=== PATIENT | female | born 1945 | race Caucasian/White ===

== ENCOUNTER 2023-11-05 20:23 | Inpatient (IN) | payer MEDICARE, OTHER, SELFPAY ==
[2023-11-05 17:52] VITALS: BP 138/61
[2023-11-05 17:53] VITALS: BMI 34.2
[2023-11-05 18:01] VITALS: BMI 34.2
--- NOTE | 2023-11-05 18:15 | EDRN ---
Cady SERNA in room w/ pt at this time.
--- NOTE | 2023-11-05 18:26 | ED.GENMED ---
History of Present Illness
General
Chief Complaint: Abnormal Lab Value
Source: patient
Exam Limitations: none
Time Seen by Provider: 11/05/23 18:07
Travel History
Have you had any contact with someone who has COVID-19?: No
Do you have any symptoms of coronavirus? Fever > 100 degrees, chills, cough, shortness of breath, sore throat, loss of taste or smell, muscle aches, or headache?: No
History of Present Illness
History of Present Illness:
This is a 78 year old female that is brought in by ambulance with abnormal labs. States that she was told that her Hgb is less then 6. States that today she also had some vaginal bleeding as she gets a Depo shot every 90 days and she was due today.
States that she did get her shot. States that she has a headache. Denies any fever, chills, chest pain, SOB, abd pain, nausea, vomiting, diarrhea, black or bloody stool, dizziness, or urinary burning.
Past History
Past History
ED Past Medical History: CAD, GERD, HTN, Hypercholesterolemia, NIDDM, Renal failure, Hypothyroidism and Other (Dysfunctional uterine bleeding, chronic kidney disease pending dialysis, Renal calculus, Iron def anemia, hemorrhagic disorder due to
extrinsic Circulatory anticoagulation. PNA, Back pain, )
ED Past Surgical History: Appendectomy, Gynecological (D&C), Orthopedic (Left carpal tunnel ), Tonsilectomy, Urological (Kidney stent) and Other (L AV fistula)
Social History
Tobacco: Non-smoker
Alcohol: Occasional
Drug: None
Personal: Single
Living: half-way
Family History
Family History: Negative Diabetes, Hypertension, Early CAD, Asthma or Cancer
Review of Systems
Review of Systems
All Other Systems: ROS reviewed and negative except as documented in HPI and ROS
Constitutional: Reports no symptoms; Denies fever or chills
EENT: Reports no symptoms
Respiratory: Reports no symptoms; Denies cough or trouble breathing
Cardiac: Reports no symptoms; Denies chest pain
ABD/GI: Reports no symptoms; Denies abdominal pain, nausea, vomiting, diarrhea, bloody stools or black stools
: Reports no symptoms; Denies dysuria, frequency or urgency
Musculoskeletal: Reports no symptoms
Skin: Reports no symptoms
Neurological: Reports headache; Denies dizzy
Psychiatric: Reports no symptoms
Phy Exam
General Physical Exam
General Presentation: no apparent distress
General age: appears stated age
General Skin: warm and dry
General Habitus: debilitated and elderly
General Mental: alert
General Hydration: dry mucous membranes
ENT Exam
ENT Exam: TM's normal, pharynx normal and neck supple
Eye Exam
Eye Exam: EOMI
Cardiovascular Exam
Cardiovascular Exam: regular rate/rhythm, normal peripheral pulses and other (Murmur)
Pulmonary Exam
Pulmonary Exam: lungs clear, no respiratory distress, no rales, chest non tender, no crackles, no rhonchi, no wheezing and no cough
Gastrointestinal Exam
Gastrointestinal Exam: normal bowel sounds, non tender, soft, no organomegaly, no pulsatile mass, non distended and other (Stool black hem positive)
Musculoskeletal Exam
Musculoskeletal Exam: full ROM and edema (Lower legs nonpitting)
Skin Exam
Skin Exam: warm/dry, no petechia, pallor and other (:Lower leg skin growths)
Psychiatric Exam
Psychiatric Exam: normal mood/affect
Course
Orders/Labs/Results
Orders:
Orders
11/05/23 Dinner
Clear Liquid
At Your Request: Full Participation
11/05/23 18:13
Cardiac Monitoring- Treatment ONCE
IV Insert/Care/Rem.- Treatment PRN
11/05/23 18:33
Complete Blood Count/With Diff Urgent
Comprehensive Metabolic Panel Urgent
Ferritin Urgent
Comment: ADD ON
Folate Urgent
Comment: ADD ON
Iron Urgent
Comment: ADD ON
Prothrombin Time Urgent
Total Iron Binding Urgent
Comment: ADD ON
Vitamin B12 Urgent
Comment: ADD ON
11/05/23 18:42
Type+Screen Urgent
11/05/23 19:32
* Blood Bank Products Urgent
Blood Bank Products: *Packed RBC Leuko(PRBC's)
Quantity: 2
Transfuse Today: Yes
Reason: Bleeding
11/05/23 19:34
Pantoprazole [Protonix IV] 80 mg IV NOW STA
11/05/23 20:05
Admit/Transfer Patient As Directed
Co-Sign Provider:
Level of Care: Inpatient admission
Assign to:: Medical/Surgical
Physician / Group: nolan
Diagnosis: anemia
Reason for Hospitalization: anemia
Expected length of stay greater than two midnights?: Yes
ELOS- Estimated Length of Stay in days: 2
I certify the patient meets the requirements for IP care: Yes
Code Status As Directed
Resuscitation Status: Full Code
11/05/23 21:09
Acetaminophen [Tylenol] 650 mg PO Q4HPRN PRN
Bisacodyl [Dulcolax] 10 mg RECTAL DAILYPRN PRN
Dextrose 50%-Water [Dextrose 50% Syringe] 12.5 grams IV [id number] PRN
Docusate W/Senna [Senokot-S] 1 tablet PO [id number] PRN
Glucagon [GlucaGen] 1 mg IM PRN PRN
Polyethylene Glycol Powder [Miralax] 17 grams PO DAILYPRN PRN
11/05/23 21:09
Activity As Directed
Activity Level: As Tolerated
Bedside Glucose Monitoring As Directed
Frequency: AC&HS
Comment: Change to q6h if pt on TPN, tube feeding or not eating
Pneumatic Compression Sleeves As Directed
Type: Knee high
Vital Signs As Directed
Frequency: Per unit guidelines
DX Deep Vein Thrombosis Video Routine
11/05/23 21:21
Ammonium Lactate 12% [Lac Hydrin, Am Lactin Lotion] 0 applic TOPICAL F20IATE PRN
11/05/23 22:00
HydrALAZINE [Apresoline] 50 mg PO TID
11/06/23 06:00
Complete Blood Count/With Diff IN AM
Comprehensive Metabolic Panel IN AM
Glycohemoglobin (HgbA1c) IN AM
11/06/23 07:00
Levothyroxine [Synthroid] 25 mcg PO DAILY AT 0700
11/06/23 07:30
Insulin Aspart Corrective Low [Novolog Flexpen-Low Resistance] See Protocol SC AC
11/06/23 08:00
Allopurinol [Zyloprim] 100 mg PO DAILY
Atorvastatin [Lipitor] 40 mg PO DAILY
Carvedilol [Coreg] 25 mg PO BID
Cyanocobalamin [Vitamin B-12] 1,000 mcg PO DAILY
FOLic ACID [Folvite] 1 mg PO DAILY
Ferrous Sulfate [Feosol] 325 mg PO Q48H
Gabapentin [Neurontin] 300 mg PO DAILY
Miconazole Nitrate [Desenex/Mitrazol/Zeasorb] 0 applic TOPICAL BID
Pantoprazole [Protonix IV] 40 mg IV BID
Sodium Bicarbonate 1,300 mg PO BID
Torsemide [Demadex] 20 mg PO BID AT 0800,1600
Abnormal Lab Results
11/05/23 11/05/23
18:33 18:42
RBC 2.17 L 10^6/uL
(4.20-5.40)
Hgb 6.9 L* g/dL
(12.0-16.0)
Hct 20.4 L* %
(37.0-47.0)
MCH 31.8 H pg
(27.0-31.0)
Carbon Dioxide 19 L mmol/L
(22-30)
BUN 94 H mg/dl
(7-17)
Creatinine 4.0 H mg/dL
(0.6-1.0)
Glucose 114 H mg/dl
(70-99)
Total Protein 6.1 L g/dl
(6.3-8.2)
Vitamin B12 > 1000 H pg/ml
(239-931)
Folate > 20.0 H ng/ml
(2.76-20)
Crossmatch IS Only See Detail
11/05/23 18:33
11/05/23 18:33
H/H very low. Chronic renal failure, Glucose nonfasting. Total protein slighlty low. PT 14.4 with INR 1.14
Vital Signs
Initial and Last Documented VS:
Initial Vital Signs
Temp Pulse Resp BP Pulse Ox
97.8 F 70 18 138/61 100
11/05/23 17:52 11/05/23 17:52 11/05/23 17:52 11/05/23 17:52 11/05/23 17:52
Last Documented Vital Signs
Temp Pulse Resp BP Pulse Ox
97.8 F 68 20 139/80 99
11/06/23 03:36 11/06/23 03:36 11/06/23 03:36 11/06/23 03:36 11/06/23 03:00
MDM/Problems Addressed
Differential Diagnosis Includes:
GI bleeding. Abnormal labs
MDM/Problems Addressed:
This is a 78 year old female that comes in with c/o abnormal labs. States that she was told that her Hgb is 6.
Will get labs and give PRBC's as needed. Will admit as patient has hem positive stool on exam. Hospitalist notified about admittion.
Chronic conditions affecting care:
Hemorrhagic disorder Due to Extrinsic circulatory anticoagulants. Iron Def anemia
Acute Exacerbation and/or Progression of Chronic Illness:
Anemia,
*Pulse Oximetry
Patient hypoxic: no
*Critical Care Note
Total Time (30-74mins, 75-104mins- exclusive of procedures): Not Applicable
ED Attending Note
-
Portions of this chart may have been created with voice recognition software.� Occasional wrong word or��sound alike� substitutions may have occurred due to the inherent limitations of voice recognition software.
Discharge Plan
Departure
Patient Disposition: Admit
Date of Disposition: 11/05/23
Time of Disposition: 19:34
Admit to: Telemetry
Presentation/result/management discussed w/ accepting MD/DO: Hospitalist
Patient with high blood pressure during this ER visit?: No
Condition: Good
Covid-19: Not Applicable
Discharge Problem:
GI bleed
Interventions
Interventions:
*Risk Screen - Suicide Last Done: 11/05/23 17:53
*General Assessment Last Done: 11/05/23 17:53
*Neglect/Abuse Screening Last Done: 11/05/23 17:53
ED- Fall Risk Assessment Last Done: 11/05/23 19:13
*ED COVID-19 Vaccine History Last Done: 11/05/23 17:52
*Nursing Disposition Last Done: 11/05/23 21:30
Discharge Date and Time
Discharge Date/Time: 11/05/23 21:30
[2023-11-05 18:46] LABS: % Basophils 0.8 % (0-2); % Eosinophils 4.4 % (0-6); % Immature Granulocytes 0.5 % (0-0.5); % Lymphocytes 21.8 % (20.5-51.1); % Monocytes 5.2 % (1.7-9.3); % Neutrophils 67.3 % (42.2-75.2); Absolute Basophils 0.1 10^3/uL (0-0.2); Absolute Eosinophils 0.3 10^3/uL (0-0.7); Absolute Lymphocytes 1.4 10^3/uL (1.2-3.4); Absolute Monocytes 0.3 10^3/uL (0.1-0.6); Absolute Neutrophils 4.3 10^3/uL (1.4-6.5); Mean Corp Hgb Conc. 33.8 g/dL (33.0-37.0); Mean Corpuscular Hgb 31.8 pg (27.0-31.0); Mean Platelet Volume 9.2 fL (7.4-10.4); Nucleated Red Blood Cells % 0 %; Platelet Count 201 10^3/uL (130-400); Red Blood Cell Count 2.17 10^6/uL (4.20-5.40); Red Cell Dist. Width 14.3 % (11.5-14.5); White Blood Cell Count 6.3 10^3/uL (4.8-10.8)
[2023-11-05 18:49] LABS: Hematocrit 20.4 % (37.0-47.0); Hemoglobin 6.9 g/dL (12.0-16.0)
[2023-11-05 18:51] VITALS: BP 129/62
[2023-11-05 18:56] LABS: INR 1.14; PT 14.4 Sec (11.4-14.6)
[2023-11-05 18:57] LABS: ALT (SGPT) 16 U/L (0-35); AST (SGOT) 22 U/L (14-36); Albumin 3.6 g/dl (3.5-5.0); Alkaline Phosphatase 67 U/L (38-126); Blood Urea Nitrogen 94 mg/dl (7-17); Calcium 9.7 mg/dl (8.4-10.2); Carbon Dioxide 19 mmol/L (22-30); Estimated Creatinine Clearance 14 ml/min; Glucose 114 mg/dl (70-99); Total Bilirubin 0.5 mg/dl (0.2-1.3); Total Protein 6.1 g/dl (6.3-8.2); eGFR 10.92
[2023-11-05 19:12] LABS: Chloride 104 mmol/L (98-107); Potassium 4.9 mmol/L (3.5-5.1); Sodium 136 mmol/L (135-145)
[2023-11-05] MEDS: PROTONIX IV 80 MG IV (19:48)
--- NOTE | 2023-11-05 20:08 | HPS.HSE ---
Family Physician
-
Family Physician: Jhonathan Gabriel
Chief Complaint
-
anemia
History of Present Illness
78-year-old female past medical history of CAD, hypertension, GERD, hypercholesteremia, diabetes, CKD 4 about to start dialysis, hypothyroidism, iron deficiency anemia, renal calculus, gout, obesity, chronic anemia, gallstones, presenting with
abnormal labs presenting with abnormal labs. She states her hemoglobin was less than 6 and was sent to the ER. She denies any dizziness, shortness of breath or chest pain. She states that she got a D&C a year ago and since then she has been
having vaginal bleeding every few months for which she has been receiving Depo-Provera every 3 months. Her last injection was today. She denies any recent vaginal bleeding. She denies any blood in her stool or black stool or changes in her bowel
movements. Denies diarrhea or constipation. Denies any history of blood in her stool.
She denies any fevers or chills. Denies nausea or vomiting.
Patient receives Procrit by Dr. Kim every week. She is due for Procrit injection next week. She is on the verge of starting dialysis and has a fistula which is maturing.
Denies smoking. She drinks alcohol occasionally.
Medical History
Past Medical History
Past Medical History: Reports Other (CAD, hypertension, GERD, hypercholesteremia, diabetes, CKD 4 about to start dialysis, hypothyroidism, iron deficiency anemia, renal calculus, gout, obesity, chronic anemia, gallstones)
Past Surgical History: Reports Other (Appendectomy, Gynecological (D&C), Orthopedic (Left carpal tunnel ), Tonsilectomy, Urological (Kidney stent) and Other (L AV fistula))
Social History
Tobacco: Non-smoker
Alcohol: None
Drug: None
Family History
Family History: Not pertinent
Allergies / Home Medications
Allergies reflects when Allergies were last updated in [employer].
Home Medications with original date entered in [employer]
Allergy/Medication List:
Allergies
Allergy/AdvReac Type Severity Reaction Status Date / Time
Penicillins Allergy Hives Verified 11/05/23 17:51
Home Medications
allopurinol 100 mg tablet 100 mg PO DAILY Gout 09/07/22
ammonium lactate 12 % topical cream 1 applic topical [id number] PRN B/L legs 09/07/22
aspirin 81 mg tablet,delayed release 81 mg PO DAILY Blood clot prevention/tx 09/07/22
atorvastatin 40 mg tablet (Lipitor) 40 mg PO DAILY High cholesterol 09/07/22
carvedilol 25 mg tablet (Coreg) 25 mg PO BID Heart disease/condition 09/07/22
folic acid 1 mg tablet 1 mg PO DAILY Supplement 09/07/22
sodium bicarbonate 650 mg tablet 1,300 mg PO BID Supplement 09/07/22
hydralazine 50 mg tablet 50 mg PO TID Blood pressure 10/26/22
pantoprazole 40 mg tablet,delayed release 40 mg PO DAILY Gastrointestinal issue 10/31/22
bisacodyl 10 mg rectal suppository 10 mg [place] DAILYPRN PRN constipation #0 ea 11/22/22
acetaminophen 325 mg tablet (Tylenol) 650 mg PO Q4HPRN PRN mild pain/temp 100F or above 11/28/22
levothyroxine 25 mcg tablet 25 mcg PO DAILY Thyroid 11/28/22
cyanocobalamin (vitamin B-12) 1,000 mcg tablet 1,000 mcg PO DAILY #0 tabs 12/06/22
insulin aspart U-100 100 unit/mL (3 mL) subcutaneous pen (Novolog FlexPen U-100 Insulin aspart) 0 - 12 sliding scale dose SC ACHS Diabetes 03/26/23
sennosides 8.6 mg-docusate sodium 50 mg tablet (Senna with Docusate Sodium) 1 tab PO [id number] PRN constipation 03/27/23
gabapentin 100 mg capsule 100 mg PO TID Pain #0 caps 03/28/23
polyethylene glycol 3350 17 gram oral powder packet (Miralax) 17 g PO DAILY PRN Constipation 07/17/23
epoetin dora 10,000 unit/mL injection solution (Procrit) 10,000 unit SC TU PRN give only for HGB 10 or less 10/18/23
ferrous sulfate 325 mg (65 mg iron) tablet 325 mg PO Q48H Supplement 10/18/23
miconazole nitrate 2 % topical powder (Miconazorb AF) 1 applic topical BID apply to ABD folds/groin 10/18/23
torsemide 10 mg tablet 20 mg PO BID 10/18/23
Review of Systems
-
History Source: Patient
A 12 point ROS was completed and negative except as noted: Yes
Constitutional: Reports No Symptoms
EENT: Reports No Symptoms
Respiratory: Reports No Symptoms
Cardiac: Reports No Symptoms
Abdomen/GI: Reports No Symptoms
: Reports No Symptoms
Musculoskeletal: Reports No Symptoms
Skin: Reports No Symptoms
Neurological: Reports No Symptoms
Endocrine: Reports No Symptoms
Hematologic/Lymphatic: Reports No Symptoms
Psych: Reports No Symptoms
Physical Exam
Vital Signs
Vital Signs
Temp Pulse Resp BP Pulse Ox
97.8 F 62 16 129/62 100
11/05/23 17:52 11/05/23 18:51 11/05/23 18:51 11/05/23 18:51 11/05/23 19:13
Physical Exam
General: Well Developed, Well Nourished and No Apparent Distress
HEENT: NormoCephalic, Moist mucous membranes and Atraumatic
Respiratory: Clear
Cardiac: S1/S2 and Regular Rhythm; No Murmur or Rub
GI: Soft, Non Tender, Non Distended and Normal Bowel Sounds; No Organomegaly
Rectal: Deferred by Provider
Musculoskeletal: No Clubbing, No Cyanosis and No Edema
Skin: No Rash
Neuro: Nonfocal/grossly intact
Laboratory Results
-
11/05/23 18:33
11/05/23 18:33
Laboratory Results
PT 14.4 Sec (11.4-14.6) 11/05/23 18:33
INR 1.14 11/05/23 18:33
Total Bilirubin 0.5 mg/dl (0.2-1.3) 11/05/23 18:33
AST 22 U/L (14-36) 11/05/23 18:33
ALT 16 U/L (0-35) 11/05/23 18:33
Alkaline Phosphatase 67 U/L (38-126) 11/05/23 18:33
Data Reviewed
-
Lab Data: Labs Reviewed by me
Old Records: Reviewed
Impression/Plan
-
IMPRESSION:
PLAN:
# Acute on chronic anemia multifactorial secondary to upper GI bleeding/anemia of renal disease
-Stool black and heme positive
-Hemoglobin 6.9 from 7.3 previously
-2 units of blood transfusion
-Hold aspirin
-Clear liquid diet
-Protonix 40 IV twice daily
-Continue iron supplement
-GI consulted
-Nephrology consulted for Procrit
CKD4
-On the verge of starting dialysis
-Continue sodium bicarbonate
-Continue torsemide
Coronary artery disease
-Hold aspirin
Essential hypertension
-Continue hydralazine
-Continue Coreg
Type 2 diabetes
-Insulin sliding scale
History of gallstones
Hyperlipidemia
-Continue statin
Hypothyroidism
-Continue levothyroxine
Gout
-Continue allopurinol
Morbid obesity
Full code
DVT prophylaxis�SCDs
N.p.o.
[2023-11-05 20:50] VITALS: BP 143/52
--- NOTE | 2023-11-05 21:18 | PTCARENOTE ---
Pt received from ED to [facility]. Pt oriented to room and call hoang..
[2023-11-05 21:25] VITALS: BP 154/69
[2023-11-05 21:27] VITALS: BMI 33.3
[2023-11-05 21:44] LABS: Iron 134 ug/dl (37-170)
[2023-11-05 21:53] VITALS: BP 154/69
[2023-11-05 21:53] LABS: Percent Saturation 43 % (20-50); Total Iron Binding Capacity 308 ug/dl (265-497)
[2023-11-05] MEDS: APRESOLINE 50 MG PO (21:58)
[2023-11-05 22:11] VITALS: BP 136/50
[2023-11-05 22:29] LABS: Ferritin 29.7 ng/ml (11.1-264.0)
[2023-11-05 23:00] LABS: Folate > 20.0 ng/ml (2.76-20); Vitamin B12 > 1000 pg/ml (239-931)
[2023-11-05 23:26] LABS: Glucose - Point of Care 106 mg/dl (70-99)
[2023-11-06] VITALS (8 sets, daily range): BP systolic 122–152; BP diastolic 50–80; BMI 33.3
[2023-11-06] MEDS: SYNTHROID 25 MCG PO (05:38)
--- NOTE | 2023-11-06 06:51 | CON.GI ---
Consultation
-
Date/Time Consultation Performed: 11/06/23
Performing Provider: Scott Spring MD
Reason for Consultation: anemia
Medical History
Chief Complaint / HPI
Chief Complaint: fatigue
History of Present Illness:
The patient is a 78-year-old female with past medical history as noted presents with abnormal labs. She was found to have an outpatient hemoglobin of less than 6 and sent to the emergency room where her hemoglobin was found to be 6.9 with an MCV in
the 90s. She has had chronic anemia, which has been multifactorial, with mixed iron studies, the mostly has been anemia of chronic disease. She has been having some vaginal bleeding intermittently on Depo-Provera, and notices at the end of the
cycle she has some small mount of vaginal bleeding. She has no gross GI bleeding, and has dark formed stools on oral iron which has been chronic, though no loose or tarry stools, gross red bleeding or change in bowel habits. She did have an
endoscopy and a colonoscopy a year ago that showed multiple colon polyps, including 2 large polyps that were not removed. She has had multiple scheduled and canceled appointments with Dr. Zambrano, though did most recently see him in August and is
planned to have repeat colonoscopy in December for polypectomy. Previously she was on dual antiplatelet therapy and anticoagulation though currently per her medication list is only on aspirin and she denies any other NSAIDs. She denies any chest pain
or shortness of breath and is overall feeling well.
Past Medical History
Past Medical History: Other (CAD, hypertension, GERD, hypercholesteremia, diabetes, CKD 4 about to start dialysis, hypothyroidism, iron deficiency anemia, renal calculus, gout, obesity, chronic anemia, gallstones)
Past Surgical History: Other (Appendectomy, Gynecological (D&C), Orthopedic (Left carpal tunnel ), Tonsilectomy, Urological (Kidney stent) and Other (L AV fistula))
Social History
Tobacco: Non-Smoker
Alcohol: None
Drug: None
Family History
Family History: Reviewed & Not Pertinent
Allergies / Home Medications
Allergy/AdvReac Type Severity Reaction Status Date / Time
Penicillins Allergy Hives Verified 11/05/23 17:51
Medication Instructions Recorded
allopurinol 100 mg tablet 100 mg PO DAILY Gout 09/07/22
ammonium lactate 12 % topical cream 1 applic topical [id number] PRN B/L 09/07/22
legs
aspirin 81 mg tablet,delayed 81 mg PO DAILY Blood clot 09/07/22
release prevention/tx
atorvastatin 40 mg tablet (Lipitor) 40 mg PO DAILY High cholesterol 09/07/22
carvedilol 25 mg tablet (Coreg) 25 mg PO BID Heart 09/07/22
disease/condition
folic acid 1 mg tablet 1 mg PO DAILY Supplement 09/07/22
sodium bicarbonate 650 mg tablet 1,300 mg PO BID Supplement 09/07/22
hydralazine 50 mg tablet 50 mg PO TID Blood pressure 10/26/22
pantoprazole 40 mg tablet,delayed 40 mg PO DAILY Gastrointestinal 10/31/22
release issue
bisacodyl 10 mg rectal suppository 10 mg [place] DAILYPRN PRN constipation 11/22/22
#0 ea
acetaminophen 325 mg tablet 650 mg PO Q4HPRN PRN mild 11/28/22
(Tylenol) pain/temp 100F or above
levothyroxine 25 mcg tablet 25 mcg PO DAILY Thyroid 11/28/22
cyanocobalamin (vitamin B-12) 1,000 mcg PO DAILY #0 tabs 12/06/22
1,000 mcg tablet
insulin aspart U-100 100 unit/mL 0 - 12 sliding scale dose SC ACHS 03/26/23
(3 mL) subcutaneous pen (Novolog Diabetes
FlexPen U-100 Insulin aspart)
sennosides 8.6 mg-docusate sodium 1 tab PO [id number] PRN constipation 03/27/23
50 mg tablet (Senna with Docusate
Sodium)
gabapentin 100 mg capsule 100 mg PO TID Pain #0 caps 03/28/23
polyethylene glycol 3350 17 gram 17 g PO DAILY PRN Constipation 07/17/23
oral powder packet (Miralax)
epoetin dora 10,000 unit/mL 10,000 unit SC TU PRN give only 10/18/23
injection solution (Procrit) for HGB 10 or less
ferrous sulfate 325 mg (65 mg 325 mg PO Q48H Supplement 10/18/23
iron) tablet
miconazole nitrate 2 % topical 1 applic topical BID apply to ABD 10/18/23
powder (Miconazorb AF) folds/groin
torsemide 10 mg tablet 20 mg PO BID 10/18/23
glucagon HCl 1 mg solution for 1 mg SC Q20M PRN hypoglycemia 11/05/23
injection (Glucagon (HCl)
Emergency Kit)
loperamide 2 mg tablet 2 mg PO Q6H PRN diarrhea 11/05/23
Review of Systems
-
All other systems: A 12 pt ROS was Negative except as stated above in HPI
Vital Signs
Temp Pulse Resp BP Pulse Ox
97.8 F 68 20 139/80 99
11/06/23 03:36 11/06/23 03:36 11/06/23 03:36 11/06/23 03:36 11/06/23 03:00
Physical Exam
Exam
General: NAD
HEENT: MMM, anicteric, no lymphadenopathy
Heart: Regular, 2/6 systolic murmurs
Lungs: CTA bilaterally
Abdomen: normal bowel sounds, soft, no tenderness, no rebound or guarding, no masses, bruits or ascites
Extremeties: 3+ edema
Skin: no rashes
Results
WBC 6.3 10^3/uL (4.8-10.8) 11/05/23 18:33
Hgb 6.9 g/dL (12.0-16.0) L* 11/05/23 18:33
Hct 20.4 % (37.0-47.0) L* 11/05/23 18:
MCV 94.0 fL (81.0-99.0) 11/05/23 18:
Plt Count 201 10^3/uL (130-400) 11/05/23 18:
Absolute Neuts (auto) 4.3 10^3/uL (1.4-6.5) 11/05/23 18:
PT 14.4 Sec (11.4-14.6) 11/05/23 18:
INR 1.14 11/05/23 18:
Sodium 136 mmol/L (135-145) 11/05/23:
Potassium 4.9 mmol/L (3.5-5.1) 11/05/23:
Chloride 104 mmol/L (98-107) 11/05/23:
Carbon Dioxide 19 mmol/L (22-30) L 11/05/23:
BUN 94 mg/dl (7-17) H 11/05/23 18:
Creatinine 4.0 mg/dL (0.6-1.0) H 11/05/23:
Calcium 9.7 mg/dl (8.4-10.2) 11/05/23:
Total Bilirubin 0.5 mg/dl (0.2-1.3) 11/05/23 18:
AST 22 U/L (14-36) 11/05/23:
ALT 16 U/L (0-35) 11/05/23 18:
Alkaline Phosphatase 67 U/L (38-126) 11/05/23 18:
Diagnostic Image Results:
Prior GI Procedures:
EGD:
10/23:
Impression:� � � � � � - Normal esophagus.
�� � � � � � � � � � � - Erythematous mucosa in the stomach. Biopsied.
�� � � � � � � � � � � - Mucosal nodule found in the duodenum. Biopsied.
�� � � � � � � � � � � - Normal second portion of the duodenum. Biopsied.
Colonoscopy:
10/23:
Impression:� � � � � � - Preparation of the colon was poor.
�� � � � � � � � � � � - Five 3 to 6 mm polyps in the rectum, in the sigmoid
�� � � � � � � � � � � colon and in the cecum, removed with a cold snare.
�� � � � � � � � � � � Resected and retrieved.
�� � � � � � � � � � � - One 1 mm polyp in the cecum, removed with a jumbo
�� � � � � � � � � � � cold forceps. Resected and retrieved.
�� � � � � � � � � � � - One 20 mm polyp in the cecum. Biopsied.
�� � � � � � � � � � � - One 18 mm polyp in the ascending colon. Biopsied.
�� � � � � � � � � � � - One 10 mm polyp in the transverse colon, removed
�� � � � � � � � � � � with a hot snare. Complete resection. Partial
�� � � � � � � � � � � retrieval. Clips were placed.
�� � � � � � � � � � � - Internal hemorrhoids.
Assessment / Plan
-
1. Anemia: Multifactorial, mostly secondary to anemia of chronic diseases with worsening renal insufficiency, planning on dialysis in the next several months, with history of iron deficiency also, with vaginal bleeding, following closely with RECORDS MANAGEMENT COORDINATOR.
While GI blood loss is not excluded this does seem less likely as she has had no melena, and only formed dark stools which have been chronic. This was Hemoccult positive by report, though again doubt any significant brisk active GI bleeding. She
did have several large colon polyps, and while colonic malignancy is not completely excluded this also seems less likely within just a year. Her iron studies are now normal, again feels well with no new GI symptoms and no gross GI bleeding. At
this point given her dark stools, however, we will plan EGD today and will continue PPI for now. We discussed the possibility of colonoscopy while she is an inpatient though she declines, again knowing of the very small chance though not completely
excluded of colonic malignancy. She wants to follow-up as previously scheduled in December for her colonoscopy with Dr. Zambrano.
-
-
Thank you for consultation and allowing me to participate in the patient's care. Please call the rn oncology research GI physician during the after hours with any questions or concerns.
[2023-11-06 07:48] LABS: Glucose - Point of Care 92 mg/dl (70-99)
[2023-11-06 08:00] LABS: % Basophils 0.7 % (0-2); % Eosinophils 4.8 % (0-6); % Immature Granulocytes 0.4 % (0-0.5); % Lymphocytes 21.9 % (20.5-51.1); % Monocytes 5.6 % (1.7-9.3); % Neutrophils 66.6 % (42.2-75.2); Absolute Eosinophils 0.3 10^3/uL (0-0.7); Absolute Lymphocytes 1.2 10^3/uL (1.2-3.4); Absolute Monocytes 0.3 10^3/uL (0.1-0.6); Absolute Neutrophils 3.6 10^3/uL (1.4-6.5); Hematocrit 26.7 % (37.0-47.0); Mean Corp Hgb Conc. 32.6 g/dL (33.0-37.0); Mean Platelet Volume 9.2 fL (7.4-10.4); Nucleated Red Blood Cells % 0 %; Platelet Count 181 10^3/uL (130-400); Red Blood Cell Count 2.81 10^6/uL (4.20-5.40); Red Cell Dist. Width 14.3 % (11.5-14.5); White Blood Cell Count 5.4 10^3/uL (4.8-10.8)
[2023-11-06 08:08] LABS: Hemoglobin 8.7 g/dL (12.0-16.0)
[2023-11-06] MEDS: APRESOLINE 50 MG PO ×3 (08:14→21:14)
[2023-11-06] MEDS: DEMADEX 20 MG PO ×2 (08:15→15:57)
[2023-11-06] MEDS: COREG 25 MG PO ×2 (08:15→21:13)
[2023-11-06] MEDS: FEOSOL 325 MG PO (08:15)
[2023-11-06] MEDS: FOLVITE 1 MG PO (08:15)
[2023-11-06] MEDS: DESENEX/MITRAZOL/ZEASORB 1 APPLIC TOPICAL ×2 (08:15→21:16)
[2023-11-06] MEDS: NEURONTIN 300 MG PO (08:16)
[2023-11-06] MEDS: NSS (PRESERVATIVE FREE) 10 ML IV (08:16)
[2023-11-06] MEDS: SODIUM BICARBONATE 1300 MG PO ×3 (08:16→21:14)
[2023-11-06] MEDS: PROTONIX IV 40 MG IV (08:16)
[2023-11-06] MEDS: LIPITOR 40 MG PO (08:16)
[2023-11-06] MEDS: VITAMIN B-12 1000 MCG PO (08:17)
[2023-11-06] MEDS: ZYLOPRIM 100 MG PO (08:17)
[2023-11-06 08:33] LABS: ALT (SGPT) 12 U/L (0-35); AST (SGOT) 17 U/L (14-36); Albumin 2.9 g/dl (3.5-5.0); Alkaline Phosphatase 60 U/L (38-126); Blood Urea Nitrogen 94 mg/dl (7-17); Calcium 9.9 mg/dl (8.4-10.2); Carbon Dioxide 20 mmol/L (22-30); Chloride 106 mmol/L (98-107); Estimated Creatinine Clearance 15 ml/min; Glucose 90 mg/dl (70-99); Potassium 4.3 mmol/L (3.5-5.1); Sodium 138 mmol/L (135-145); Total Bilirubin 0.7 mg/dl (0.2-1.3); Total Protein 5.3 g/dl (6.3-8.2); eGFR 11.62
[2023-11-06 08:37] LABS: Glycohemoglobin (HgbA1c) 5.2 % (4.0-5.6)
--- NOTE | 2023-11-06 09:08 | W.PN.HOSP.TC ---
Today's Communication/Plan
-
.
Assessment / Plan
Assessment / Plan
Physical Exam
-
General: Chronically ill looking, No Apparent Distress
HEENT: Normocephalic, Atraumatic, Moist Mucous Membranes. Pale.
Respiratory: Clear to Auscultation
Cardiac: S1 S2, + murmur
GI: Soft, Nontender, Nondistended and Normal Bowel Sounds.
Rectal: No rectal bleeding noted.
Musculoskeletal: No Clubbing, No Cyanosis and No Edema. Fistula in left wrist
Skin: Negative Rash
Neuro: Awake, Alert, Oriented, AO x 3 and Nonfocal/Grossly Intact
Psych: Calm
# Acute on chronic anemia to acute blood loss anemia and anemia of chronic disease due to CKD
s/p 2 units of blood transfusion
-Stool black and heme positive
-Hemoglobin 6.9 from 7.3 previously
--Hold aspirin
-NPO for now , plan for EGD today
-Protonix 40 IV twice daily
-Continue iron supplement
-Appreciate GI input.
# CKD5
-On the verge of starting dialysis. Left wrist fistula noted.
-Continue sodium bicarbonate
-Continue torsemide
#Coronary artery disease
No chest pain
-Hold aspirin
#Essential hypertension
Uncontrolled. WIll give hydralazine & Coreg, adjust the dose during the day , she is NPO now.
Add PRN IV Hydralazine
# Gait dysfunction
on wheelchair but able to stand
#Type 2 diabetes
-Insulin sliding scale
#History of gallstones
#Hyperlipidemia
-Continue statin
#Hypothyroidism
-Continue levothyroxine
#Gout
-Continue allopurinol
# obesity. BMI 33
Full code
DVT prophylaxis�SCDs
Total time spent to see the patient, examine the patient on the floor, review data and lab results, discuss treatment plan with patient and nursing staff around 55 minutes
Anticipated Discharge: 24 - 48 hours
Subjective/Interval History
-
Date of Service: November 06, 2023
Objective Data
-
Labs:
Laboratory Results
11/06/23
06:23
WBC 5.4
Hgb 8.7 L D
Hct 26.7 L
Plt Count 181
Sodium 138
Potassium 4.3
Chloride 106
Carbon Dioxide 20 L
BUN 94 H
Creatinine 3.8 H
Glucose 90
Calcium 9.9
Total Bilirubin 0.7
AST 17
ALT 12
Alkaline Phosphatase 60
Vital Signs:
Vital Signs
Temp Pulse Resp BP Pulse Ox
97.8 F 66 20 152/50 100
11/06/23 07:30 11/06/23 07:30 11/06/23 07:30 11/06/23 07:30 11/06/23 07:30
I&O
11/05/23 11/06/23 11/07/23
06:59 06:59 06:59
Intake Total 620 / 620
Output Total 1000 / 1000
Balance -380 / -380
--- NOTE | 2023-11-06 09:56 | CON.MD ---
Consultation - Medical
-
Assessment:
Anemia (2/2 to UGIB + anemia of chronic disease)
CAD
HTN (multi drug regimen)
DLD
GERD
CKD 4/5 bl Cr 3.1-3.9 (fistula in place)
Hx of recurrent obstructive uropathy
Hysteroscopy DC, failed endometrial ablation Nov 2022
Metabolic acidosis (on bicarb)
hypothyroidism
gallstones
DVT (not on AC)
Gout
Plan:
- Cr appears to be within her baseline
- no uremic sxs (anorexia, metallic taste, tremor)
- currently NPO, when diet reinitiates please place on low K diet
- metabolic acidosis noted, will increase sodium bicarb to 1300mg TID
- okay to continue antihypertensives as the patient remains hypertensive. if bp drops, please hold
- c/w torsemide 20mg BID as patient appears euvolemic. if BP drops, please hold
- no urgent indications for dialysis at this time, likely can start as an outpatient. planned for f/u with Dr. Kim on 11/12
[2023-11-06] MEDS: EPOGEN 10000 UNITS SC (11:57)
[2023-11-06 12:02] LABS: Glucose - Point of Care 102 mg/dl (70-99)
--- NOTE | 2023-11-06 12:44 | CM ---
medication manager reviewed patient's chart and met with patient and patient and daughter at bedside, patient has been living at [facility] for 15 months, Per patient she is able to stand and pivot with transfer to /, eating is a set up. Patient's
plan is to return to [facility] when stable.
[facility]
[phone]

Plan Patient to return to [facility] when stable.
[2023-11-06 17:00] LABS: Glucose - Point of Care 130 mg/dl (70-99)
[2023-11-06 21:38] LABS: Glucose - Point of Care 109 mg/dl (70-99)
[2023-11-07] MEDS: SYNTHROID 25 MCG PO (04:53)
[2023-11-07 05:39] VITALS: BMI 33.2
[2023-11-07 07:00] VITALS: BP 135/50
[2023-11-07 07:48] LABS: Hematocrit 25.2 % (37.0-47.0); Hemoglobin 8.5 g/dL (12.0-16.0); Mean Corp Hgb Conc. 33.7 g/dL (33.0-37.0); Mean Corpuscular Hgb 31.6 pg (27.0-31.0); Mean Corpuscular Volume 93.7 fL (81.0-99.0); Mean Platelet Volume 9.1 fL (7.4-10.4); Platelet Count 180 10^3/uL (130-400); Red Blood Cell Count 2.69 10^6/uL (4.20-5.40); Red Cell Dist. Width 14.5 % (11.5-14.5); White Blood Cell Count 4.9 10^3/uL (4.8-10.8)
[2023-11-07 07:52] LABS: Glucose - Point of Care 105 mg/dl (70-99)
--- NOTE | 2023-11-07 08:59 | W.DCSUMMARY ---
Discharge Summary
Discharge Data
Date of Admission: 11/05/23
Date of Discharge: 11/07/23
-
Pending Results: No
Hospital Course
78 years old female presented to the emergency room with anemia. Hemoglobin on admission was 6.9. Patient was sent over for evaluation of anemia. Patient reported history of chronic anemia. She denied dizziness, shortness of breath or chest
pain. She had history of vaginal bleeding but denied recent vaginal bleeding. She was under care of shiatsu therapist. Patient denied nausea or vomiting. No abdominal pain. Patient had history of chronic kidney disease stage V with fistula in place.
Patient had Hemoccult positive stool. Stool was dark color and she was taking iron supplement for iron deficient anemia in addition to anemia of chronic disease. She was evaluated by corporate vp advertising & online. Patient had upper endoscopy that showed
normal esophagus, mild erythematous mucosa in the stomach with few nonbleeding angiectasia in the duodenum. Kerrick Kleaner Operator recommended to continue treatment for anemia of chronic disease. Patient received 2 units of blood transfusion and her
hemoglobin stabilized around 8. Patient was evaluated by groundhand and was given Epogen injection. She had metabolic acidosis and sodium bicarbonate dose was increased. Patient followed with nephrology in the outpatient setting. Patient
remained hemodynamically stable. She tolerated diet. Patient was discharged in a stable condition.
Physical Exam
General: Chronically ill looking,� No Apparent Distress
HEENT: Normocephalic, Atraumatic, Moist Mucous Membranes. �
Respiratory: Clear to Auscultation
Cardiac: S1 S2, + murmur
GI: Soft, Nontender, Nondistended and Normal Bowel Sounds.
Rectal: No rectal bleeding noted.
Musculoskeletal: No Clubbing, No Cyanosis and No Edema. Fistula in left wrist
Skin: chronic scaly, raised think yellow-brown in lower legs. Lymphedema noted.
Neuro: Awake, Alert, Oriented, AO x 3 and Nonfocal/Grossly Intact
Psych: Calm.
Total discharge time spent to see the patient, examine the patient on the floor, review data and lab results, discuss discharge plan with patient and nursing staff around 65 minutes
Discharge Plan
-
Patient Disposition: Long-Term/SNF
Discharge Diagnosis/Procedures: Anemia of chronic disease status posttransfusion of 2 units of blood. Epogen injection.
Chronic kidney disease stage V with metabolic acidosis. Increased the dose of sodium bicarbonate pills.
Diet: As tolerated
Referrals:
Jhonathan Gabriel MD [Family Provider] - in one to two weeks
Nasim Kim MD [Active] - in one to two weeks
Prescriptions:
Continued
allopurinol 100 mg Tablet
100 mg PO DAILY
atorvastatin [Lipitor] 40 mg Tablet
40 mg PO DAILY
carvedilol [Coreg] 25 mg Tablet
25 mg PO BID
Rx Instructions:
10/18/2023, HOLD for SBP<90 OR HR<60.
aspirin 81 mg Tablet,Delayed Release (Dr/Ec)
81 mg PO DAILY
folic acid 1 mg Tablet
1 mg PO DAILY
ammonium lactate 12 % Cream
1 applic TOPICAL [id number] PRN (Reason: B/L legs)
hydralazine 50 mg Tablet
50 mg PO TID
Rx Instructions:
10/18/2023, hold for SBP<90.
pantoprazole 40 mg tablet,delayed release (DR/EC)
40 mg PO DAILY
bisacodyl 10 mg Suppository
10 mg MI DAILYPRN PRN (Reason: constipation) Qty: 0 0RF
acetaminophen [Tylenol] 325 mg Tablet
650 mg PO Q4HPRN PRN (Reason: mild pain/temp 100F or above)
levothyroxine 25 mcg Tablet
25 mcg PO DAILY
cyanocobalamin (vitamin B-12) 1,000 mcg Tablet
1,000 mcg PO DAILY Qty: 0 0RF
insulin aspart U-100 [Novolog FlexPen U-100 Insulin] 100 unit/mL (3 mL) insulin pen
0 - 12 sliding scale dose SC ACHS
Hold Instructions: Resume on 04/06/23. Resume only after outpatient or rehab physician approves to resume.
Rx Instructions:
10/18/2023, if BS 70-150 = 0 units; 151-200 = 2 units; 201-250 = 4 units; 251-300 = 6 units; 301-350 = 8 units; 351-400 = 10 units; 401-450 = 12 units. If BS>451 call PCP.
sennosides-docusate sodium [Senna with Docusate Sodium] 8.6-50 mg Tablet
1 tab PO [id number] PRN (Reason: constipation)
gabapentin 100 mg Capsule
100 mg PO TID Qty: 0 0RF
polyethylene glycol 3350 [Miralax] 17 gram powder in packet
17 g PO DAILY PRN (Reason: Constipation)
torsemide 10 mg Tablet
20 mg PO BID
Procrit 10,000 unit/mL Solution
10,000 unit SC TU PRN (Reason: give only for HGB 10 or less)
Patient Comments:
10/18/2023, this medication is currently ON HOLD.
Rx Instructions:
10/18/2023, inject 1 syringe SC in the evening every Sunday for LITTLE ONLY GIVE THIS MEDICATION FOR HGB 10 OR LESS. Order Status: ON HOLD.
miconazole nitrate [Miconazorb AF] 2 % powder
1 applic topical BID
ferrous sulfate 325 mg (65 mg iron) tablet
325 mg PO Q48H
loperamide 2 mg Tablet
2 mg PO Q6H PRN (Reason: diarrhea)
glucagon HCl [Glucagon (HCl) Emergency Kit] 1 mg Recon Soln
1 mg SC Q20M PRN (Reason: hypoglycemia)
Changed
sodium bicarbonate 650 mg Tablet
1,300 mg PO TID Qty: 0 0RF
Discharge Orders:
Discharge Patient (As Directed); Ordered 11/07/23
Ordered By: Dio Duke
[2023-11-07] MEDS: APRESOLINE 50 MG PO ×2 (09:15→15:55)
[2023-11-07] MEDS: PROTONIX 40 MG PO (09:16)
[2023-11-07] MEDS: LIPITOR 40 MG PO (09:16)
[2023-11-07] MEDS: NEURONTIN 300 MG PO (09:17)
[2023-11-07] MEDS: LAC HYDRIN, AM LACTIN LOTION 1 APPLIC TOPICAL (09:17)
[2023-11-07] MEDS: ZYLOPRIM 100 MG PO (09:17)
[2023-11-07] MEDS: DEMADEX 20 MG PO ×2 (09:18→15:54)
[2023-11-07] MEDS: COREG 25 MG PO (09:18)
[2023-11-07] MEDS: SODIUM BICARBONATE 1300 MG PO ×2 (09:18→15:54)
[2023-11-07] MEDS: DESENEX/MITRAZOL/ZEASORB 1 APPLIC TOPICAL (09:21)
--- NOTE | 2023-11-07 11:17 | CM ---
Addendum entered by Clementine Ramos 11/07/23 12:58:
Patient has a 4:30pm [facility] ambulance back to [place] today.
Original Note:
Patient has been cleared for discharge back to [place] [facility] today, patient will need to return by ambulance no Auth required.
Plan; Patient to return to [place] [facility] today.
[place] [facility]
[phone]
[2023-11-07 11:45] LABS: Glucose - Point of Care 160 mg/dl (70-99)
--- NOTE | 2023-11-07 11:52 | W.PN.NEPH.PH ---
Today's Communication / Plan
-
- plan for d/c
- to follow up with Dr. Kim on 11/12
Assessment/Plan
-
Assessment:
Anemia (2/2 to UGIB + anemia of chronic disease)
CAD
HTN (multi drug regimen)
DLD
GERD
CKD 4/5 bl Cr 3.1-3.9 (fistula [address])
Hx of recurrent obstructive uropathy
Hysteroscopy DC, failed endometrial ablation Nov 2022
Metabolic acidosis (on bicarb)
hypothyroidism
gallstones
DVT (not on AC)
Gout
Plan:
- Cr appears to be within her baseline, no new labs this AM
- no uremic sxs (anorexia, metallic taste, tremor)
- tolerating diet well
- d/c on sodium bicarb to 1300mg TID
- no urgent indications for dialysis at this time, likely can start as an outpatient. planned for f/u with Dr. Kim on 11/12
-
-
Date of Service: November 07, 2023
CC / HPI / ROS
-
Chief Complaint:
CKD Stage 4/5
History of Present Illness:
CKD Stage 4/[address]
Anemia (s/p blood transfusion)
Review of Systems:
no complaints this morning
for discharge
=
Labs
-
Labs:
WBC 4.9 10^3/uL (4.8-10.8) 11/07/23 06:48
RBC 2.69 10^6/uL (4.20-5.40) L 11/07/23 06:48
Hgb 8.5 g/dL (12.0-16.0) L 11/07/23 06:48
Hct 25.2 % (37.0-47.0) L 11/07/23 06:48
Plt Count 180 10^3/uL (130-400) 11/07/23 06:48
Sodium 138 mmol/L (135-145) 11/06/23 06:23
Potassium 4.3 mmol/L (3.5-5.1) 11/06/23 06:23
Chloride 106 mmol/L (98-107) 11/06/23 06:23
Carbon Dioxide 20 mmol/L (22-30) L 11/06/23 06:23
BUN 94 mg/dl (7-17) H 11/06/23 06:23
Creatinine 3.8 mg/dL (0.6-1.0) H 11/06/23 06:23
eGFR 11.62 11/06/23 06:23
Glucose 90 mg/dl (70-99) 11/06/23 06:23
Calcium 9.9 mg/dl (8.4-10.2) 11/06/23 06:23
Albumin 2.9 g/dl (3.5-5.0) L 11/06/23 06:23
Physical Exam
-
Vital Signs:
Vital Signs
Temp Pulse Resp BP Pulse Ox
98.1 F 69 20 135/50 100
11/07/23 07:00 11/07/23 09:15 11/07/23 07:00 11/07/23 09:15 11/07/23 07:00
Cardiovascular:: Regular rate and rhythm
Respiratory:: Bilateral: CTA
Lung Excursion:: Normal
Abdomen:: Nontender and Soft
Bowel Sounds:: Normal
Extremity Edema:: +1: Bilateral:
Ghosh Catheter: No
[2023-11-07] MEDS: FLUZONE HIGH-DOSE QUAD 2023-24 0.699999999999999956 ML IM (15:52)
== END 2023-11-07 16:54 | DRG 378 ==
LOC: 4 WEST ACU 20:23
PROVIDERS: Clinical Nurse Specialist Family Health; ADMITTING PHYSICIAN Hospitalist; ATTENDING PHYSICIAN Internal Medicine; CONSULT PHYSICIAN Internal Medicine Gastroenterology; EMERGENCY PHYSICIAN Emergency Medicine; FAMILY PHYSICIAN Internal Medicine; OTHER PHYSICIAN Student in an Organized Health Care Education/Training Program
PROC: 30233N1 Transfusion of Nonautologous Red Blood Cells into Peripheral Vein, Percutaneous Approach (ICD-10-PCS; 2023-11-05)
PROC: 0DB68ZX Excision of Stomach, Via Natural or Artificial Opening Endoscopic, Diagnostic (ICD-10-PCS; 2023-11-06)
PROC: 3E02340 Introduction of Influenza Vaccine into Muscle, Percutaneous Approach (ICD-10-PCS; 2023-11-07)
DX: K92.2 Gastrointestinal hemorrhage, unspecified (principal); D62 Acute posthemorrhagic anemia; E87.20 Acidosis, unspecified; N18.5 Chronic kidney disease, stage 5; I12.0 Hypertensive chronic kidney disease with stage 5 chronic kidney disease or end stage renal disease; I25.10 Atherosclerotic heart disease of native coronary artery without angina pectoris; K21.9 Gastro-esophageal reflux disease without esophagitis; E78.00 Pure hypercholesterolemia, unspecified; E03.9 Hypothyroidism, unspecified; D50.9 Iron deficiency anemia, unspecified; Z87.442 Personal history of urinary calculi; Z68.33 Body mass index [BMI] 33.0-33.9, adult; M10.9 Gout, unspecified; Z79.82 Long term (current) use of aspirin; E66.01 Morbid (severe) obesity due to excess calories; D63.1 Anemia in chronic kidney disease; E11.22 Type 2 diabetes mellitus with diabetic chronic kidney disease; Z23 Encounter for immunization
CPT/HCPCS: 88305; 80053; 82607; 82728; 82746; 82962; 83036; 83540; 83550; 85025; 85027; 85610; 86850; 86900; 86901; 86920; 87070; 88342; 96374; 99285; J0885; P9016; Q5106

== ENCOUNTER 2023-11-26 20:11 | Inpatient (IN) | payer MEDICARE, OTHER, SELFPAY ==
[2023-11-26 17:34] VITALS: BP 144/57
--- NOTE | 2023-11-26 17:44 | ED.GENMED ---
History of Present Illness
General
Chief Complaint: Abnormal Lab Value
Source: patient
Exam Limitations: none
Time Seen by Provider: 11/26/23 17:31
Nursing documentation reviewed up to this point in time: agreed with
Travel History
Have you had any contact with someone who has COVID-19?: No
Do you have any symptoms of coronavirus? Fever > 100 degrees, chills, cough, shortness of breath, sore throat, loss of taste or smell, muscle aches, or headache?: No
History of Present Illness
History of Present Illness:
78-year-old female presents emergency department due to low hemoglobin. She is unsure what it was. She has been feeling very tired recently. She has a history of a guaiac positive stool, but is on iron. She denies any significant vaginal
bleeding or rectal bleeding.
Past History
Past History
ED Past Medical History: CAD, GERD, HTN, Hypercholesterolemia, NIDDM, Renal failure, Hypothyroidism and Other (Dysfunctional uterine bleeding, chronic kidney disease pending dialysis, Renal calculus, Iron def anemia, hemorrhagic disorder due to
extrinsic Circulatory anticoagulation. PNA, Back pain, )
ED Past Surgical History: Appendectomy, Gynecological (D&C), Orthopedic (Left carpal tunnel ), Tonsilectomy, Urological (Kidney stent) and Other (L AV fistula)
Social History
Tobacco: Non-smoker
Alcohol: Occasional
Drug: None
Personal: Single
Living: long-term
Family History
Family History: Negative Diabetes, Hypertension, Early CAD, Asthma or Cancer
Review of Systems
Review of Systems
Allergies reviewed?: Yes
All Other Systems: Not applicable
Constitutional: Reports fatigue
EENT: Reports no symptoms
Respiratory: Reports no symptoms
Cardiac: Reports no symptoms
ABD/GI: Reports no symptoms
: Reports no symptoms
Musculoskeletal: Reports no symptoms
Skin: Reports no symptoms
Neurological: Reports weakness
Endocrine: Reports no symptoms
Hematologic/Lymphatic: Reports no symptoms
Psychiatric: Reports no symptoms
Phy Exam
Physical Exam
Physical Exam:
Physical Exam
General: Afebrile
Neck: supple. no meningeal signs. normal posterior pharynx, pale oral mucosa
Heart: s1/s2 regular rate and rhythm, no murmur. equal radial
pulses.
HEENT: Pupils equal round reactive to light, EOMI
Lungs: no acute respiratory distress. clear bilaterally
Abdomen: normal bowel sounds. not tender. no CVAT
Neuro: alert and oriented. no focal neurological deficits cranial nerves II through XII intact
Skin: no rash, pale
Psychiatric: well kept. interactive and cooperative
Extremities: no edema. no calf tenderness. negative homans. good distal pulses
Course
Orders/Labs/Results
Orders:
Orders
11/26/23 17:42
IV Insert/Care/Rem.- Treatment PRN
11/26/23 17:44
Complete Blood Count/With Diff Urgent
Comprehensive Metabolic Panel Urgent
11/26/23 18:55
Blood Bank Products [* Blood Bank Products] Urgent
's Orders: 1 unit prbcs
Blood Bank Products: *Packed RBC Leuko(PRBC's)
Quantity: 1
Transfuse Today: Yes
Reason: Anemia
11/26/23 19:21
Type+Screen Urgent
BBK Wristband Number:
11/26/23 19:29
Admit/Transfer Patient As Directed
Co-Sign Provider:
Level of Care: Inpatient admission
Assign to:: Medical/Surgical
Physician / Group: Cheikh
Diagnosis: Acute / Chronic Anemia
Reason for Hospitalization: Acute / Chronic Anemia
Expected length of stay greater than two midnights?: Yes
ELOS- Estimated Length of Stay in days: 2
I certify the patient meets the requirements for IP care: Yes
11/26/23 19:34
Code Status As Directed
Resuscitation Status: Full Code
Abnormal Lab Results
11/26/23 11/26/23
17:44 19:21
RBC 2.07 L 10^6/uL
(4.20-5.40)
Hgb 6.6 L* g/dL
(12.0-16.0)
Hct 19.6 L* %
(37.0-47.0)
MCH 31.9 H pg
(27.0-31.0)
RDW 15.4 H %
(11.5-14.5)
Potassium 5.2 H mmol/L
(3.5-5.1)
Carbon Dioxide 21 L mmol/L
(22-30)
BUN 83 H mg/dl
(7-17)
Creatinine 3.5 H mg/dL
(0.6-1.0)
Total Protein 6.0 L g/dl
(6.3-8.2)
Albumin 3.2 L g/dl
(3.5-5.0)
Crossmatch IS Only See Detail
11/26/23 17:44
11/26/23 17:44
Vital Signs
Initial and Last Documented VS:
Initial Vital Signs
Pulse Resp Pulse Ox
68 13 100
11/26/23 17:33 11/26/23 17:33 11/26/23 17:33
Last Documented Vital Signs
Temp Pulse Resp BP Pulse Ox
99.1 F 71 19 143/58 99
11/26/23 18:08 11/26/23 19:20 11/26/23 19:20 11/26/23 19:20 11/26/23 19:22
MDM/Problems Addressed
Differential Diagnosis Includes:
GI bleed, anemia
MDM/Problems Addressed:
78-year-old female with symptomatic anemia, unclear cause.
Chronic conditions affecting care:
Anemia
Chronic conditions affecting care: CAD
Acute Exacerbation and/or Progression of Chronic Illness:
Anemia
Acute Exacerbation and/or Progression of Chronic Illness: CAD
*Pulse Oximetry
Patient hypoxic: no
*EKG
Interpreted by ED Provider?: NA
*Signal Operator Technical Interpretation
Rate: Signal Operator Technical- N/A
*Critical Care Note
Total Time (30-74mins, 75-104mins- exclusive of procedures): 30
comment:
Critical care statement: A total of 30 minutes of critical care time was provided for this patient. This includes management of unstable vital signs, evaluation of the patient at bedside, reviewing the patient's pertinent medical records, discussion
with consultants, review of old EKGs and review of pertinent medical records. This time with separate from time utilized to perform the aforementioned documented procedures
Data Reviewed
Review of Other/Old Records Reveals: Labs
Patient Management
Social determinants of health affecting care: Living situation and Strong social support
Discussion with other providers: Hospitalist
Escalation/DeEscalation of care consider admission/obs:
Admit indicated
ED Attending Note
-
Portions of this chart may have been created with voice recognition software.� Occasional wrong word or��sound alike� substitutions may have occurred due to the inherent limitations of voice recognition software.
Discharge Plan
Departure
Patient Disposition: Admit
Date of Disposition: 11/26/23
Time of Disposition: 19:00
Admit to: Med/Surg
Presentation/result/management discussed w/ accepting MD/DO: Hospitalist
Discharge Problem:
Acute anemia, Chronic kidney disease, stage 4 (severe)
Interventions
Interventions:
*Risk Screen - Suicide Last Done: 11/26/23 17:26
*General Assessment Last Done: 11/26/23 17:26
*Neglect/Abuse Screening Last Done: 11/26/23 17:26
ED- Fall Risk Assessment Last Done: 11/26/23 17:26
*ED COVID-19 Vaccine History Last Done: 11/26/23 17:26
[2023-11-26 18:02] LABS: % Basophils 0.6 % (0-2); % Eosinophils 3.5 % (0-6); % Immature Granulocytes 0.2 % (0-0.5); % Monocytes 5.6 % (1.7-9.3); % Neutrophils 66.1 % (42.2-75.2); Absolute Eosinophils 0.2 10^3/uL (0-0.7); Absolute Lymphocytes 1.3 10^3/uL (1.2-3.4); Absolute Monocytes 0.3 10^3/uL (0.1-0.6); Absolute Neutrophils 3.4 10^3/uL (1.4-6.5); Mean Corp Hgb Conc. 33.7 g/dL (33.0-37.0); Mean Corpuscular Hgb 31.9 pg (27.0-31.0); Mean Corpuscular Volume 94.7 fL (81.0-99.0); Mean Platelet Volume 9.1 fL (7.4-10.4); Nucleated Red Blood Cells % 0 %; Platelet Count 192 10^3/uL (130-400); Red Blood Cell Count 2.07 10^6/uL (4.20-5.40); Red Cell Dist. Width 15.4 % (11.5-14.5); White Blood Cell Count 5.2 10^3/uL (4.8-10.8)
[2023-11-26 18:09] LABS: ALT (SGPT) 13 U/L (0-35); AST (SGOT) 21 U/L (14-36); Albumin 3.2 g/dl (3.5-5.0); Alkaline Phosphatase 64 U/L (38-126); Blood Urea Nitrogen 83 mg/dl (7-17); Calcium 9.9 mg/dl (8.4-10.2); Carbon Dioxide 21 mmol/L (22-30); Chloride 106 mmol/L (98-107); Glucose 95 mg/dl (70-99); Potassium 5.2 mmol/L (3.5-5.1); Sodium 136 mmol/L (135-145); Total Bilirubin 0.5 mg/dl (0.2-1.3); eGFR 12.82
[2023-11-26 18:11] LABS: Hematocrit 19.6 % (37.0-47.0); Hemoglobin 6.6 g/dL (12.0-16.0)
[2023-11-26 19:20] VITALS: BP 143/58
--- NOTE | 2023-11-26 19:39 | HPS.HSE ---
Family Physician
-
Family Physician: Jhonathan Gabriel
Chief Complaint
-
Anemia
History of Present Illness
Patient is a 78y F with PMH significant for CKD 4/5, anemia of chronic disease, postmenopausal bleeding, DM and hypertension who presents to ED for evaluation of anemia. Patient has a long and established history of multifactorial anemia. She
is maintained on Procrit and iron supplementation as an outpatient. She is on DepoProvera for postmenopausal bleeding - which is minimal.
Patient states that she was told she had a small amount of blood in her diaper on Sunday (see resides at [facility]).
She had routine labs done on Sunday and these showed Hgb = 5.9. Patient was sent to the ED for evaluation.
Patient is asymptomatic. She denies any fatigue, dyspnea, chest pain, etc.
She was admitted earlier this month with similar anemia.
Medical History
Past Medical History
Past Medical History: Reports Other
Additional Past Medical History:
Hypertension
Dyslipidemia
Diabetes Mellitus, Type II
CKD Stage V
Chronic Anemia
Chronic Metabolic Acidosis
Abnormal Uterine Bleeding
Hypothyroidism
Chronic Lower Ext Lymphedema
Chronic Venous Stasis Dermatitis
Hx DVT
Obesity
Past Surgical History: Reports Other
Additional Past Surgical History:
Left Upper Ext AV Fistula
Left Carpal Tunnel
Appendectomy
Tonsillectomy
D&C
Hysteroscopy / Failed Endometrial Ablation
Ureteral Stents
Social History
Tobacco: Non-smoker
Alcohol: None
Living: Group Home
Family History
Family History: Not pertinent
Allergies / Home Medications
Allergies reflects when Allergies were last updated in [facility].
Home Medications with original date entered in [facility]
Allergy/Medication List:
Allergies
Allergy/AdvReac Type Severity Reaction Status Date / Time
Penicillins Allergy Hives Verified 11/05/23 17:51
Home Medications
allopurinol 100 mg tablet 100 mg PO DAILY Gout 09/07/22
ammonium lactate 12 % topical cream 1 applic topical [id number] PRN B/L legs 09/07/22
aspirin 81 mg tablet,delayed release 81 mg PO DAILY Blood clot prevention/tx 09/07/22
atorvastatin 40 mg tablet (Lipitor) 40 mg PO DAILY High cholesterol 09/07/22
carvedilol 25 mg tablet (Coreg) 25 mg PO BID Heart disease/condition 09/07/22
folic acid 1 mg tablet 1 mg PO DAILY Supplement 09/07/22
hydralazine 50 mg tablet 50 mg PO TID Blood pressure 10/26/22
pantoprazole 40 mg tablet,delayed release 40 mg PO DAILY Gastrointestinal issue 10/31/22
bisacodyl 10 mg rectal suppository 10 mg MS DAILYPRN PRN constipation #0 ea 11/22/22
acetaminophen 325 mg tablet (Tylenol) 650 mg PO Q4HPRN PRN mild pain/temp 100F or above 11/28/22
levothyroxine 25 mcg tablet 25 mcg PO DAILY Thyroid 11/28/22
cyanocobalamin (vitamin B-12) 1,000 mcg tablet 1,000 mcg PO DAILY #0 tabs 12/06/22
insulin aspart U-100 100 unit/mL (3 mL) subcutaneous pen (Novolog FlexPen U-100 Insulin aspart) 0 - 12 sliding scale dose SC ACHS Diabetes 03/26/23
sennosides 8.6 mg-docusate sodium 50 mg tablet (Senna with Docusate Sodium) 1 tab PO [id number] PRN constipation 03/27/23
gabapentin 100 mg capsule 100 mg PO TID Pain #0 caps 03/28/23
polyethylene glycol 3350 17 gram oral powder packet (Miralax) 17 g PO DAILY PRN Constipation 07/17/23
epoetin dora 10,000 unit/mL injection solution (Procrit) 10,000 unit SC TU PRN give only for HGB 10 or less 10/18/23
ferrous sulfate 325 mg (65 mg iron) tablet 325 mg PO Q48H Supplement 10/18/23
miconazole nitrate 2 % topical powder (Miconazorb AF) 1 applic topical BID apply to ABD folds/groin 10/18/23
torsemide 10 mg tablet 20 mg PO BID Fluid Retention/Swelling 10/18/23
glucagon HCl 1 mg solution for injection (Glucagon (HCl) Emergency Kit) 1 mg SC Q20M PRN hypoglycemia 11/05/23
loperamide 2 mg tablet 2 mg PO Q6H PRN diarrhea 11/05/23
sodium bicarbonate 650 mg tablet 1,300 mg PO TID Supplement #0 tabs 11/07/23
ammonium lactate 12 % topical cream 1 applic topical BID 11/26/23
Review of Systems
-
History Source: Patient
Constitutional: Denies Fever, Fatigue or Chills
Respiratory: Denies Cough or Trouble Breathing
Cardiac: Denies Chest Pain or Palpitations
Abdomen/GI: Denies Abdominal Pain, Nausea, Vomiting, Diarrhea, Bloody Stools or Black Stools
: Reports Bleeding; Denies Dysuria, Frequency or Flank Pain
Skin: Reports Other (Skin Changes)
Neurological: Denies Dizzy or Headache
Psych: Denies Depression or Anxiety
Physical Exam
Vital Signs
Vital Signs
Temp Pulse Resp BP Pulse Ox
99.1 F 71 19 143/58 99
11/26/23 18:08 11/26/23 19:20 11/26/23 19:20 11/26/23 19:20 11/26/23 19:22
Physical Exam
General: Other (78y F in no acute distress. Mild pallor.)
HEENT: Moist mucous membranes and PERRLA
Respiratory: Clear; No Wheezes, Rales or Rhonchi
Cardiac: S1/S2, Regular Rhythm and Murmur (II/ DULCE MARIA)
GI: Soft, Non Tender, Non Distended and Normal Bowel Sounds
Musculoskeletal: No Clubbing, No Cyanosis and Other (Chronic LE skin changes / hyperkeratosis. 1+ pitting edema.)
Neuro: AO x 3
Laboratory Results
-
11/26/23 17:44
11/26/23 17:44
Laboratory Results
Total Bilirubin 0.5 mg/dl (0.2-1.3) 11/26/23 17:44
AST 21 U/L (14-36) 11/26/23 17:44
ALT 13 U/L (0-35) 11/26/23 17:44
Alkaline Phosphatase 64 U/L (38-126) 11/26/23 17:44
Impression/Plan
-
A/P: Patient is a 78y F with PMH significant for CKD, anemia of chronic disease and postmenopausal bleeding who presents to ED with abnormal lab value.
Acute on Chronic Anemia
Anemia of CKD
Chronic Iron Deficiency Anemia
Post-Menopausal Bleeding
- Admit for further evaluation and treatment.
- Outpatient Hgb today was 5.9. Repeat here in the ED is 6.6.
- Baseline Hgb 7-9.
- Transfuse 1 unit of PRBCs.
- No additional / extensive evaluation needed.
- Continue usual anemia management including RAVI, etc.
- Increase iron to daily.
- Scant vaginal bleeding noted on Sunday which may have resulted in slight decrease from baseline.
- Continue DepoProvera.
- Consider PROCESSOR SOLID PROPELLANT eval if any further / significant bleeding.
CKD V
Chronic Metabolic Acidosis
Hyperkalemia
- Stable. Renal function is at / near known baseline.
- Has LUE AVF in place which is mature - but not yet requiring HD.
- Continue current med regimen including diuretics, bicarb supplementation, etc.
- Follow labs / lytes.
- Consider Nephrology eval if any new / worsening issues.
Benign Hypertension
- Stable. Continue current meds with holding parameters.
DM-II
- Stable. Continue SSI.
- A1C earlier this month was 5.2%.
Hypothyroidism
- Stable. Continue current T4 replacement.
Chronic Venous Stasis Dermatitis
- Continue topical therapy.
History of DVT
DVT Prophylaxis
- Not on OAC secondary to bleeding issues.
- Hold ASA as no absolute indication / ongoing issues with blood loss.
- SCDs.
Code Status: Full
[2023-11-26 20:00] VITALS: BP 128/56
[2023-11-26 21:00] VITALS: BP 140/51
[2023-11-26] MEDS: APRESOLINE 50 MG PO (22:38)
[2023-11-26] MEDS: COREG 25 MG PO (22:39)
[2023-11-26] MEDS: DEMADEX 20 MG PO (22:39)
[2023-11-26] MEDS: LAC HYDRIN, AM LACTIN LOTION 1 APPLIC TOPICAL (22:40)
[2023-11-26] MEDS: SODIUM BICARBONATE 1300 MG PO (22:41)
[2023-11-26] MEDS: NEURONTIN 100 MG PO (22:41)
[2023-11-26 22:54] LABS: Iron 69 ug/dl (37-170)
[2023-11-26 23:03] LABS: Percent Saturation 22 % (20-50); Total Iron Binding Capacity 311 ug/dl (265-497)
[2023-11-26 23:17] VITALS: BP 148/61; BMI 34.1
[2023-11-26 23:50] LABS: Glucose - Point of Care 93 mg/dl (70-99)
[2023-11-26 23:53] VITALS: BP 142/59
[2023-11-27] VITALS (8 sets, daily range): BP systolic 109–144; BP diastolic 45–58; BMI 33.7
--- NOTE | 2023-11-27 00:04 | PTCARENOTE ---
Patient arrived from the ED via stretcher at approximately 2200. Patient pulled over from stretcher to bedx3 assist. Patient AAOx3, TANACROSS. Patient complaining of generalized weakness/fatigue - patient offering no other complaints. On arrival to ED -
Hgb 6.6. 1 unit of PRBC ordered. Blood hung at approximately 0000 - see TAR. Patient oriented to room. Bed in lowest position. Call hoang within reach.
[2023-11-27] MEDS: SYNTHROID 25 MCG PO (06:20)
[2023-11-27 06:45] LABS: Hematocrit 22.2 % (37.0-47.0); Hemoglobin 7.3 g/dL (12.0-16.0); Mean Corp Hgb Conc. 32.9 g/dL (33.0-37.0); Mean Corpuscular Volume 97.4 fL (81.0-99.0); Mean Platelet Volume 9.3 fL (7.4-10.4); Platelet Count 175 10^3/uL (130-400); Red Blood Cell Count 2.28 10^6/uL (4.20-5.40); Red Cell Dist. Width 16.3 % (11.5-14.5)
[2023-11-27 07:11] LABS: Blood Urea Nitrogen 78 mg/dl (7-17); Calcium 9.7 mg/dl (8.4-10.2); Carbon Dioxide 22 mmol/L (22-30); Chloride 107 mmol/L (98-107); Estimated Creatinine Clearance 16 ml/min; Glucose 84 mg/dl (70-99); Potassium 4.4 mmol/L (3.5-5.1); Sodium 137 mmol/L (135-145); eGFR 12.82
[2023-11-27 07:20] LABS: Glucose - Point of Care 93 mg/dl (70-99)
[2023-11-27] MEDS: NOVOLOG FLEXPEN-LOW RESISTANCE SC ×2 (08:24→16:56)
[2023-11-27] MEDS: FEOSOL 325 MG PO (08:25)
[2023-11-27] MEDS: FOLVITE 1 MG PO (08:25)
[2023-11-27] MEDS: SODIUM BICARBONATE 1300 MG PO ×3 (08:25→21:19)
[2023-11-27] MEDS: NEURONTIN 100 MG PO ×3 (08:25→21:20)
[2023-11-27] MEDS: ZYLOPRIM 100 MG PO (08:25)
[2023-11-27] MEDS: VITAMIN B-12 1000 MCG PO (08:25)
[2023-11-27] MEDS: LIPITOR 40 MG PO (08:25)
[2023-11-27] MEDS: PROTONIX 40 MG PO (08:25)
[2023-11-27] MEDS: APRESOLINE 50 MG PO ×3 (08:26→21:20)
[2023-11-27] MEDS: DEMADEX 20 MG PO ×2 (08:26→16:56)
[2023-11-27] MEDS: COREG 25 MG PO ×2 (08:27→20:40)
[2023-11-27] MEDS: DESENEX/MITRAZOL/ZEASORB 1 APPLIC TOPICAL ×2 (08:27→20:43)
[2023-11-27] MEDS: LAC HYDRIN, AM LACTIN LOTION 1 APPLIC TOPICAL ×2 (08:28→20:41)
--- NOTE | 2023-11-27 08:55 | W.PN.HOSP.TC ---
Today's Communication/Plan
-
will give 2nd unit now
Assessment / Plan
Assessment / Plan
Acute on Chronic Anemia
Anemia of CKD
Chronic Iron Deficiency Anemia
GI noted during last visit probability for small bowel angioectasia
Post-Menopausal Bleeding
�- Admit for further evaluation and treatment.
�- Outpatient Hgb was 5.9.� Repeat here in the ED is 6.6.
�- Baseline Hgb 7-9.
�- Transfused 1 unit of PRBCs.Hgb 6.6-->7.3
will transfuse 2nd unit
�- No additional / extensive evaluation needed.
�- Continue usual anemia management including RAVI, etc.
s/p EGD on 11/06/23, pt to have colo with Dr. Zambrano on 01/01/24
�- Increase iron to daily.
�- Scant vaginal bleeding noted on Sunday which may have resulted in slight decrease from baseline.
�- Continue DepoProvera. �
�- Consider SHOE PATTERNMAKER eval if any further / significant bleeding. (was seen previously by Janusz Graves 02/25/23, who at that time believes anemia most likely not SHOE PATTERNMAKER in origin)
CKD V
Chronic Metabolic Acidosis
Hyperkalemia
�- Stable.� Renal function is at / near known baseline.
K 5.2-->4.4
�- Has LUE AVF in place which is mature - but not yet requiring HD.
�- Continue current med regimen including diuretics, bicarb supplementation, etc.
�- Follow labs / lytes.
�- Consider Nephrology eval if any new / worsening issues.
call placed to Dr. Kim who will follow as outpt or consult if develops worsening symptoms
Benign Hypertension
�- Stable.� Continue current meds with holding parameters.
DM-II
�- Stable.� Continue SSI.
�- A1C earlier this month was 5.2%.
Hypothyroidism
�- Stable.� Continue current T4 replacement.
Chronic Venous Stasis Dermatitis
�- Continue topical therapy.
History of DVT
DVT Prophylaxis
�- Not on OAC secondary to bleeding issues.
�- Hold ASA as no absolute indication / ongoing issues with blood loss.
�- SCDs.
Code Status:� Full
Anticipated Discharge: Within 24 hours
Subjective/Interval History
-
Date of Service: November 27, 2023
Awake, alert, denies sob or chest pain
Objective Data
-
Labs:
Laboratory Results
11/27/23
05:53
WBC 5.0
Hgb 7.3 L
Hct 22.2 L
Plt Count 175
Sodium 137
Potassium 4.4
Chloride 107
Carbon Dioxide 22
BUN 78 H
Creatinine 3.5 H
Glucose 84
Calcium 9.7
Vital Signs:
Vital Signs
Temp Pulse Resp BP Pulse Ox
98.7 F 75 4 134/56 95
11/27/23 08:03 11/27/23 08:27 11/27/23 08:03 11/27/23 08:27 11/27/23 08:03
I&O
11/26/23 11/27/23 11/28/23
06:59 06:59 06:59
Intake Total 670 / 670
Balance 670 / 670
Review of Systems
-
History Source: Patient and Coordinated Provider
Constitutional: Denies Fever
EENT: Reports No Symptoms Reported
Respiratory: Reports No Symptoms; Denies Cough, Hemoptysis, Trouble Breathing or Wheezing
Cardiac: Reports No Symptoms; Denies Chest Pain
Abdomen/GI: Reports No Symptoms; Denies Abdominal Pain, Nausea or Vomiting
Physical Exam
-
General: Well Developed and Well Nourished
HEENT: Moist Mucous Membranes
Respiratory: Clear to Auscultation; Negative Wheezes, Rales or Rhonchi
Cardiac: Regular Rhythm, S1/S2 and Murmur (3/6 garrett @RUSB); Negative Rub
GI: Soft, Nontender and Nondistended
Rectal: Deferred by Provider
Musculoskeletal: Edema, Right Lower Extrem (chronic changes lymphedema), Edema, Left Lower Extrem (chronic changes lymphedema) and Other (Left forearm AVF )
Skin: Rash (chronic changes bilateral LE)
Neuro: Awake and Nonfocal/Grossly Intact
Psych: Calm
[2023-11-27 11:32] LABS: Glucose - Point of Care 172 mg/dl (70-99)
--- NOTE | 2023-11-27 12:17 | CM ---
Chart reviewed. Spoke with pt at bedside
Pt reports she is a [facility] resident at [facility]
She is wheel chair bound primarily
ADL's with assist
PCP - Dr Gabriel
Pharm - unsure
Plan to return to [facility] at d/c
[2023-11-27] MEDS: NOVOLOG FLEXPEN-LOW RESISTANCE 1 UNITS SC (13:18)
[2023-11-27 16:53] LABS: Glucose - Point of Care 128 mg/dl (70-99)
[2023-11-27 22:04] LABS: Glucose - Point of Care 126 mg/dl (70-99)
[2023-11-28 05:05] LABS: % Basophils 0.8 % (0-2); % Eosinophils 3.2 % (0-6); % Immature Granulocytes 0.2 % (0-0.5); % Lymphocytes 29.6 % (20.5-51.1); % Monocytes 6.2 % (1.7-9.3); Absolute Eosinophils 0.2 10^3/uL (0-0.7); Absolute Lymphocytes 1.6 10^3/uL (1.2-3.4); Absolute Monocytes 0.3 10^3/uL (0.1-0.6); Absolute Neutrophils 3.2 10^3/uL (1.4-6.5); Hematocrit 23.3 % (37.0-47.0); Hemoglobin 7.8 g/dL (12.0-16.0); Mean Corp Hgb Conc. 33.5 g/dL (33.0-37.0); Mean Corpuscular Hgb 31.3 pg (27.0-31.0); Mean Corpuscular Volume 93.6 fL (81.0-99.0); Mean Platelet Volume 9.1 fL (7.4-10.4); Nucleated Red Blood Cells % 0 %; Platelet Count 170 10^3/uL (130-400); Red Blood Cell Count 2.49 10^6/uL (4.20-5.40); Red Cell Dist. Width 16.7 % (11.5-14.5); White Blood Cell Count 5.3 10^3/uL (4.8-10.8)
[2023-11-28 05:28] LABS: Blood Urea Nitrogen 80 mg/dl (7-17); Calcium 9.4 mg/dl (8.4-10.2); Carbon Dioxide 25 mmol/L (22-30); Chloride 106 mmol/L (98-107); Estimated Creatinine Clearance 16 ml/min; Glucose 99 mg/dl (70-99); Potassium 4.5 mmol/L (3.5-5.1); Sodium 139 mmol/L (135-145)
[2023-11-28 05:31] VITALS: BMI 33.6
[2023-11-28 06:00] VITALS: BMI 33.6
[2023-11-28] MEDS: SYNTHROID 25 MCG PO (06:02)
[2023-11-28 07:20] VITALS: BP 142/60
[2023-11-28 07:54] LABS: Glucose - Point of Care 167 mg/dl (70-99)
[2023-11-28] MEDS: PROTONIX 40 MG PO (08:29)
[2023-11-28] MEDS: LIPITOR 40 MG PO (08:29)
[2023-11-28] MEDS: DEMADEX 20 MG PO ×2 (08:29→17:00)
[2023-11-28] MEDS: ZYLOPRIM 100 MG PO (08:29)
[2023-11-28] MEDS: SODIUM BICARBONATE 1300 MG PO ×3 (08:29→21:31)
[2023-11-28] MEDS: FEOSOL 325 MG PO (08:30)
[2023-11-28] MEDS: APRESOLINE 50 MG PO ×3 (08:30→21:31)
[2023-11-28] MEDS: NEURONTIN 100 MG PO ×3 (08:30→21:31)
[2023-11-28] MEDS: COREG 25 MG PO ×2 (08:30→20:30)
[2023-11-28] MEDS: FOLVITE 1 MG PO (08:30)
[2023-11-28] MEDS: VITAMIN B-12 1000 MCG PO (08:30)
[2023-11-28] MEDS: DESENEX/MITRAZOL/ZEASORB 1 APPLIC TOPICAL ×2 (08:31→20:30)
[2023-11-28] MEDS: LAC HYDRIN, AM LACTIN LOTION 1 APPLIC TOPICAL ×2 (08:31→20:30)
[2023-11-28] MEDS: NOVOLOG FLEXPEN-LOW RESISTANCE 1 UNITS SC (08:32)
[2023-11-28] MEDS: RETACRIT 10000 UNITS SC (10:00)
[2023-11-28 11:42] LABS: Glucose - Point of Care 113 mg/dl (70-99)
[2023-11-28] MEDS: NOVOLOG FLEXPEN-LOW RESISTANCE SC ×2 (11:43→17:30)
--- NOTE | 2023-11-28 14:51 | W.PN.HOSP.TC ---
Today's Communication/Plan
-
3pm repeat CBC and reassess for further transfusion needs
Assessment / Plan
Assessment / Plan
Assessment:
Acute on Chronic Anemia of CKD
Chronic Iron Deficiency Anemia
Post-Menopausal Bleeding on Depo-provera
- prior noted EGD with angioectasis, planned for C-scope 01/01/24
- s/p 2 units PRBC; repeat Hb now and assess for further transfusions
- provide RAVI injection
- continue iron daily
- outpatient TOW DRIVER evaluation
CKD V
Chronic Metabolic Acidosis
Hyperkalemia
- Stable.� Renal function is at / near known baseline.
- Has LUE AVF in place which is mature - but not yet requiring HD.
- Continue current med regimen including diuretics, bicarb supplementation, etc.
- Follow labs / lytes.
Benign Hypertension
- Stable.�Continue current meds with holding parameters.
DM-II
- Stable.�Continue SSI.
- A1C earlier this month was 5.2%.
Hypothyroidism
- Stable.�Continue current T4 replacement.
Chronic Venous Stasis Dermatitis
- Continue topical therapy.
History of DVT
DVT Prophylaxis
- Not on OAC secondary to bleeding issues.
- Hold ASA as no absolute indication / ongoing issues with blood loss.
- SCDs.
Code Status:� Full
Anticipated Discharge: Within 24 hours
Subjective/Interval History
-
Date of Service: November 28, 2023
no complaints
no evidence of bleeding
Objective Data
-
Labs:
Laboratory Results
11/28/23
04:01
WBC 5.3
Hgb 7.8 L
Hct 23.3 L
Plt Count 170
Sodium 139
Potassium 4.5
Chloride 106
Carbon Dioxide 25
BUN 80 H
Creatinine 3.6 H
Glucose 99
Calcium 9.4
Vital Signs:
Vital Signs
Temp Pulse Resp BP Pulse Ox
98.4 F 67 14 142/60 97
11/28/23 07:20 11/28/23 08:30 11/28/23 07:20 11/28/23 08:30 11/28/23 08:00
I&O
11/27/23 11/28/23 11/29/23
06:59 06:59 06:59
Intake Total 670 / 670 1010 / 1010
Balance 670 / 670 1010 / 1010
Physical Exam
-
General: No Apparent Distress and Appears Chronically Ill
HEENT: Normocephalic and Atraumatic
Respiratory: Negative Wheezes or Rales
Cardiac: Regular Rhythm and S1/S2
GI: Soft
Neuro: AO x 3
Psych: Calm
Data Reviewed
-
Total Time Spent with Patient (in minutes): 42
Labs: Labs Reviewed by me
[2023-11-28 15:00] VITALS: BP 150/58
[2023-11-28 15:42] LABS: Hematocrit 24.5 % (37.0-47.0); Hemoglobin 8.3 g/dL (12.0-16.0)
--- NOTE | 2023-11-28 16:08 | CM ---
Discharge Plan of Care: Anticipate back to [facility] on 11/29/23.
[2023-11-28 16:53] LABS: Glucose - Point of Care 121 mg/dl (70-99)
[2023-11-28 22:38] LABS: Glucose - Point of Care 120 mg/dl (70-99)
[2023-11-28 23:28] VITALS: BP 134/51
[2023-11-29 05:48] VITALS: BMI 33.1
[2023-11-29] MEDS: SYNTHROID 25 MCG PO (05:51)
[2023-11-29 06:00] VITALS: BMI 33.1
[2023-11-29 06:09] LABS: Hematocrit 25.5 % (37.0-47.0); Hemoglobin 8.5 g/dL (12.0-16.0); Mean Corp Hgb Conc. 33.3 g/dL (33.0-37.0); Mean Corpuscular Hgb 31.7 pg (27.0-31.0); Mean Corpuscular Volume 95.1 fL (81.0-99.0); Mean Platelet Volume 9.3 fL (7.4-10.4); Platelet Count 172 10^3/uL (130-400); Red Blood Cell Count 2.68 10^6/uL (4.20-5.40); Red Cell Dist. Width 16.1 % (11.5-14.5); White Blood Cell Count 5.7 10^3/uL (4.8-10.8)
[2023-11-29 07:48] VITALS: BP 140/58
[2023-11-29 07:54] LABS: Glucose - Point of Care 98 mg/dl (70-99)
[2023-11-29] MEDS: VITAMIN B-12 1000 MCG PO (08:14)
[2023-11-29] MEDS: LIPITOR 40 MG PO (08:14)
[2023-11-29] MEDS: NOVOLOG FLEXPEN-LOW RESISTANCE SC (08:14)
[2023-11-29] MEDS: COREG 25 MG PO (08:14)
[2023-11-29] MEDS: NEURONTIN 100 MG PO (08:15)
[2023-11-29] MEDS: SODIUM BICARBONATE 1300 MG PO (08:15)
[2023-11-29] MEDS: DEMADEX 20 MG PO (08:15)
[2023-11-29] MEDS: FOLVITE 1 MG PO (08:15)
[2023-11-29] MEDS: PROTONIX 40 MG PO (08:15)
[2023-11-29] MEDS: ZYLOPRIM 100 MG PO (08:15)
[2023-11-29] MEDS: FEOSOL 325 MG PO (08:15)
[2023-11-29] MEDS: LAC HYDRIN, AM LACTIN LOTION 1 APPLIC TOPICAL (08:16)
[2023-11-29] MEDS: DESENEX/MITRAZOL/ZEASORB 1 APPLIC TOPICAL (08:16)
[2023-11-29] MEDS: APRESOLINE 50 MG PO (08:16)
--- NOTE | 2023-11-29 09:16 | PN.CDI ---
CDI
- -
CDI:
Physician Documentation Request
Admit Date: 11/26/23 20:11
Dear Doctor Kassidy,
Please review the following and provide your response in the progress notes.
Clinical Indicators:
Pt admitted with Acute on Chronic Anemia
Progress note 11/28 ,' Acute on Chronic Anemia of CKD Chronic Iron Deficiency Anemia.... prior noted EGD with angioectasis, planned for C-scope 01/01/24....- s/p 2 units PRBC; repeat Hb now and assess for further transfusions..'
11/06/23 Visit EGD,' Angiodysplasia of stomach and duodenum ...' Discharged Hemoglobin/Hematocrit from 11/07 discharge H/H 8.5/25.2
Please provide in your note the likely etiology/ etiologies of the documented Anemia:
Multifactorial recently diagnosed Angiodysplasia of duodenum/LITTLE/Anemia of CKD
Anemia of CKD/LITTLE only
Other
Use of terms such as suspected, likely, concern for, or probable (associated with a specific diagnosis that is being evaluated, monitored, or treated as if it exists) are acceptable and can be coded in the inpatient setting, when documented at the
time of discharge.
Thank you,
Paris Kingsley RN
CDI Specialist
[place] [facility]
Please use your independent medical judgment in providing your response.
--- NOTE | 2023-11-29 09:38 | PN.CDI ---
CDI
- -
CDI:
Physician Documentation Request
Admit Date: 11/26/23 20:11
Dear Doctor Kassidy,
Please review the following and provide your response in the progress notes.
Clinical Indicators:
Pt admitted with Acute on Chronic Anemia
Progress note 11/28 ,' Acute on Chronic Anemia of CKD Chronic Iron Deficiency Anemia....s/p 2 units PRBC; repeat Hb now and assess for further transfusions..'
Trended Hemoglobin/Hematocrit
11/26/23 11/27/23 11/28/23
17:44 05:53 04:01
Hgb 6.6 L* 7.3 L 7.8 L
Hct 19.6 L* 22.2 L 23.3 L
11/28/23 11/29/23
15:20 05:26
Hgb 8.3 L 8.5 L
Hct 24.5 L 25.5L
Based on the above, could you clarify, in your progress note, which of the following is the most likely type of anemia you are evaluating, monitoring and/or treating?
Multifactorial due to Acute blood loss Anemia / Anemia of CKD /LITTLE
Anemia of CKD only /LITTLE only
Other
Use of terms such as suspected, likely, concern for, or probable (associated with a specific diagnosis that is being evaluated, monitored, or treated as if it exists) are acceptable and can be coded in the inpatient setting, when documented at the
time of discharge.
Thank you,
Paris Kingsley RN
CDI Specialist
[place] [facility]
Please use your independent medical judgment in providing your response.
--- NOTE | 2023-11-29 10:15 | CM ---
Patient has been medically cleared for discharge back to [facility] for LTC. Transport to be scheduled. [id number], Elizabet Tejeda, and Isidro in [facility] admissions has been notified.
NURSE TO NURSE #: [phone] Ask for Station #4
FAX: [phone]
--- NOTE | 2023-11-29 11:43 | W.PN.HOSP.TC ---
Addendum entered and electronically signed by Juli Yi MD 11/29/23 11:59:
Multifactorial due to acute on chronic blood loss Anemia / Anemia of CKD /LITTLE
Multifactorial recently diagnosed Angiodysplasia of duodenum/LITTLE/Anemia of CKD, chronic post-menopausal bleeding
Original Note:
Today's Communication/Plan
-
dc to SNF
Assessment / Plan
Assessment / Plan
Assessment:
Acute on Chronic Anemia of CKD
Chronic Iron Deficiency Anemia
Post-Menopausal Bleeding on Depo-Provera
- prior noted EGD with angioectasis, planned for C-scope 01/01/24
- s/p 2 units PRBC
- s/p RAVI injection
- Hb 8.5
- continue iron daily
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
CKD V
Chronic Metabolic Acidosis
Hyperkalemia
- Stable.� Renal function is at / near known baseline.
- Has LUE AVF in place which is mature - but not yet requiring HD.
- Continue current med regimen including diuretics, bicarb supplementation, etc.
- Follow labs/lytes.
Benign Hypertension
- Stable.�Continue current meds with holding parameters.
DM-II
- Stable.�Continue SSI.
- A1C earlier this month was 5.2%.
Hypothyroidism
- Stable.�Continue current T4 replacement.
Chronic Venous Stasis Dermatitis
- Continue topical therapy.
History of DVT
DVT Prophylaxis
- Not on OAC secondary to bleeding issues.
- Hold ASA as no absolute indication / ongoing issues with blood loss.
- SCDs.
Code Status:�Full
More than 30 minutes spent in discharge including
Final examination of the patient
Summarizing hospital stay
Instructions for continuing care to all relevant caregivers
Preparation of discharge records, prescriptions, and referral forms
Total time spent (in minutes): 41
Anticipated Discharge: Today
Subjective/Interval History
-
Date of Service: November 29, 2023
Hb improved, no sign of bleeding
pt eager for DC
Objective Data
-
Labs:
Laboratory Results
11/29/23
05:26
WBC 5.7
Hgb 8.5 L
Hct 25.5 L
Plt Count 172
Vital Signs:
Vital Signs
Temp Pulse Resp BP Pulse Ox
98.5 F 71 14 140/58 99
11/29/23 07:48 11/29/23 08:16 11/29/23 07:48 11/29/23 08:16 11/29/23 08:00
I&O
11/28/23 11/29/23 11/30/23
06:59 06:59 06:59
Intake Total 1010 / 1010 1979
Balance 1010 / 1010 1979
Physical Exam
-
General: No Apparent Distress
HEENT: Normocephalic and Atraumatic
Respiratory: Negative Wheezes or Rales
Cardiac: Regular Rhythm and S1/S2
GI: Soft
Genito-urinary: No Costovertebral Tender
Musculoskeletal: No Edema
Neuro: AO x 3
Hematologic / Lymphatic: No Lymphadenopathy
Psych: Calm
Data Reviewed
-
Total Time Spent with Patient (in minutes): 41
Labs: Labs Reviewed by me
--- NOTE | 2023-11-29 11:46 | W.DS.TRANS ---
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
-
Discharge Instructions:
Discharge Diagnosis/Procedures acute on chronic anemia requiring 2 unit PRBC
Diet 2 Gram Sodium,Restrict fluids to 48 oz,Diabetic,
Carb Controlled
Additional Diets 2 gram potassium restriction
Activity As tolerated
Bathing Restrictions None
Blood Work CBC weekly to determine outpatient transfusion
needs to prevent hospitalization
Instructions:
Stand-Alone Forms:
Changes to Home Medications: No
Discharge Medications:
DC Medications w/original date entered in [employer]
allopurinol 100 mg tablet 100 mg PO DAILY Gout 09/07/22
ammonium lactate 12 % topical cream 1 applic topical [id number] PRN B/L legs 09/07/22
atorvastatin 40 mg tablet (Lipitor) 40 mg PO DAILY High cholesterol 09/07/22
carvedilol 25 mg tablet (Coreg) 25 mg PO BID Heart disease/condition 09/07/22
folic acid 1 mg tablet 1 mg PO DAILY Supplement 09/07/22
hydralazine 50 mg tablet 50 mg PO TID Blood pressure 10/26/22
pantoprazole 40 mg tablet,delayed release 40 mg PO DAILY Gastrointestinal issue 10/31/22
bisacodyl 10 mg rectal suppository 10 mg CO DAILYPRN PRN constipation #0 ea 11/22/22
acetaminophen 325 mg tablet (Tylenol) 650 mg PO Q4HPRN PRN mild pain/temp 100F or above 11/28/22
levothyroxine 25 mcg tablet 25 mcg PO DAILY Thyroid 11/28/22
cyanocobalamin (vitamin B-12) 1,000 mcg tablet 1,000 mcg PO DAILY #0 tabs 12/06/22
insulin aspart U-100 100 unit/mL (3 mL) subcutaneous pen (Novolog FlexPen U-100 Insulin aspart) 0 - 12 sliding scale dose SC ACHS Diabetes 03/26/23
sennosides 8.6 mg-docusate sodium 50 mg tablet (Senna with Docusate Sodium) 1 tab PO [id number] PRN constipation 03/27/23
gabapentin 100 mg capsule 100 mg PO TID Pain #0 caps 03/28/23
polyethylene glycol 3350 17 gram oral powder packet (Miralax) 17 g PO DAILY PRN Constipation 07/17/23
epoetin dora 10,000 unit/mL injection solution (Procrit) 10,000 unit SC TU PRN give only for HGB 10 or less 10/18/23
ferrous sulfate 325 mg (65 mg iron) tablet 325 mg PO Q48H Supplement 10/18/23
miconazole nitrate 2 % topical powder (Miconazorb AF) 1 applic topical BID apply to ABD folds/groin 10/18/23
torsemide 10 mg tablet 20 mg PO BID Fluid Retention/Swelling 10/18/23
glucagon HCl 1 mg solution for injection (Glucagon (HCl) Emergency Kit) 1 mg SC Q20M PRN hypoglycemia 11/05/23
loperamide 2 mg tablet 2 mg PO Q6H PRN diarrhea 11/05/23
sodium bicarbonate 650 mg tablet 1,300 mg PO TID Supplement #0 tabs 11/07/23
ammonium lactate 12 % topical cream 1 applic topical BID Skin Issues 11/26/23
Home Medication Changes
Pending Results: No
Total time spent discharging patient (in min): 41
== END 2023-11-29 12:36 | DRG 811 ==
LOC: 2 NORTH 20:11
PROVIDERS: Internal Medicine; ADMITTING PHYSICIAN Hospitalist; ATTENDING PHYSICIAN Internal Medicine; EMERGENCY PHYSICIAN Emergency Medicine; FAMILY PHYSICIAN Internal Medicine
PROC: 30233N1 Transfusion of Nonautologous Red Blood Cells into Peripheral Vein, Percutaneous Approach (ICD-10-PCS; 2023-11-27)
DX: D62 Acute posthemorrhagic anemia (principal); K31.811 Angiodysplasia of stomach and duodenum with bleeding; I12.0 Hypertensive chronic kidney disease with stage 5 chronic kidney disease or end stage renal disease; N18.5 Chronic kidney disease, stage 5; E87.22 Chronic metabolic acidosis; N95.0 Postmenopausal bleeding; D50.9 Iron deficiency anemia, unspecified; D63.1 Anemia in chronic kidney disease; E11.22 Type 2 diabetes mellitus with diabetic chronic kidney disease; E03.9 Hypothyroidism, unspecified; E87.6 Hypokalemia; I87.2 Venous insufficiency (chronic) (peripheral); E66.9 Obesity, unspecified; Z86.718 Personal history of other venous thrombosis and embolism; Z68.33 Body mass index [BMI] 33.0-33.9, adult
CPT/HCPCS: 80048; 80053; 82962; 83540; 83550; 85014; 85018; 85025; 85027; 86850; 86900; 86901; 86920; 87070; 99291; P9016; Q5106

== ENCOUNTER 2023-12-17 16:57 | Emergency (ER) | payer MEDICARE, OTHER, SELFPAY ==
[2023-12-17 17:00] VITALS: BP 132/60
[2023-12-17 17:03] VITALS: BP 132/60
[2023-12-17 17:20] LABS: % Basophils 0.7 % (0-2); % Eosinophils 2.7 % (0-6); % Immature Granulocytes 0.4 % (0-0.5); % Lymphocytes 15.7 % (20.5-51.1); % Monocytes 5.1 % (1.7-9.3); % Neutrophils 75.4 % (42.2-75.2); Absolute Basophils 0.1 10^3/uL (0-0.2); Absolute Eosinophils 0.2 10^3/uL (0-0.7); Absolute Lymphocytes 1.1 10^3/uL (1.2-3.4); Absolute Monocytes 0.4 10^3/uL (0.1-0.6); Absolute Neutrophils 5.3 10^3/uL (1.4-6.5); Hematocrit 24.1 % (37.0-47.0); Hemoglobin 7.9 g/dL (12.0-16.0); Mean Corp Hgb Conc. 32.8 g/dL (33.0-37.0); Mean Corpuscular Volume 97.6 fL (81.0-99.0); Mean Platelet Volume 9.1 fL (7.4-10.4); Nucleated Red Blood Cells % 0 %; Platelet Count 207 10^3/uL (130-400); Red Blood Cell Count 2.47 10^6/uL (4.20-5.40); Red Cell Dist. Width 14.8 % (11.5-14.5)
[2023-12-17 17:32] LABS: ALT (SGPT) 16 U/L (0-35); AST (SGOT) 20 U/L (14-36); Albumin 3.7 g/dl (3.5-5.0); Alkaline Phosphatase 90 U/L (38-126); Blood Urea Nitrogen 84 mg/dl (7-17); Calcium 9.7 mg/dl (8.4-10.2); Carbon Dioxide 19 mmol/L (22-30); Chloride 109 mmol/L (98-107); Estimated Creatinine Clearance 16 ml/min; Glucose 149 mg/dl (70-99); Potassium 4.3 mmol/L (3.5-5.1); Sodium 138 mmol/L (135-145); Total Bilirubin 0.4 mg/dl (0.2-1.3); Total Protein 6.3 g/dl (6.3-8.2)
--- NOTE | 2023-12-17 17:51 | ED.GENMED ---
History of Present Illness
General
Chief Complaint: Abnormal Lab Value
Source: patient
Exam Limitations: none
Time Seen by Provider: 12/17/23 17:18
Nursing documentation reviewed up to this point in time: agreed with
Travel History
Have you had any contact with someone who has COVID-19?: No
Do you have any symptoms of coronavirus? Fever > 100 degrees, chills, cough, shortness of breath, sore throat, loss of taste or smell, muscle aches, or headache?: No
History of Present Illness
History of Present Illness:
Patient to ED for abnormal lab evaluation. States she had routine blood work yesterday. Told today her Hgb was 6.5. History of chronic anemia, CRF. Has had transfusions in past. To ED today by EMS. SHe has no complaints, no symptoms.
Past History
Past History
ED Past Medical History: CAD, GERD, HTN, Hypercholesterolemia, NIDDM, Renal failure, Hypothyroidism and Other (Dysfunctional uterine bleeding, chronic kidney disease pending dialysis, Renal calculus, Iron def anemia, hemorrhagic disorder due to
extrinsic Circulatory anticoagulation. PNA, Back pain, )
ED Past Surgical History: Appendectomy, Gynecological (D&C), Orthopedic (Left carpal tunnel ), Tonsilectomy, Urological (Kidney stent) and Other (L AV fistula)
Social History
Tobacco: Non-smoker
Alcohol: Occasional
Drug: None
Personal: Single
Living: retirement
Family History
Family History: Negative Diabetes, Hypertension, Early CAD, Asthma or Cancer
Review of Systems
Review of Systems
Allergies reviewed?: Yes
All Other Systems: ROS reviewed and negative except as documented in HPI and ROS
Constitutional: Reports no symptoms
EENT: Reports no symptoms
Respiratory: Reports no symptoms
Cardiac: Reports no symptoms
ABD/GI: Reports no symptoms
Musculoskeletal: Reports no symptoms
Skin: Reports no symptoms
Neurological: Reports no symptoms
Psychiatric: Reports no symptoms
Phy Exam
General Physical Exam
General Presentation: well appearing and no apparent distress
General age: appears stated age
General Skin: warm and dry
General Habitus: normal
General Mental: alert
General Hydration: appears well hydrated
Cardiovascular Exam
Cardiovascular Exam: regular rate/rhythm and no edema
Gastrointestinal Exam
Gastrointestinal Exam: normal bowel sounds, non tender, soft, no organomegaly and non distended
Musculoskeletal Exam
Musculoskeletal Exam: full ROM and neuro vasc intact
Skin Exam
Skin Exam: normal color, warm/dry and no rash
Psychiatric Exam
Psychiatric Exam: normal mood/affect
Course
Orders/Labs/Results
Orders:
Orders
12/17/23 17:12
Type+Screen Urgent
BBK Wristband Number:
Complete Blood Count/With Diff Urgent
Comprehensive Metabolic Panel Urgent
Abnormal Lab Results
12/17/23
17:12
RBC 2.47 L 10^6/uL
(4.20-5.40)
Hgb 7.9 L g/dL
(12.0-16.0)
Hct 24.1 L %
(37.0-47.0)
MCH 32.0 H pg
(27.0-31.0)
MCHC 32.8 L g/dL
(33.0-37.0)
RDW 14.8 H %
(11.5-14.5)
Absolute Lymphs (auto) 1.1 L 10^3/uL
(1.2-3.4)
Neutrophils % 75.4 H %
(42.2-75.2)
Lymphocytes % 15.7 L %
(20.5-51.1)
Chloride 109 H mmol/L
(98-107)
Carbon Dioxide 19 L mmol/L
(22-30)
BUN 84 H mg/dl
(7-17)
Creatinine 3.6 H mg/dL
(0.6-1.0)
Glucose 149 H mg/dl
(70-99)
12/17/23 17:12
12/17/23 17:12
Vital Signs
Initial and Last Documented VS:
Initial Vital Signs
Temp Pulse Resp BP Pulse Ox
98.6 F 94 18 132/60 100
12/17/23 17:00 12/17/23 17:00 12/17/23 17:00 12/17/23 17:00 12/17/23 17:00
Last Documented Vital Signs
Temp Pulse Resp BP Pulse Ox
98.9 F 64 15 142/67 100
12/17/23 21:51 12/17/23 21:30 12/17/23 21:30 12/17/23 21:03 12/17/23 21:30
*Critical Care Note
Total Time (30-74mins, 75-104mins- exclusive of procedures): Not Applicable
Update Note
Update Note:
Hgb today 7.9, stable for patient. SHe has no complaints. No transfusion indicated. She is discharged back to [facility]
ED Attending Note
-
Portions of this chart may have been created with voice recognition software.� Occasional wrong word or��sound alike� substitutions may have occurred due to the inherent limitations of voice recognition software.
Discharge Plan
Departure
Patient Disposition: Long Term/SNF
Date of Disposition: 12/17/23
Time of Disposition: 17:55
Condition: Good
Covid-19: Not Applicable
Discharge Problem:
Anemia in chronic kidney disease (CKD)
Instructions: Anemia of inflammation (anemia of chronic disease)
Prescriptions:
No Action
allopurinol 100 mg Tablet
100 mg PO DAILY
atorvastatin [Lipitor] 40 mg Tablet
40 mg PO DAILY
carvedilol [Coreg] 25 mg Tablet
25 mg PO BID
Rx Instructions:
10/18/2023, HOLD for SBP<90 OR HR<60.
folic acid 1 mg Tablet
1 mg PO DAILY
ammonium lactate 12 % Cream
1 applic TOPICAL [id number] PRN (Reason: B/L legs)
hydralazine 50 mg Tablet
50 mg PO TID
Rx Instructions:
10/18/2023, hold for SBP<90.
pantoprazole 40 mg tablet,delayed release (DR/EC)
40 mg PO DAILY
bisacodyl 10 mg Suppository
10 mg AK DAILYPRN PRN (Reason: constipation) Qty: 0 0RF
acetaminophen [Tylenol] 325 mg Tablet
650 mg PO Q4HPRN PRN (Reason: mild pain/temp 100F or above)
levothyroxine 25 mcg Tablet
25 mcg PO DAILY
cyanocobalamin (vitamin B-12) 1,000 mcg Tablet
1,000 mcg PO DAILY Qty: 0 0RF
insulin aspart U-100 [Novolog FlexPen U-100 Insulin] 100 unit/mL (3 mL) insulin pen
0 - 12 sliding scale dose SC ACHS
Hold Instructions: Resume on 04/06/23. Resume only after outpatient or rehab physician approves to resume.
Rx Instructions:
10/18/2023, if BS 70-150 = 0 units; 151-200 = 2 units; 201-250 = 4 units; 251-300 = 6 units; 301-350 = 8 units; 351-400 = 10 units; 401-450 = 12 units. If BS>451 call PCP.
sennosides-docusate sodium [Senna with Docusate Sodium] 8.6-50 mg Tablet
1 tab PO [id number] PRN (Reason: constipation)
gabapentin 100 mg Capsule
100 mg PO TID Qty: 0 0RF
polyethylene glycol 3350 [Miralax] 17 gram powder in packet
17 g PO DAILY PRN (Reason: Constipation)
torsemide 10 mg Tablet
20 mg PO BID
Procrit 10,000 unit/mL Solution
10,000 unit SC TU PRN (Reason: give only for HGB 10 or less)
Patient Comments:
10/18/2023, this medication is currently ON HOLD.
Rx Instructions:
10/18/2023, inject 1 syringe SC in the evening every Sunday for LITTLE ONLY GIVE THIS MEDICATION FOR HGB 10 OR LESS. Order Status: ON HOLD.
miconazole nitrate [Miconazorb AF] 2 % powder
1 applic topical BID
ferrous sulfate 325 mg (65 mg iron) tablet
325 mg PO Q48H
loperamide 2 mg Tablet
2 mg PO Q6H PRN (Reason: diarrhea)
glucagon HCl [Glucagon (HCl) Emergency Kit] 1 mg Recon Soln
1 mg SC Q20M PRN (Reason: hypoglycemia)
sodium bicarbonate 650 mg Tablet
1,300 mg PO TID Qty: 0 0RF
ammonium lactate 12 % Cream
1 applic TOPICAL BID
Rx Instructions:
apply to legs
Activity Restrictions/Additional Instructions:
Follow up with you healthcare provider in the AM
Interventions
Interventions:
*Risk Screen - Suicide Last Done: 12/17/23 17:00
*Neglect/Abuse Screening Last Done: 12/17/23 21:51
ED- Fall Risk Assessment Last Done: 12/17/23 21:51
*ED COVID-19 Vaccine History Last Done: 12/17/23 17:00
*Nursing Disposition Last Done: 12/17/23 21:51
Discharge Date and Time
Discharge Date/Time: 12/17/23 21:53
[2023-12-17 18:00] VITALS: BP 124/55
[2023-12-17 19:00] VITALS: BP 113/53
[2023-12-17 20:00] VITALS: BP 133/51
[2023-12-17 21:03] VITALS: BP 142/67
== END 2023-12-17 21:53 ==
LOC: EMR 16:57
PROVIDERS: EMERGENCY PHYSICIAN Emergency Medicine; FAMILY PHYSICIAN Internal Medicine
DX: N18.9 Chronic kidney disease, unspecified (principal); D63.1 Anemia in chronic kidney disease
CPT/HCPCS: 99283; 80053; 85025; 86850; 86900; 86901

== ENCOUNTER 2023-12-20 18:29 | Inpatient (IN) | payer MEDICARE, OTHER, SELFPAY ==
[2023-12-20 15:51] VITALS: BP 116/44; BMI 33.5
[2023-12-20 16:15] LABS: % Basophils 0.6 % (0-2); % Eosinophils 3.1 % (0-6); % Immature Granulocytes 0.3 % (0-0.5); % Lymphocytes 14.6 % (20.5-51.1); % Monocytes 5.1 % (1.7-9.3); % Neutrophils 76.3 % (42.2-75.2); Absolute Eosinophils 0.2 10^3/uL (0-0.7); Absolute Lymphocytes 0.9 10^3/uL (1.2-3.4); Absolute Monocytes 0.3 10^3/uL (0.1-0.6); Absolute Neutrophils 4.9 10^3/uL (1.4-6.5); Hematocrit 21.9 % (37.0-47.0); Hemoglobin 7.2 g/dL (12.0-16.0); Mean Corp Hgb Conc. 32.9 g/dL (33.0-37.0); Mean Corpuscular Hgb 32.4 pg (27.0-31.0); Mean Corpuscular Volume 98.6 fL (81.0-99.0); Mean Platelet Volume 9.2 fL (7.4-10.4); Nucleated Red Blood Cells % 0 %; Platelet Count 198 10^3/uL (130-400); Red Blood Cell Count 2.22 10^6/uL (4.20-5.40); Red Cell Dist. Width 14.9 % (11.5-14.5); White Blood Cell Count 6.4 10^3/uL (4.8-10.8)
[2023-12-20 16:27] LABS: ALT (SGPT) 17 U/L (0-35); AST (SGOT) 18 U/L (14-36); Albumin 3.6 g/dl (3.5-5.0); Alkaline Phosphatase 75 U/L (38-126); Blood Urea Nitrogen 83 mg/dl (7-17); Carbon Dioxide 17 mmol/L (22-30); Chloride 104 mmol/L (98-107); Estimated Creatinine Clearance 16 ml/min; Glucose 192 mg/dl (70-99); Potassium 4.6 mmol/L (3.5-5.1); Sodium 138 mmol/L (135-145); Total Bilirubin 0.2 mg/dl (0.2-1.3); Total Protein 6.1 g/dl (6.3-8.2)
--- NOTE | 2023-12-20 17:25 | ED.GENMED ---
History of Present Illness
General
Chief Complaint: Abnormal Lab Value
Source: patient and family
Exam Limitations: none
Time Seen by Provider: 12/20/23 15:55
Travel History
Have you had any contact with someone who has COVID-19?: No
Do you have any symptoms of coronavirus? Fever > 100 degrees, chills, cough, shortness of breath, sore throat, loss of taste or smell, muscle aches, or headache?: No
History of Present Illness
History of Present Illness:
78-year-old female with a history of chronic renal failure who is not currently on dialysis but does have a graft. She was sent because she was found to be anemic again. She was recently here after labs as an outpatient showed her to be anemic but
here her labs were much more reassuring. Patient offers no complaints. She did have a history of GI bleeding in the past. Denies abdominal pain.
Past History
Past History
ED Past Medical History: CAD, GERD, HTN, Hypercholesterolemia, NIDDM, Renal failure, Hypothyroidism and Other (Dysfunctional uterine bleeding, chronic kidney disease pending dialysis, Renal calculus, Iron def anemia, hemorrhagic disorder due to
extrinsic Circulatory anticoagulation. PNA, Back pain, )
ED Past Surgical History: Appendectomy, Gynecological (D&C), Orthopedic (Left carpal tunnel ), Tonsilectomy, Urological (Kidney stent) and Other (L AV fistula)
Social History
Tobacco: Non-smoker
Alcohol: Occasional
Drug: None
Personal: Single
Living: jail
Family History
Family History: Negative Diabetes, Hypertension, Early CAD, Asthma or Cancer
Phy Exam
Physical Exam
Physical Exam:
CONSTITUTIONAL Vital signs reviewed, Patient alert and oriented to person, place and time. Well-appearing
HEAD atraumatic, normocephalic.
EYES eyelids normal to inspection, Extraocular muscles intact, Conjunctiva normal, Sclera normal.
NECK normal range of motion, Trachea midline, no jugular venous distention.
RESP no respiratory distress
BACK No obvious deformities
Rectal exam dark-colored stool, clearly heme positive
UPPER EXTREMITY Gross Range of motion normal, gross motor strength normal. Fistula noted to the left wrist
LOWER EXTREMITY Gross range of motion normal, Gross motor strength normal
NEURO Speech normal, No focal motor deficits include, Daysi coma scale 15, Memory normal, Cranial Nerves intact to screening exam.
SKIN Skin warm, dry, and normal in color.
PSYCHIATRIC Patient oriented to person place and time, Normal affect.
Course
Orders/Labs/Results
Orders:
Orders
12/20/23 Dinner
Regular
At Your Request: Full Participation
12/20/23 16:05
Complete Blood Count/With Diff Urgent
Comprehensive Metabolic Panel Urgent
12/20/23 17:33
Pantoprazole 80 mg/100 ml Nss [Protonix] 80 mg in 100 ml IV NOW
Pantoprazole [Protonix IV] 80 mg IV NOW STA
12/20/23 18:04
Admit/Transfer Patient As Directed
Co-Sign Provider:
Level of Care: Inpatient admission
Assign to:: Medical/Surgical
Physician / Group: nolan
Diagnosis: anemia
Reason for Hospitalization: anemia
Expected length of stay greater than two midnights?: Yes
ELOS- Estimated Length of Stay in days: 2
I certify the patient meets the requirements for IP care: Yes
Code Status As Directed
Resuscitation Status: Full Code
12/20/23 18:05
* Blood Bank Products Routine
Blood Bank Products: *Packed RBC Leuko(PRBC's)
Quantity: 1
Transfuse Today: Yes
Reason: Anemia
12/20/23 18:33
Type+Screen Urgent
BBK Wristband Number:
12/20/23 19:35
Acetaminophen [Tylenol] 650 mg PO Q4HPRN PRN
Bisacodyl [Dulcolax] 10 mg RECTAL DAILYPRN PRN
Dextrose 50%-Water [Dextrose 50% Syringe] 12.5 grams IV [id number] PRN
Docusate W/Senna [Senokot-S] 1 tablet PO [id number] PRN
Glucagon [GlucaGen] 1 mg IM PRN PRN
Polyethylene Glycol Powder [Miralax] 17 grams PO DAILYPRN PRN
12/20/23 19:35
Activity As Directed
Activity Level: As Tolerated
Bedside Glucose Monitoring As Directed
Frequency: AC&HS
Comment: Change to q6h if pt on TPN, tube feeding or not eating
Pneumatic Compression Sleeves As Directed
Type: Knee high
Vital Signs As Directed
Frequency: Per unit guidelines
DX Deep Vein Thrombosis Video Routine
12/20/23 20:00
Carvedilol [Coreg] 25 mg PO BID
Ferrous Sulfate [Feosol] 325 mg PO Q48H
Miconazole Nitrate [Desenex/Mitrazol/Zeasorb] 0 applic TOPICAL BID
12/20/23 20:27
Ammonium Lactate 12% [Lac Hydrin, Am Lactin Lotion] 0 applic TOPICAL [id number] PRN
12/20/23 20:29
Loperamide [Imodium] 2 mg PO Q6HPRN PRN
12/20/23 21:00
Bacitracin/Polymyxin B [Polysporin Ointment] 0 applic TOPICAL BID
Torsemide [Demadex] 20 mg PO BID AT 0800,1600
12/20/23 22:00
Gabapentin [Neurontin] 100 mg PO TID
HydrALAZINE [Apresoline] 50 mg PO TID
Sodium Bicarbonate 1,300 mg PO TID
12/21/23 06:00
Complete Blood Count/With Diff IN AM
Comprehensive Metabolic Panel IN AM
Glycohemoglobin (HgbA1c) IN AM
12/21/23 07:00
Levothyroxine [Synthroid] 25 mcg PO DAILY AT 0700
12/21/23 07:30
Insulin Aspart Corrective Low [Novolog Flexpen-Low Resistance] See Protocol SC AC
12/21/23 08:00
Allopurinol [Zyloprim] 100 mg PO DAILY
Aspirin Low Dose EC [Aspir Low (Enteric Coated)] 81 mg PO DAILY
Atorvastatin [Lipitor] 40 mg PO DAILY
Cholecalciferol (Vitamin D3) [VITAMIN D3 (cholecalciferol)] 125 mcg PO FR
Cyanocobalamin [Vitamin B-12] 1,000 mcg PO DAILY
FOLic ACID [Folvite] 1 mg PO DAILY
Pantoprazole [Protonix] 40 mg PO DAILY
12/21/23 18:00
Ammonium Lactate 12% [Lac Hydrin, Am Lactin Lotion] 0 applic TOPICAL QPM
Abnormal Lab Results
12/20/23
16:05
RBC 2.22 L 10^6/uL
(4.20-5.40)
Hgb 7.2 L g/dL
(12.0-16.0)
Hct 21.9 L %
(37.0-47.0)
MCH 32.4 H pg
(27.0-31.0)
MCHC 32.9 L g/dL
(33.0-37.0)
RDW 14.9 H %
(11.5-14.5)
Absolute Lymphs (auto) 0.9 L 10^3/uL
(1.2-3.4)
Neutrophils % 76.3 H %
(42.2-75.2)
Lymphocytes % 14.6 L %
(20.5-51.1)
Carbon Dioxide 17 L mmol/L
(22-30)
BUN 83 H mg/dl
(7-17)
Creatinine 3.6 H mg/dL
(0.6-1.0)
Glucose 192 H mg/dl
(70-99)
Total Protein 6.1 L g/dl
(6.3-8.2)
12/20/23 16:05
12/20/23 16:05
Vital Signs
Initial and Last Documented VS:
Initial Vital Signs
Temp Pulse Resp BP Pulse Ox
98.4 F 79 18 116/44 99
12/20/23 15:51 12/20/23 15:51 12/20/23 15:51 12/20/23 15:51 12/20/23 15:51
Last Documented Vital Signs
Temp Pulse Resp BP Pulse Ox
98 F 71 16 131/47 98
12/20/23 23:31 12/20/23 23:31 12/20/23 23:31 12/20/23 23:31 12/20/23 23:31
MDM/Problems Addressed
MDM/Problems Addressed:
GI bleeding, anemia chronic disease, chronic renal failure
*Pulse Oximetry
Patient hypoxic: no
*Mold Filler And Drainer Interpretation
Rate: normal
Interpretation: normal
Rhythm: sinus
*Critical Care Note
Total Time (30-74mins, 75-104mins- exclusive of procedures): Not Applicable
Data Reviewed
Review of Other/Old Records Reveals: Labs (Prior labs reviewed, baseline somewhere around 8), Operative Reports (Prior endoscopy reviewed) and Discharge Summary
Source: patient and family
Patient Management
Discussion with other providers: Hospitalist and [employer] (Case discussed with gastroenterology)
Escalation/DeEscalation of care consider admission/obs:
GI bleed noted. In the face chronic anemia, admit. Protonix initiated in light of her history of angiodysplasia noted on prior scopes
ED Attending Note
-
Portions of this chart may have been created with voice recognition software.� Occasional wrong word or��sound alike� substitutions may have occurred due to the inherent limitations of voice recognition software.
Discharge Plan
Departure
Patient Disposition: Admit
Date of Disposition: 12/20/23
Time of Disposition: 17:27
Admit to: Telemetry
Presentation/result/management discussed w/ accepting MD/DO: Hospitalist
Discharge Problem:
Anemia, Acute GI bleeding, Chronic renal failure
Interventions
Interventions:
*Risk Screen - Suicide Last Done: 12/20/23 15:46
*General Assessment Last Done: 12/20/23 15:46
*Neglect/Abuse Screening Last Done: 12/20/23 15:46
ED- Fall Risk Assessment Last Done: 12/20/23 19:25
*ED COVID-19 Vaccine History Last Done: 12/20/23 19:25
*Nursing Disposition Last Done: 12/20/23 19:25
Discharge Date and Time
Discharge Date/Time: 12/20/23 19:30
[2023-12-20 17:28] VITALS: BP 129/51
[2023-12-20] MEDS: PROTONIX IV 80 MG IV (17:59)
[2023-12-20] MEDS: PROTONIX 100 IV (17:59)
[2023-12-20 18:00] VITALS: BP 129/63
--- NOTE | 2023-12-20 18:08 | HPS.HSE ---
Family Physician
-
Family Physician: Jhonathan Gabriel
Chief Complaint
-
anemia
History of Present Illness
78-year-old female past medical history of CAD, hypertension, GERD, hypercholesteremia, diabetes, CKD 4 about to start dialysis, hypothyroidism, iron deficiency anemia, renal calculus, gout, obesity, chronic anemia, gallstones, presenting for
hemoglobin in the 6 range as outpatient. Hemoglobin currently 7.2. He denies any symptoms including blood in the stool or black stool. Denies any abdominal pain or nausea vomiting or chest pain or shortness of breath. Denies any diarrhea or
constipation. Denies any vaginal bleeding.
Patient was admitted in early November for anemia. She was seen by GI and had endoscopy that showed normal esophagus, mild erythematous mucosa in the stomach with few nonbleeding angiectasia in the duodenum. She previously had colonoscopy in
October which showed some polyps. She declined inpatient colonoscopy and chose to have outpatient colonoscopy in December for polypectomy.: She received 2 units of blood transfusion. She was seen by actuary given Neupogen.
Patient was again admitted in late November for anemia without evidence of bleeding. She received 2 units of blood and erythropoietin injection. Hemoglobin improved to 8.5. She was recommended to have weekly blood work to determine transfusion/
injection needs to prevent further hospitalizations.
Medical History
Past Medical History
Past Medical History: Reports Other (CAD, hypertension, GERD, hypercholesteremia, diabetes, CKD 4 about to start dialysis, hypothyroidism, iron deficiency anemia, renal calculus, gout, obesity, chronic anemia, gallstones,)
Past Surgical History: Reports Other (Appendectomy, Gynecological (D&C), Orthopedic (Left carpal tunnel ), Tonsilectomy, Urological (Kidney stent) and Other (L AV fistula))
Social History
Tobacco: Non-smoker
Alcohol: None
Drug: None
Family History
Family History: Not pertinent
Allergies / Home Medications
Allergies reflects when Allergies were last updated in [employer].
Home Medications with original date entered in [employer]
Allergy/Medication List:
Allergies
Allergy/AdvReac Type Severity Reaction Status Date / Time
Penicillins Allergy Hives Verified 11/05/23 17:51
Home Medications
allopurinol 100 mg tablet 100 mg PO DAILY Gout 09/07/22
ammonium lactate 12 % topical cream 1 applic topical [id number] PRN B/L legs 09/07/22
atorvastatin 40 mg tablet (Lipitor) 40 mg PO DAILY High cholesterol 09/07/22
carvedilol 25 mg tablet (Coreg) 25 mg PO BID Heart disease/condition 09/07/22
folic acid 1 mg tablet 1 mg PO DAILY Supplement 09/07/22
hydralazine 50 mg tablet 50 mg PO TID Blood pressure 10/26/22
pantoprazole 40 mg tablet,delayed release 40 mg PO DAILY Gastrointestinal issue 10/31/22
bisacodyl 10 mg rectal suppository 10 mg CA DAILYPRN PRN constipation #0 ea 11/22/22
acetaminophen 325 mg tablet (Tylenol) 650 mg PO Q4HPRN PRN mild pain/temp 100F or above 11/28/22
levothyroxine 25 mcg tablet 25 mcg PO DAILY Thyroid 11/28/22
cyanocobalamin (vitamin B-12) 1,000 mcg tablet 1,000 mcg PO DAILY #0 tabs 12/06/22
insulin aspart U-100 100 unit/mL (3 mL) subcutaneous pen (Novolog FlexPen U-100 Insulin aspart) 0 - 12 sliding scale dose SC ACHS Diabetes 03/26/23
sennosides 8.6 mg-docusate sodium 50 mg tablet (Senna with Docusate Sodium) 1 tab PO [id number] PRN constipation 03/27/23
gabapentin 100 mg capsule 100 mg PO TID Pain #0 caps 03/28/23
polyethylene glycol 3350 17 gram oral powder packet (Miralax) 17 g PO DAILYPRN PRN Constipation 07/17/23
epoetin dora 10,000 unit/mL injection solution (Procrit) 10,000 unit SC TU PRN give only for HGB 10 or less 10/18/23
ferrous sulfate 325 mg (65 mg iron) tablet 325 mg PO Q48H Supplement 10/18/23
miconazole nitrate 2 % topical powder (Miconazorb AF) 1 applic topical BID apply to ABD folds/groin 10/18/23
torsemide 10 mg tablet 20 mg PO BID Fluid Retention/Swelling 10/18/23
loperamide 2 mg tablet 2 mg PO Q6HPRN PRN diarrhea 11/05/23
sodium bicarbonate 650 mg tablet 1,300 mg PO TID Supplement #0 tabs 11/07/23
ammonium lactate 12 % topical cream 1 applic topical QPM Skin Issues 11/26/23
aspirin 81 mg tablet,delayed release 81 mg PO DAILY 12/20/23
cholecalciferol (vitamin D3) 125 mcg (5,000 unit) tablet (Vitamin D3) 125 mcg PO FR 12/20/23
neomycin-bacitracn Zn-polymyxn 3.5 mg-400 unit-5,000 unit top oint pkt (Triple Antibiotic) 1 applic topical BID RIGHT FIFTH DIGIT 12/20/23
Review of Systems
-
History Source: Patient
A 12 point ROS was completed and negative except as noted: Yes
Constitutional: Reports No Symptoms
EENT: Reports No Symptoms
Respiratory: Reports No Symptoms
Cardiac: Reports No Symptoms
Abdomen/GI: Reports No Symptoms
: Reports No Symptoms
Musculoskeletal: Reports No Symptoms
Skin: Reports No Symptoms
Neurological: Reports No Symptoms
Endocrine: Reports No Symptoms
Hematologic/Lymphatic: Reports No Symptoms
Psych: Reports No Symptoms
Physical Exam
Vital Signs
Vital Signs
Temp Pulse Resp BP Pulse Ox
98.4 F 79 18 116/44 99
12/20/23 15:51 12/20/23 15:51 12/20/23 15:51 12/20/23 15:51 12/20/23 15:51
Physical Exam
General: Well Developed, Well Nourished and No Apparent Distress
HEENT: NormoCephalic, Moist mucous membranes and Atraumatic
Respiratory: Clear
Cardiac: S1/S2 and Regular Rhythm; No Murmur or Rub
GI: Soft, Non Tender, Non Distended and Normal Bowel Sounds; No Organomegaly
Rectal: Deferred by Provider
Musculoskeletal: No Clubbing, No Cyanosis and No Edema
Skin: No Rash
Neuro: Nonfocal/grossly intact
Laboratory Results
-
12/20/23 16:05
12/20/23 16:05
Laboratory Results
Total Bilirubin 0.2 mg/dl (0.2-1.3) 12/20/23 16:05
AST 18 U/L (14-36) 12/20/23 16:05
ALT 17 U/L (0-35) 12/20/23 16:05
Alkaline Phosphatase 75 U/L (38-126) 12/20/23 16:05
Data Reviewed
-
Lab Data: Labs Reviewed by me
Old Records: Reviewed
Impression/Plan
-
IMPRESSION:
PLAN:
# Recurrent anemia multifactorial secondary to occult GI bleeding from duodenal angiectasia/colonic polyps/ anemia of chronic disease
-Hemoglobin 6 range as outpatient but 7.2 here which is close to baseline
-Stool is heme positive as it has been in the past
-This is a third admission for anemia
-Had recent EGD in November showing duodenal angiectasia and colonoscopy in October showing polyps
-1 unit of blood
-Continue Protonix daily
-Weekly labs to prevent readmission
-Continue iron supplement
-Patient scheduled for colonoscopy in December for polypectomy, without clear indication for repeat EGD/colonoscopy inpatient
CKD4
-Renal function baseline
-On the verge of starting dialysis
-Continue sodium bicarbonate
-Continue torsemide
Coronary artery disease
-Continue aspirin
Essential hypertension
-Continue hydralazine
-Continue Coreg
Type 2 diabetes
-Insulin sliding scale
History of gallstones
Hyperlipidemia
-Continue statin
Hypothyroidism
-Continue levothyroxine
Gout
-Continue allopurinol
Morbid obesity
Full code
DVT prophylaxis�SCDs
Regular diet
[2023-12-20 19:51] LABS: Glucose - Point of Care 163 mg/dl (70-99)
[2023-12-20 20:10] VITALS: BP 133/54; BMI 33.8
[2023-12-20 22:13] LABS: Glucose - Point of Care 146 mg/dl (70-99)
[2023-12-20] MEDS: APRESOLINE 50 MG PO (22:18)
[2023-12-20] MEDS: SODIUM BICARBONATE 1300 MG PO (22:18)
[2023-12-20] MEDS: POLYSPORIN OINTMENT 1 APPLIC TOPICAL (22:18)
[2023-12-20] MEDS: FEOSOL 325 MG PO (22:19)
[2023-12-20] MEDS: COREG 25 MG PO (22:19)
[2023-12-20] MEDS: NEURONTIN 100 MG PO (22:19)
[2023-12-20] MEDS: DESENEX/MITRAZOL/ZEASORB 1 APPLIC TOPICAL (22:23)
[2023-12-20] MEDS: DEMADEX 20 MG PO (22:23)
[2023-12-20 23:31] VITALS: BP 131/47
[2023-12-20 23:54] VITALS: BP 121/48
[2023-12-21] VITALS (10 sets, daily range): BP systolic 125–138; BP diastolic 43–53
--- NOTE | 2023-12-21 05:29 | PTCARENOTE ---
Pt admitted from ED, AAOx3. No reports of pain. Pt afebrile and VSS. Protonix infusing without issues upon arrival and completed this shift. Pt tolerated 1 unit PRBCs without issues; labs pending at this time. Pt oriented to room. Awaiting
further plan.
[2023-12-21 05:32] LABS: % Basophils 0.7 % (0-2); % Eosinophils 3.3 % (0-6); % Immature Granulocytes 0.2 % (0-0.5); % Lymphocytes 28.3 % (20.5-51.1); % Neutrophils 62.5 % (42.2-75.2); Absolute Eosinophils 0.2 10^3/uL (0-0.7); Absolute Lymphocytes 1.6 10^3/uL (1.2-3.4); Absolute Monocytes 0.3 10^3/uL (0.1-0.6); Absolute Neutrophils 3.6 10^3/uL (1.4-6.5); Hematocrit 23.3 % (37.0-47.0); Hemoglobin 7.5 g/dL (12.0-16.0); Mean Corp Hgb Conc. 32.2 g/dL (33.0-37.0); Mean Corpuscular Volume 96.3 fL (81.0-99.0); Mean Platelet Volume 9.2 fL (7.4-10.4); Nucleated Red Blood Cells % 0 %; Platelet Count 172 10^3/uL (130-400); Red Blood Cell Count 2.42 10^6/uL (4.20-5.40); White Blood Cell Count 5.8 10^3/uL (4.8-10.8)
[2023-12-21 05:59] LABS: ALT (SGPT) 15 U/L (0-35); AST (SGOT) 18 U/L (14-36); Albumin 2.8 g/dl (3.5-5.0); Alkaline Phosphatase 63 U/L (38-126); Blood Urea Nitrogen 80 mg/dl (7-17); Calcium 9.4 mg/dl (8.4-10.2); Carbon Dioxide 21 mmol/L (22-30); Chloride 111 mmol/L (98-107); Estimated Creatinine Clearance 16 ml/min; Glucose 103 mg/dl (70-99); Potassium 4.3 mmol/L (3.5-5.1); Sodium 137 mmol/L (135-145); Total Bilirubin 0.5 mg/dl (0.2-1.3); Total Protein 5.1 g/dl (6.3-8.2)
[2023-12-21] MEDS: SYNTHROID 25 MCG PO (06:33)
[2023-12-21 07:49] LABS: Glucose - Point of Care 102 mg/dl (70-99)
[2023-12-21] MEDS: ZYLOPRIM 100 MG PO (08:31)
[2023-12-21] MEDS: SODIUM BICARBONATE 1300 MG PO ×3 (08:31→22:49)
[2023-12-21] MEDS: PROTONIX 40 MG PO (08:31)
[2023-12-21] MEDS: LIPITOR 40 MG PO (08:31)
[2023-12-21] MEDS: COREG 25 MG PO ×2 (08:31→20:05)
[2023-12-21] MEDS: APRESOLINE 50 MG PO ×3 (08:31→22:50)
[2023-12-21] MEDS: POLYSPORIN OINTMENT 1 APPLIC TOPICAL ×2 (08:32→20:07)
[2023-12-21] MEDS: NEURONTIN 100 MG PO ×3 (08:32→22:49)
[2023-12-21] MEDS: VITAMIN B-12 1000 MCG PO (08:32)
[2023-12-21] MEDS: DESENEX/MITRAZOL/ZEASORB 1 APPLIC TOPICAL ×2 (08:32→20:08)
[2023-12-21] MEDS: ASPIR LOW (ENTERIC COATED) 81 MG PO (08:32)
[2023-12-21] MEDS: DEMADEX 20 MG PO ×2 (08:32→17:23)
[2023-12-21] MEDS: FOLVITE 1 MG PO (08:32)
[2023-12-21] MEDS: VITAMIN D3 (cholecalciferol) 125 MCG PO (08:34)
[2023-12-21 11:41] LABS: Glucose - Point of Care 134 mg/dl (70-99)
--- NOTE | 2023-12-21 11:57 | CON.GI ---
Addendum entered and electronically signed by Dee Grace MD 12/21/23 14:40:
I saw and examined the patient.
The COMMUNITY HEALTH CONSULTANT's note was reviewed and I agree with the note.
- chronic normocytic anemia with heme + stool. Etiology is likely multifactorial-anemia of chronic disease with CKD versus blood loss anemia secondary to multiple AVMs versus large colon polyp etc.
-large colonic� polyps overdue for EMR
-EGD 2023 with few non bleeding angioectasia
-CKD stage V ( not on HD yet )
- hx stercoral� colitis.hx chronic constipation on chronic senna with docusate
plan
Continue monitor H&H. Transfuse as needed.
Continue follow-up with nephrology for CKD
Hematology evaluation with periodic transfusion
Patient is scheduled to have colonoscopy with EMR with Dr. Zambrano in 12/2023
Will consider video capsule endoscopy as outpatient if anemia persist after polypectomy
At this point no further recommendation. GI will sign off. Please call us back if any other questions
Original Note:
Consultation
-
Date/Time Consultation Requested: 12/21/23 1200
Date/Time Consultation Performed: 12/21/23 1200
Requesting Provider: Carlos Cm MD
Performing Provider: DAPHNE Card, Dee Grace MD
Reason for Consultation: anemia, dark heme + stool
Medical History
Chief Complaint / HPI
Chief Complaint: abnormal labs
History of Present Illness:
Pt is a 78 yo female with a PMH significant for CKD stage V with placement of LUE AV fistula (pending start on HD next few months), CVA, HTN, GERD, HLD, IDDM, LITTLE on chronic iron supplement, constipation with prior fecal impaction, hypothyroidism,
obesity, chronic constipation, hx DVT ( off AC), CAD, chronic LE lymphedema present to ER with drop in hbg with hbg 6 outpatient and 7.2 in ER and noted dark heme + stools. Pt with hx large polyps on colonoscopy in 2022 and delayed with other
medical issue but due for repeat colonoscopy with Dr. Zambrano 12/31 for removal.
Pt with some limited mobility but denies shortness of breath, dizziness, dysphagia, GERD, nausea, vomiting, diarrhea, constipation, blood or black in stools. Pt with minimal wt loss.
prior procedures:
EGD 10/2022- Normal esophagus. Erythematous mucosa in the stomach. Biopsied. Mucosal nodule found in the duodenum. Biopsied. Normal second portion of the duodenum. Biopsied. bx neg
EG Normal esophagus� - Erythematous mucosa in the stomach. Biopsied. - A few non-bleeding angiectasias in the duodenum.
Colonoscopy:� 11/2022 Preparation of the colon was poor. Five 3 to 6 mm polyps in the rectum, in the sigmoid colon and in the cecum, removed with a cold snare. Resected and retrieved. One 1 mm polyp in the cecum, removed with a jumbo� cold forceps.
Resected and retrieved. One 20 mm polyp in the cecum. Biopsied. One 18 mm polyp in the ascending colon. Biopsied. One 10 mm polyp in the transverse colon, removed with a hot snare. Complete resection. Partial retrieval. Clips were placed. Internal
hemorrhoids. bx with TA and hyperplastic polyps.
Past Medical History
Past Medical History: CAD, CVA, GERD, HTN, Hypercholesterolemia, Hypothyroidism, IDDM, Renal Failure (CKD stage V) and Other (hx DVT, LITTLE, obesity, constipation, chronic LE lymphedema)
Past Surgical History: Appendectomy, Orthopedic (left carpal tunnel surgery), Tonsilectomy and Other (D&C (for vaginal bleeding), LUE AV fistula)
Social History
Tobacco: Non-Smoker
Alcohol: None
Drug: None
Living: Skilled Nursing
Family History
Family History: Other (no family hx colon CA or polyps)
Allergies / Home Medications
Allergy/AdvReac Type Severity Reaction Status Date / Time
Penicillins Allergy Hives Verified 11/05/23 17:51
Medication Instructions Recorded
allopurinol 100 mg tablet 100 mg PO DAILY Gout 09/07/22
ammonium lactate 12 % topical cream 1 applic topical [id number] PRN B/L 09/07/22
legs
atorvastatin 40 mg tablet (Lipitor) 40 mg PO DAILY High cholesterol 09/07/22
carvedilol 25 mg tablet (Coreg) 25 mg PO BID Heart 09/07/22
disease/condition
folic acid 1 mg tablet 1 mg PO DAILY Supplement 09/07/22
hydralazine 50 mg tablet 50 mg PO TID Blood pressure 10/26/22
pantoprazole 40 mg tablet,delayed 40 mg PO DAILY Gastrointestinal 10/31/22
release issue
bisacodyl 10 mg rectal suppository 10 mg NM DAILYPRN PRN constipation 11/22/22
#0 ea
acetaminophen 325 mg tablet 650 mg PO Q4HPRN PRN mild 11/28/22
(Tylenol) pain/temp 100F or above
levothyroxine 25 mcg tablet 25 mcg PO DAILY Thyroid 11/28/22
cyanocobalamin (vitamin B-12) 1,000 mcg PO DAILY #0 tabs 12/06/22
1,000 mcg tablet
insulin aspart U-100 100 unit/mL 0 - 12 sliding scale dose SC ACHS 03/26/23
(3 mL) subcutaneous pen (Novolog Diabetes
FlexPen U-100 Insulin aspart)
sennosides 8.6 mg-docusate sodium 1 tab PO [id number] PRN constipation 03/27/23
50 mg tablet (Senna with Docusate
Sodium)
gabapentin 100 mg capsule 100 mg PO TID Pain #0 caps 03/28/23
polyethylene glycol 3350 17 gram 17 g PO DAILYPRN PRN Constipation 07/17/23
oral powder packet (Miralax)
epoetin dora 10,000 unit/mL 10,000 unit SC TU PRN give only 10/18/23
injection solution (Procrit) for HGB 10 or less
ferrous sulfate 325 mg (65 mg 325 mg PO Q48H Supplement 10/18/23
iron) tablet
miconazole nitrate 2 % topical 1 applic topical BID apply to ABD 10/18/23
powder (Miconazorb AF) folds/groin
torsemide 10 mg tablet 20 mg PO BID Fluid 10/18/23
Retention/Swelling
loperamide 2 mg tablet 2 mg PO Q6HPRN PRN diarrhea 11/05/23
sodium bicarbonate 650 mg tablet 1,300 mg PO TID Supplement #0 tabs 11/07/23
ammonium lactate 12 % topical cream 1 applic topical QPM Skin Issues 11/26/23
aspirin 81 mg tablet,delayed 81 mg PO DAILY 12/20/23
release
cholecalciferol (vitamin D3) 125 125 mcg PO FR 12/20/23
mcg (5,000 unit) tablet (Vitamin
D3)
neomycin-bacitracn Zn-polymyxn 3.5 1 applic topical BID RIGHT FIFTH 12/20/23
mg-400 unit-5,000 unit top oint DIGIT
pkt (Triple Antibiotic)
Review of Systems
-
History Source: Patient and Family
Constitutional: Reports Weight Loss (few lbs)
EENT: Reports No Symptoms
Respiratory: Reports No Symptoms
Cardiac: Reports No Symptoms
Abdomen/GI: Reports Constipated (hx constipation)
: Reports No Symptoms
Skin: Reports No Symptoms
Neurological: Reports Weakness
Endocrine: Reports No Symptoms
Hematologic/Lymphatic: Reports No Symptoms
Vital Signs
Temp Pulse Resp BP Pulse Ox
99.1 F 69 18 138/50 99
12/21/23 07:00 12/21/23 08:32 12/21/23 07:00 12/21/23 08:32 12/21/23 07:00
Physical Exam
Exam
General: Well Developed, Well Nourished and No Apparent Distress
HEENT: Normocephalic and Anicteric
Respiratory: Clear
Cardiac: Regular Rhythm
GI: Soft, Non Tender and Non Distended
Rectal: Other (heme + dark stool per ER)
Musculoskeletal: No Clubbing and No Cyanosis
Skin: Warm and Dry
Neuro: Awake, Alert and AO x 3
Psych: Calm
Results
WBC 5.8 10^3/uL (4.8-10.8) 12/21/23 05:17
Hgb 7.5 g/dL (12.0-16.0) L 12/21/23 05:17
Hct 23.3 % (37.0-47.0) L 12/21/23 05:17
MCV 96.3 fL (81.0-99.0) 12/21/23 05:17
Plt Count 172 10^3/uL (130-400) 12/21/23 05:17
Absolute Neuts (auto) 3.6 10^3/uL (1.4-6.5) 12/21/23 05:17
Sodium 137 mmol/L (135-145) 12/21/23 05:17
Potassium 4.3 mmol/L (3.5-5.1) 12/21/23 05:17
Chloride 111 mmol/L (98-107) H 12/21/23 05:17
Carbon Dioxide 21 mmol/L (22-30) L 12/21/23 05:17
BUN 80 mg/dl (7-17) H 12/21/23 05:17
Creatinine 3.6 mg/dL (0.6-1.0) H 12/21/23 05:17
Calcium 9.4 mg/dl (8.4-10.2) 12/21/23 05:17
Total Bilirubin 0.5 mg/dl (0.2-1.3) 12/21/23 05:17
AST 18 U/L (14-36) 12/21/23 05:17
ALT 15 U/L (0-35) 12/21/23 05:17
Alkaline Phosphatase 63 U/L (38-126) 12/21/23 05:17
Diagnostic Image Results:
08/2023 US Abdomen Complete/Upper
1.� Cholelithiasis without convincing sonographic evidence for acute cholecystitis.
2. Slightly increased echogenicity in the liver, compatible with underlying hepatocellular disease, which most commonly relates to mild fatty infiltration of the liver.
3. Mild splenomegaly.
4. Upper abdominal ascites. Bilateral pleural effusions.
Prior GI Procedures:
EGD: 11/06/23 - Normal esophagus� - Erythematous mucosa in the stomach. Biopsied.
�� � � � � � � � � � � - A few non-bleeding angiectasias in the duodenum.
EGD:�10/03/22- [facility]- Normal esophagus. Erythematous mucosa in the stomach. Biopsied. Mucosal nodule found in the duodenum. Biopsied. Normal second portion of the duodenum. Biopsied. bx neg
Colonoscopy:� � �10/04/22- [facility]� � - Preparation of the colon was poor. Five 3 to 6 mm polyps in the rectum, in the sigmoid colon and in the cecum, removed with a cold snare. Resected and retrieved. One 1 mm polyp in the cecum, removed with a
jumbo� cold forceps. Resected and retrieved. One 20 mm polyp in the cecum. Biopsied. One 18 mm polyp in the ascending colon. Biopsied. One 10 mm polyp in the transverse colon, removed with a hot snare. Complete resection. Partial retrieval. Clips
were placed. Internal hemorrhoids. bx with TA and hyperplastic polyps.
Assessment / Plan
-
Pt is a 78 yo female with a PMH significant for CKD stage V with placement of LUE AV fistula (pending start on HD next few months), CVA, HTN, GERD, HLD, IDDM, LITTLE on chronic iron supplement, constipation with prior fecal impaction, hypothyroidism,
obesity, chronic constipation, hx DVT ( off AC), CAD, chronic LE lymphedema present to ER with drop in hbg with hbg 6 outpatient and 7.2 in ER and noted dark heme + stools. Pt with hx large polyps on colonoscopy in 2022 and delayed with other
medical issue but due for repeat colonoscopy with Dr. Zambrano 12/31 for removal.
prior procedures:
EGD 10/2022- Normal esophagus. Erythematous mucosa in the stomach. Biopsied. Mucosal nodule found in the duodenum. Biopsied. Normal second portion of the duodenum. Biopsied. bx neg
EG Normal esophagus� - Erythematous mucosa in the stomach. Biopsied. - A few non-bleeding angioectasias in the duodenum.
Colonoscopy:� 11/2022 Preparation of the colon was poor. Five 3 to 6 mm polyps in the rectum, in the sigmoid colon and in the cecum, removed with a cold snare. Resected and retrieved. One 1 mm polyp in the cecum, removed with a jumbo� cold forceps.
Resected and retrieved. One 20 mm polyp in the cecum. Biopsied. One 18 mm polyp in the ascending colon. Biopsied. One 10 mm polyp in the transverse colon, removed with a hot snare. Complete resection. Partial retrieval. Clips were placed. Internal
hemorrhoids. bx with TA and hyperplastic polyps.
-anemia with heme + stool
-large colonic polyps overdue for resection
-EGD 2023 with few non bleeding angioectasia
-CKD stage V due for eventual start of dialysis
- hx stercoral colitis.hx chronic constipation on chronic senna with docusate
Other pertinent medical hx:
-cholelithiasis
-DVT
-CVA
-CAD
-IDDM
-HTN
-HLD
Recommendations:
etiology of anemia and rectal bleeding likely multifactorial related to large polyps overdue for resection, SB ectasias as noted on last EG, chronic anemia with CKD vs other
reviewed with patient and sister agree with transfusion
consider heme eval for continued usp follow with chronic issue Pt has had 17 units PRBC since 08/2022
s/p 1 unit this admission consider additional transfusion as hbg 7.2 to 7.5
due follow up colonoscopy 12/[address] Zambrano-- discussed procedure need to be done by Dr. Zambrano as only provider to remove large polyps and already scheduled Outpatient
t/c capsule if anemia persists after polyp removal
monitor stools during admission with hx constipation prior miralax and Linzess in past
Encourage mobilization as tolerated
pt with possible vaginal bleeding in past currently denies
-
-
Thank you for consultation and allowing me to participate in the patient's care. Please call the validation software facilitator GI physician during the after hours with any questions or concerns.
--- NOTE | 2023-12-21 13:11 | W.PN.HOSP.TC ---
Today's Communication/Plan
-
GI input
Transfuse another unit of PRBC
DC Planning
Assessment / Plan
Assessment / Plan
# Recurrent anemia multifactorial secondary to occult GI bleeding from duodenal angiectasia/colonic polyps/ anemia of chronic disease
-Hemoglobin 6 range as outpatient but 7.2 here which is close to baseline
-Stool is heme positive as it has been in the past
-This is a third admission for anemia
-Had recent EGD in November showing duodenal angiectasia and colonoscopy in October showing polyps
-1 unit of blood given. Will transfuse one more unit as response is not inadequate
-Continue Protonix daily
-Weekly labs to prevent readmission
-Continue iron supplement
-Patient scheduled for colonoscopy in December for polypectomy, without clear indication for repeat EGD/colonoscopy inpatient. GI input pending
CKD4
-Renal function baseline
-On the verge of starting dialysis
-Continue sodium bicarbonate
-Continue torsemide
- Pt without clinical signs of pulmonary edema ; LE edema noted
Coronary artery disease
-Continue aspirin
Essential hypertension
-Continue hydralazine
-Continue Coreg
Type 2 diabetes
-Insulin sliding scale
History of gallstones
Hyperlipidemia
-Continue statin
Hypothyroidism
-Continue levothyroxine
Gout
-Continue allopurinol
Morbid obesity
Full code
DVT prophylaxis�SCDs
Regular diet
If no plans for GI procedures ,will plan on dc after 2nd unit of PRBC
Anticipated Discharge: Today
Subjective/Interval History
-
Date of Service: December 21, 2023
Voices no specific complaints.
Denies headache or weakness.
Denies shortness of breath or chest pain.
Usually does not have much symptoms other than exercise intolerance with dropping blood counts/anemia.
She is chronically anemic. She has issues with anemia from chronic kidney disease and [facility] She is also due for a colonoscopy and polyp removal next week.
Objective Data
-
Labs:
Laboratory Results
12/21/23
05:17
WBC 5.8
Hgb 7.5 L
Hct 23.3 L
Plt Count 172
Sodium 137
Potassium 4.3
Chloride 111 H
Carbon Dioxide 21 L
BUN 80 H
Creatinine 3.6 H
Glucose 103 H
Calcium 9.4
Total Bilirubin 0.5
AST 18
ALT 15
Alkaline Phosphatase 63
Vital Signs:
Vital Signs
Temp Pulse Resp BP Pulse Ox
99.1 F 69 18 138/50 99
12/21/23 07:00 12/21/23 08:32 12/21/23 07:00 12/21/23 08:32 12/21/23 07:00
I&O
12/20/23 12/21/23 12/22/23
06:59 06:59 06:59
Intake Total 250 / 250
Balance 250 / 250
Review of Systems
-
Constitutional: Denies Fever
Cardiac: Denies Chest Pain
Abdomen/GI: Denies Abdominal Pain, Nausea or Vomiting
Neuro: Denies Dizzy
Physical Exam
-
General: No Apparent Distress
HEENT: Moist Mucous Membranes
Respiratory: Clear to Auscultation and Non Labored Respirations; Negative Accessory Resp Muscle Use
Cardiac: S1/S2
GI: Soft, Nontender, Nondistended and Normal Bowel Sounds
Neuro: AO x 3
Psych: Calm
Data Reviewed
-
Labs: Labs Reviewed by me
--- NOTE | 2023-12-21 15:40 | W.DS.TRANS ---
DC Summary - Lightout Examiner
-
Discharge Instructions:
Discharge Diagnosis/Procedures Chronic recurrent anemia; Chronic GI bleed ;
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
Diet 2 Gram Sodium,Low Cholesterol
Activity As tolerated
Driving Restrictions As prior to admission
Bathing Restrictions None
Blood Work CBC in one week
Specialty Instructions Weigh Daily
Instructions:
Stand-Alone Forms:
Changes to Home Medications: No
Discharge Medications:
DC Medications w/original date entered in [employer]
allopurinol 100 mg tablet 100 mg PO DAILY Gout 09/07/22
ammonium lactate 12 % topical cream 1 applic topical [id number] PRN B/L legs 09/07/22
atorvastatin 40 mg tablet (Lipitor) 40 mg PO DAILY High cholesterol 09/07/22
carvedilol 25 mg tablet (Coreg) 25 mg PO BID Heart disease/condition 09/07/22
folic acid 1 mg tablet 1 mg PO DAILY Supplement 09/07/22
hydralazine 50 mg tablet 50 mg PO TID Blood pressure 10/26/22
pantoprazole 40 mg tablet,delayed release 40 mg PO DAILY Gastrointestinal issue 10/31/22
bisacodyl 10 mg rectal suppository 10 mg OK DAILYPRN PRN constipation #0 ea 11/22/22
acetaminophen 325 mg tablet (Tylenol) 650 mg PO Q4HPRN PRN mild pain/temp 100F or above 11/28/22
levothyroxine 25 mcg tablet 25 mcg PO DAILY Thyroid 11/28/22
cyanocobalamin (vitamin B-12) 1,000 mcg tablet 1,000 mcg PO DAILY #0 tabs 12/06/22
insulin aspart U-100 100 unit/mL (3 mL) subcutaneous pen (Novolog FlexPen U-100 Insulin aspart) 0 - 12 sliding scale dose SC ACHS Diabetes 03/26/23
sennosides 8.6 mg-docusate sodium 50 mg tablet (Senna with Docusate Sodium) 1 tab PO [id number] PRN constipation 03/27/23
gabapentin 100 mg capsule 100 mg PO TID Pain #0 caps 03/28/23
polyethylene glycol 3350 17 gram oral powder packet (Miralax) 17 g PO DAILYPRN PRN Constipation 07/17/23
epoetin dora 10,000 unit/mL injection solution (Procrit) 10,000 unit SC TU PRN give only for HGB 10 or less 10/18/23
ferrous sulfate 325 mg (65 mg iron) tablet 325 mg PO Q48H Supplement 10/18/23
miconazole nitrate 2 % topical powder (Miconazorb AF) 1 applic topical BID apply to ABD folds/groin 10/18/23
torsemide 10 mg tablet 20 mg PO BID Fluid Retention/Swelling 10/18/23
loperamide 2 mg tablet 2 mg PO Q6HPRN PRN diarrhea 11/05/23
sodium bicarbonate 650 mg tablet 1,300 mg PO TID Supplement #0 tabs 11/07/23
ammonium lactate 12 % topical cream 1 applic topical QPM Skin Issues 11/26/23
aspirin 81 mg tablet,delayed release 81 mg PO DAILY 12/20/23
cholecalciferol (vitamin D3) 125 mcg (5,000 unit) tablet (Vitamin D3) 125 mcg PO FR 12/20/23
neomycin-bacitracn Zn-polymyxn 3.5 mg-400 unit-5,000 unit top oint pkt (Triple Antibiotic) 1 applic topical BID RIGHT FIFTH DIGIT 12/20/23
Home Medication Changes
Pending Results: No
--- NOTE | 2023-12-21 15:57 | CM ---
Addendum entered by Carmen Mireles 12/21/23 16:20:
Pt receiving blood - Dr Cm made aware. pt can return in AM. Clementine made aware at [facility]
Addendum entered by Carmen Mireles 12/21/23 16:04:
Pt for d/c
Spoke with Clementine at [facility] - can accept
Plan - return to [facility]
Report - [phone]
Fax- [phone]
Original Note:
Met with pt at bedside
From [facility] - LT - verified with Clementine - bed hole x15 days
pt reports working on PT at [facility]
pt plans to return at d/c
Plan - return to [facility] LT
[2023-12-21 16:23] LABS: Glucose - Point of Care 132 mg/dl (70-99)
[2023-12-21] MEDS: LAC HYDRIN, AM LACTIN LOTION 1 APPLIC TOPICAL (17:24)
[2023-12-21] MEDS: LASIX 20 MG IV (18:31)
[2023-12-21 21:46] LABS: Glucose - Point of Care 133 mg/dl (70-99)
[2023-12-21 21:47] LABS: Iron 75 ug/dl (37-170)
[2023-12-21 21:56] LABS: Percent Saturation 29 % (20-50); Total Iron Binding Capacity 257 ug/dl (265-497)
[2023-12-21 22:27] LABS: Ferritin 13.8 ng/ml (11.1-264.0)
[2023-12-22 05:48] LABS: Hematocrit 24.9 % (37.0-47.0); Hemoglobin 8.1 g/dL (12.0-16.0); Mean Corp Hgb Conc. 32.5 g/dL (33.0-37.0); Mean Corpuscular Hgb 31.2 pg (27.0-31.0); Mean Corpuscular Volume 95.8 fL (81.0-99.0); Platelet Count 164 10^3/uL (130-400); White Blood Cell Count 5.8 10^3/uL (4.8-10.8)
[2023-12-22] MEDS: SYNTHROID 25 MCG PO (06:02)
[2023-12-22 07:00] VITALS: BP 141/59
[2023-12-22 07:37] LABS: Glucose - Point of Care 117 mg/dl (70-99)
[2023-12-22] MEDS: APRESOLINE 50 MG PO (07:56)
[2023-12-22] MEDS: SODIUM BICARBONATE 1300 MG PO (07:57)
[2023-12-22] MEDS: FOLVITE 1 MG PO (07:57)
[2023-12-22] MEDS: PROTONIX 40 MG PO (07:57)
[2023-12-22] MEDS: DEMADEX 20 MG PO (07:58)
[2023-12-22] MEDS: VITAMIN B-12 1000 MCG PO (07:58)
[2023-12-22] MEDS: ZYLOPRIM 100 MG PO (07:58)
[2023-12-22] MEDS: NEURONTIN 100 MG PO (07:58)
[2023-12-22] MEDS: LIPITOR 40 MG PO (07:58)
[2023-12-22] MEDS: ASPIR LOW (ENTERIC COATED) 81 MG PO (07:58)
[2023-12-22] MEDS: COREG 25 MG PO (07:58)
[2023-12-22] MEDS: POLYSPORIN OINTMENT 1 APPLIC TOPICAL (07:59)
[2023-12-22] MEDS: DESENEX/MITRAZOL/ZEASORB 1 APPLIC TOPICAL (09:54)
[2023-12-22] MEDS: LAC HYDRIN, AM LACTIN LOTION 1 APPLIC TOPICAL (10:44)
[2023-12-22 11:38] VITALS: BP 125/73
[2023-12-22 11:38] LABS: Glucose - Point of Care 163 mg/dl (70-99)
--- NOTE | 2023-12-22 16:22 | W.DCSUMMARY ---
Discharge Summary
Discharge Data
Date of Admission: 12/20/23
Date of Discharge: 12/22/23
-
Pending Results: No
Hospital Course
Primary diagnosis:
Recurrent multifactorial anemia
Heme positive stools
History of duodenal angiectasia's
History of colonic polyps
Anemia of chronic disease from chronic kidney disease stage IV
Secondary diagnosis:
Chronic kidney disease stage IV
Coronary disease
Essential hypertension
Type 2 diabetes mellitus
Hospital course:
Patient with a history of recurrent anemia was sent in because of hemoglobin being in 6 range. She was heme positive.
She had issues with recurrent anemia. She was admitted in fact here in November 2023 for anemia. She had prior EGD showing nonbleeding angiectasia's in the duodenum. She had a colonoscopy which showed polyps and she is waiting for a polypectomy
in December by Dr. Zambrano. She had prior blood transfusion need. She also has anemia of chronic disease from chronic kidney disease and gets weekly Procrit shots in her intermediate.
She was transfused 2 units of PRBC with rise in hemoglobin. Was seen by GI who felt no indication for intervention at this point and advised to keep the appointment for polypectomy next week.
Consider increasing procrit dose if she can tolerate going forward.
Consultants on board:
GI [facility]
Discharge Plan
-
Patient Disposition: Senior Living/SNF
Discharge Diagnosis/Procedures: Chronic recurrent anemia; Chronic GI bleed ;Anemia of CKD from ESRD
Diet: Low Cholesterol and 2 Gram Sodium
Activity: As tolerated
Driving Restrictions: As prior to admission
Bathing Restrictions: None
Blood Work: CBC in one week
Specialty Instructions: Weigh Daily- Call MD for wt gain/loss 3 lbs overnight/5 lbs in 1 week
Referrals:
Jhonathan Gabriel MD [Family Provider] -
Prescriptions:
Continued
allopurinol 100 mg Tablet
100 mg PO DAILY
atorvastatin [Lipitor] 40 mg Tablet
40 mg PO DAILY
carvedilol [Coreg] 25 mg Tablet
25 mg PO BID
Rx Instructions:
10/18/2023, HOLD for SBP<90 OR HR<60.
folic acid 1 mg Tablet
1 mg PO DAILY
ammonium lactate 12 % Cream
1 applic TOPICAL [id number] PRN (Reason: B/L legs)
hydralazine 50 mg Tablet
50 mg PO TID
Rx Instructions:
10/18/2023, hold for SBP<90.
pantoprazole 40 mg tablet,delayed release (DR/EC)
40 mg PO DAILY
bisacodyl 10 mg Suppository
10 mg KS DAILYPRN PRN (Reason: constipation) Qty: 0 0RF
acetaminophen [Tylenol] 325 mg Tablet
650 mg PO Q4HPRN PRN (Reason: mild pain/temp 100F or above)
levothyroxine 25 mcg Tablet
25 mcg PO DAILY AT 0700
cyanocobalamin (vitamin B-12) 1,000 mcg Tablet
1,000 mcg PO DAILY Qty: 0 0RF
insulin aspart U-100 [Novolog FlexPen U-100 Insulin] 100 unit/mL (3 mL) insulin pen
0 - 12 sliding scale dose SC ACHS
Hold Instructions: Resume on 04/06/23. Resume only after outpatient or rehab physician approves to resume.
Rx Instructions:
BS 70-150 = 0 units; 151-200 = 2 units; 201-250 = 4 units; 251-300 = 6 units; 301-350 = 8 units; 351-400 = 10 units; 401-450 = 12 units. If BS>451 call PCP.
sennosides-docusate sodium [Senna with Docusate Sodium] 8.6-50 mg Tablet
1 tab PO [id number] PRN (Reason: constipation)
gabapentin 100 mg Capsule
100 mg PO TID Qty: 0 0RF
polyethylene glycol 3350 [Miralax] 17 gram powder in packet
17 g PO DAILYPRN PRN (Reason: Constipation)
torsemide 10 mg Tablet
20 mg PO BID
Procrit 10,000 unit/mL Solution
10,000 unit SC TU PRN (Reason: give only for HGB 10 or less)
Patient Comments:
10/18/2023, this medication is currently ON HOLD.
Rx Instructions:
10/18/2023, inject 1 syringe SC in the evening every Sunday for LITTLE ONLY GIVE THIS MEDICATION FOR HGB 10 OR LESS. Order Status: ON HOLD.
miconazole nitrate [Miconazorb AF] 2 % powder
1 applic topical BID
ferrous sulfate 325 mg (65 mg iron) tablet
325 mg PO Q48H
loperamide 2 mg Tablet
2 mg PO Q6HPRN PRN (Reason: diarrhea)
sodium bicarbonate 650 mg Tablet
1,300 mg PO TID Qty: 0 0RF
ammonium lactate 12 % Cream
1 applic TOPICAL QPM
Rx Instructions:
apply to legs
aspirin 81 mg Tablet,Delayed Release (Dr/Ec)
81 mg PO DAILY
Triple Antibiotic 3.5-400-5,000 [id number] Ointment In Packet
1 applic TOPICAL BID
cholecalciferol (vitamin D3) [Vitamin D3] 125 mcg (5,000 unit) Tablet
125 mcg PO FR
Discharge Orders:
Discharge Patient (As Directed); Ordered 12/21/23
Ordered By: Carlos Cm
Discharge Date and Time
Discharge Date/Time: 12/22/23 13:44
== END 2023-12-22 13:44 | DRG 377 ==
LOC: 3 WEST ACU 18:29
PROVIDERS: ADMITTING PHYSICIAN Hospitalist; ATTENDING PHYSICIAN Internal Medicine; CONSULT PHYSICIAN Internal Medicine Gastroenterology; EMERGENCY PHYSICIAN Emergency Medicine; FAMILY PHYSICIAN Internal Medicine
PROC: 30233N1 Transfusion of Nonautologous Red Blood Cells into Peripheral Vein, Percutaneous Approach (ICD-10-PCS; 2023-12-20)
DX: K31.811 Angiodysplasia of stomach and duodenum with bleeding (principal); N18.6 End stage renal disease; I12.0 Hypertensive chronic kidney disease with stage 5 chronic kidney disease or end stage renal disease; D62 Acute posthemorrhagic anemia; D63.1 Anemia in chronic kidney disease; E11.22 Type 2 diabetes mellitus with diabetic chronic kidney disease; I25.10 Atherosclerotic heart disease of native coronary artery without angina pectoris; E78.00 Pure hypercholesterolemia, unspecified; E03.9 Hypothyroidism, unspecified; M10.9 Gout, unspecified; E66.01 Morbid (severe) obesity due to excess calories; K63.5 Polyp of colon; Z68.33 Body mass index [BMI] 33.0-33.9, adult
CPT/HCPCS: 80053; 82728; 82962; 83036; 83540; 83550; 85025; 85027; 86850; 86900; 86901; 86920; 87070; 96374; 99283; 99285; P9016

== ENCOUNTER 2023-12-28 19:17 | Emergency (ER) | payer MEDICARE, OTHER, SELFPAY ==
[2023-12-28 19:21] VITALS: BP 157/55; BMI 34.8
--- NOTE | 2023-12-28 19:39 | ED.GENMED ---
History of Present Illness
General
Chief Complaint: Vaginal Bleeding
Time Seen by Provider: 12/28/23 19:28
Travel History
Have you had any contact with someone who has COVID-19?: No
Do you have any symptoms of coronavirus? Fever > 100 degrees, chills, cough, shortness of breath, sore throat, loss of taste or smell, muscle aches, or headache?: No
History of Present Illness
History of Present Illness:
HPI: [facility] presents from [facility] due to what they thought was vaginal bleeding (on physical examination there is no vaginal bleeding but there is rectal bleeding). The patient denies any new pain. She states that she is to have colonoscopy
prep on Sunday at the [facility] and then have colonoscopy with polyp removal this coming Sunday. She is currently not taking any anticoagulation but it appears that she is on a baby aspirin.
EXAM:
GENERAL: Patient appears chronically ill and somewhat weak and debilitated
HEENT: Moist oral mucosa
CARDIOVASCULAR: No murmurs, normal heart rate, regular rhythm, No chest wall tenderness
PULMONARY: No respiratory distress, breath sounds are clear and equal
: No vaginal bleeding noted on bimanual examination
ABDOMEN: Soft with no peritoneal signs, no tenderness, blood noted in perianal region, reddish-brown stool that is briskly heme positive
NEUROLOGIC: Good strength all extremities, no coordination deficits
PSYCHIATRIC: Fair mental status, normal insight and judgement but appears somewhat confused about medical care at time
EXTREMITIES: Nontender, no edema, moves all extremities equally, fistula noted in the distal left upper extremity with good thrill
SKIN: No rash, no lesions
TIME OF INITIAL ENCOUNTER: 7:35 PM
NUMBER AND COMPLEXITY OF PROBLEMS ADDRESSED AT THE ENCOUNTER
� Chronic conditions affecting care: CKD not currently on dialysis, diabetes, high blood pressure, hyperlipidemia, has had colon polyp, anemia
� Acute Exacerbation and/or Progression of Chronic Illness: This appears to be a recurring problem
� Differential Diagnosis includes: Acute GI bleed, anemia, no evidence for vaginal bleeding on physical examination
AMOUNT AND/OR COMPLEXITY OF DATA TO BE REVIEWED AND ANALYZED
� I performed an independent evaluation of and my interpretation is:
EKG:
CT:
X-rays:
Laboratory Studies: White count 5.3, hemoglobin 7.7 which is near her baseline. This is higher than what it was when she was here admitted last week, renal function near baseline
Other:
� Review of other/old records: I reviewed the 12/22/2023 discharge summary�the patient has recurrent multifactorial anemia with heme positive stools with history of duodenal angiectasia's and colon polyp. She was given 2 units of
blood last admission.
� Clinical information was obtained by an independent historian: I spoke to EMS
� Prescriptions/Medications Considered but not given:
� Further testing considered but not performed:
RISK OF COMPLICATIONS AND/OR MORBIDITY OR MORTALITY OF PATIENT MANAGEMENT
� Social determinants of health affecting care: Currently stays at [facility] facility
� Discussion with other providers: Discussed case with Dr. Ramsey who agrees with close outpatient follow-up�she will already be getting colonoscopy in a few days but apparently has to be done by Dr. Zambrano and he is not around this
weekend to perform any other procedure
� Escalation of care including admission/observation vs risk of discharge considered: The patient's hemoglobin is near baseline. She has minimal symptoms currently. She has no vaginal bleeding on physical examination. She does
have heme positive stool. She has been hemodynamically stable. I offered and considered keeping her in the hospital however the comfortable with going back to the facility
PROCEDURE NOTE: Right femoral vein accessed with 18-gauge needle and under sterile conditions and with through 10 mL of blood to send to lab
Past History
Past History
ED Past Medical History: CAD, GERD, HTN, Hypercholesterolemia, NIDDM, Renal failure, Hypothyroidism and Other (Dysfunctional uterine bleeding, chronic kidney disease pending dialysis, Renal calculus, Iron def anemia, hemorrhagic disorder due to
extrinsic Circulatory anticoagulation. PNA, Back pain, )
ED Past Surgical History: Appendectomy, Gynecological (D&C), Orthopedic (Left carpal tunnel ), Tonsilectomy, Urological (Kidney stent) and Other (L AV fistula)
Social History
Tobacco: Non-smoker
Alcohol: Occasional
Drug: None
Personal: Single
Living: [facility]
Family History
Family History: Negative Diabetes, Hypertension, Early CAD, Asthma or Cancer
Phy Exam
Physical Exam
Physical Exam:
See HPI
Course
Orders/Labs/Results
Orders:
Orders
12/28/23 20:01
Type+Screen Urgent
Basic Metabolic Panel Urgent
Complete Blood Count/With Diff Urgent
Abnormal Lab Results
12/28/23
20:01
RBC 2.41 L 10^6/uL
(4.20-5.40)
Hgb 7.7 L g/dL
(12.0-16.0)
Hct 22.5 L %
(37.0-47.0)
MCH 32.0 H pg
(27.0-31.0)
RDW 15.1 H %
(11.5-14.5)
Absolute Lymphs (auto) 1.1 L 10^3/uL
(1.2-3.4)
Sodium 132 L mmol/L
(135-145)
Carbon Dioxide 21 L mmol/L
(22-30)
BUN 84 H mg/dl
(7-17)
Creatinine 3.3 H mg/dL
(0.6-1.0)
Glucose 120 H mg/dl
(70-99)
12/28/23 20:01
12/28/23 20:01
Vital Signs
Initial and Last Documented VS:
Initial Vital Signs
Temp Pulse Resp BP Pulse Ox
97.7 F 60 16 157/55 100
12/28/23 19:21 12/28/23 19:21 12/28/23 19:21 12/28/23 19:21 12/28/23 19:21
Last Documented Vital Signs
Temp Pulse Resp BP Pulse Ox
97.7 F 60 16 155/55 99
12/28/23 19:21 12/28/23 20:30 12/28/23 20:00 12/28/23 20:00 12/28/23 20:30
*Critical Care Note
Total Time (30-74mins, 75-104mins- exclusive of procedures): Not Applicable
ED Attending Note
-
Portions of this chart may have been created with voice recognition software.� Occasional wrong word or��sound alike� substitutions may have occurred due to the inherent limitations of voice recognition software.
Discharge Plan
Departure
Patient Disposition: Home (Routine Discharge)
Date of Disposition: 12/28/23
Time of Disposition: 20:44
Patient with high blood pressure during this ER visit?: Yes
Discharge Problem:
Acute GI bleeding
Prescriptions:
No Action
allopurinol 100 mg Tablet
100 mg PO DAILY
atorvastatin [Lipitor] 40 mg Tablet
40 mg PO DAILY
carvedilol [Coreg] 25 mg Tablet
25 mg PO BID
Patient Comments:
12/28/2023: HOLD for SBP<90 OR HR<60.
folic acid 1 mg Tablet
1 mg PO DAILY
ammonium lactate 12 % Cream
1 applic TOPICAL [id number] PRN (Reason: B/L legs)
hydralazine 50 mg Tablet
50 mg PO TID
Patient Comments:
12/28/2023: hold for SBP<90.
pantoprazole 40 mg tablet,delayed release (DR/EC)
40 mg PO DAILY
bisacodyl 10 mg Suppository
10 mg AL DAILYPRN PRN (Reason: constipation) Qty: 0 0RF
acetaminophen [Tylenol] 325 mg Tablet
650 mg PO Q4HPRN PRN (Reason: mild pain/temp 100F or above)
levothyroxine 25 mcg Tablet
25 mcg PO DAILY AT 0700
cyanocobalamin (vitamin B-12) 1,000 mcg Tablet
1,000 mcg PO DAILY Qty: 0 0RF
insulin aspart U-100 [Novolog FlexPen U-100 Insulin] 100 unit/mL (3 mL) insulin pen
0 - 12 sliding scale dose SC ACHS
Hold Instructions: Resume on 04/06/23. Resume only after outpatient or rehab physician approves to resume.
Rx Instructions:
BS 70-150 = 0 units; 151-200 = 2 units; 201-250 = 4 units; 251-300 = 6 units; 301-350 = 8 units; 351-400 = 10 units; 401-450 = 12 units. If BS>451 call PCP.
sennosides-docusate sodium [Senna with Docusate Sodium] 8.6-50 mg Tablet
1 tab PO [id number] PRN (Reason: constipation)
gabapentin 100 mg Capsule
100 mg PO TID Qty: 0 0RF
polyethylene glycol 3350 [Miralax] 17 gram powder in packet
17 g PO DAILYPRN PRN (Reason: Constipation)
torsemide 10 mg Tablet
20 mg PO BID
Procrit 10,000 unit/mL Solution
10,000 unit SC TU PRN (Reason: give only for HGB 10 or less)
Patient Comments:
12/28/2023: inject 1 syringe SC in the evening every Sunday for LITTLE ONLY GIVE THIS MEDICATION FOR HGB 10 OR LESS.
miconazole nitrate [Miconazorb AF] 2 % powder
1 applic topical BID
ferrous sulfate 325 mg (65 mg iron) tablet
325 mg PO Q48H
loperamide 2 mg Tablet
2 mg PO Q6HPRN PRN (Reason: diarrhea)
sodium bicarbonate 650 mg Tablet
1,300 mg PO TID Qty: 0 0RF
ammonium lactate 12 % Cream
1 applic TOPICAL QPM
Patient Comments:
12/28/2023: apply to legs
aspirin 81 mg Tablet,Delayed Release (Dr/Ec)
81 mg PO DAILY
cholecalciferol (vitamin D3) [Vitamin D3] 125 mcg (5,000 unit) Tablet
125 mcg PO FR
polyethylene glycol 3350 [Miralax] 17 gram Powder In Packet
17 g PO HS
Patient Comments:
12/28/2023: From 12/25/23 to 12/31/23
Referrals:
Jhonathan Gabriel MD [Family Provider] -
Activity Restrictions/Additional Instructions:
Follow-up with Dr. Zambrano as you previously planned to do. The hemoglobin level is 7.7. Kidney function is near baseline. I performed a bimanual examination and there is no sign of vaginal bleeding. There is signs of blood on digital rectal
examination but your vital signs are normal other than high blood pressure. Return here if worse.
Interventions
Interventions:
*Risk Screen - Suicide Last Done: 12/28/23 19:48
*General Assessment Last Done: 12/28/23 19:21
*Neglect/Abuse Screening Last Done: 12/28/23 19:48
*ED COVID-19 Vaccine History Last Done: 12/28/23 19:21
Discharge Date and Time
Print Language: MACEDONIAN
[2023-12-28 19:40] VITALS: BMI 33.5
[2023-12-28 19:46] VITALS: BP 157/55
[2023-12-28 20:00] VITALS: BP 155/55
[2023-12-28 20:06] LABS: % Basophils 0.8 % (0-2); % Eosinophils 2.3 % (0-6); % Immature Granulocytes 0.2 % (0-0.5); % Lymphocytes 21.1 % (20.5-51.1); % Monocytes 5.6 % (1.7-9.3); Absolute Eosinophils 0.1 10^3/uL (0-0.7); Absolute Lymphocytes 1.1 10^3/uL (1.2-3.4); Absolute Monocytes 0.3 10^3/uL (0.1-0.6); Absolute Neutrophils 3.7 10^3/uL (1.4-6.5); Hematocrit 22.5 % (37.0-47.0); Hemoglobin 7.7 g/dL (12.0-16.0); Mean Corp Hgb Conc. 34.2 g/dL (33.0-37.0); Mean Corpuscular Volume 93.4 fL (81.0-99.0); Mean Platelet Volume 9.4 fL (7.4-10.4); Nucleated Red Blood Cells % 0 %; Platelet Count 169 10^3/uL (130-400); Red Blood Cell Count 2.41 10^6/uL (4.20-5.40); Red Cell Dist. Width 15.1 % (11.5-14.5); White Blood Cell Count 5.3 10^3/uL (4.8-10.8)
[2023-12-28 20:21] LABS: Blood Urea Nitrogen 84 mg/dl (7-17); Calcium 9.8 mg/dl (8.4-10.2); Carbon Dioxide 21 mmol/L (22-30); Chloride 105 mmol/L (98-107); Estimated Creatinine Clearance 17 ml/min; Glucose 120 mg/dl (70-99); Potassium 4.9 mmol/L (3.5-5.1); Sodium 132 mmol/L (135-145); eGFR 13.76
[2023-12-28 21:00] VITALS: BP 125/56
[2023-12-28 22:00] VITALS: BP 136/58
== END 2023-12-28 23:35 | disposition home or self-care (01) ==
LOC: EMR 19:17
PROVIDERS: EMERGENCY PHYSICIAN Emergency Medicine; FAMILY PHYSICIAN Internal Medicine
DX: K92.2 Gastrointestinal hemorrhage, unspecified (principal); I10 Essential (primary) hypertension; Z79.82 Long term (current) use of aspirin
CPT/HCPCS: 99283; 80048; 85025; 86850; 86900; 86901

== ENCOUNTER 2024-01-01 06:14 | Day surgery (SDC) | payer MEDICARE, OTHER, SELFPAY ==
[2024-01-01 08:43] LABS: Glucose - Point of Care 98 mg/dl (70-99)
[2024-01-01 08:45] VITALS: BP 151/67
[2024-01-01 08:59] VITALS: BMI 33.3
[2024-01-01 09:00] VITALS: BMI 33.3
--- NOTE | 2024-01-01 09:00 | PTCARENOTE ---
08, pt settled into bed with one assist with walker, pt A+Ox3. She denies taking any meds today. [facility] triedx3 via phone without success(no answer and hung up onx3), med list in nov created by the med list sent from [facility]. Unknown
last dose on all meds listed. PScottRN
[2024-01-01 11:15] VITALS: BP 124/52
[2024-01-01 11:25] LABS: Glucose - Point of Care 96 mg/dl (70-99)
[2024-01-01 11:30] VITALS: BP 124/49
[2024-01-01 11:45] VITALS: BP 141/53
[2024-01-01 12:00] VITALS: BP 153/48
== END 2024-01-01 12:22 | disposition home or self-care (01) ==
LOC: GI 06:14
PROVIDERS: ATTENDING PHYSICIAN Internal Medicine Gastroenterology
DX: D12.0 Benign neoplasm of cecum (principal); D12.2 Benign neoplasm of ascending colon; K55.20 Angiodysplasia of colon without hemorrhage; K64.0 First degree hemorrhoids
CPT/HCPCS: 45390; 45382; 88305; 82962

== ENCOUNTER → 2024-01-17 10:36 | Outpatient (REF) | payer MEDICARE, OTHER, SELFPAY | LOC: RAD 10:36 | PROVIDERS: ATTENDING PHYSICIAN Obstetrics & Gynecology; FAMILY PHYSICIAN Internal Medicine | DX: N95.0 Postmenopausal bleeding (principal) | CPT/HCPCS: 76830; 76856 ==

== ENCOUNTER 2024-01-28 18:36 | Observation (INO) | payer MEDICARE, OTHER, SELFPAY ==
[2024-01-28] VITALS (11 sets, daily range): BP systolic 122–140; BP diastolic 47–66; BMI 38.6; BMI 33.8
[2024-01-28 17:16] LABS: % Basophils 0.5 % (0-2); % Eosinophils 2.9 % (0-6); % Immature Granulocytes 0.2 % (0-0.5); % Lymphocytes 20.9 % (20.5-51.1); % Monocytes 6.2 % (1.7-9.3); % Neutrophils 69.3 % (42.2-75.2); Absolute Eosinophils 0.2 10^3/uL (0-0.7); Absolute Lymphocytes 1.2 10^3/uL (1.2-3.4); Absolute Monocytes 0.4 10^3/uL (0.1-0.6); Mean Corp Hgb Conc. 32.2 g/dL (33.0-37.0); Mean Corpuscular Hgb 32.1 pg (27.0-31.0); Mean Corpuscular Volume 99.5 fL (81.0-99.0); Mean Platelet Volume 9.2 fL (7.4-10.4); Nucleated Red Blood Cells % 0 %; Platelet Count 176 10^3/uL (130-400); Red Blood Cell Count 1.84 10^6/uL (4.20-5.40); Red Cell Dist. Width 15.3 % (11.5-14.5); White Blood Cell Count 5.8 10^3/uL (4.8-10.8)
[2024-01-28 17:23] LABS: Hemoglobin 5.9 g/dL (12.0-16.0)
[2024-01-28 17:24] LABS: ALT (SGPT) 15 U/L (0-35); AST (SGOT) 18 U/L (14-36); Albumin 3.2 g/dl (3.5-5.0); Alkaline Phosphatase 69 U/L (38-126); Blood Urea Nitrogen 81 mg/dl (7-17); Calcium 9.6 mg/dl (8.4-10.2); Carbon Dioxide 20 mmol/L (22-30); Chloride 109 mmol/L (98-107); Estimated Creatinine Clearance 17 ml/min; Glucose 132 mg/dl (70-99); Hematocrit 18.3 % (37.0-47.0); Potassium 4.7 mmol/L (3.5-5.1); Sodium 137 mmol/L (135-145); Total Bilirubin 0.4 mg/dl (0.2-1.3); Total Protein 5.7 g/dl (6.3-8.2)
--- NOTE | 2024-01-28 17:41 | ED.GENMED ---
History of Present Illness
General
Chief Complaint: Abnormal Lab Value
Source: patient
Exam Limitations: none
Time Seen by Provider: 01/28/24 17:32
Nursing documentation reviewed up to this point in time: agreed with
Travel History
Have you had any contact with someone who has COVID-19?: No
Do you have any symptoms of coronavirus? Fever > 100 degrees, chills, cough, shortness of breath, sore throat, loss of taste or smell, muscle aches, or headache?: No
History of Present Illness
History of Present Illness:
Patient with history of recent admission and treated for GI bleed, presents to ED secondary to increased generalized weakness over the past 2 days along with an outpatient blood work which unfortunately revealed recurrent anemia. Patient denies
dizziness. Denies shortness of breath with denies fever or chills. Denies abdominal pain. Denies vomiting or diarrhea. Denies recent change in medications or diet.
Past History
Past History
ED Past Medical History: CAD, GERD, HTN, Hypercholesterolemia, NIDDM, Renal failure, Hypothyroidism and Other (Dysfunctional uterine bleeding, chronic kidney disease pending dialysis, Renal calculus, Iron def anemia, hemorrhagic disorder due to
extrinsic Circulatory anticoagulation. PNA, Back pain, )
ED Past Surgical History: Appendectomy, Gynecological (D&C), Orthopedic (Left carpal tunnel ), Tonsilectomy, Urological (Kidney stent) and Other (L AV fistula)
Social History
Tobacco: Non-smoker
Alcohol: Occasional
Drug: None
Personal: Single
Living: [facility]
Family History
Family History: Negative Diabetes, Hypertension, Early CAD, Asthma or Cancer
Review of Systems
Review of Systems
Allergies reviewed?: Yes
All Other Systems: ROS reviewed and negative except as documented in HPI and ROS
Constitutional: Reports no symptoms; Denies fever
EENT: Reports no symptoms
Respiratory: Reports no symptoms
ABD/GI: Reports no symptoms; Denies abdominal pain
: Reports no symptoms
Musculoskeletal: Reports no symptoms
Skin: Reports no symptoms
Neurological: Reports weakness
Phy Exam
Physical Exam
Physical Exam:
Physical Exam
General: no apparent distress, not acutely ill. afebrile
Head: nc/at.eomi
Neck: supple. no meningeal signs.
Heart: s1/s2 regular rate and rhythm, no murmur. equal radial pulses.
Lungs: no acute respiratory distress. clear bilaterally
Abdomen: normal bowel sounds. not tender. rectal exam (JUNG Miller, at bedside): brown stool, grossly heme positive
Neuro: alert and oriented. no focal neurological deficits
Skin: pale appearing
Psychiatric: well kept. interactive and cooperative
Extremities: LE b/l edema, nonpitting. no calf tenderness.
Course
Orders/Labs/Results
Orders:
Orders
01/28/24 Dinner
Regular
At Your Request: Full Participation
01/28/24 17:03
Type+Screen Urgent
Complete Blood Count/With Diff Urgent
Comprehensive Metabolic Panel Urgent
01/28/24 17:40
* Blood Bank Products Urgent
Blood Bank Products: *Packed RBC Leuko(PRBC's)
Quantity: 2
Transfuse Today: Yes
Reason: Anemia
01/28/24 17:58
Pantoprazole [Protonix IV] 40 mg IV NOW STA
01/28/24 18:01
Pantoprazole [Protonix IV] 40 mg IV NOW STA
01/28/24 18:19
Admit/Transfer Patient As Directed
Co-Sign Provider:
Level of Care: Observation services
Assign to:: Medical/Surgical
Physician / Group: nolan
Diagnosis: recurrent anemia
01/28/24 18:24
Code Status As Directed
Resuscitation Status: Full Code
01/28/24 20:04
Acetaminophen [Tylenol] 650 mg PO Q4HPRN PRN
Bisacodyl [Dulcolax] 10 mg RECTAL DAILYPRN PRN
Carvedilol [Coreg] 25 mg PO BID
Dextrose 50%-Water [Dextrose 50% Syringe] 12.5 grams IV [id number] PRN
Docusate W/Senna [Senokot-S] 1 tablet PO [id number] PRN
Glucagon [GlucaGen] 1 mg IM PRN PRN
Miconazole Nitrate [Desenex/Mitrazol/Zeasorb] 1 applic TOPICAL BID
Polyethylene Glycol Powder [Miralax] 17 grams PO DAILYPRN PRN
01/28/24 20:04
Activity As Directed
Activity Level: As Tolerated
Bedside Glucose Monitoring As Directed
Frequency: AC&HS
Additional Instructions:: Change to q6h if pt on TPN, tube feeding or not eating
Sequential Compression Device [Pneumatic Compression Sleeves] As Directed
Type: Knee high
Vital Signs As Directed
Frequency: Per unit guidelines
DX Deep Vein Thrombosis Video Routine
01/28/24 20:27
Ammonium Lactate 12% [Lac Hydrin, Am Lactin Lotion] See Dose Instructions TOPICAL [id number] PRN
01/28/24 20:34
Loperamide [Imodium] 2 mg PO Q6HPRN PRN
01/28/24 22:00
Gabapentin [Neurontin] 100 mg PO TID
HydrALAZINE [Apresoline] 25 mg PO TID
Sodium Bicarbonate 1,300 mg PO TID
01/29/24 06:00
Levothyroxine [Synthroid] 25 mcg PO DAILY @ 0600
01/29/24 06:53
Complete Blood Count/With Diff IN AM
Comprehensive Metabolic Panel IN AM
Glycohemoglobin (HgbA1c) IN AM
01/29/24 07:30
Insulin Aspart Corrective Low [Novolog Flexpen-Low Resistance] See Protocol SC AC
01/29/24 08:00
Allopurinol [Zyloprim] 100 mg PO DAILY
Aspirin Low Dose EC [Aspir Low (Enteric Coated)] 81 mg PO DAILY
Atorvastatin [Lipitor] 40 mg PO DAILY
Cyanocobalamin [Vitamin B-12] 1,000 mcg PO DAILY
FOLic ACID [Folvite] 1 mg PO DAILY
Pantoprazole [Protonix IV] 40 mg IV BID
01/29/24 18:00
Ammonium Lactate 12% [Lac Hydrin, Am Lactin Lotion] See Dose Instructions TOPICAL QPM
01/30/24 08:00
Ferrous Sulfate [Feosol] 325 mg PO Q48H
02/01/24 08:00
Cholecalciferol (Vitamin D3) [VITAMIN D3 (cholecalciferol)] 125 mcg PO FR
Abnormal Lab Results
01/28/24
17:03
RBC 1.84 L 10^6/uL
(4.20-5.40)
Hgb 5.9 L* g/dL
(12.0-16.0)
Hct 18.3 L* %
(37.0-47.0)
MCV 99.5 H fL
(81.0-99.0)
MCH 32.1 H pg
(27.0-31.0)
MCHC 32.2 L g/dL
(33.0-37.0)
RDW 15.3 H %
(11.5-14.5)
Chloride 109 H mmol/L
(98-107)
Carbon Dioxide 20 L mmol/L
(22-30)
BUN 81 H mg/dl
(7-17)
Creatinine 3.6 H mg/dL
(0.6-1.0)
Glucose 132 H mg/dl
(70-99)
Total Protein 5.7 L g/dl
(6.3-8.2)
Albumin 3.2 L g/dl
(3.5-5.0)
Crossmatch IS Only See Detail
01/28/24 17:03
01/28/24 17:03
Vital Signs
Initial and Last Documented VS:
Initial Vital Signs
Temp Pulse Resp BP Pulse Ox
98.2 F 75 18 135/47 100
01/28/24 16:57 01/28/24 16:57 01/28/24 16:57 01/28/24 16:57 01/28/24 16:57
Last Documented Vital Signs
Temp Pulse Resp BP Pulse Ox
98.1 F 83 18 141/67 99
01/29/24 15:18 01/29/24 15:18 01/29/24 15:18 01/29/24 15:18 01/29/24 15:18
MDM/Problems Addressed
MDM/Problems Addressed:
H/H noted.
Transfusion consent on the chart.
(GI) notified via [employer].
*Critical Care Note
Total Time (30-74mins, 75-104mins- exclusive of procedures): Not Applicable
ED Attending Note
-
Portions of this chart may have been created with voice recognition software.� Occasional wrong word or��sound alike� substitutions may have occurred due to the inherent limitations of voice recognition software.
Discharge Plan
Departure
Patient Disposition: Admit
Date of Disposition: 01/28/24
Time of Disposition: 18:06
Admit to: Telemetry
Presentation/result/management discussed w/ accepting MD/DO: Hospitalist
Discharge Problem:
GI bleed, Anemia
Interventions
Interventions:
*Risk Screen - Suicide Last Done: 01/28/24 16:57
*General Assessment Last Done: 01/28/24 16:57
*Neglect/Abuse Screening Last Done: 01/28/24 16:57
ED- Fall Risk Assessment Last Done: 01/28/24 20:11
*Nursing Disposition Last Done: 01/28/24 20:11
Discharge Date and Time
Discharge Date/Time: 01/28/24 20:12
[2024-01-28] MEDS: PROTONIX IV 40 MG IV (18:10)
--- NOTE | 2024-01-28 18:22 | HPS.HSE ---
Family Physician
-
Family Physician:
Chief Complaint
-
anemia
History of Present Illness
78-year-old CAD, hypertension, GERD, hypercholesteremia, diabetes, CKD 4 about to start dialysis, hypothyroidism, iron deficiency anemia, renal calculus, gout, obesity, chronic anemia, gallstones presenting for generalized weakness over the past 2
days as well as outpatient labs showing recurrent anemia. Patient denies dizziness. Denies shortness of breath or fevers or chills. Denies abdominal pain. Denies vomiting or diarrhea. Denies any black stool or bloody stool or change in bowel
habits.
She has some increased lower extremity edema since she has not been taking torsemide over the past few months due to recommendation from nephrology to hold back on diuresis.
Medical History
Past Medical History
Past Medical History: Reports Other (CAD, hypertension, GERD, hypercholesteremia, diabetes, CKD 4 about to start dialysis, hypothyroidism, iron deficiency anemia, renal calculus, gout, obesity, chronic anemia, gallstones)
Past Surgical History: Reports Other (Appendectomy, Gynecological (D&C), Orthopedic (Left carpal tunnel ), Tonsilectomy, Urological (Kidney stent) and Other (L AV fistula))
Social History
Tobacco: Non-smoker
Alcohol: None
Drug: None
Family History
Family History: Not pertinent
Allergies / Home Medications
Allergies reflects when Allergies were last updated in [employer].
Home Medications with original date entered in [employer]
Allergy/Medication List:
Allergies
Allergy/AdvReac Type Severity Reaction Status Date / Time
Penicillins Allergy Hives Verified 01/28/24 16:57
Home Medications
allopurinol 100 mg tablet 100 mg PO DAILY Gout 09/07/22
ammonium lactate 12 % topical cream 1 applic topical [id number] PRN B/L legs 09/07/22
atorvastatin 40 mg tablet (Lipitor) 40 mg PO DAILY High cholesterol 09/07/22
carvedilol 25 mg tablet (Coreg) 25 mg PO BID Heart disease/condition 09/07/22
folic acid 1 mg tablet 1 mg PO DAILY Supplement 09/07/22
hydralazine 50 mg tablet 25 mg PO TID Blood pressure 10/26/22
pantoprazole 40 mg tablet,delayed release 40 mg PO DAILY Gastrointestinal issue 10/31/22
bisacodyl 10 mg rectal suppository 10 mg MS DAILYPRN PRN constipation #0 ea 11/22/22
acetaminophen 325 mg tablet (Tylenol) 650 mg PO Q4HPRN PRN mild pain/temp 100F or above 11/28/22
levothyroxine 25 mcg tablet 25 mcg PO DAILY AT 0700 Thyroid 11/28/22
cyanocobalamin (vitamin B-12) 1,000 mcg tablet 1,000 mcg PO DAILY #0 tabs 12/06/22
insulin aspart U-100 100 unit/mL (3 mL) subcutaneous pen (Novolog FlexPen U-100 Insulin aspart) 0 - 12 sliding scale dose SC ACHS Diabetes 03/26/23
sennosides 8.6 mg-docusate sodium 50 mg tablet (Senna with Docusate Sodium) 1 tab PO [id number] PRN constipation 03/27/23
gabapentin 100 mg capsule 100 mg PO TID Pain #0 caps 03/28/23
polyethylene glycol 3350 17 gram oral powder packet (Miralax) 17 g PO DAILYPRN PRN Constipation 07/17/23
epoetin dora 10,000 unit/mL injection solution (Procrit) 10,000 unit SC TU PRN give only for HGB 10 or less 10/18/23
ferrous sulfate 325 mg (65 mg iron) tablet 325 mg PO Q48H Supplement 10/18/23
miconazole nitrate 2 % topical powder (Miconazorb AF) 1 applic topical BID apply to ABD folds/groin 10/18/23
torsemide 10 mg tablet 20 mg PO BID Fluid Retention/Swelling 10/18/23
loperamide 2 mg tablet 2 mg PO Q6HPRN PRN diarrhea 11/05/23
sodium bicarbonate 650 mg tablet 1,300 mg (2 x 650 mg) PO TID Supplement #0 tabs 11/07/23
ammonium lactate 12 % topical cream 1 applic topical QPM Skin Issues 11/26/23
aspirin 81 mg tablet,delayed release 81 mg PO DAILY Blood Clot Prevention/Tx 12/20/23
cholecalciferol (vitamin D3) 125 mcg (5,000 unit) tablet (Vitamin D3) 125 mcg PO FR Supplement 12/20/23
polyethylene glycol 3350 17 gram oral powder packet (Miralax) 17 g PO HS 12/28/23
Review of Systems
-
History Source: Patient
A 12 point ROS was completed and negative except as noted: Yes
Constitutional: Reports No Symptoms
EENT: Reports No Symptoms
Respiratory: Reports No Symptoms
Cardiac: Reports No Symptoms
Abdomen/GI: Reports No Symptoms
: Reports No Symptoms
Musculoskeletal: Reports No Symptoms
Skin: Reports No Symptoms
Neurological: Reports No Symptoms
Endocrine: Reports No Symptoms
Hematologic/Lymphatic: Reports No Symptoms
Psych: Reports No Symptoms
Physical Exam
Vital Signs
Vital Signs
Temp Pulse Resp BP Pulse Ox
98.2 F 69 20 135/47 100
01/28/24 16:57 01/28/24 17:30 01/28/24 17:03 01/28/24 16:57 01/28/24 17:15
Physical Exam
General: Well Developed, Well Nourished and No Apparent Distress
HEENT: NormoCephalic, Moist mucous membranes and Atraumatic
Respiratory: Clear
Cardiac: S1/S2 and Regular Rhythm; No Murmur or Rub
GI: Soft, Non Tender, Non Distended and Normal Bowel Sounds; No Organomegaly
Rectal: Deferred by Provider
Musculoskeletal: No Clubbing, No Cyanosis and No Edema
Skin: No Rash
Neuro: Nonfocal/grossly intact
Laboratory Results
-
01/28/24 17:03
01/28/24 17:03
Laboratory Results
Total Bilirubin 0.4 mg/dl (0.2-1.3) 01/28/24 17:03
AST 18 U/L (14-36) 01/28/24 17:03
ALT 15 U/L (0-35) 01/28/24 17:03
Alkaline Phosphatase 69 U/L (38-126) 01/28/24 17:03
Data Reviewed
-
Lab Data: Labs Reviewed by me
Old Records: Reviewed
Impression/Plan
-
IMPRESSION:
PLAN:
# Recurrent anemia multifactorial secondary to occult GI bleeding from duodenal angiectasia/colonic polyps/ anemia of chronic disease
-Hemoglobin of 5.9 from 7.7 which is around baseline
-Stool is heme positive as it has been in the past
-This is a 4th admission for anemia
-Had recent EGD in November showing duodenal angiectasia and colonoscopy in October showing polyps
-2 unit of blood
-Continue Protonix, increase to twice daily
-Continue iron supplement
-Patient recently had colonoscopy on 12/31 which showed hemorrhoids, multiple polyps status post resection, multiple colonic angiectasia status post APC,
-Regular diet, n.p.o. past midnight
-GI consulted
CKD4
-Renal function baseline
-On the verge of starting dialysis
-Continue sodium bicarbonate
-Reportedly not taking torsemide at this time
Coronary artery disease
-Continue aspirin
Essential hypertension
-Continue hydralazine
-Continue Coreg
Type 2 diabetes
-Insulin sliding scale
History of gallstones
Hyperlipidemia
-Continue statin
Hypothyroidism
-Continue levothyroxine
Gout
-Continue allopurinol
Morbid obesity
Full code
DVT prophylaxis�SCDs
Regular diet, n.p.o. postmidnight
[2024-01-28] MEDS: NEURONTIN 100 MG PO (21:09)
[2024-01-28] MEDS: APRESOLINE 25 MG PO (21:09)
[2024-01-28] MEDS: COREG 25 MG PO (21:09)
[2024-01-28] MEDS: DESENEX/MITRAZOL/ZEASORB 1 APPLIC TOPICAL (21:10)
[2024-01-28] MEDS: SODIUM BICARBONATE 1300 MG PO (21:10)
[2024-01-28] MEDS: LAC HYDRIN, AM LACTIN LOTION 1 APPLIC TOPICAL (21:11)
[2024-01-28 21:34] LABS: Glucose - Point of Care 124 mg/dl (70-99)
--- NOTE | 2024-01-28 22:15 | PTCARENOTE ---
Receive pt from ER. Pt alert oriented X3, pleasant and conversative, in no distress. Pt was pulled over to her bed. Pt states that she feels a little better after receiving 1 unit of PRBCs in ER. Pt is oriented to the room, call hoang within reach.
VSS (T=98.3, HR=85, RR=18, QT=122/61, SpO2=99% on RA). Pt denies dizziness, or SOB. VF=319. 2nd unit of PRBCs started with no issues. Will continue to monitor the pt.
[2024-01-29 00:11] VITALS: BP 145/62
[2024-01-29] MEDS: SYNTHROID 25 MCG PO (05:48)
[2024-01-29 06:02] LABS: Glucose - Point of Care 121 mg/dl (70-99)
--- NOTE | 2024-01-29 06:51 | CON.GI ---
Addendum entered and electronically signed by Erin Maldonado DO 01/29/24 11:08:
Briefly, Alis Tejeda is a 78 y.o. female w/ pmhx CKD Stave V (s/p LUE AV fistula, not yet started on HD), CVA, HTN, LITTLE, HLD, DM2, hx AVMs (duodenal and colonic), chronic constipation, hx DVT (not on AC), hx of colon polyps, CAD, admitted with acute
on chronic anemia. Admitting labs revealed a hemoglobin of 5.9, MCV 99.5, rectal with brown, heme positive stool. Of note, she has a history of vaginal bleeding, seen by gynecology in the past with recommendations to have outpatient hormonal
therapy. She does report previously following with a hematology group in [place]-- does not recall the workup that was performed, denies prior bone marrow biopsy.
She recently had both an EGD And Colonoscopy-- noted to have duodenal AVMs, recent colonoscopy with multiple colonic angioectasia treated with APC, EMR of 16 mm cecal polyp and 18 mm AC polyp bx both polyps Sessile serrated lesions.
I suspect she is having slow oozing from AVMs, likely has more distal small bowel AVMs. That said, I do fee her anemia is likely multifactorial, especially in the setting of ESRD, there may be a hematologic component as well. Agree with outpatient
VCE for small bowel assessment and hematology consultation- inpatient vs. outpatient. We will look into getting capsule study arranged for her in the outpatient setting.
Original Note:
Consultation
-
Date/Time Consultation Requested: 01/28/242214
Date/Time Consultation Performed: 01/29/24 0730
Requesting Provider: Elyse Naik MD
Performing Provider: DAPHNE Card, Mahogany Vazquez DO
Reason for Consultation: anemia
Medical History
Chief Complaint / HPI
Chief Complaint: abnormal labs
History of Present Illness:
Pt is a 78 yo female with a PMH significant for CKD stage V with placement of LUE AV fistula (pending start on HD next few months), CVA, HTN, GERD, HLD, IDDM, LITTLE on chronic iron supplement, duodenal and colonic angioectasias, constipation with
prior fecal impaction, hypothyroidism, obesity, chronic constipation, hx DVT ( off AC), CAD, chronic LE lymphedema, colon polyp with recent EMR completed 12/31 for 2 sessile serrated polyps present to ER with recurrent anemia. On admission she is
noted with hbg 5.9 with MCV 99.5. Rectal brown heme + in ER. Pt also admits to past vaginal bleeding with GINNER evaluation outpatient with hormonal therapy. She has also seen hematology last 1 1/2 years ago when she lived in [place]. Did not
recall bone marrow biopsy but multiple labs tests completed.
Pt admits to some fatigue and some constipation after last colonoscopy but otherwise denies shortness of breath, dizziness, dysphagia, GERD, nausea, vomiting, diarrhea, constipation, blood or black in stools. Pt with 20 lb wt loss over last
few months but admits to not liking food at [facility] though family does bring food in.
prior procedures:
EGD 10/2022-Protano Normal esophagus. Erythematous mucosa in the stomach. Biopsied. Mucosal nodule found in the duodenum. Biopsied. Normal second portion of the duodenum. Biopsied. bx neg
EG Bohning Normal esophagus� - Erythematous mucosa in the stomach. Biopsied. - A few non-bleeding angiectasias in the duodenum.
colonoscopy: 01/01/24- Juan Manuel- fair prep, hemorrhoids, stool in sigmoid, multiple colonic angioectasia treated with APC, EMR of 16 mm cecal polyp and 18 mm AC polyp bx both polyps Sessile serrated lesions
Colonoscopy:� 11/2022 Protano Preparation of the colon was poor. Five 3 to 6 mm polyps in the rectum, in the sigmoid colon and in the cecum, removed with a cold snare. Resected and retrieved. One 1 mm polyp in the cecum, removed with a jumbo� cold
forceps. Resected and retrieved. One 20 mm polyp in the cecum. Biopsied. One 18 mm polyp in the ascending colon. Biopsied. One 10 mm polyp in the transverse colon, removed with a hot snare. Complete resection. Partial retrieval. Clips were placed.
Internal hemorrhoids. bx with TA and hyperplastic polyps.
Past Medical History
Past Medical History: CAD, GERD, HTN, Hypercholesterolemia, Hypothyroidism, NIDDM, Renal Failure (CKD to start HD soon stage V) and Other (LITTLE, DVT, obesity, constipation, LE lymphedema, colonic and duodenal angioectasias, colon polyps with recent
EMR fo cecum and AC sessile serrated lesions, vaginal bleeding with GINNER evaluation)
Past Surgical History: Appendectomy, Orthopedic (left carpal tunnel surgery), Tonsilectomy and Other (D&C (for vaginal bleeding), LUE AV fistula)
Social History
Tobacco: Non-Smoker
Alcohol: None
Drug: None
Living: Detention
Family History
Family History: Other (no family hx colon CA or polyps)
Allergies / Home Medications
Allergy/AdvReac Type Severity Reaction Status Date / Time
Penicillins Allergy Hives Verified 01/28/24 16:57
�Medication �Instructions �Recorded
allopurinol 100 mg tablet 100 mg PO DAILY Gout 09/07/22
ammonium lactate 12 % topical cream 1 applic topical [id number] PRN B/L 09/07/22
legs
atorvastatin 40 mg tablet (Lipitor) 40 mg PO DAILY High cholesterol 09/07/22
carvedilol 25 mg tablet (Coreg) 25 mg PO BID Heart 09/07/22
disease/condition
folic acid 1 mg tablet 1 mg PO DAILY Supplement 09/07/22
hydralazine 50 mg tablet 25 mg PO TID Blood pressure 10/26/22
pantoprazole 40 mg tablet,delayed 40 mg PO DAILY Gastrointestinal 10/31/22
release issue
bisacodyl 10 mg rectal suppository 10 mg OK DAILYPRN PRN constipation 11/22/22
#0 ea
acetaminophen 325 mg tablet 650 mg PO Q4HPRN PRN mild 11/28/22
(Tylenol) pain/temp 100F or above
levothyroxine 25 mcg tablet 25 mcg PO DAILY AT 0700 Thyroid 11/28/22
cyanocobalamin (vitamin B-12) 1,000 mcg PO DAILY #0 tabs 12/06/22
1,000 mcg tablet
insulin aspart U-100 100 unit/mL 0 - 12 sliding scale dose SC ACHS 03/26/23
(3 mL) subcutaneous pen (Novolog Diabetes
FlexPen U-100 Insulin aspart)
sennosides 8.6 mg-docusate sodium 1 tab PO [id number] PRN constipation 03/27/23
50 mg tablet (Senna with Docusate
Sodium)
gabapentin 100 mg capsule 100 mg PO TID Pain #0 caps 03/28/23
polyethylene glycol 3350 17 gram 17 g PO DAILYPRN PRN Constipation 07/17/23
oral powder packet (Miralax)
epoetin dora 10,000 unit/mL 10,000 unit SC TU PRN give only 10/18/23
injection solution (Procrit) for HGB 10 or less
ferrous sulfate 325 mg (65 mg 325 mg PO Q48H Supplement 10/18/23
iron) tablet
miconazole nitrate 2 % topical 1 applic topical BID apply to ABD 10/18/23
powder (Miconazorb AF) folds/groin
torsemide 10 mg tablet 20 mg PO BID Fluid 10/18/23
Retention/Swelling
loperamide 2 mg tablet 2 mg PO Q6HPRN PRN diarrhea 11/05/23
sodium bicarbonate 650 mg tablet 1,300 mg (2 x 650 mg) PO TID 11/07/23
Supplement #0 tabs
ammonium lactate 12 % topical cream 1 applic topical QPM Skin Issues 11/26/23
aspirin 81 mg tablet,delayed 81 mg PO DAILY Blood Clot 12/20/23
release Prevention/Tx
cholecalciferol (vitamin D3) 125 125 mcg PO FR Supplement 12/20/23
mcg (5,000 unit) tablet (Vitamin
D3)
medroxyprogesterone 150 mg/mL 150 mg IM ONCE 01/28/24
intramuscular suspension
(Depo-Provera)
Review of Systems
-
History Source: Patient
Constitutional: Reports Weight Loss ( 20 lbs last few months )
EENT: Reports No Symptoms
Respiratory: Reports No Symptoms
Cardiac: Reports No Symptoms
Abdomen/GI: Reports Constipated (hx constipation, and noted post colonoscopy )
: Reports No Symptoms and Other (denies further vaginal bleeding )
Skin: Reports No Symptoms
Neurological: Reports Weakness
Endocrine: Reports No Symptoms
Hematologic/Lymphatic: Reports No Symptoms
Vital Signs
Temp Pulse Resp BP Pulse Ox
98.1 F 85 18 145/62 98
01/29/24 00:11 01/29/24 00:11 01/29/24 00:11 01/29/24 00:11 01/28/24 23:25
Physical Exam
Exam
General: Well Developed, Well Nourished and No Apparent Distress
HEENT: Normocephalic and Anicteric
Respiratory: Clear
Cardiac: Regular Rhythm
GI: Soft, Non Tender and Non Distended
Rectal: Other (brown heme + in ER)
Musculoskeletal: No Clubbing and No Cyanosis
Skin: Warm and Dry
Neuro: Awake, Alert and AO x 3
Psych: Calm
Results
WBC 5.8 10^3/uL (4.8-10.8) 01/28/24 17:03
Hgb 5.9 g/dL (12.0-16.0) L* 01/28/24 17:03
Hct 18.3 % (37.0-47.0) L* 01/28/24 17:03
MCV 99.5 fL (81.0-99.0) H 01/28/24 17:03
Plt Count 176 10^3/uL (130-400) 01/28/24 17:03
Absolute Neuts (auto) 4.0 10^3/uL (1.4-6.5) 01/28/24 17:03
Sodium 137 mmol/L (135-145) 01/28/24 17:03
Potassium 4.7 mmol/L (3.5-5.1) 01/28/24 17:03
Chloride 109 mmol/L (98-107) H 01/28/24 17:03
Carbon Dioxide 20 mmol/L (22-30) L 01/28/24 17:03
BUN 81 mg/dl (7-17) H 01/28/24 17:03
Creatinine 3.6 mg/dL (0.6-1.0) H 01/28/24 17:03
Calcium 9.6 mg/dl (8.4-10.2) 01/28/24 17:03
Total Bilirubin 0.4 mg/dl (0.2-1.3) 01/28/24 17:03
AST 18 U/L (14-36) 01/28/24 17:03
ALT 15 U/L (0-35) 01/28/24 17:03
Alkaline Phosphatase 69 U/L (38-126) 01/28/24 17:03
Diagnostic Image Results:
Prior GI Procedures:
EGD 10/2022-Protano Normal esophagus. Erythematous mucosa in the stomach. Biopsied. Mucosal nodule found in the duodenum. Biopsied. Normal second portion of the duodenum. Biopsied. bx neg
EG Bohning Normal esophagus� - Erythematous mucosa in the stomach. Biopsied. - A few non-bleeding angiectasias in the duodenum.
colonoscopy: 01/01/24- Juan Manuel- fair prep, hemorrhoids, stool in sigmoid, multiple colonic angioectasia treated with APC, EMR of 16 mm cecal polyp and 18 mm AC polyp bx both polyps Sessile serrated lesions
Colonoscopy:� 11/2022 [facility] Preparation of the colon was poor. Five 3 to 6 mm polyps in the rectum, in the sigmoid colon and in the cecum, removed with a cold snare. Resected and retrieved. One 1 mm polyp in the cecum, removed with a jumbo� cold
forceps. Resected and retrieved. One 20 mm polyp in the cecum. Biopsied. One 18 mm polyp in the ascending colon. Biopsied. One 10 mm polyp in the transverse colon, removed with a hot snare. Complete resection. Partial retrieval. Clips were placed.
Internal hemorrhoids. bx with TA and hyperplastic polyps.
Assessment / Plan
-
Pt is a 78 yo female with a PMH significant for CKD stage V with placement of LUE AV fistula (pending start on HD next few months), CVA, HTN, GERD, HLD, IDDM, LITTLE on chronic iron supplement, duodenal and colonic angioectasias, constipation with
prior fecal impaction, hypothyroidism, obesity, chronic constipation, hx DVT ( off AC), CAD, chronic LE lymphedema, colon polyp with recent EMR completed 12/31 for 2 sessile serrated polyps present to ER with recurrent anemia. On admission she is
noted with hbg 5.9 with MCV 99.5. Rectal brown heme + in ER. Pt also admits to past vaginal bleeding with GINNER evaluation outpatient with hormonal therapy. She has also seen hematology last 1 1/2 years ago when she lived in [place]. Did not
recall bone marrow biopsy but multiple labs tests completed.
prior procedures:
EGD 10/2022-Protano Normal esophagus. Erythematous mucosa in the stomach. Biopsied. Mucosal nodule found in the duodenum. Biopsied. Normal second portion of the duodenum. Biopsied. bx neg
EGD2 Bohning Normal esophagus� - Erythematous mucosa in the stomach. Biopsied. - A few non-bleeding angiectasias in the duodenum.
colonoscopy: 01/01/24- Juan Manuel- fair prep, hemorrhoids, stool in sigmoid, multiple colonic angioectasia treated with APC, EMR of 16 mm cecal polyp and 18 mm AC polyp bx both polyps Sessile serrated lesions
Colonoscopy:� 11/2022 Protano Preparation of the colon was poor. Five 3 to 6 mm polyps in the rectum, in the sigmoid colon and in the cecum, removed with a cold snare. Resected and retrieved. One 1 mm polyp in the cecum, removed with a jumbo� cold
forceps. Resected and retrieved. One 20 mm polyp in the cecum. Biopsied. One 18 mm polyp in the ascending colon. Biopsied. One 10 mm polyp in the transverse colon, removed with a hot snare. Complete resection. Partial retrieval. Clips were placed.
Internal hemorrhoids. bx with TA and hyperplastic polyps.
-recurrent anemia with heme + stool in ER
-large colonic polyps with recent EMR 12/31
-Colonoscopy 12/2023 with multiple colonic angioectasias
-EGD 2023 with few non bleeding duodenal angioectasia
-CKD stage V due for eventual start of dialysis
- hx stercoral colitis.hx chronic constipation
-vaginal bleeding with OP GINNER follow
-borderline b12 2022
Other pertinent medical hx:
-cholelithiasis
-DVT
-CVA
-CAD
-IDDM
-HTN
-HLD
Recommendations:
etiology of anemia and rectal bleeding likely multifactorial related SB/colon ectasias as noted on past EGD/colon , chronic anemia with CKD, prior vaginal bleeding vs other
pt has required 9 units PRBC's since October and 24 units since 2021
consider heme eval for continued halfway follow with chronic issue with multiple transfusions since 08/2022-- pt has seen heme in [place] with no follow up since moving
OP capsule endoscopy as pt recently completed EGD/colon this year -- I sent message to office to see if can arrange through SNF
hbg up to 7.6 today
cont protonix will transition to PO daily on discharge
cont OP procrit dosing per renal
cont B12 supplement
on oral iron
OP GINNER follow up
ok for renal ADA diet
Pt due repeat colonoscopy 1 year with hx polyps
monitor stools during admission with hx constipation on PRN regiment
-
-
Thank you for consultation and allowing me to participate in the patient's care. Please call the communications analyst GI physician during the after hours with any questions or concerns.
[2024-01-29 07:22] LABS: % Basophils 0.6 % (0-2); % Eosinophils 3.5 % (0-6); % Immature Granulocytes 0.4 % (0-0.5); % Lymphocytes 21.7 % (20.5-51.1); % Monocytes 5.8 % (1.7-9.3); Absolute Eosinophils 0.2 10^3/uL (0-0.7); Absolute Lymphocytes 1.1 10^3/uL (1.2-3.4); Absolute Monocytes 0.3 10^3/uL (0.1-0.6); Absolute Neutrophils 3.5 10^3/uL (1.4-6.5); Mean Corpuscular Hgb 31.4 pg (27.0-31.0); Mean Platelet Volume 9.3 fL (7.4-10.4); Nucleated Red Blood Cells % 0 %; Platelet Count 167 10^3/uL (130-400); Red Blood Cell Count 2.42 10^6/uL (4.20-5.40); Red Cell Dist. Width 16.9 % (11.5-14.5); White Blood Cell Count 5.2 10^3/uL (4.8-10.8)
[2024-01-29 07:26] LABS: Hemoglobin 7.6 g/dL (12.0-16.0)
[2024-01-29 07:40] VITALS: BP 142/57
[2024-01-29 08:18] LABS: ALT (SGPT) 13 U/L (0-35); AST (SGOT) 15 U/L (14-36); Albumin 2.9 g/dl (3.5-5.0); Alkaline Phosphatase 68 U/L (38-126); Blood Urea Nitrogen 78 mg/dl (7-17); Calcium 9.8 mg/dl (8.4-10.2); Carbon Dioxide 20 mmol/L (22-30); Chloride 110 mmol/L (98-107); Estimated Creatinine Clearance 16 ml/min; Glucose 101 mg/dl (70-99); Potassium 4.6 mmol/L (3.5-5.1); Sodium 137 mmol/L (135-145); Total Bilirubin 0.4 mg/dl (0.2-1.3); Total Protein 5.2 g/dl (6.3-8.2)
[2024-01-29] MEDS: LIPITOR 40 MG PO (09:23)
[2024-01-29] MEDS: ASPIR LOW (ENTERIC COATED) 81 MG PO (09:23)
[2024-01-29] MEDS: COREG 25 MG PO (09:23)
[2024-01-29] MEDS: NEURONTIN 100 MG PO ×2 (09:23→16:32)
[2024-01-29] MEDS: SODIUM BICARBONATE 1300 MG PO ×2 (09:23→16:32)
[2024-01-29] MEDS: ZYLOPRIM 100 MG PO (09:24)
[2024-01-29] MEDS: PROTONIX IV 40 MG IV (09:24)
[2024-01-29] MEDS: VITAMIN B-12 1000 MCG PO (09:24)
[2024-01-29] MEDS: APRESOLINE 25 MG PO ×2 (09:24→16:31)
[2024-01-29] MEDS: DESENEX/MITRAZOL/ZEASORB 1 APPLIC TOPICAL (09:25)
[2024-01-29] MEDS: NSS (PRESERVATIVE FREE) 10 ML IV (09:26)
[2024-01-29] MEDS: FOLVITE 1 MG PO (09:42)
[2024-01-29 11:27] LABS: Glucose - Point of Care 112 mg/dl (70-99)
--- NOTE | 2024-01-29 11:45 | W.PN.HOSP.TC ---
Addendum entered and electronically signed by Carlos Cm MD 01/29/24 14:55:
seen by hematology who does not see any obvious evidence of bone marrow failure based on the current data. Recommend to continue to follow on chronic GI bleed and chronic kidney disease and vaginal bleeding.
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
Follow routine CBCs monitoring and epocrit. VCE per GI.
Original Note:
Today's Communication/Plan
-
Heme eval
DC planning
Assessment / Plan
Assessment / Plan
# Recurrent anemia multifactorial secondary to occult GI bleeding from duodenal angiectasia/colonic polyps/ anemia of chronic disease
-Hemoglobin of 5.9 from 7.7 which is around baseline
-Stool is heme positive as it has been in the past
-This is a 4th admission for anemia
-Had recent EGD in November showing duodenal angiectasia and colonoscopy in October showing polyps
-d/p 2 unit of blood
-Continue Protonix
-Continue iron supplement
-Patient recently had colonoscopy on 12/31 which showed hemorrhoids, multiple polyps status post resection, multiple colonic angiectasia status post APC,
- GI input noted
-Consult hematology for an input as well.
CKD4
-Renal function baseline
-On the verge of starting dialysis
-Continue sodium bicarbonate
-Reportedly not taking torsemide at this time
Coronary artery disease
-Continue aspirin
Essential hypertension
-Continue hydralazine
-Continue Coreg
Type 2 diabetes
-Insulin sliding scale
History of gallstones
Hyperlipidemia
-Continue statin
Hypothyroidism
-Continue levothyroxine
Gout
-Continue allopurinol
Morbid obesity
Full code
DVT prophylaxis�SCDs
Regular diet
DC back to [place] after Heme eval
Anticipated Discharge: Today
Subjective/Interval History
-
Date of Service: January 29, 2024
S/p PRBC transfusion.
Feels okay. Denies any shortness of breath post transfusion.
No dizziness.
Denies having noticing any blood in the stools. No black stools.
Objective Data
-
Labs:
Laboratory Results
01/29/24
06:53
WBC 5.2
Hgb 7.6 L D
Hct 23.0 L
Plt Count 167
Sodium 137
Potassium 4.6
Chloride 110 H
Carbon Dioxide 20 L
BUN 78 H
Creatinine 3.7 H
Glucose 101 H
Calcium 9.8
Total Bilirubin 0.4
AST 15
ALT 13
Alkaline Phosphatase 68
Vital Signs:
Vital Signs
Temp Pulse Resp BP Pulse Ox
98.3 F 83 16 142/57 99
01/29/24 07:40 01/29/24 07:40 01/29/24 07:40 01/29/24 07:40 01/29/24 07:40
I&O
01/28/24 01/29/24 01/30/24
06:59 06:59 06:59
Intake Total 740 / 740
Balance 740 / 740
Review of Systems
-
Abdomen/GI: Denies Abdominal Pain, Nausea or Vomiting
Neuro: Denies Dizzy
Physical Exam
-
General: No Apparent Distress
HEENT: Moist Mucous Membranes
Respiratory: Clear to Auscultation
Cardiac: Regular Rhythm and S1/S2
GI: Soft
Neuro: AO x 3
Psych: Calm; Negative Confused
Data Reviewed
-
Labs: Labs Reviewed by me
--- NOTE | 2024-01-29 12:53 | CON.ONC ---
Impression
Impression
Alis, 78 Yo F with complex PMHx presents to the hospital with fatigue, and is diagnosed with anemia.
CKD 4 yet to start dialysis
Endometrial mass - benign/malignant on ultrasound
GI - Duodenal and colonic angioectasis
Plan
Plan
Anemia -
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
Hb - 5.9 on 01/27, 7.6 on 01/28, s/p 2PRBC transfusion.
Trend CBC.
Iron supplementation during dialysis, held.
PRBC transfusion as needed.
Platelets and leukocytes within normal limits. No concern for bone marrow disorders.
Patient History
History of Present Illness
78 Yo F presents to the hospital with fatigue. Hematology consulted to evaluate anemia.
She noticed fatigue about 2 days ago, and felt progressively worsening, and her weekly labs at the [facility] showed recurrent anemia. Reports to be completely fine for 4-6 weeks after each blood transfusion and will start feeling
fatigues that progressively worsens. She denies chest pain, SOB, dizziness, palpitations, fevers, chills, and weight changes. Denies noticing fresh blood in the stool or tarry colored stools, blood in the urine, vomiting, diarrhea and sleep
disturbances.
She has some increased lower extremity edema, left > right, and attributes to not taking torsemide over the past few months due to recommendation from nephrology to hold back on diuresis.
Also states to have seen a magazine publisher and being on DPMA shots. Denies uterine bleeding. She was evaluated for endometrial mass, s/p post menopausal bleeding, D and C.
Past-Medical/Surgical History
PMHx - AD, hypertension, GERD, hypercholesteremia, diabetes, CKD 4 about to start dialysis, hypothyroidism, iron deficiency anemia, renal calculus, gout, obesity, chronic anemia, gallstones, DVT in LLE, CVA x 2, ambulation difficulty.
PSHx: Appendectomy, Gynecological (D&C), Orthopedic (Left carpal tunnel ), Tonsillectomy, Urological (Kidney stent) and Other (L AV fistula)
Patient Medication
�Medication �Instructions �Recorded �Confirmed �Last Taken �Type
allopurinol 100 mg tablet 100 mg PO DAILY Gout 09/07/22 01/28/24 07/22/23 08:00 History
ammonium lactate 12 % topical cream 1 applic topical [id number] PRN B/L 09/07/22 01/28/24 Unknown History
legs
atorvastatin 40 mg tablet (Lipitor) 40 mg PO DAILY High cholesterol 09/07/22 01/28/24 07/22/23 20:00 History
carvedilol 25 mg tablet (Coreg) 25 mg PO BID Heart 09/07/22 01/28/24 07/22/23 20:00 History
disease/condition
folic acid 1 mg tablet 1 mg PO DAILY Supplement 09/07/22 01/28/24 09/07/22 History
hydralazine 50 mg tablet 25 mg PO TID Blood pressure 10/26/22 01/28/24 07/22/23 20:00 History
pantoprazole 40 mg tablet,delayed 40 mg PO DAILY Gastrointestinal 10/31/22 01/28/24 Unknown History
release issue
bisacodyl 10 mg rectal suppository 10 mg WV DAILYPRN PRN constipation 11/22/22 01/28/24 Unknown Rx
#0 ea
acetaminophen 325 mg tablet 650 mg PO Q4HPRN PRN mild 11/28/22 01/28/24 07/21/23 18:00 History
(Tylenol) pain/temp 100F or above
levothyroxine 25 mcg tablet 25 mcg PO DAILY AT 0700 Thyroid 11/28/22 01/28/24 07/23/23 07:00 History
cyanocobalamin (vitamin B-12) 1,000 mcg PO DAILY #0 tabs 12/06/22 01/28/24 Unknown Rx
1,000 mcg tablet
insulin aspart U-100 100 unit/mL 0 - 12 sliding scale dose SC ACHS 03/26/23 01/28/24 Unknown History
(3 mL) subcutaneous pen (Novolog Diabetes
FlexPen U-100 Insulin aspart)
sennosides 8.6 mg-docusate sodium 1 tab PO [id number] PRN constipation 03/27/23 01/28/24 Unknown History
50 mg tablet (Senna with Docusate
Sodium)
gabapentin 100 mg capsule 100 mg PO TID Pain #0 caps 03/28/23 01/28/24 09/07/22 Rx
polyethylene glycol 3350 17 gram 17 g PO DAILYPRN PRN Constipation 07/17/23 01/28/24 Unknown History
oral powder packet (Miralax)
epoetin doar 10,000 unit/mL 10,000 unit SC TU PRN give only 10/18/23 01/28/24 Unknown History
injection solution (Procrit) for HGB 10 or less
ferrous sulfate 325 mg (65 mg 325 mg PO Q48H Supplement 10/18/23 01/28/24 Unknown History
iron) tablet
miconazole nitrate 2 % topical 1 applic topical BID apply to ABD 10/18/23 01/28/24 Unknown History
powder (Miconazorb AF) folds/groin
torsemide 10 mg tablet 20 mg PO BID Fluid 10/18/23 01/28/24 Unknown History
Retention/Swelling
loperamide 2 mg tablet 2 mg PO Q6HPRN PRN diarrhea 11/05/23 01/28/24 Unknown History
sodium bicarbonate 650 mg tablet 1,300 mg (2 x 650 mg) PO TID 11/07/23 01/28/24 09/07/22 Rx
Supplement #0 tabs
ammonium lactate 12 % topical cream 1 applic topical QPM Skin Issues 11/26/23 01/28/24 Unknown History
aspirin 81 mg tablet,delayed 81 mg PO DAILY Blood Clot 12/20/23 01/28/24 Unknown History
release Prevention/Tx
cholecalciferol (vitamin D3) 125 125 mcg PO FR Supplement 12/20/23 01/28/24 Unknown History
mcg (5,000 unit) tablet (Vitamin
D3)
medroxyprogesterone 150 mg/mL 150 mg IM ONCE 01/28/24 01/28/24 Unknown History
intramuscular suspension
(Depo-Provera)
Active Medications
Generic Name Dose Route Start Last Admin
Trade Name Freq PRN Reason Stop Dose Admin
Acetaminophen 650 mg 01/28/24 20:04
Acetaminophen 325 Mg Tablet PO 02/25/24 20:03
Q4HPRN PRN
mild pain/temp 100F or above
Allopurinol 100 mg 01/29/24 08:00 01/29/24 09:24
Allopurinol 100 Mg Tablet PO 02/26/24 07:59 100 mg
DAILY PRISCILLA Administration
Ammonium Lactate 0 applic 01/28/24 20:27 01/28/24 21:11
Ammonium Lactate 12% (Lotion) 240 Ml Bottle TOPICAL 02/25/24 20:26 1 applic
[id number] PRN Administration
DRYNESS
Ammonium Lactate 0 applic 01/29/24 18:00
Ammonium Lactate 12% (Lotion) 240 Ml Bottle TOPICAL 02/26/24 17:59
QPM PRISCILLA
Aspirin 81 mg 01/29/24 08:00 01/29/24 09:23
Aspirin 81 Mg (Enteric Coated) Tablet PO 02/26/24 07:59 81 mg
DAILY PRISCILLA Administration
Atorvastatin Calcium 40 mg 01/29/24 08:00 01/29/24 09:23
Atorvastatin (Lipitor) 40 Mg Tablet PO 02/26/24 07:59 40 mg
DAILY PRISCILLA Administration
Bisacodyl 10 mg 01/28/24 20:04
Bisacodyl 10 Mg Rectal Suppository RECTAL 02/25/24 20:03
DAILYPRN PRN
constipation
Carvedilol 25 mg 01/28/24 20:04 01/29/24 09:23
Carvedilol 25 Mg Tablet PO 02/25/24 20:03 25 mg
BID PRISCILLA Administration
Cholecalciferol 125 mcg 02/01/24 08:00
Cholecalciferol (Vitamin D3) 125 Mcg Tablet (5,000 Units) PO 02/29/24 07:59
FR PRISCILLA
Cyanocobalamin 1,000 mcg 01/29/24 08:00 01/29/24 09:24
Cyanocobalamin 1,000 Mcg Tablet PO 02/26/24 07:59 1,000 mcg
DAILY PRISCILLA Administration
Dextrose 12.5 grams 01/28/24 20:04
Dextrose 50% (0.5 Grams/Ml) 50 Ml Syringe IV 02/25/24 20:03
[id number] PRN
hypoglycemia
Protocol
Ferrous Sulfate 325 mg 01/30/24 08:00
Ferrous Sulfate 325 Mg Tablet PO 02/27/24 07:59
Q48H PRISCILLA
Folic Acid 1 mg 01/29/24 08:00 01/29/24 09:42
Folic Acid 1 Mg Tablet PO 02/26/24 07:59 1 mg
DAILY PRISCILLA Administration
Gabapentin 100 mg 01/28/24 22:00 01/29/24 09:23
Gabapentin 100 Mg Capsule PO 02/25/24 21:59 100 mg
TID PRISCILLA Administration
Glucagon 1 mg 01/28/24 20:04
Glucagon 1 Mg Vial IM 02/25/24 20:03
PRN PRN
hypoglycemia
Protocol
Hydralazine HCl 25 mg 01/28/24 22:00 01/29/24 09:24
Hydralazine 50 Mg Tablet PO 02/25/24 21:59 25 mg
TID PRISCILLA Administration
Insulin Aspart 0 units 01/29/24 07:30 01/29/24 11:30
Insulin Aspart Low Resistance 300 Units/3 Ml Pen.Injctr SC 02/26/24 07:29 Not Given
AC PRISCILLA
Protocol
Levothyroxine Sodium 25 mcg 01/29/24 06:00 01/29/24 05:48
Levothyroxine 25 Mcg Tablet PO 02/26/24 05:59 25 mcg
DAILY @ 0600 PRISCILLA Administration
Loperamide HCl 2 mg 01/28/24 20:34
Loperamide 2 Mg Capsule PO 02/25/24 20:33
Q6HPRN PRN
diarrhea
Miconazole Nitrate 1 applic 01/28/24 20:04 01/29/24 09:25
Miconazole Powder Bottle TOPICAL 02/25/24 20:03 1 applic
BID PRISCILLA Administration
Pantoprazole Sodium 40 mg 01/29/24 08:00 01/29/24 09:24
Pantoprazole Sodium 40 Mg/10 Ml Vial IV 02/26/24 07:59 40 mg
BID PRISCILLA Administration
Polyethylene Glycol 17 grams 01/28/24 20:04
Polyethylene Glycol Powder 17 Grams Packet PO 02/25/24 20:03
DAILYPRN PRN
Constipation
Senna/Docusate Sodium 1 tablet 01/28/24 20:04
Docusate W/Senna (Sania-Colace) Tablet PO 02/25/24 20:03
[id number] PRN
constipation
Sodium Bicarbonate 1,300 mg 01/28/24 22:00 01/29/24 09:23
Sodium Bicarbonate 650 Mg Tablet PO 02/25/24 21:59 1,300 mg
TID PRISCILLA Administration
Sodium Chloride 0 flush 01/28/24 21:00
Sodium Chloride 0.9% (Flush) Syringe IV 02/25/24 20:59
PER PROTOCOL PRISCILLA
Sodium Chloride 10 ml 01/29/24 08:00 01/29/24 09:26
Sodium Chloride 0.9% (Preservative Free) 10 Ml Vial IV 02/26/24 07:59 10 ml
BID PRISCILLA Administration
Review of Systems
-
History Source: Patient
Constitutional: Reports Fatigue
EENT: Reports No Symptoms
Respiratory: Reports No Symptoms
Cardiac: Reports No Symptoms
GI: Reports No Symptoms
: Reports No Symptoms
Musculoskeletal: Reports No Symptoms
Skin: Reports Rash
Neuro: Reports No Symptoms
Endocrine: Reports No Symptoms
Hematologic/Lymphatic: Reports No Symptoms
Allergy / Immunology: Reports No Symptoms
Psych: Reports No Symptoms
Physical Exam
-
General: Well Developed and Comfortable
HEENT: Moist Mucous Membranes and Other (Gross pallor, and conjuctival pallor present)
Cardiology: Normal Sinus Rhythm, S1 and S2
Pulmonary: Clear and Other (No wheezes, rales and ronchi)
GI: Soft and Normal Bowel Sounds
Musculoskeletal: Other (b/l LLE edema, Left > right. Left leg - extensive verrucous growth with cresting on the posterior calf noted.)
Neurology: Other (AO x 3)
Hematologic / Lymphatic: No Lymphadenopathy and No Petechiae
Labs
Lab Results
WBC 5.2 10^3/uL (4.8-10.8) 01/29/24 06:53
RBC 2.42 10^6/uL (4.20-5.40) L 01/29/24 06:53
Hgb 7.6 g/dL (12.0-16.0) L D 01/29/24 06:53
Hct 23.0 % (37.0-47.0) L 01/29/24 06:53
MCV 95.0 fL (81.0-99.0) 01/29/24 06:53
MCH 31.4 pg (27.0-31.0) H 01/29/24 06:53
MCHC 33.0 g/dL (33.0-37.0) 01/29/24 06:53
RDW 16.9 % (11.5-14.5) H 01/29/24 06:53
Plt Count 167 10^3/uL (130-400) 01/29/24 06:53
MPV 9.3 fL (7.4-10.4) 01/29/24 06:53
Abs Immat Gran (auto) 0.0 10^3/uL (0-0.05) 01/29/24 06:53
Absolute Neuts (auto) 3.5 10^3/uL (1.4-6.5) 01/29/24 06:53
Absolute Lymphs (auto) 1.1 10^3/uL (1.2-3.4) L 01/29/24 06:53
Absolute Monos (auto) 0.3 10^3/uL (0.1-0.6) 01/29/24 06:53
Absolute Eos (auto) 0.2 10^3/uL (0-0.7) 01/29/24 06:53
Absolute Basos (auto) 0.0 10^3/uL (0-0.2) 01/29/24 06:53
Immature Gran % 0.4 % (0-0.5) 01/29/24 06:53
Neutrophils % 68.0 % (42.2-75.2) 01/29/24 06:53
Lymphocytes % 21.7 % (20.5-51.1) 01/29/24 06:53
Monocytes % 5.8 % (1.7-9.3) 01/29/24 06:53
Eosinophils % 3.5 % (0-6) 01/29/24 06:53
Basophils % 0.6 % (0-2) 01/29/24 06:53
Creatinine 3.7 mg/dL (0.6-1.0) H 01/29/24 06:53
Vital Signs
Vital Signs
Temp Pulse Resp BP Pulse Ox
98.3 F 83 16 142/57 99
01/29/24 07:40 01/29/24 07:40 01/29/24 07:40 01/29/24 07:40 01/29/24 09:30
--- NOTE | 2024-01-29 14:54 | W.DS.TRANS ---
DC Summary - Supervisor Plasma
-
Discharge Instructions:
Discharge Diagnosis/Procedures Recurrent severe symptomatic anemia with chronic
GI bleed and chronic kidney disease stage IV
Diet 2 Gram Sodium
Activity As tolerated
Driving Restrictions No driving
Bathing Restrictions None
Blood Work CBC in 1-2 weeks
Instructions:
Stand-Alone Forms:
Changes to Home Medications: No
Discharge Medications:
DC Medications w/original date entered in [employer]
allopurinol 100 mg tablet 100 mg PO DAILY Gout 09/07/22
ammonium lactate 12 % topical cream 1 applic topical [id number] PRN B/L legs 09/07/22
atorvastatin 40 mg tablet (Lipitor) 40 mg PO DAILY High cholesterol 09/07/22
carvedilol 25 mg tablet (Coreg) 25 mg PO BID Heart disease/condition 09/07/22
folic acid 1 mg tablet 1 mg PO DAILY Supplement 09/07/22
hydralazine 50 mg tablet 25 mg PO TID Blood pressure 10/26/22
pantoprazole 40 mg tablet,delayed release 40 mg PO DAILY Gastrointestinal issue 10/31/22
bisacodyl 10 mg rectal suppository 10 mg MD DAILYPRN PRN constipation #0 ea 11/22/22
acetaminophen 325 mg tablet (Tylenol) 650 mg PO Q4HPRN PRN mild pain/temp 100F or above 11/28/22
levothyroxine 25 mcg tablet 25 mcg PO DAILY AT 0700 Thyroid 11/28/22
cyanocobalamin (vitamin B-12) 1,000 mcg tablet 1,000 mcg PO DAILY #0 tabs 12/06/22
insulin aspart U-100 100 unit/mL (3 mL) subcutaneous pen (Novolog FlexPen U-100 Insulin aspart) 0 - 12 sliding scale dose SC ACHS Diabetes 03/26/23
sennosides 8.6 mg-docusate sodium 50 mg tablet (Senna with Docusate Sodium) 1 tab PO [id number] PRN constipation 03/27/23
gabapentin 100 mg capsule 100 mg PO TID Pain #0 caps 03/28/23
polyethylene glycol 3350 17 gram oral powder packet (Miralax) 17 g PO DAILYPRN PRN Constipation 07/17/23
epoetin dora 10,000 unit/mL injection solution (Procrit) 10,000 unit SC TU PRN give only for HGB 10 or less 10/18/23
ferrous sulfate 325 mg (65 mg iron) tablet 325 mg PO Q48H Supplement 10/18/23
miconazole nitrate 2 % topical powder (Miconazorb AF) 1 applic topical BID apply to ABD folds/groin 10/18/23
torsemide 10 mg tablet 20 mg PO BID Fluid Retention/Swelling 10/18/23
loperamide 2 mg tablet 2 mg PO Q6HPRN PRN diarrhea 11/05/23
sodium bicarbonate 650 mg tablet 1,300 mg (2 x 650 mg) PO TID Supplement #0 tabs 11/07/23
ammonium lactate 12 % topical cream 1 applic topical QPM Skin Issues 11/26/23
aspirin 81 mg tablet,delayed release 81 mg PO DAILY Blood Clot Prevention/Tx 12/20/23
cholecalciferol (vitamin D3) 125 mcg (5,000 unit) tablet (Vitamin D3) 125 mcg PO FR Supplement 12/20/23
medroxyprogesterone 150 mg/mL intramuscular suspension (Depo-Provera) 150 mg IM ONCE 01/28/24
Home Medication Changes
Pending Results: No
[2024-01-29 15:18] VITALS: BP 141/67
--- NOTE | 2024-01-29 15:27 | CM ---
Addendum entered by Luisana Wolfe 01/29/24 15:33:
LINTON form explained and signed @ 1520
Original Note:
Met with patient and sister at the bedside; initial assessment completed
Patient from [facility]; been there for the past 17 months
Needs assistance with ADLs (bathing, dressing, feeds self)
PT/OT every day; reports she ambulated 110 feet with rolling walker; able to stand and pivot to wheelchair
Transportation: ambulance; patient is morbidly obese and unable to get herself in or out of the wheelchair independently
Plan: Return to [facility] via Ambulance; garbage pick up worker scheduled for 1700
Report #[phone]
--- NOTE | 2024-01-29 16:04 | W.DCSUMMARY ---
Discharge Summary
Discharge Data
Date of Admission: 01/28/24
Date of Discharge: 01/29/24
-
Pending Results: No
Hospital Course
primary diagnosis:
Recurrent multifactorial anemia
Heme positive stools
History of duodenal angioectasias
History of colonic polyps
History of colonic angioectasias
Anemia of chronic disease from chronic kidney disease stage IV
Secondary diagnosis:
Chronic kidney disease stage IV
Coronary disease
Essential hypertension
Type 2 diabetes mellitus
Hospital course:
patient with history of recurrent anemia requiring repeated blood transfusion due to multi factorial nature of anemia presented back with 2 days of weakness and outpatient labs showing severe anemia again. Hemoglobin was 5.9 on admission. She was
heme positive stools without overt bleeding. She was hemodynamically stable. She was transfused 2 units of blood with improvement in H&H to 7.6 which is close to baseline.
She so far since October had 9 units of blood. She had recurrent admissions for anemia. She has heme positive stools on most of her admissions but no active GI bleed. She has duodenal angiectasia's, colonic AVMs and colonic polyps and on top
she has stage IV chronic kidney disease which could be coming in the way of her erythropoietin as well as platelet dysfunction causing bleeding from any of these lesions. she is on Epogen weekly based on the H&H-would receive it if less than 10.She
follows with a local construction coordinator and in fact has a functioning AV fistula but not on dialysis.
She was seen by podiatric aide on this occasion who did not feel there is enough evidence of bone marrow dysfunction on the current time.
GI is planning on getting a video capsule endoscopy as an outpatient. She was discharged back to longterm after transfusion.
Consultants on board:
GI-Dr. Erin Maldonado
Hematology -Sin Miramontes
Discharge Plan
-
Patient Disposition: Fdc/SNF
Discharge Diagnosis/Procedures: Recurrent severe symptomatic anemia with chronic GI bleed and chronic kidney disease stage IV
Diet: 2 Gram Sodium
Activity: As tolerated
Driving Restrictions: No driving
Bathing Restrictions: None
Blood Work: CBC in 1-2 weeks
Referrals:
Jhonathan Gabriel MD [Family Provider] -
Prescriptions:
Continued
allopurinol 100 mg Tablet
100 mg PO DAILY
atorvastatin [Lipitor] 40 mg Tablet
40 mg PO DAILY
carvedilol [Coreg] 25 mg Tablet
25 mg PO BID
Patient Comments:
01/28/2024: HOLD for SBP<90 OR HR<60.
folic acid 1 mg Tablet
1 mg PO DAILY
ammonium lactate 12 % Cream
1 applic TOPICAL [id number] PRN (Reason: B/L legs)
Patient Comments:
01/28/2024: apply to legs
hydralazine 50 mg Tablet
25 mg PO TID
Patient Comments:
12/28/2023: hold for SBP<90.
pantoprazole 40 mg tablet,delayed release (DR/EC)
40 mg PO DAILY
bisacodyl 10 mg Suppository
10 mg LA DAILYPRN PRN (Reason: constipation) Qty: 0 0RF
acetaminophen [Tylenol] 325 mg Tablet
650 mg PO Q4HPRN PRN (Reason: mild pain/temp 100F or above)
levothyroxine 25 mcg Tablet
25 mcg PO DAILY AT 0700
cyanocobalamin (vitamin B-12) 1,000 mcg Tablet
1,000 mcg PO DAILY Qty: 0 0RF
insulin aspart U-100 [Novolog FlexPen U-100 Insulin] 100 unit/mL (3 mL) insulin pen
0 - 12 sliding scale dose SC ACHS
Hold Instructions: Resume on 04/06/23. Resume only after outpatient or rehab physician approves to resume.
Rx Instructions:
BS 70-150 = 0 units; 151-200 = 2 units; 201-250 = 4 units; 251-300 = 6 units; 301-350 = 8 units; 351-400 = 10 units; 401-450 = 12 units. If BS>451 call PCP.
sennosides-docusate sodium [Senna with Docusate Sodium] 8.6-50 mg Tablet
1 tab PO [id number] PRN (Reason: constipation)
gabapentin 100 mg Capsule
100 mg PO TID Qty: 0 0RF
polyethylene glycol 3350 [Miralax] 17 gram powder in packet
17 g PO DAILYPRN PRN (Reason: Constipation)
torsemide 10 mg Tablet
20 mg PO BID
Procrit 10,000 unit/mL Solution
10,000 unit SC TU PRN (Reason: give only for HGB 10 or less)
Patient Comments:
12/28/2023: inject 1 syringe SC in the evening every Sunday for LITTLE ONLY GIVE THIS MEDICATION FOR HGB 10 OR LESS.
miconazole nitrate [Miconazorb AF] 2 % powder
1 applic topical BID
ferrous sulfate 325 mg (65 mg iron) tablet
325 mg PO Q48H
loperamide 2 mg Tablet
2 mg PO Q6HPRN PRN (Reason: diarrhea)
sodium bicarbonate 650 mg Tablet
1,300 mg PO TID Qty: 0 0RF
ammonium lactate 12 % Cream
1 applic TOPICAL QPM
Patient Comments:
01/28/2024: apply to legs
aspirin 81 mg Tablet,Delayed Release (Dr/Ec)
81 mg PO DAILY
cholecalciferol (vitamin D3) [Vitamin D3] 125 mcg (5,000 unit) Tablet
125 mcg PO FR
medroxyprogesterone [Depo-Provera] 150 mg/mL Suspension
150 mg IM ONCE
Patient Comments:
01/28/2024: inject 150mg IM one time only for vaginal bleeding until 01/29/24 12:00
Discharge Orders:
Discharge Patient (As Directed); Ordered 01/29/24
Ordered By: Carlos Cm
Discharge Date and Time
Print Language: HEBREW
== END 2024-01-29 17:12 ==
LOC: 4 EAST ACU 18:36
PROVIDERS: ADMITTING PHYSICIAN Hospitalist; ATTENDING PHYSICIAN Internal Medicine; EMERGENCY PHYSICIAN Emergency Medicine; FAMILY PHYSICIAN Internal Medicine; OTHER PHYSICIAN Internal Medicine; OTHER PHYSICIAN Internal Medicine Hematology & Oncology
DX: D50.0 Iron deficiency anemia secondary to blood loss (chronic) (principal); E11.22 Type 2 diabetes mellitus with diabetic chronic kidney disease; N18.5 Chronic kidney disease, stage 5; D63.1 Anemia in chronic kidney disease; I25.10 Atherosclerotic heart disease of native coronary artery without angina pectoris; K21.9 Gastro-esophageal reflux disease without esophagitis; I12.0 Hypertensive chronic kidney disease with stage 5 chronic kidney disease or end stage renal disease; E78.00 Pure hypercholesterolemia, unspecified; M10.9 Gout, unspecified; E03.9 Hypothyroidism, unspecified; E66.01 Morbid (severe) obesity due to excess calories; K59.09 Other constipation; I89.0 Lymphedema, not elsewhere classified; Z68.33 Body mass index [BMI] 33.0-33.9, adult; Z79.899 Other long term (current) drug therapy; Z86.010 Personal history of colon polyps; Z86.718 Personal history of other venous thrombosis and embolism; Z86.73 Personal history of transient ischemic attack (TIA), and cerebral infarction without residual deficits; Z79.4 Long term (current) use of insulin
CPT/HCPCS: 36430; 80053; 82962; 83036; 85025; 86850; 86900; 86901; 86920; 87070; 96374; 99285; G0378; P9016

== ENCOUNTER 2024-02-13 14:57 | Emergency (ER) | payer MEDICARE, OTHER, SELFPAY ==
[2024-02-13] VITALS (12 sets, daily range): BP systolic 94–145; BP diastolic 44–82; BMI 37.6
[2024-02-13 16:29] LABS: % Basophils 0.6 % (0-2); % Eosinophils 3.8 % (0-6); % Immature Granulocytes 0.2 % (0-0.5); % Lymphocytes 17.2 % (20.5-51.1); % Monocytes 5.9 % (1.7-9.3); % Neutrophils 72.3 % (42.2-75.2); Absolute Eosinophils 0.2 10^3/uL (0-0.7); Absolute Lymphocytes 0.9 10^3/uL (1.2-3.4); Absolute Monocytes 0.3 10^3/uL (0.1-0.6); Absolute Neutrophils 3.7 10^3/uL (1.4-6.5); Mean Corp Hgb Conc. 31.8 g/dL (33.0-37.0); Mean Corpuscular Hgb 31.8 pg (27.0-31.0); Mean Platelet Volume 8.8 fL (7.4-10.4); Nucleated Red Blood Cells % 0 %; Platelet Count 189 10^3/uL (130-400); Red Blood Cell Count 1.98 10^6/uL (4.20-5.40); Red Cell Dist. Width 15.5 % (11.5-14.5); White Blood Cell Count 5.1 10^3/uL (4.8-10.8)
[2024-02-13 16:31] LABS: Hematocrit 19.8 % (37.0-47.0); Hemoglobin 6.3 g/dL (12.0-16.0)
[2024-02-13 16:43] LABS: ALT (SGPT) 11 U/L (0-35); AST (SGOT) 16 U/L (14-36); Albumin 3.2 g/dl (3.5-5.0); Alkaline Phosphatase 72 U/L (38-126); Blood Urea Nitrogen 84 mg/dl (7-17); Calcium 10.2 mg/dl (8.4-10.2); Carbon Dioxide 17 mmol/L (22-30); Chloride 111 mmol/L (98-107); Estimated Creatinine Clearance 16 ml/min; Glucose 128 mg/dl (70-99); Potassium 4.6 mmol/L (3.5-5.1); Sodium 140 mmol/L (135-145); Total Bilirubin 0.3 mg/dl (0.2-1.3); Total Protein 5.7 g/dl (6.3-8.2)
--- NOTE | 2024-02-13 17:24 | ED.GENMED ---
History of Present Illness
General
Chief Complaint: Abnormal Lab Value
Source: patient and family
Exam Limitations: none
Time Seen by Provider: 02/13/24 15:15
Nursing documentation reviewed up to this point in time: agreed with
Travel History
Have you had any contact with someone who has COVID-19?: No
Do you have any symptoms of coronavirus? Fever > 100 degrees, chills, cough, shortness of breath, sore throat, loss of taste or smell, muscle aches, or headache?: No
History of Present Illness
History of Present Illness:
Patient with history of chronic anemia, presents to ED secondary to worsening generalized weakness, along with an outpatient blood work which revealed low hemoglobin. Patient denies fever or chills. Denies shortness of breath. Denies headache.
Denies seeing any blood with urination or bowel movements. Patient has been admitted multiple times in the recent past for similar complaint. Patient has received normal upper endoscopy as well as colonoscopy. Patient is scheduled for an
outpatient video capsule study arranged by gastroenterology office next week.
Past History
Past History
ED Past Medical History: CAD, GERD, HTN, Hypercholesterolemia, NIDDM, Renal failure, Hypothyroidism and Other (Dysfunctional uterine bleeding, chronic kidney disease pending dialysis, Renal calculus, Iron def anemia, hemorrhagic disorder due to
extrinsic Circulatory anticoagulation. PNA, Back pain, )
ED Past Surgical History: Appendectomy, Gynecological (D&C), Orthopedic (Left carpal tunnel ), Tonsilectomy, Urological (Kidney stent) and Other (L AV fistula)
Social History
Tobacco: Non-smoker
Alcohol: Occasional
Drug: None
Personal: Single
Living: custodial
Family History
Family History: Negative Diabetes, Hypertension, Early CAD, Asthma or Cancer
Review of Systems
Review of Systems
Allergies reviewed?: Yes
All Other Systems: ROS reviewed and negative except as documented in HPI and ROS
Constitutional: Reports no symptoms
EENT: Reports no symptoms
Respiratory: Reports no symptoms
Cardiac: Reports no symptoms
ABD/GI: Reports no symptoms
Musculoskeletal: Reports no symptoms
Skin: Reports no symptoms
Neurological: Reports no symptoms
Phy Exam
Physical Exam
Physical Exam:
Physical Exam
General: no apparent distress, not acutely ill. afebrile
Head: nc/at. eomi
Neck: supple. normal range of motion.
Heart: s1/s2 regular rate and rhythm, no murmur. equal radial pulses.
Lungs: no acute respiratory distress. clear bilaterally
Abdomen: normal bowel sounds. not tender.
Neuro: alert and oriented. no focal neurological deficits
Skin: no rash. pale
Psychiatric: well kept. interactive and cooperative
Extremities: no edema. no calf tenderness.
Course
Orders/Labs/Results
Orders:
Orders
02/13/24 16:07
Type+Screen Urgent
Complete Blood Count/With Diff Urgent
Comprehensive Metabolic Panel Urgent
02/13/24 17:28
* Blood Bank Products Urgent
Blood Bank Products: *Packed RBC Leuko(PRBC's)
Quantity: 1
Transfuse Today: Yes
Reason: Anemia
IV Insert/Care/Rem.- Treatment PRN
Abnormal Lab Results
02/13/24
16:07
RBC 1.98 L 10^6/uL
(4.20-5.40)
Hgb 6.3 L* g/dL
(12.0-16.0)
Hct 19.8 L* %
(37.0-47.0)
MCV 100.0 H fL
(81.0-99.0)
MCH 31.8 H pg
(27.0-31.0)
MCHC 31.8 L g/dL
(33.0-37.0)
RDW 15.5 H %
(11.5-14.5)
Absolute Lymphs (auto) 0.9 L 10^3/uL
(1.2-3.4)
Lymphocytes % 17.2 L %
(20.5-51.1)
Chloride 111 H mmol/L
(98-107)
Carbon Dioxide 17 L mmol/L
(22-30)
BUN 84 H mg/dl
(7-17)
Creatinine 3.7 H mg/dL
(0.6-1.0)
Glucose 128 H mg/dl
(70-99)
Total Protein 5.7 L g/dl
(6.3-8.2)
Albumin 3.2 L g/dl
(3.5-5.0)
Crossmatch IS Only See Detail
02/13/24 16:07
02/13/24 16:07
Vital Signs
Initial and Last Documented VS:
Initial Vital Signs
Pulse Resp BP
68 21 138/52
02/13/24 15:02 02/13/24 15:02 02/13/24 15:02
Last Documented Vital Signs
Temp Pulse Resp BP Pulse Ox
98.3 F 75 12 133/55 100
02/13/24 21:01 02/13/24 21:01 02/13/24 21:01 02/13/24 21:01 02/13/24 15:05
MDM/Problems Addressed
MDM/Problems Addressed:
H/H noted. Will transfuse one unit of PRBC.
Blood transfusion consent on the chart.
Discussed with oncall GI physician, . Agrees with plan to transfuse and proceed with video capsule study next week, as scheduled.
*Critical Care Note
Total Time (30-74mins, 75-104mins- exclusive of procedures): Not Applicable
ED Attending Note
-
Portions of this chart may have been created with voice recognition software.� Occasional wrong word or��sound alike� substitutions may have occurred due to the inherent limitations of voice recognition software.
Discharge Plan
Departure
Patient Disposition: Home (Routine Discharge)
Date of Disposition: 02/13/24
Time of Disposition: 19:46
Patient with high blood pressure during this ER visit?: Yes
Discharge Problem:
Anemia
Instructions: Normocytic Normochromic Anemia (DC)
Prescriptions:
No Action
allopurinol 100 mg Tablet
100 mg PO DAILY
atorvastatin [Lipitor] 40 mg Tablet
40 mg PO DAILY
carvedilol [Coreg] 25 mg Tablet
25 mg PO BID
folic acid 1 mg Tablet
1 mg PO DAILY
ammonium lactate 12 % Cream
1 applic TOPICAL [id number] PRN (Reason: B/L legs)
pantoprazole 40 mg tablet,delayed release (DR/EC)
40 mg PO DAILY
bisacodyl 10 mg Suppository
10 mg OR DAILYPRN PRN (Reason: constipation) Qty: 0 0RF
acetaminophen [Tylenol] 325 mg Tablet
650 mg PO Q4HPRN PRN (Reason: mild pain/temp 100F or above)
levothyroxine 25 mcg Tablet
25 mcg PO DAILY AT 0700
cyanocobalamin (vitamin B-12) 1,000 mcg Tablet
1,000 mcg PO DAILY Qty: 0 0RF
insulin aspart U-100 [Novolog FlexPen U-100 Insulin] 100 unit/mL (3 mL) insulin pen
0 - 12 sliding scale dose SC ACHS
Hold Instructions: Resume on 04/06/23. Resume only after outpatient or rehab physician approves to resume.
Rx Instructions:
BS 70-150 = 0 units; 151-200 = 2 units; 201-250 = 4 units; 251-300 = 6 units; 301-350 = 8 units; 351-400 = 10 units; 401-450 = 12 units. If BS>451 call PCP.
sennosides-docusate sodium [Senna with Docusate Sodium] 8.6-50 mg Tablet
1 tab PO [id number] PRN (Reason: constipation)
gabapentin 100 mg Capsule
100 mg PO TID Qty: 0 0RF
polyethylene glycol 3350 [Miralax] 17 gram powder in packet
17 g PO DAILYPRN PRN (Reason: Constipation)
torsemide 10 mg Tablet
20 mg PO BID
Procrit 10,000 unit/mL Solution
10,000 unit SC TU PRN (Reason: give only for HGB 10 or less)
miconazole nitrate [Miconazorb AF] 2 % powder
1 applic topical BID
ferrous sulfate 325 mg (65 mg iron) tablet
325 mg PO Q48H
loperamide 2 mg Tablet
2 mg PO Q6HPRN PRN (Reason: diarrhea)
sodium bicarbonate 650 mg Tablet
1,300 mg PO TID Qty: 0 0RF
ammonium lactate 12 % Cream
1 applic TOPICAL QPM
aspirin 81 mg Tablet,Delayed Release (Dr/Ec)
81 mg PO DAILY
cholecalciferol (vitamin D3) [Vitamin D3] 125 mcg (5,000 unit) Tablet
125 mcg PO FR
medroxyprogesterone [Depo-Provera] 150 mg/mL Suspension
150 mg IM TH
hydralazine 25 mg Tablet
25 mg PO TID
Referrals:
Jhonathan Gabriel MD [Family Provider] -
Activity Restrictions/Additional Instructions:
As discussed, please follow-up with your GI physician for re-evaluation, including already scheduled video capsule study on Sunday.
Interventions
Interventions:
*Risk Screen - Suicide Last Done: 02/13/24 15:05
*General Assessment Last Done: 02/13/24 21:37
*Neglect/Abuse Screening Last Done: 02/13/24 15:05
ED- Fall Risk Assessment Last Done: 02/13/24 15:39
*ED COVID-19 Vaccine History Last Done: 02/13/24 15:05
*Nursing Disposition Last Done: 02/13/24 21:37
Discharge Date and Time
Discharge Date/Time: 02/13/24 21:56
Print Language: GREEK
== END 2024-02-13 21:56 | disposition home or self-care (01) ==
LOC: EMR 14:57
PROVIDERS: EMERGENCY PHYSICIAN Emergency Medicine; FAMILY PHYSICIAN Internal Medicine
DX: R53.1 Weakness (principal); D50.9 Iron deficiency anemia, unspecified; I25.10 Atherosclerotic heart disease of native coronary artery without angina pectoris; K21.9 Gastro-esophageal reflux disease without esophagitis; E78.00 Pure hypercholesterolemia, unspecified; E11.22 Type 2 diabetes mellitus with diabetic chronic kidney disease; I12.9 Hypertensive chronic kidney disease with stage 1 through stage 4 chronic kidney disease, or unspecified chronic kidney disease; N18.5 Chronic kidney disease, stage 5; R01.1 Cardiac murmur, unspecified; E03.9 Hypothyroidism, unspecified; M19.90 Unspecified osteoarthritis, unspecified site; Z87.01 Personal history of pneumonia (recurrent); Z87.442 Personal history of urinary calculi
CPT/HCPCS: 99285; 36430; 80053; 85025; 86850; 86900; 86901; 86920; P9016

== ENCOUNTER 2024-03-04 16:27 | Emergency (ER) | payer MEDICARE, OTHER, SELFPAY ==
[2024-03-04] VITALS (19 sets, daily range): BP systolic 127–180; BP diastolic 49–74; BMI 36.1
--- NOTE | 2024-03-04 16:47 | ED.GENMED ---
History of Present Illness
General
Chief Complaint: Abnormal Lab Value
Source: patient
Time Seen by Provider: 03/04/24 16:31
Travel History
Have you had any contact with someone who has COVID-19?: No
Do you have any symptoms of coronavirus? Fever > 100 degrees, chills, cough, shortness of breath, sore throat, loss of taste or smell, muscle aches, or headache?: No
History of Present Illness
History of Present Illness:
78-year-old female presenting to the emergency department for evaluation from [facility] after she was reportedly found to have a hemoglobin of 5.7 on labs done today. Patient has a history of GI bleeding with an unclear source for
the bleeding as she has a negative upper and lower endoscopies and recently completed a Pill[facility] endoscopy as of February 17 with patient not knowing the results as of yet. Patient states she feels fine otherwise. She will intermittently get infusions
of iron and notes that she has been taking iron supplementation at the retirement as well. She notes that her stool was still brown in color but notes every time that she comes to this hospital they checked her stool and she is always heme
positive. She denies any fevers, chills, rigors, abdominal pain, chest pain, shortness of breath or any other concerns presently
Past History
Past History
ED Past Medical History: CAD, GERD, HTN, Hypercholesterolemia, NIDDM, Renal failure, Hypothyroidism and Other (Dysfunctional uterine bleeding, chronic kidney disease pending dialysis, Renal calculus, Iron def anemia, hemorrhagic disorder due to
extrinsic Circulatory anticoagulation. PNA, Back pain, )
ED Past Surgical History: Appendectomy, Gynecological (D&C), Orthopedic (Left carpal tunnel ), Tonsilectomy, Urological (Kidney stent) and Other (L AV fistula)
Social History
Tobacco: Non-smoker
Alcohol: Occasional
Drug: None
Personal: Single
Living: retirement
Family History
Family History: Negative Diabetes, Hypertension, Early CAD, Asthma or Cancer
Review of Systems
Review of Systems
All Other Systems: ROS reviewed and negative except as documented in HPI and ROS
Phy Exam
Physical Exam
Physical Exam:
GENERAL: Alert , in no apparent distress, very pleasant and smiling
EYE: conjunctiva clear
NECK: Supple
ENT: o/p clr, mmm.
CARDIAC: Regular rate and rhythm
LUNGS: Clear breath sounds bilaterally, no acute respiratory distress, no wheezes/rales/rhonchi
Abdomen: Soft, nontender, nondistended
Rectal exam: Dark brown stool, heme positive. Chaperoned by ED JUNG Jackson
NEUROLOGICAL: Alert and oriented
SKIN: Warm and dry, skin intact.
MUSCULOSKELETAL: well perfused.
PSYCH: Normal and appropriate interaction.
Scores
Heart Failure Risk
Heart Failure Risk Score: Not Applicable
Heart Score for Chest Pain Patients
STEMI patient?: Not applicable
Withdrawal Assessment of Alcohol
Withdrawal Assessment Completed?: Not applicable
Course
Orders/Labs/Results
Orders:
Orders
03/04/24 16:47
IV Insert/Care/Rem.- Treatment PRN
03/04/24 16:49
Type+Screen Urgent
Complete Blood Count/With Diff Urgent
Comprehensive Metabolic Panel Urgent
Ferritin Urgent
Iron Urgent
PTT Urgent
Prothrombin Time Urgent
Total Iron Binding Urgent
03/04/24 17:49
Blood Bank Products [* Blood Bank Products] Urgent
Blood Bank Products: *Packed RBC Leuko(PRBC's)
Quantity: 2
Transfuse Today: Yes
Reason: Anemia
Abnormal Lab Results
03/04/24
16:49
RBC 1.90 L 10^6/uL
(4.20-5.40)
Hgb 6.0 L* g/dL
(12.0-16.0)
Hct 18.9 L* %
(37.0-47.0)
MCV 99.5 H fL
(81.0-99.0)
MCH 31.6 H pg
(27.0-31.0)
MCHC 31.7 L g/dL
(33.0-37.0)
RDW 15.4 H %
(11.5-14.5)
Absolute Lymphs (auto) 1.1 L 10^3/uL
(1.2-3.4)
Lymphocytes % 16.9 L %
(20.5-51.1)
PT 15.7 H Sec
(11.4-14.6)
Chloride 111 H mmol/L
(98-107)
Carbon Dioxide 16 L mmol/L
(22-30)
BUN 90 H mg/dl
(7-17)
Creatinine 4.0 H mg/dL
(0.6-1.0)
Glucose 120 H mg/dl
(70-99)
Iron 189 H ug/dl
(37-170)
% Saturation 62 H %
(20-50)
AST 12 L U/L
(14-36)
Total Protein 5.7 L g/dl
(6.3-8.2)
Albumin 3.2 L g/dl
(3.5-5.0)
Crossmatch IS Only See Detail
03/04/24 16:49
03/04/24 16:49
Vital Signs
Initial and Last Documented VS:
Initial Vital Signs
BP
140/60
03/04/24 16:29
Last Documented Vital Signs
Temp Pulse Resp BP Pulse Ox
98.2 F 64 14 155/59 100
03/04/24 22:19 03/04/24 22:45 03/04/24 22:45 03/04/24 22:30 06/04/24 22:45
MDM/Problems Addressed
Differential Diagnosis Includes:
Iron deficiency anemia, anemia of chronic disease, GI bleeding, chronic kidney disease
MDM/Problems Addressed:
78-year-old female presenting to the emergency department for evaluation of reported hemoglobin of 5.7 on labs done at her retirement today. Patient is without concerns. Suspect most likely cause of patient's anemia is likely her chronic GI
bleed which has no documented source. Awaiting reports from her PillCam diascopy that was done just a couple of weeks ago. Patient has no physical concerns at this time and is otherwise hemodynamically stable. Will repeat labs with plan to likely
transfuse.
*Pulse Oximetry
Patient hypoxic: no
*Critical Care Note
Total Time (30-74mins, 75-104mins- exclusive of procedures): Not Applicable
Data Reviewed
Review of Other/Old Records Reveals: Labs and Records
Patient Management
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
Escalation/DeEscalation of care consider admission/obs:
5:50 PM: Notified GI team about patient's visit in the ER. Hemoglobin here 6.0. Will transfuse 2 units. They are okay with plan to transfuse and continue outpatient follow-up patient is currently stable.
11:45 PM: Patient completed transfusions without any difficulty. Stable for discharge back to [facility]. Patient remained stable during duration of the ER visit.
ED Attending Note
-
Portions of this chart may have been created with voice recognition software.� Occasional wrong word or��sound alike� substitutions may have occurred due to the inherent limitations of voice recognition software.
Discharge Plan
Departure
Patient Disposition: Jail/SNF
Date of Disposition: 03/04/24
Time of Disposition: 22:39
Discharge Problem:
Anemia, Chronic GI bleeding
Instructions: Anemia caused by low iron
Prescriptions:
No Action
allopurinol 100 mg Tablet
100 mg PO DAILY
atorvastatin [Lipitor] 40 mg Tablet
40 mg PO DAILY
carvedilol [Coreg] 25 mg Tablet
25 mg PO BID
folic acid 1 mg Tablet
1 mg PO DAILY
ammonium lactate 12 % Cream
1 applic TOPICAL [id number] PRN (Reason: B/L legs)
pantoprazole 40 mg tablet,delayed release (DR/EC)
40 mg PO DAILY
bisacodyl 10 mg Suppository
10 mg UT DAILYPRN PRN (Reason: constipation) Qty: 0 0RF
acetaminophen [Tylenol] 325 mg Tablet
650 mg PO Q4HPRN PRN (Reason: mild pain/temp 100F or above)
levothyroxine 25 mcg Tablet
25 mcg PO DAILY AT 0700
cyanocobalamin (vitamin B-12) 1,000 mcg Tablet
1,000 mcg PO DAILY Qty: 0 0RF
insulin aspart U-100 [Novolog FlexPen U-100 Insulin] 100 unit/mL (3 mL) insulin pen
0 - 12 sliding scale dose SC ACHS
Hold Instructions: Resume on 04/06/23. Resume only after outpatient or rehab physician approves to resume.
Rx Instructions:
BS 70-150 = 0 units; 151-200 = 2 units; 201-250 = 4 units; 251-300 = 6 units; 301-350 = 8 units; 351-400 = 10 units; 401-450 = 12 units. If BS>451 call PCP.
sennosides-docusate sodium [Senna with Docusate Sodium] 8.6-50 mg Tablet
1 tab PO [id number] PRN (Reason: constipation)
gabapentin 100 mg Capsule
100 mg PO TID Qty: 0 0RF
polyethylene glycol 3350 [Miralax] 17 gram powder in packet
17 g PO DAILYPRN PRN (Reason: Constipation)
torsemide 10 mg Tablet
20 mg PO BID
miconazole nitrate [Miconazorb AF] 2 % powder
1 applic topical BID
ferrous sulfate 325 mg (65 mg iron) tablet
325 mg PO Q48H
loperamide 2 mg Tablet
2 mg PO Q6HPRN PRN (Reason: diarrhea)
sodium bicarbonate 650 mg Tablet
1,300 mg PO TID Qty: 0 0RF
ammonium lactate 12 % Cream
1 applic TOPICAL QPM
aspirin 81 mg Tablet,Delayed Release (Dr/Ec)
81 mg PO DAILY
cholecalciferol (vitamin D3) [Vitamin D3] 125 mcg (5,000 unit) Tablet
125 mcg PO FR
medroxyprogesterone [Depo-Provera] 150 mg/mL Suspension
150 mg IM TH
hydralazine 25 mg Tablet
25 mg PO TID
Procrit 20,000 unit/mL Solution
20,000 unit SC TU PRN (Reason: if Hgb <10)
Referrals:
Jhonathan Gabriel MD [Family Provider] -
Interventions
Interventions:
*Risk Screen - Suicide Last Done: 03/04/24 16:36
*General Assessment Last Done: 03/04/24 16:36
*Neglect/Abuse Screening Last Done: 03/04/24 16:36
ED- Fall Risk Assessment Last Done: 03/04/24 16:47
*ED COVID-19 Vaccine History Last Done: 03/04/24 16:36
Discharge Date and Time
Print Language: MALAGASY
[2024-03-04 17:07] LABS: % Basophils 0.5 % (0-2); % Eosinophils 3.2 % (0-6); % Immature Granulocytes 0.5 % (0-0.5); % Lymphocytes 16.9 % (20.5-51.1); % Monocytes 5.4 % (1.7-9.3); % Neutrophils 73.5 % (42.2-75.2); Absolute Eosinophils 0.2 10^3/uL (0-0.7); Absolute Lymphocytes 1.1 10^3/uL (1.2-3.4); Absolute Monocytes 0.3 10^3/uL (0.1-0.6); Absolute Neutrophils 4.6 10^3/uL (1.4-6.5); Mean Corp Hgb Conc. 31.7 g/dL (33.0-37.0); Mean Corpuscular Hgb 31.6 pg (27.0-31.0); Mean Corpuscular Volume 99.5 fL (81.0-99.0); Mean Platelet Volume 9.3 fL (7.4-10.4); Nucleated Red Blood Cells % 0 %; Platelet Count 205 10^3/uL (130-400); Red Cell Dist. Width 15.4 % (11.5-14.5); White Blood Cell Count 6.3 10^3/uL (4.8-10.8)
[2024-03-04 17:18] LABS: APTT 29.9 Sec (23.4-35.0); INR 1.27; PT 15.7 Sec (11.4-14.6)
[2024-03-04 17:23] LABS: ALT (SGPT) < 10 U/L (0-35); AST (SGOT) 12 U/L (14-36); Albumin 3.2 g/dl (3.5-5.0); Alkaline Phosphatase 79 U/L (38-126); Blood Urea Nitrogen 90 mg/dl (7-17); Carbon Dioxide 16 mmol/L (22-30); Chloride 111 mmol/L (98-107); Estimated Creatinine Clearance 15 ml/min; Glucose 120 mg/dl (70-99); Hematocrit 18.9 % (37.0-47.0); Potassium 4.7 mmol/L (3.5-5.1); Sodium 140 mmol/L (135-145); Total Bilirubin 0.4 mg/dl (0.2-1.3); Total Protein 5.7 g/dl (6.3-8.2); eGFR 10.92
[2024-03-04 17:24] LABS: Iron 189 ug/dl (37-170)
[2024-03-04 17:31] LABS: Percent Saturation 62 % (20-50); Total Iron Binding Capacity 302 ug/dl (265-497)
[2024-03-04 17:55] LABS: Ferritin 13.6 ng/ml (11.1-264.0)
[2024-03-05] VITALS: BP 161/57
[2024-03-05 00:30] VITALS: BP 154/57
== END 2024-03-05 02:31 ==
LOC: EMR 16:27
PROVIDERS: Physician Assistant Medical; EMERGENCY PHYSICIAN Student in an Organized Health Care Education/Training Program; FAMILY PHYSICIAN Internal Medicine
DX: D64.9 Anemia, unspecified (principal); K92.2 Gastrointestinal hemorrhage, unspecified; Z82.49 Family history of ischemic heart disease and other diseases of the circulatory system; Z90.49 Acquired absence of other specified parts of digestive tract
CPT/HCPCS: 99283; 80053; 82728; 83540; 83550; 85025; 85610; 85730; 86850; 86900; 86901; 86920; P9016

== ENCOUNTER 2024-03-25 09:41 | Outpatient (RCR) | payer MEDICARE, OTHER, SELFPAY ==
--- NOTE | 2024-03-25 10:51 | W.PN.UPDATE ---
Update Note
- Progress Note Update
03/25/24 9430
Patient came to [facility] this am without a scheduled appt with sister in wheelchair. Was advised she was told by her [facility] facility to come here today for transfusion. No orders received. T&C was drawn yesterday by outpatient lab. Patient
has received blood transfusions in the past as inpatient at and ER at . Given patient was new to [facility] advised would be willing to take verbal order from physician at facility. Dr. Natalie Knox called [facility] and provided verbal order to myself
advising patient is to receive 1 unit of PRBC and 40mg IV lasix after transfusion and give blood over 3 hours. Reaction sheet was discussed and verbal order given to follow reaction sheet orders as needed. Orders written as discussed. Discussed
with Dr. Knox that in future orders need to be signed and in hand before patient is scheduled. SHe is aware. Patient understanding and explained situation before speaking with Dr. Knox and after. She is ok with waiting and in good
spirits. To start dialysis at some point not yet determined but fistula in place in left wrist. No other questions asked. Available for questions as needed.
[2024-03-25 11:34] VITALS: BP 135/64
[2024-03-25 11:35] VITALS: BP 135/64
[2024-03-25 11:53] VITALS: BP 152/65
[2024-03-25 14:16] VITALS: BP 163/69
[2024-03-25] MEDS: LASIX 40 MG IV (14:18)
== END 2024-03-30 23:59 | disposition home or self-care (01) ==
LOC: OID 09:41
PROVIDERS: ATTENDING PHYSICIAN Internal Medicine
DX: D50.9 Iron deficiency anemia, unspecified (principal); D64.9 Anemia, unspecified; N18.5 Chronic kidney disease, stage 5; K92.2 Gastrointestinal hemorrhage, unspecified
CPT/HCPCS: 36415; 36430; 86850; 86900; 86901; 86920; 96374; P9016

== ENCOUNTER → 2024-04-01 08:44 | Outpatient (REF) | payer MEDICARE, OTHER, SELFPAY | LOC: REG 08:44 | PROVIDERS: ATTENDING PHYSICIAN Internal Medicine | DX: D64.9 Anemia, unspecified (principal) | CPT/HCPCS: 36415; 86850; 86900; 86901 ==

== ENCOUNTER 2024-04-03 11:43 | Emergency (ER) | payer MEDICARE, OTHER, SELFPAY ==
[2024-04-03] VITALS (11 sets, daily range): BP systolic 132–157; BP diastolic 48–87; BMI 35.3
--- NOTE | 2024-04-03 12:00 | ED.GENMED ---
History of Present Illness
General
Chief Complaint: Abnormal Lab Value
Source: patient, ambulance crew and long term records
Exam Limitations: none
Time Seen by Provider: 04/03/24 12:00
Nursing documentation reviewed up to this point in time: agreed with
History of Present Illness
History of Present Illness:
78-year-old female with history of CVA, HTN, HLD, lower GI bleed, ESRD fistula left wrist, has not started dialysis yet , anemia, presents stating 'I'm severely anemic, my hemoglobin is low.' 'I feel fine except I'm tired.'
Denies CP, SOB, abd pain. Denies n/v/d/c, denies change in stool color.
Past History
Past History
ED Past Medical History: CAD, GERD, HTN, Hypercholesterolemia, NIDDM, Renal failure, Hypothyroidism and Other (Dysfunctional uterine bleeding, chronic kidney disease pending dialysis, Renal calculus, Iron def anemia, hemorrhagic disorder due to
extrinsic Circulatory anticoagulation. PNA, Back pain, )
ED Past Surgical History: Appendectomy, Gynecological (D&C), Orthopedic (Left carpal tunnel ), Tonsilectomy, Urological (Kidney stent) and Other (L AV fistula)
Social History
Tobacco: Non-smoker
Alcohol: Occasional
Drug: None
Personal: Single
Living: long term
Family History
Family History: Negative Diabetes, Hypertension, Early CAD, Asthma or Cancer
Review of Systems
Review of Systems
Allergies reviewed?: Yes
All Other Systems: ROS reviewed and negative except as documented in HPI and ROS
Constitutional: Reports fatigue; Denies fever
EENT: Denies sore throat
Respiratory: Denies cough or trouble breathing
Cardiac: Denies chest pain, diaphoresis, palpitations or syncope
ABD/GI: Denies abdominal pain, nausea, vomiting, diarrhea, bloody stools, black stools or anorexia
: Denies dysuria, frequency, difficulty voiding or urgency
Musculoskeletal: Reports no symptoms
Skin: Reports no symptoms
Neurological: Reports no symptoms
Phy Exam
Physical Exam
Physical Exam:
GENERAL: No acute distress. A&Ox3.
CONSTITUTIONAL: Afebrile.
EYES: PERRL, conjunctivae pale
ENMT: moist mucus membranes, Pharynx nl
RESPIRATORY: Regular respirations, nonlabored, lungs clear.
CARDIOVASCULAR: Regular rate and rhythm, no murmurs, no rubs.
GI: Soft, nontender, normal BS
Rectal: brown stool, hematests positive
MUSCULOSKELETAL: Moves with ease. Well perfused. No edema.
SKIN: Warm, dry, pale
PSYCH: Normal mood and affect. Well kept, interactive and appropriate
NEUROLOGIC: Awake, alert and oriented. No focal neurological deficits
Course
Orders/Labs/Results
Orders:
Orders
04/03/24 12:00
Type+Screen Urgent
Complete Blood Count/With Diff Urgent
Comprehensive Metabolic Panel Urgent
04/03/24 13:28
* Blood Bank Products Urgent
Blood Bank Products: *Packed RBC Leuko(PRBC's)
Quantity: 1
Transfuse Today: Yes
Reason: Anemia
IV Insert/Care/Rem.- Treatment PRN
Abnormal Lab Results
04/03/24
12:00
WBC 4.3 L 10^3/uL
(4.8-10.8)
RBC 2.38 L 10^6/uL
(4.20-5.40)
Hgb 7.2 L g/dL
(12.0-16.0)
Hct 22.6 L %
(37.0-47.0)
MCHC 31.9 L g/dL
(33.0-37.0)
Absolute Lymphs (auto) 0.8 L 10^3/uL
(1.2-3.4)
Lymphocytes % 18.2 L %
(20.5-51.1)
Eosinophils % 6.7 H %
(0-6)
Potassium 5.9 H mmol/L
(3.5-5.1)
Chloride 109 H mmol/L
(98-107)
Carbon Dioxide 21 L mmol/L
(22-30)
BUN 68 H mg/dl
(7-17)
Creatinine 3.4 H mg/dL
(0.6-1.0)
Crossmatch IS Only See Detail
04/03/24 12:00
04/03/24 12:00
Vital Signs
Initial and Last Documented VS:
Initial Vital Signs
BP
138/61
04/03/24 11:48
Last Documented Vital Signs
Temp Pulse Resp BP Pulse Ox
98.3 F 73 18 132/64 100
04/03/24 17:00 04/03/24 18:59 04/03/24 18:59 04/03/24 19:00 04/03/24 17:15
MDM/Problems Addressed
Differential Diagnosis Includes:
GI bleed, anemia of CKD, bleeding from colonic AVMs,
MDM/Problems Addressed:
78-year-old female with history of CVA, HTN, HLD, IDDM, recurrent anemia, chronic GI bleed, Iron deficiency anemia on chronic iron supplements, multifactorial: CKD, duodenal and colonic angiectasias, ESRD fistula left wrist, has not started dialysis
yet , constipation, hypothyroid, DVT (off AC), CAD, chronic LE lymphedema, presents stating 'I'm severely anemic, my hemoglobin is low.' 'I feel fine except I'm tired.'
Denies CP, SOB, abd pain. Denies n/v/d/c, denies change in stool color.
Afebrile, NAD, very pleasant Alert and oriented
Heme positive stool without overt bleeding
Has had 13 units of blood since October.recurrent
Had GI capsule swallow study
12:30 PM
CBC: Hemoglobin 7.2 was 6.0 on 03/04/2024
CMP: BUN/creat 68/3.4 better than her baseline
Hi dr. Hernandez.pt of Dr. Zambrano, Nishant Pascal, Alis Tejeda 78 yo with h/o recurrent anemia, chronic GI bleed, Iron deficiency anemia on chronic iron supplements, multifactorial: CKD, duodenal and colonic angiectasias, ESRD fistula left wrist, has not started
dialysis yet , is here from [facility] home due to 'low Hgb.' Hgb is now 7.2. Has had 12 U PRBC's with since October for this recurrent anemia. Hemodynamically stable, stool brown heme positive (also chronic).
Had capsule swallow study in January, unable to find results.
4:45 p.m.
PRBCs infused, no sign of adverse reaction
Pt stable for discharge
Will f/u with
*Critical Care Note
Total Time (30-74mins, 75-104mins- exclusive of procedures): Not Applicable
ED Attending Note
-
Portions of this chart may have been created with voice recognition software.� Occasional wrong word or��sound alike� substitutions may have occurred due to the inherent limitations of voice recognition software.
Discharge Plan
Departure
Patient Disposition: [facility]/SNF
Date of Disposition: 04/03/24
Time of Disposition: 16:56
Patient with high blood pressure during this ER visit?: No
Condition: Fair
Discharge Problem:
Acute on chronic anemia
Instructions: Blood transfusion
Prescriptions:
No Action
allopurinol 100 mg Tablet
100 mg PO DAILY
atorvastatin [Lipitor] 40 mg Tablet
40 mg PO DAILY
carvedilol [Coreg] 25 mg Tablet
25 mg PO BID
Patient Comments:
04/03/2024, hold for SBP<90 or HR<60.
folic acid 1 mg Tablet
1 mg PO DAILY
acetaminophen [Tylenol] 325 mg Tablet
650 mg PO Q4HPRN PRN (Reason: mild pain/temp 100F or above)
levothyroxine 25 mcg Tablet
25 mcg PO DAILY
insulin aspart U-100 [Novolog FlexPen U-100 Insulin] 100 unit/mL (3 mL) insulin pen
0 - 12 sliding scale dose SC ACHS
Hold Instructions: Resume on 04/06/23. Resume only after outpatient or rehab physician approves to resume.
Rx Instructions:
04/03/2024, if BS 70-150 = 0 units; 151-200 = 2 units; 201-250 = 4 units; 251-300 = 6 units; 301-350 = 8 units; 351-400 = 10 units; 401-450 = 12 units. If BS>451 call PCP.
aspirin 81 mg Tablet,Delayed Release (Dr/Ec)
81 mg PO DAILY
hydralazine 25 mg Tablet
25 mg PO TID
Patient Comments:
04/03/2024, hold for SBP<100.
polyethylene glycol 3350 [Miralax] 17 gram Powder In Packet
17 g PO DAILY PRN (Reason: constipation)
sennosides-docusate sodium 8.6-50 mg Tablet
1 tab-cap PO [id number] PRN (Reason: constipation)
loperamide 2 mg Tablet
2 mg PO Q6H PRN (Reason: diarrhea)
miconazole nitrate 2 % Powder
1 applic TOPICAL BID
cyanocobalamin (vitamin B-12) 1,000 mcg Tablet
1,000 mcg PO DAILY
torsemide 10 mg Tablet
20 mg PO BID
Procrit 20,000 unit/mL Solution
20,000 unit SC TU PRN (Reason: if Hgb<10)
sodium bicarbonate 650 mg Tablet
1,300 mg PO TID
bisacodyl 10 mg Suppository
10 mg NV DAILY PRN (Reason: constipation)
pantoprazole 40 mg Tablet,Delayed Release (Dr/Ec)
40 mg PO DAILY
ferrous sulfate 325 mg (65 mg iron) Tablet
325 mg PO DAILY
ammonium lactate 12 % Cream
1 applic TOPICAL QPM
Patient Comments:
04/03/2024, apply topically every evening shift.
ammonium lactate 12 % Cream
1 applic TOPICAL [id number] PRN (Reason: B/L legs)
gabapentin 100 mg Capsule
100 mg PO TID
Referrals:
Jhonathan Gabriel MD [Family Provider] - Follow up in 5-7 days
Activity Restrictions/Additional Instructions:
As we discussed, your hemoglobin initially here today was 7.2
You are given 1 unit of packed red blood cells here today
Your doctor may order the transfusion and you may use the outpatient infusion center like you did the last time for future blood transfusions if needed.
Interventions
Interventions:
*Risk Screen - Suicide Last Done: 04/03/24 11:51
*General Assessment Last Done: 04/03/24 11:51
*Neglect/Abuse Screening Last Done: 04/03/24 11:51
ED- Fall Risk Assessment Last Done: 04/03/24 19:09
*ED COVID-19 Vaccine History Last Done: 04/03/24 11:57
*Nursing Disposition Last Done: 04/03/24 19:09
Discharge Date and Time
Discharge Date/Time: 04/03/24 19:10
Print Language: FAROESE
[2024-04-03 12:06] LABS: % Basophils 1.2 % (0-2); % Eosinophils 6.7 % (0-6); % Immature Granulocytes 0.2 % (0-0.5); % Lymphocytes 18.2 % (20.5-51.1); % Monocytes 6.5 % (1.7-9.3); % Neutrophils 67.2 % (42.2-75.2); Absolute Basophils 0.1 10^3/uL (0-0.2); Absolute Eosinophils 0.3 10^3/uL (0-0.7); Absolute Lymphocytes 0.8 10^3/uL (1.2-3.4); Absolute Monocytes 0.3 10^3/uL (0.1-0.6); Absolute Neutrophils 2.9 10^3/uL (1.4-6.5); Hematocrit 22.6 % (37.0-47.0); Hemoglobin 7.2 g/dL (12.0-16.0); Mean Corp Hgb Conc. 31.9 g/dL (33.0-37.0); Mean Corpuscular Hgb 30.3 pg (27.0-31.0); Mean Platelet Volume 9.3 fL (7.4-10.4); Nucleated Red Blood Cells % 0 %; Platelet Count 172 10^3/uL (130-400); Red Blood Cell Count 2.38 10^6/uL (4.20-5.40); Red Cell Dist. Width 13.7 % (11.5-14.5); White Blood Cell Count 4.3 10^3/uL (4.8-10.8)
[2024-04-03 12:27] LABS: ALT (SGPT) 22 U/L (0-35); AST (SGOT) 28 U/L (14-36); Albumin 3.7 g/dl (3.5-5.0); Alkaline Phosphatase 85 U/L (38-126); Blood Urea Nitrogen 68 mg/dl (7-17); Calcium 10.1 mg/dl (8.4-10.2); Carbon Dioxide 21 mmol/L (22-30); Chloride 109 mmol/L (98-107); Estimated Creatinine Clearance 17 ml/min; Glucose 98 mg/dl (70-99); Potassium 5.9 mmol/L (3.5-5.1); Sodium 138 mmol/L (135-145); Total Bilirubin 0.5 mg/dl (0.2-1.3); Total Protein 6.4 g/dl (6.3-8.2); eGFR 13.28
== END 2024-04-03 19:10 ==
LOC: EMR 11:43
PROVIDERS: EMERGENCY PHYSICIAN Emergency Medicine; FAMILY PHYSICIAN Internal Medicine
DX: D64.9 Anemia, unspecified (principal); E78.5 Hyperlipidemia, unspecified; I12.0 Hypertensive chronic kidney disease with stage 5 chronic kidney disease or end stage renal disease; E11.22 Type 2 diabetes mellitus with diabetic chronic kidney disease; N18.6 End stage renal disease; I25.10 Atherosclerotic heart disease of native coronary artery without angina pectoris
CPT/HCPCS: 99285; 36430; 80053; 85025; 86850; 86900; 86901; 86920; P9016

== ENCOUNTER → 2024-04-22 17:11 | Outpatient (REF) | payer MEDICARE, OTHER, SELFPAY | LOC: REG 17:11 | PROVIDERS: ATTENDING PHYSICIAN Internal Medicine | DX: D64.9 Anemia, unspecified (principal) | CPT/HCPCS: 36415; 86850; 86900; 86901; 86920 ==

== ENCOUNTER 2024-04-24 08:57 | Outpatient (RCR) | payer MEDICARE, OTHER, SELFPAY ==
[2024-04-24] VITALS (8 sets, daily range): BP systolic 112–143; BP diastolic 4–49
[2024-04-24] MEDS: LASIX 40 MG IV (14:32)
== END 2024-04-30 23:59 | disposition home or self-care (01) ==
LOC: OID 08:57
PROVIDERS: ATTENDING PHYSICIAN Internal Medicine
DX: D50.9 Iron deficiency anemia, unspecified (principal); N18.6 End stage renal disease (principal); D64.9 Anemia, unspecified; N18.5 Chronic kidney disease, stage 5; K92.2 Gastrointestinal hemorrhage, unspecified
CPT/HCPCS: 36415; 36430; 86850; 86900; 86901; 86920; 96374; P9016

== ENCOUNTER 2024-05-12 18:27 | Emergency (ER) | payer MEDICARE, OTHER, SELFPAY ==
[2024-05-12] VITALS (12 sets, daily range): BP systolic 122–145; BP diastolic 49–76; BMI 36.5
[2024-05-12 18:54] LABS: % Basophils 0.6 % (0-2); % Eosinophils 2.7 % (0-6); % Immature Granulocytes 0.5 % (0-0.5); % Lymphocytes 16.9 % (20.5-51.1); % Monocytes 5.5 % (1.7-9.3); % Neutrophils 73.8 % (42.2-75.2); Absolute Eosinophils 0.2 10^3/uL (0-0.7); Absolute Lymphocytes 1.1 10^3/uL (1.2-3.4); Absolute Monocytes 0.4 10^3/uL (0.1-0.6); Absolute Neutrophils 4.9 10^3/uL (1.4-6.5); Mean Corp Hgb Conc. 31.6 g/dL (33.0-37.0); Mean Corpuscular Hgb 29.7 pg (27.0-31.0); Mean Corpuscular Volume 94.1 fL (81.0-99.0); Mean Platelet Volume 9.3 fL (7.4-10.4); Nucleated Red Blood Cells % 0 %; Platelet Count 200 10^3/uL (130-400); Red Blood Cell Count 2.02 10^6/uL (4.20-5.40); Red Cell Dist. Width 13.7 % (11.5-14.5); White Blood Cell Count 6.6 10^3/uL (4.8-10.8)
--- NOTE | 2024-05-12 18:54 | ED.GENMED ---
History of Present Illness
<Isha Gupta MD, Resident - Last Filed: 05/17/24 23:13>
General
Chief Complaint: Abnormal Lab Value
Source: patient and family
Time Seen by Provider: 05/12/24 18:51
History of Present Illness
History of Present Illness:
78-year-old female, Ms. Alis Tejeda, past medical history of CAD, GERD, hypertension, hyperlipidemia, diabetes mellitus, dysfunctional uterine bleeding, CKD, colonic AVMs presented to the ER from [place] when her weekly blood work showed
hemoglobin of 5.7. Patient reports being tired and short of breath that was chronic. Patient states that she had around 13 units of blood transfusion since October,. No history of hematemesis, hematochezia. Patient reports that she passes
dark-colored stools, has been taking iron supplements and prior iron infusions, so she is not able to distinguish whether it is because of melena or due to iron supplements. No history of headache, fever, chest pain, palpitations, abdominal pain,
bladder/bowel disturbances.
Past History
<Isha Gupta MD, Resident - Last Filed: 05/17/24 23:13>
Past History
ED Past Medical History: CAD, GERD, HTN, Hypercholesterolemia, NIDDM, Renal failure, Hypothyroidism and Other (Dysfunctional uterine bleeding, chronic kidney disease pending dialysis, Renal calculus, Iron def anemia, hemorrhagic disorder due to
extrinsic Circulatory anticoagulation. PNA, Back pain, )
ED Past Surgical History: Appendectomy, Gynecological (D&C), Orthopedic (Left carpal tunnel ), Tonsilectomy, Urological (Kidney stent) and Other (L AV fistula)
Social History
Tobacco: Non-smoker
Alcohol: Occasional
Drug: None
Personal: Single
Living: halfway
Family History
Family History: Negative Diabetes, Hypertension, Early CAD, Asthma or Cancer
Phy Exam
<Isha Gupta MD, Resident - Last Filed: 05/17/24 23:13>
Physical Exam
Physical Exam:
GEN: Patient appears pale
Eyes: PERRLA, EOMs intact, no scleral icterus, conjunctival pallor+
HENT: NCAT, oral mucosa moist, no JVD, no cervical adenopathy.
Lungs: CTAB, no wheezes, rales, rhonchi, normal chest wall excursion
Cardiac: RRR, S1-S2 +, no peripheral edema. Radial pulses 2+ bilat
Abdomen: S, NT, ND, NABS, no masses or hepatosplenomegaly
Neuro: AO x 3, no focal deficits to BUE/BLE, normal sensation throughout
Skin: No rashes, petechiae. Normal color, no pallor or jaundice.
Psych: Calm, cooperative, proper hygiene
Course
<Isha Gupta MD, Resident - Last Filed: 05/17/24 23:13>
Orders/Labs/Results
Orders:
Orders
05/12/24 18:30
Electrocardiogram (*1) Urgent
Reason for Study: Other
Other Reason for Exam: low hemoglobin
EKG- Treatment ONCE
05/12/24 18:36
Type+Screen Urgent
Complete Blood Count/With Diff Urgent
Comprehensive Metabolic Panel Urgent
05/12/24 19:35
* Blood Bank Products Urgent
Blood Bank Products: *Packed RBC Leuko(PRBC's)
Quantity: 2
Transfuse Today: Yes
Reason: Anemia
Furosemide [Lasix] 20 mg IV NOW STA
Abnormal Lab Results
05/12/24
18:36
RBC 2.02 L 10^6/uL
(4.20-5.40)
Hgb 6.0 L* g/dL
(12.0-16.0)
Hct 19.0 L* %
(37.0-47.0)
MCHC 31.6 L g/dL
(33.0-37.0)
Absolute Lymphs (auto) 1.1 L 10^3/uL
(1.2-3.4)
Lymphocytes % 16.9 L %
(20.5-51.1)
Potassium 5.2 H mmol/L
(3.5-5.1)
Chloride 109 H mmol/L
(98-107)
Carbon Dioxide 19 L mmol/L
(22-30)
BUN 87 H mg/dl
(7-17)
Creatinine 3.5 H mg/dL
(0.6-1.0)
Glucose 104 H mg/dl
(70-99)
Total Protein 5.6 L g/dl
(6.3-8.2)
Albumin 3.2 L g/dl
(3.5-5.0)
Crossmatch IS Only See Detail
05/12/24 18:36
05/12/24 18:36
Vital Signs
Initial and Last Documented VS:
Initial Vital Signs
Temp Pulse Resp BP Pulse Ox
98.5 F 63 16 134/56 100
05/12/24 18:31 05/12/24 18:31 05/12/24 18:31 05/12/24 18:31 05/12/24 18:31
Last Documented Vital Signs
Temp Pulse Resp BP Pulse Ox
98.8 F 59 15 123/51 100
05/13/24 03:01 05/13/24 05:30 05/13/24 05:30 05/13/24 04:37 05/13/24 05:15
Mukeshlt;Wellington Lima DO - Last Filed: 05/13/24 20:43>
Orders/Labs/Results
Orders:
Orders
05/12/24 18:30
Electrocardiogram (*1) Urgent
Reason for Study: Other
Other Reason for Exam: low hemoglobin
EKG- Treatment ONCE
05/12/24 18:36
Type+Screen Urgent
Complete Blood Count/With Diff Urgent
Comprehensive Metabolic Panel Urgent
05/12/24 19:35
* Blood Bank Products Urgent
Blood Bank Products: *Packed RBC Leuko(PRBC's)
Quantity: 2
Transfuse Today: Yes
Reason: Anemia
Furosemide [Lasix] 20 mg IV NOW STA
Abnormal Lab Results
05/12/24
18:36
RBC 2.02 L 10^6/uL
(4.20-5.40)
Hgb 6.0 L* g/dL
(12.0-16.0)
Hct 19.0 L* %
(37.0-47.0)
MCHC 31.6 L g/dL
(33.0-37.0)
Absolute Lymphs (auto) 1.1 L 10^3/uL
(1.2-3.4)
Lymphocytes % 16.9 L %
(20.5-51.1)
Potassium 5.2 H mmol/L
(3.5-5.1)
Chloride 109 H mmol/L
(98-107)
Carbon Dioxide 19 L mmol/L
(22-30)
BUN 87 H mg/dl
(7-17)
Creatinine 3.5 H mg/dL
(0.6-1.0)
Glucose 104 H mg/dl
(70-99)
Total Protein 5.6 L g/dl
(6.3-8.2)
Albumin 3.2 L g/dl
(3.5-5.0)
Crossmatch IS Only See Detail
05/12/24 18:36
05/12/24 18:36
Vital Signs
Initial and Last Documented VS:
Initial Vital Signs
Temp Pulse Resp BP Pulse Ox
98.5 F 63 16 134/56 100
05/12/24 18:31 05/12/24 18:31 05/12/24 18:31 05/12/24 18:31 05/12/24 18:31
Last Documented Vital Signs
Temp Pulse Resp BP Pulse Ox
98.8 F 59 15 123/51 100
05/13/24 03:01 05/13/24 05:30 05/13/24 05:30 05/13/24 04:37 05/13/24 05:15
<Isha Gupta MD, Resident - Last Filed: 05/17/24 23:13>
MDM/Problems Addressed
Differential Diagnosis Includes:
Anemia, likely related to GI blood loss versus CKD versus iron deficiency
MDM/Problems Addressed:
Patient is hemodynamically stable.
Patient will be getting 2 packs of PRBCs, Lasix 20 mg between the 2 transfusions.
<Isha Gupta MD, Resident - Last Filed: 05/17/24 23:13>
*Critical Care Note
Total Time (30-74mins, 75-104mins- exclusive of procedures): Not Applicable
ED Attending Note
<Isha Gupta MD, Resident - Last Filed: 05/17/24 23:13>
-
Portions of this chart may have been created with voice recognition software.� Occasional wrong word or��sound alike� substitutions may have occurred due to the inherent limitations of voice recognition software.
<Wellington Lima DO - Last Filed: 05/13/24 20:43>
ED Attending Note
Patient seen and examined by attending physician: Yes
I performed a history and physical exam of patient and discussed management with resident, I reviewed resident's note and agree with documented findings and plan of care.: Yes
ED Attending Note:
I agree with Dr. Gupta's note.
Patient presents with significant anemia. She is symptomatic and that she has no energy and is short of breath with minimal exertion. Patient has longstanding history of anemia thought to be related to blood loss through the GI tract.
General: Awake, Alert, Oriented X3. Pale complexion, appears chronically ill
Vitals: unremarkable
Head: Atraumatic
Eyes: Pupils equal, EOMI
Throat: Airway intact, no exudates
Neck: Trachea midline
Lungs: Clear and equal b/l
Heart: Regular rate, no murmurs
Neuro: Nonfocal
Skin: Warm, dry, no rash
Extremities: pulses equal b/l, no edema
Transfused 2 units. Hopefully discharge after transfusion.
Discharge Plan
Departure
Patient Disposition: [facility]/SNF
Date of Disposition: 05/12/24
Time of Disposition: 23:47
Discharge Problem:
Anemia, CKD (chronic kidney disease), stage V
Prescriptions:
No Action
allopurinol 100 mg Tablet
100 mg PO DAILY
atorvastatin [Lipitor] 40 mg Tablet
40 mg PO DAILY
carvedilol [Coreg] 25 mg Tablet
25 mg PO BID
Patient Comments:
04/03/2024, hold for SBP<90 or HR<60.
folic acid 1 mg Tablet
1 mg PO DAILY
acetaminophen [Tylenol] 325 mg Tablet
650 mg PO Q4HPRN PRN (Reason: mild pain/temp 100F or above)
levothyroxine 25 mcg Tablet
25 mcg PO DAILY
insulin aspart U-100 [Novolog FlexPen U-100 Insulin] 100 unit/mL (3 mL) insulin pen
0 - 12 sliding scale dose SC ACHS
Rx Instructions:
04/03/2024, if BS 70-150 = 0 units; 151-200 = 2 units; 201-250 = 4 units; 251-300 = 6 units; 301-350 = 8 units; 351-400 = 10 units; 401-450 = 12 units. If BS>451 call PCP.
aspirin 81 mg Tablet,Delayed Release (Dr/Ec)
81 mg PO DAILY
hydralazine 25 mg Tablet
25 mg PO TID
Patient Comments:
04/03/2024, hold for SBP<100.
polyethylene glycol 3350 [Miralax] 17 gram Powder In Packet
17 g PO DAILYPRN PRN (Reason: constipation)
sennosides-docusate sodium 8.6-50 mg Tablet
1 tab-cap PO [id number] PRN (Reason: constipation)
loperamide 2 mg Tablet
2 mg PO Q6HPRN PRN (Reason: diarrhea)
miconazole nitrate 2 % Powder
1 applic TOPICAL BID
cyanocobalamin (vitamin B-12) 1,000 mcg Tablet
1,000 mcg PO DAILY
torsemide 10 mg Tablet
20 mg PO BID
Procrit 20,000 unit/mL Solution
20,000 unit SC TU PRN (Reason: if Hgb<10)
sodium bicarbonate 650 mg Tablet
1,300 mg PO TID
bisacodyl 10 mg Suppository
10 mg DE DAILYPRN PRN (Reason: constipation)
pantoprazole 40 mg Tablet,Delayed Release (Dr/Ec)
40 mg PO DAILY
ferrous sulfate 325 mg (65 mg iron) Tablet
325 mg PO DAILY
ammonium lactate 12 % Cream
1 applic TOPICAL QPM
Patient Comments:
04/03/2024, apply topically every evening shift.
ammonium lactate 12 % Cream
1 applic TOPICAL [id number] PRN (Reason: B/L legs)
gabapentin 100 mg Capsule
100 mg PO TID
Referrals:
NONE,* [Active] -
Activity Restrictions/Additional Instructions:
Please follow-up with your primary care physician/ halfway physician within a week.
Interventions
Interventions:
*Risk Screen - Suicide Last Done: 05/12/24 18:34
*General Assessment Last Done: 05/12/24 18:34
*Neglect/Abuse Screening Last Done: 05/12/24 18:34
ED- Fall Risk Assessment Last Done: 05/12/24 18:43
*ED COVID-19 Vaccine History Last Done: 05/12/24 18:34
*Nursing Disposition Last Done: 05/13/24 06:00
Discharge Date and Time
Discharge Date/Time: 05/13/24 06:00
Print Language: [id number]
[2024-05-12 19:14] LABS: ALT (SGPT) 17 U/L (0-35); AST (SGOT) 21 U/L (14-36); Albumin 3.2 g/dl (3.5-5.0); Alkaline Phosphatase 77 U/L (38-126); Blood Urea Nitrogen 87 mg/dl (7-17); Carbon Dioxide 19 mmol/L (22-30); Chloride 109 mmol/L (98-107); Estimated Creatinine Clearance 17 ml/min; Glucose 104 mg/dl (70-99); Potassium 5.2 mmol/L (3.5-5.1); Sodium 136 mmol/L (135-145); Total Bilirubin 0.3 mg/dl (0.2-1.3); Total Protein 5.6 g/dl (6.3-8.2); eGFR 12.82
[2024-05-12] MEDS: LASIX IV (19:52)
[2024-05-13] VITALS (14 sets, daily range): BP systolic 123–142; BP diastolic 51–64
[2024-05-13] MEDS: LASIX 20 MG IV (00:08)
== END 2024-05-13 06:00 ==
LOC: EMR 18:27
PROVIDERS: EMERGENCY PHYSICIAN Emergency Medicine; FAMILY PHYSICIAN Internal Medicine
DX: D50.9 Iron deficiency anemia, unspecified (principal); I12.0 Hypertensive chronic kidney disease with stage 5 chronic kidney disease or end stage renal disease; N18.6 End stage renal disease; E11.22 Type 2 diabetes mellitus with diabetic chronic kidney disease; E78.5 Hyperlipidemia, unspecified; I25.10 Atherosclerotic heart disease of native coronary artery without angina pectoris; K21.9 Gastro-esophageal reflux disease without esophagitis; E03.9 Hypothyroidism, unspecified; Z87.442 Personal history of urinary calculi; Z88.0 Allergy status to penicillin
CPT/HCPCS: 99285; 36430; 96374; 80053; 85025; 86850; 86900; 86901; 86920; 93005; P9016

== ENCOUNTER 2024-05-19 17:41 | Emergency (ER) | payer MEDICARE, OTHER, SELFPAY ==
[2024-05-19] VITALS (10 sets, daily range): BP systolic 135–154; BP diastolic 53–63; BMI 35.9
[2024-05-19 18:19] LABS: % Basophils 0.6 % (0-2); % Eosinophils 3.2 % (0-6); % Immature Granulocytes 0.2 % (0-0.5); % Lymphocytes 14.7 % (20.5-51.1); % Neutrophils 76.3 % (42.2-75.2); Absolute Eosinophils 0.2 10^3/uL (0-0.7); Absolute Monocytes 0.3 10^3/uL (0.1-0.6); Hemoglobin 7.1 g/dL (12.0-16.0); Mean Corp Hgb Conc. 32.3 g/dL (33.0-37.0); Mean Corpuscular Hgb 29.7 pg (27.0-31.0); Mean Corpuscular Volume 92.1 fL (81.0-99.0); Mean Platelet Volume 9.1 fL (7.4-10.4); Nucleated Red Blood Cells % 0 %; Platelet Count 198 10^3/uL (130-400); Red Blood Cell Count 2.39 10^6/uL (4.20-5.40); Red Cell Dist. Width 14.6 % (11.5-14.5); White Blood Cell Count 6.6 10^3/uL (4.8-10.8)
[2024-05-19 18:34] LABS: ALT (SGPT) 11 U/L (0-35); AST (SGOT) 14 U/L (14-36); Albumin 3.1 g/dl (3.5-5.0); Alkaline Phosphatase 73 U/L (38-126); Blood Urea Nitrogen 84 mg/dl (7-17); Carbon Dioxide 19 mmol/L (22-30); Chloride 110 mmol/L (98-107); Estimated Creatinine Clearance 16 ml/min; Glucose 153 mg/dl (70-99); Potassium 4.7 mmol/L (3.5-5.1); Sodium 137 mmol/L (135-145); Total Bilirubin 0.3 mg/dl (0.2-1.3); Total Protein 5.6 g/dl (6.3-8.2); eGFR 11.62
--- NOTE | 2024-05-19 18:35 | ED.GENMED ---
History of Present Illness
General
Chief Complaint: Abnormal Lab Value
Time Seen by Provider: 05/19/24 18:16
History of Present Illness
History of Present Illness:
70-year-old female with history of chronic kidney disease presents to the emergency department for evaluation of recurrent anemia. Patient has had numerous PRBC transfusions over the past year due to recurrent anemia, most recently 1 week ago. She
saw hematology this morning, source of bleeding is felt to be related to a combination of dysfunctional uterine bleeding, GI blood losses, and possible anemia of chronic disease. She will be scheduled as an outpatient for IV iron infusions per
heme-onc. Outpatient CBC from this morning revealed a hemoglobin of 6.8 and she was advised to come to the emergency department
Past History
Past History
ED Past Medical History: CAD, GERD, HTN, Hypercholesterolemia, NIDDM, Renal failure, Hypothyroidism and Other (Dysfunctional uterine bleeding, chronic kidney disease pending dialysis, Renal calculus, Iron def anemia, hemorrhagic disorder due to
extrinsic Circulatory anticoagulation. PNA, Back pain, )
ED Past Surgical History: Appendectomy, Gynecological (D&C), Orthopedic (Left carpal tunnel ), Tonsilectomy, Urological (Kidney stent) and Other (L AV fistula)
Social History
Tobacco: Non-smoker
Alcohol: Occasional
Drug: None
Personal: Single
Living: longterm
Family History
Family History: Negative Diabetes, Hypertension, Early CAD, Asthma or Cancer
Review of Systems
Review of Systems
Allergies reviewed?: Yes
All Other Systems: ROS reviewed and negative except as documented in HPI and ROS
Phy Exam
Physical Exam
Physical Exam:
GEN: Well appearing, NAD, WDWN
HEENT: Oral mucosa moist, no scleral icterus
Cardiac: Regular rate
Lung: No respiratory distress, no tachypnea
MSK: No gross deformity or injuries
Skin: General With male
Neuro: AO x3, moves all extremities freely
Psych: Calm, cooperative
Course
Orders/Labs/Results
Orders:
Orders
05/19/24 17:50
Type+Screen Urgent
Complete Blood Count/With Diff Urgent
Comprehensive Metabolic Panel Urgent
05/19/24 18:34
Blood Bank Products [* Blood Bank Products] Urgent
Blood Bank Products: *Packed RBC Leuko(PRBC's)
Quantity: 1
Transfuse Today: Yes
Reason: Anemia
Abnormal Lab Results
05/19/24
17:50
RBC 2.39 L 10^6/uL
(4.20-5.40)
Hgb 7.1 L g/dL
(12.0-16.0)
Hct 22.0 L %
(37.0-47.0)
MCHC 32.3 L g/dL
(33.0-37.0)
RDW 14.6 H %
(11.5-14.5)
Absolute Lymphs (auto) 1.0 L 10^3/uL
(1.2-3.4)
Neutrophils % 76.3 H %
(42.2-75.2)
Lymphocytes % 14.7 L %
(20.5-51.1)
Chloride 110 H mmol/L
(98-107)
Carbon Dioxide 19 L mmol/L
(22-30)
BUN 84 H mg/dl
(7-17)
Creatinine 3.8 H mg/dL
(0.6-1.0)
Glucose 153 H mg/dl
(70-99)
Total Protein 5.6 L g/dl
(6.3-8.2)
Albumin 3.1 L g/dl
(3.5-5.0)
Crossmatch IS Only See Detail
05/19/24 17:50
05/19/24 17:50
Vital Signs
Initial and Last Documented VS:
Initial Vital Signs
Temp Pulse Resp BP Pulse Ox
98.2 F 78 19 135/57 100
05/19/24 17:44 05/19/24 17:44 05/19/24 17:44 05/19/24 17:44 05/19/24 17:44
Last Documented Vital Signs
Temp Pulse Resp BP Pulse Ox
98.2 F 63 18 153/63 100
05/19/24 20:51 05/19/24 22:00 05/19/24 22:00 05/19/24 22:00 05/19/24 22:00
MDM/Problems Addressed
MDM/Problems Addressed:
Patient has exertional shortness of breath and fatigue thus warrants transfusion for hemoglobin of 7.1. No indication for stool Hemoccult given that she is on oral iron supplementation at this point and is being worked up as an outpatient by
heme-onc. Given 1 unit of PRBCs with no complications, recommend continued outpatient GI and heme-onc follow-up
*Critical Care Note
Total Time (30-74mins, 75-104mins- exclusive of procedures): Not Applicable
ED Attending Note
-
Portions of this chart may have been created with voice recognition software.� Occasional wrong word or��sound alike� substitutions may have occurred due to the inherent limitations of voice recognition software.
Discharge Plan
Departure
Patient Disposition: Home (Routine Discharge)
Date of Disposition: 05/19/24
Time of Disposition: 20:44
Patient with high blood pressure during this ER visit?: No
Discharge Problem:
Symptomatic anemia
Instructions: Anemia, Possibly From Low Iron, Adult ED
Prescriptions:
No Action
allopurinol 100 mg Tablet
100 mg PO DAILY
atorvastatin [Lipitor] 40 mg Tablet
40 mg PO DAILY
carvedilol [Coreg] 25 mg Tablet
25 mg PO BID
Patient Comments:
04/03/2024, hold for SBP<90 or HR<60.
folic acid 1 mg Tablet
1 mg PO DAILY
acetaminophen [Tylenol] 325 mg Tablet
650 mg PO Q4HPRN PRN (Reason: mild pain/temp 100F or above)
levothyroxine 25 mcg Tablet
25 mcg PO DAILY
insulin aspart U-100 [Novolog FlexPen U-100 Insulin] 100 unit/mL (3 mL) insulin pen
0 - 12 sliding scale dose SC ACHS
Rx Instructions:
04/03/2024, if BS 70-150 = 0 units; 151-200 = 2 units; 201-250 = 4 units; 251-300 = 6 units; 301-350 = 8 units; 351-400 = 10 units; 401-450 = 12 units. If BS>451 call PCP.
aspirin 81 mg Tablet,Delayed Release (Dr/Ec)
81 mg PO DAILY
hydralazine 25 mg Tablet
25 mg PO TID
Patient Comments:
04/03/2024, hold for SBP<100.
polyethylene glycol 3350 [Miralax] 17 gram Powder In Packet
17 g PO DAILYPRN PRN (Reason: constipation)
sennosides-docusate sodium 8.6-50 mg Tablet
1 tab-cap PO [id number] PRN (Reason: constipation)
loperamide 2 mg Tablet
2 mg PO Q6HPRN PRN (Reason: diarrhea)
miconazole nitrate 2 % Powder
1 applic TOPICAL BID
cyanocobalamin (vitamin B-12) 1,000 mcg Tablet
1,000 mcg PO DAILY
torsemide 10 mg Tablet
20 mg PO BID
Procrit 20,000 unit/mL Solution
20,000 unit SC TU PRN (Reason: if Hgb<10)
sodium bicarbonate 650 mg Tablet
1,300 mg PO TID
bisacodyl 10 mg Suppository
10 mg [place] DAILYPRN PRN (Reason: constipation)
pantoprazole 40 mg Tablet,Delayed Release (Dr/Ec)
40 mg PO DAILY
ferrous sulfate 325 mg (65 mg iron) Tablet
325 mg PO DAILY
ammonium lactate 12 % Cream
1 applic TOPICAL QPM
Patient Comments:
04/03/2024, apply topically every evening shift.
ammonium lactate 12 % Cream
1 applic TOPICAL [id number] PRN (Reason: B/L legs)
gabapentin 100 mg Capsule
100 mg PO TID
Referrals:
Alek Ríos DO [Active] -
Interventions
Interventions:
*Risk Screen - Suicide Last Done: 05/19/24 17:48
*General Assessment Last Done: 05/19/24 17:48
*Neglect/Abuse Screening Last Done: 05/19/24 17:48
*ED COVID-19 Vaccine History Last Done: 05/19/24 17:48
Discharge Date and Time
Print Language: CHINESE
== END 2024-05-19 22:59 | disposition home or self-care (01) ==
LOC: EMR 17:41
PROVIDERS: EMERGENCY PHYSICIAN Emergency Medicine; FAMILY PHYSICIAN Internal Medicine
DX: D64.9 Anemia, unspecified (principal); N18.9 Chronic kidney disease, unspecified
CPT/HCPCS: 99285; 36430; 80053; 85025; 86850; 86900; 86901; 86920; P9016

== ENCOUNTER 2024-05-28 14:56 | Emergency (ER) | payer MEDICARE, OTHER, SELFPAY ==
[2024-05-28] VITALS (22 sets, daily range): BP systolic 118–155; BP diastolic 37–69; BMI 34.8
[2024-05-28 15:38] LABS: ALT (SGPT) < 10 U/L (0-35); AST (SGOT) 14 U/L (14-36); Albumin 3.3 g/dl (3.5-5.0); Alkaline Phosphatase 68 U/L (38-126); Blood Urea Nitrogen 78 mg/dl (7-17); Calcium 9.9 mg/dl (8.4-10.2); Carbon Dioxide 20 mmol/L (22-30); Chloride 107 mmol/L (98-107); Estimated Creatinine Clearance 15 ml/min; Glucose 134 mg/dl (70-99); Potassium 4.8 mmol/L (3.5-5.1); Sodium 139 mmol/L (135-145); Total Bilirubin 0.5 mg/dl (0.2-1.3); Total Protein 5.7 g/dl (6.3-8.2); eGFR 10.92
[2024-05-28 15:43] LABS: % Basophils 0.8 % (0-2); % Eosinophils 4.6 % (0-6); % Immature Granulocytes 0.4 % (0-0.5); % Lymphocytes 18.3 % (20.5-51.1); % Monocytes 5.4 % (1.7-9.3); % Neutrophils 70.5 % (42.2-75.2); Absolute Eosinophils 0.2 10^3/uL (0-0.7); Absolute Lymphocytes 0.9 10^3/uL (1.2-3.4); Absolute Monocytes 0.3 10^3/uL (0.1-0.6); Absolute Neutrophils 3.5 10^3/uL (1.4-6.5); Hematocrit 20.4 % (37.0-47.0); Hemoglobin 6.6 g/dL (12.0-16.0); Mean Corp Hgb Conc. 32.4 g/dL (33.0-37.0); Mean Corpuscular Hgb 30.6 pg (27.0-31.0); Mean Corpuscular Volume 94.4 fL (81.0-99.0); Mean Platelet Volume 9.4 fL (7.4-10.4); Nucleated Red Blood Cells % 0 %; Platelet Count 183 10^3/uL (130-400); Red Blood Cell Count 2.16 10^6/uL (4.20-5.40)
--- NOTE | 2024-05-28 21:33 | ED.GENMED ---
History of Present Illness
General
Chief Complaint: Abnormal Lab Value
Source: patient, records and family
Exam Limitations: none
Time Seen by Provider: 05/28/24 15:05
Nursing documentation reviewed up to this point in time: agreed with
History of Present Illness
History of Present Illness:
78-year-old female with past medical history as documented presents to the emergency room for anemia. Patient has history of chronic anemia, chronic GI bleeding and has had frequent visits for acute on chronic anemia. Her baseline hemoglobin is
usually between 7 and 8. Cause likely multifactorial in part due to chronic kidney disease, in part due to chronic GI bleeding, in part due to iron deficiency. Most recent ER visit was 05/19/2024, was seen in this ER transfused and discharged. She
has had extensive workup including EGD, colonoscopy and capsule endoscopy and no source of her chronic GI bleeding has been found�patient says that her doctor thinks it may be from irritation of her GI tract from iron supplement. She follows with
Dr. Zambrano from GI. She has also been seeing Dr. Ríos for hematology, recently establish care and was seen about 2 weeks ago, is set to begin iron infusions in June. She has weekly blood draws to check her hemoglobin. This week had blood draw
that showed hemoglobin of 6.8 and was referred to the ER to be evaluated. She that she has generalized fatigue but denies any other specific symptoms�denies any shortness of breath, chest pain, dizziness/lightheadedness. Her stools are always dark
she says due to iron supplementation but she has not noticed any change in her stools or bright red blood. She is not on any blood thinners.
Past History
Past History
ED Past Medical History: CAD, GERD, HTN, Hypercholesterolemia, NIDDM, Renal failure, Hypothyroidism and Other (Dysfunctional uterine bleeding, chronic kidney disease pending dialysis, Renal calculus, Iron def anemia, hemorrhagic disorder due to
extrinsic Circulatory anticoagulation. PNA, Back pain, )
ED Past Surgical History: Appendectomy, Gynecological (D&C), Orthopedic (Left carpal tunnel ), Tonsilectomy, Urological (Kidney stent) and Other (L AV fistula)
Social History
Tobacco: Non-smoker
Alcohol: Occasional
Drug: None
Personal: Single
Living: longterm
Family History
Family History: Negative Diabetes, Hypertension, Early CAD, Asthma or Cancer
Review of Systems
Review of Systems
All Other Systems: ROS reviewed and negative except as documented in HPI and ROS
Constitutional: Reports fatigue
Respiratory: Denies trouble breathing
Cardiac: Denies chest pain or syncope
ABD/GI: Denies abdominal pain, nausea, vomiting or bloody stools
: Denies flank pain
Musculoskeletal: Denies neck pain or back pain
Neurological: Denies dizzy or headache
Phy Exam
Physical Exam
Physical Exam:
General: Awake, alert, oriented x3; no acute distress
Head: Normocephalic, atraumatic
Eyes: Somewhat pale conjunctiva
Throat: Airway intact, handling secretions
Neck: Trachea midline
Lungs: Clear to auscultation bilaterally, no wheezing, rales, rhonchi
Heart: Regular rate and rhythm, faint systolic murmur
Abd: Soft, non distended, nontender
Rectal: Dark brown stool, trace Hemoccult positive, no bright red blood noted
Neuro: No gross deficits
Skin: Slightly pale
Extremities: Warm well-perfused
Scores
Heart Failure Risk
Heart Failure Risk Score: Not Applicable
Heart Score for Chest Pain Patients
STEMI patient?: Not applicable
Withdrawal Assessment of Alcohol
Withdrawal Assessment Completed?: Not applicable
Course
Orders/Labs/Results
Orders:
Orders
05/28/24 15:07
EKG [Electrocardiogram (*1)] Urgent
Reason for Study: Abdominal Pain
EKG- Treatment ONCE
05/28/24 15:10
Type+Screen Urgent
Complete Blood Count/With Diff Urgent
Comprehensive Metabolic Panel Urgent
05/28/24 16:32
* Blood Bank Products Urgent
Blood Bank Products: *Packed RBC Leuko(PRBC's)
Quantity: 2
Transfuse Today: Yes
Reason: Anemia
Abnormal Lab Results
05/28/24
15:10
RBC 2.16 L 10^6/uL
(4.20-5.40)
Hgb 6.6 L* g/dL
(12.0-16.0)
Hct 20.4 L* %
(37.0-47.0)
MCHC 32.4 L g/dL
(33.0-37.0)
RDW 16.0 H %
(11.5-14.5)
Absolute Lymphs (auto) 0.9 L 10^3/uL
(1.2-3.4)
Lymphocytes % 18.3 L %
(20.5-51.1)
Carbon Dioxide 20 L mmol/L
(22-30)
BUN 78 H mg/dl
(7-17)
Creatinine 4.0 H mg/dL
(0.6-1.0)
Glucose 134 H mg/dl
(70-99)
Total Protein 5.7 L g/dl
(6.3-8.2)
Albumin 3.3 L g/dl
(3.5-5.0)
Crossmatch IS Only See Detail
05/28/24 15:10
05/28/24 15:10
Vital Signs
Initial and Last Documented VS:
Initial Vital Signs
BP
118/53
05/28/24 15:00
Last Documented Vital Signs
Temp Pulse Resp BP Pulse Ox
37.0 C 68 19 140/53 99
05/28/24 21:29 05/28/24 21:30 05/28/24 21:30 05/28/24 21:30 05/28/24 21:30
MDM/Problems Addressed
Differential Diagnosis Includes:
Acute on chronic anemia
MDM/Problems Addressed:
78-year-old female returns to the emergency room for acute on chronic anemia. Hemoglobin 6.8 as an outpatient on routine blood work. She has a history of chronic anemia, chronic GI bleeding of unclear source, iron deficiency and chronic kidney
disease. She sees multiple specialists. She is essentially asymptomatic that she has chronic fatigue not acutely worse, no other symptoms. Her vital signs are normal here including blood pressure 119/53, pulse in the 70s. She was faintly
positive on her Hemoccult. Will place an IV check labs including CBC and a CMP, type and screen. Reassess after the above.
CBC confirms anemia today with a hemoglobin of 6.6�last hemoglobin 05/19/2024 was 7.1 and she has been in the 6-8 range for the past year. Will transfuse 2 units of PRBCs today. Call placed to GI to discuss given recurrent visits for anemia, history
of chronic GI bleeding and trace positive Hemoccult today. With chronic bleeding no clear intervention indicated at this time; she is already on a PPI. Recommended continued outpatient follow-up with GI (Dr. Zambrano) and machine helper. Patient feels
very comfortable with this plan visits I did offer admission but she wishes to be discharged after blood transfusion. Will monitor pending transfusion, plan likely for discharge thereafter with outpatient follow-up with her multiple specialists.
Chronic conditions affecting care:
Chronic GI bleeding, chronic anemia, chronic kidney disease
*Pulse Oximetry
Patient hypoxic: no
*EKG
Interpreted by ED Provider?: Yes
Heart Rate: 64
Rate: normal
Rhythm: sinus
[place]: normal axis
Interval: normal interval
QRS Pattern: normal QRS
Ischemia: no ischemia
*Critical Care Note
Total Time (30-74mins, 75-104mins- exclusive of procedures): Not Applicable
Data Reviewed
Review of Other/Old Records Reveals: Labs and Records
Source: patient, records and family
Patient Management
Social determinants of health affecting care: Strong social support
Discussion with other providers: Fishing Rod [employer] (Discussed with gastroenterology)
Escalation/DeEscalation of care consider admission/obs:
Offered admission, using shared decision making discharged with outpatient follow-up plan
ED Attending Note
-
Portions of this chart may have been created with voice recognition software.� Occasional wrong word or��sound alike� substitutions may have occurred due to the inherent limitations of voice recognition software.
Discharge Plan
Departure
Patient Disposition: Home (Routine Discharge)
Date of Disposition: 05/28/24
Time of Disposition: 21:32
Patient with high blood pressure during this ER visit?: No
Discharge Problem:
Acute on chronic anemia
Instructions: Anemia of inflammation (anemia of chronic disease)
Prescriptions:
No Action
allopurinol 100 mg Tablet
100 mg PO DAILY
atorvastatin [Lipitor] 40 mg Tablet
40 mg PO DAILY
carvedilol [Coreg] 25 mg Tablet
25 mg PO BID
Patient Comments:
04/03/2024, hold for SBP<90 or HR<60.
folic acid 1 mg Tablet
1 mg PO DAILY
acetaminophen [Tylenol] 325 mg Tablet
650 mg PO Q4HPRN PRN (Reason: mild pain/temp 100F or above)
levothyroxine 25 mcg Tablet
25 mcg PO DAILY
insulin aspart U-100 [Novolog FlexPen U-100 Insulin] 100 unit/mL (3 mL) insulin pen
0 - 12 sliding scale dose SC ACHS
Rx Instructions:
04/03/2024, if BS 70-150 = 0 units; 151-200 = 2 units; 201-250 = 4 units; 251-300 = 6 units; 301-350 = 8 units; 351-400 = 10 units; 401-450 = 12 units. If BS>451 call PCP.
aspirin 81 mg Tablet,Delayed Release (Dr/Ec)
81 mg PO DAILY
hydralazine 25 mg Tablet
25 mg PO TID
Patient Comments:
04/03/2024, hold for SBP<100.
polyethylene glycol 3350 [Miralax] 17 gram Powder In Packet
17 g PO DAILYPRN PRN (Reason: constipation)
sennosides-docusate sodium 8.6-50 mg Tablet
1 tab-cap PO [id number] PRN (Reason: constipation)
loperamide 2 mg Tablet
2 mg PO Q6HPRN PRN (Reason: diarrhea)
miconazole nitrate 2 % Powder
1 applic TOPICAL BID
cyanocobalamin (vitamin B-12) 1,000 mcg Tablet
1,000 mcg PO DAILY
torsemide 10 mg Tablet
20 mg PO BID
Procrit 20,000 unit/mL Solution
20,000 unit SC MO PRN (Reason: if Hgb<10)
sodium bicarbonate 650 mg Tablet
1,300 mg PO TID
bisacodyl 10 mg Suppository
10 mg [place] DAILYPRN PRN (Reason: constipation)
pantoprazole 40 mg Tablet,Delayed Release (Dr/Ec)
40 mg PO DAILY
ferrous sulfate 325 mg (65 mg iron) Tablet
325 mg PO DAILY
ammonium lactate 12 % Cream
1 applic TOPICAL QPM
Patient Comments:
04/03/2024, apply topically every evening shift.
ammonium lactate 12 % Cream
1 applic TOPICAL [id number] PRN (Reason: B/L legs)
gabapentin 100 mg Capsule
100 mg PO TID
Referrals:
Alek Ríos DO [Active] - Call in 1-3 days for appt
Jhonathan Gabriel MD [Family Provider] -
Nishant Zambrano MD [Active] - Call in 1-3 days for appt
Nasim Kim MD [Active] - Call in 1-3 days for appt
Activity Restrictions/Additional Instructions:
Thank you for visiting the Emergency Department at [facility].
1. Please schedule a follow up appointment as directed. Call first thing tomorrow morning to make an appointment.
2. If indicated, please take your medications as instructed and indicated on discharge paperwork.
3. If any of your symptoms do not improve, or persist, or become more severe within 6-12 hours, please return to the emergency department for further care.
4. Please return to the emergency department if you develop a headache, neck pain/stiffness, fever greater than 100.4F, chest pain, shortness of breath, persistent nausea, vomiting, slurred speech, difficulty walking, numbness/tingling, weakness,
signs of infection or any other symptoms that are worrisome to you.
Please call [phone] if you have any questions.
Interventions
Interventions:
*Risk Screen - Suicide Last Done: 05/28/24 14:59
*General Assessment Last Done: 05/28/24 15:04
*Neglect/Abuse Screening Last Done: 05/28/24 14:59
ED- Fall Risk Assessment Last Done: 05/28/24 15:00
*ED COVID-19 Vaccine History Last Done: 05/28/24 15:04
Discharge Date and Time
Print Language: POLISH
== END 2024-05-29 00:04 | disposition home or self-care (01) ==
LOC: EMR 14:56
PROVIDERS: EMERGENCY PHYSICIAN Emergency Medicine; FAMILY PHYSICIAN Internal Medicine
DX: R79.89 Other specified abnormal findings of blood chemistry (principal); D63.1 Anemia in chronic kidney disease; I12.9 Hypertensive chronic kidney disease with stage 1 through stage 4 chronic kidney disease, or unspecified chronic kidney disease; E11.22 Type 2 diabetes mellitus with diabetic chronic kidney disease; N18.9 Chronic kidney disease, unspecified; I25.10 Atherosclerotic heart disease of native coronary artery without angina pectoris; K21.9 Gastro-esophageal reflux disease without esophagitis; E78.00 Pure hypercholesterolemia, unspecified; Z82.49 Family history of ischemic heart disease and other diseases of the circulatory system; Z90.49 Acquired absence of other specified parts of digestive tract
CPT/HCPCS: 99283; 80053; 85025; 86850; 86900; 86901; 86920; 93005; P9016

== ENCOUNTER → 2024-06-05 09:03 | Outpatient (REF) | payer MEDICARE, OTHER, SELFPAY | LOC: DHVS 09:03 | PROVIDERS: ATTENDING PHYSICIAN Surgery Vascular Surgery; FAMILY PHYSICIAN Internal Medicine | DX: I77.0 Arteriovenous fistula, acquired (principal) | CPT/HCPCS: 93990 ==

== ENCOUNTER 2024-06-10 10:44 | Emergency (ER) | payer MEDICARE, OTHER, SELFPAY ==
[2024-06-10] VITALS (14 sets, daily range): BP systolic 113–146; BP diastolic 48–65; BMI 35.7
--- NOTE | 2024-06-10 10:55 | PHANOTE ---
Addendum entered by Za Richards 06/10/24 13:29:
called nursing again to inform them they did not send the proper med list, no direction no dosing. women at desk said there nothing she can do since all the nurses are busy
Original Note:
med rec note- patient came from detention and med list is missing directions, called boogie sparrow at [phone], front said they could not get a hold of the nurse and to call back and ask for station 2
--- NOTE | 2024-06-10 11:10 | ED.GENMED ---
History of Present Illness
General
Chief Complaint: Abnormal Lab Value
Source: patient, ambulance crew and senior care
Exam Limitations: none
Time Seen by Provider: 06/10/24 10:48
Nursing documentation reviewed up to this point in time: agreed with
History of Present Illness
History of Present Illness:
Patient is a 78-year-old female with past medical history of chronic anemia, chronic GI bleeding hypertension hyperlipidemia, kidney disease, diabetes presenting to the emergency department today with concerns of low hemoglobin at her nursing
facility of 6.1 that was drawn yesterday. She has had dark appearing stool that has been ongoing for multiple weeks. She has been here in the ER multiple times in the last month for similar issues and has received transfusions at the time. She
denies any current symptoms at this time no chest pain shortness of breath nausea vomiting.
Past History
Past History
ED Past Medical History: CAD, GERD, HTN, Hypercholesterolemia, NIDDM, Renal failure, Hypothyroidism and Other (Dysfunctional uterine bleeding, chronic kidney disease pending dialysis, Renal calculus, Iron def anemia, hemorrhagic disorder due to
extrinsic Circulatory anticoagulation. PNA, Back pain, )
ED Past Surgical History: Appendectomy, Gynecological (D&C), Orthopedic (Left carpal tunnel ), Tonsilectomy, Urological (Kidney stent) and Other (L AV fistula)
Social History
Tobacco: Non-smoker
Alcohol: Occasional
Drug: None
Personal: Single
Living: senior care
Family History
Family History: Negative Diabetes, Hypertension, Early CAD, Asthma or Cancer
Review of Systems
Review of Systems
Allergies reviewed?: Yes
All Other Systems: ROS reviewed and negative except as documented in HPI and ROS
Phy Exam
Physical Exam
Physical Exam:
GENERAL: Alert , in no apparent distress
EYE: pupils equal and reactive
NECK: Supple, no significant adenopathy.
ENT: o/p clr, mmm.
CARDIAC: Regular rate and rhythm .
LUNGS: Clear breath sounds bilaterally, no acute respiratory distress, no wheezes/rales/rhonchi
ABDOMEN: Rectal examination revealing dark brown stool that is guaiac positive, otherwise abdomen is soft, without focal tenderness, no r/g, no cvat
NEUROLOGICAL: Alert and oriented, no focal neuro deficits
SKIN: Warm and dry, skin intact.
MUSCULOSKELETAL: No edema, well perfused.
PSYCH: Normal and appropriate interaction.
Course
Orders/Labs/Results
Orders:
Orders
06/10/24 10:57
Type+Screen Urgent
Complete Blood Count/With Diff Urgent
Comprehensive Metabolic Panel Urgent
06/10/24 11:49
* Blood Bank Products Urgent
Blood Bank Products: *Packed RBC Leuko(PRBC's)
Quantity: 1
Transfuse Today: Yes
Reason: Anemia
Abnormal Lab Results
06/10/24
10:57
RBC 2.12 L 10^6/uL
(4.20-5.40)
Hgb 6.5 L* g/dL
(12.0-16.0)
Hct 20.4 L* %
(37.0-47.0)
MCHC 31.9 L g/dL
(33.0-37.0)
RDW 16.7 H %
(11.5-14.5)
Absolute Lymphs (auto) 0.8 L 10^3/uL
(1.2-3.4)
Lymphocytes % 15.4 L %
(20.5-51.1)
Carbon Dioxide 17 L mmol/L
(22-30)
BUN 86 H mg/dl
(7-17)
Creatinine 3.9 H mg/dL
(0.6-1.0)
Glucose 132 H mg/dl
(70-99)
Total Protein 5.5 L g/dl
(6.3-8.2)
Albumin 3.2 L g/dl
(3.5-5.0)
Crossmatch IS Only See Detail
06/10/24 10:57
06/10/24 10:57
Vital Signs
Initial and Last Documented VS:
Initial Vital Signs
Pulse Resp Pulse Ox
68 16 100
06/10/24 10:46 06/10/24 10:46 06/10/24 10:46
Last Documented Vital Signs
Temp Pulse Resp BP Pulse Ox
98.1 F 67 18 134/58 100
06/10/24 15:02 06/10/24 15:02 06/10/24 15:02 06/10/24 15:02 06/10/24 15:02
MDM/Problems Addressed
MDM/Problems Addressed:
78-year-old female presenting to the emergency department today with concerns of anemia. 6.1 drawn as an outpatient. No symptoms at this time. Stool is dark and guaiac positive. No abdominal pain. Normal vital signs. Hemoglobin here of 6.5.
Other labs are at patient's baseline. Case was discussed with GI that does not feel she needs emergent ER assessment otherwise by GI. Also case discussed with hematology that feels there is no additional need for admission at this time as well
patient was given a unit of blood without significant issue. Stable for discharge afterward work with close outpatient follow-up.
*Critical Care Note
Total Time (30-74mins, 75-104mins- exclusive of procedures): Not Applicable
ED Attending Note
-
Portions of this chart may have been created with voice recognition software.� Occasional wrong word or��sound alike� substitutions may have occurred due to the inherent limitations of voice recognition software.
Discharge Plan
Departure
Patient Disposition: Home (Routine Discharge)
Date of Disposition: 06/10/24
Time of Disposition: 15:57
Patient with high blood pressure during this ER visit?: No
Condition: Good
Covid-19: Not Applicable
Discharge Problem:
Anemia, GI bleed
Instructions: Anemia, Possibly From Low Iron, Adult ED
Prescriptions:
No Action
allopurinol 100 mg Tablet
100 mg PO DAILY
atorvastatin [Lipitor] 40 mg Tablet
40 mg PO DAILY
carvedilol [Coreg] 25 mg Tablet
25 mg PO BID
folic acid 1 mg Tablet
1 mg PO DAILY
acetaminophen [Tylenol] 325 mg Tablet
650 mg PO Q4HPRN PRN (Reason: mild pain/temp 100F or above)
levothyroxine 25 mcg Tablet
25 mcg PO DAILY
insulin aspart U-100 [Novolog FlexPen U-100 Insulin] 100 unit/mL (3 mL) insulin pen
0 - 12 sliding scale dose SC ACHS
Rx Instructions:
BS 70-150 = 0 units; 151-200 = 2 units; 201-250 = 4 units; 251-300 = 6 units; 301-350 = 8 units; 351-400 = 10 units; 401-450 = 12 units. If BS>451 call PCP.
aspirin 81 mg Tablet,Delayed Release (Dr/Ec)
81 mg PO DAILY
hydralazine 25 mg Tablet
25 mg PO TID
polyethylene glycol 3350 [Miralax] 17 gram Powder In Packet
17 g PO DAILYPRN PRN (Reason: constipation)
sennosides-docusate sodium 8.6-50 mg Tablet
1 tab-cap PO [id number] PRN (Reason: constipation)
loperamide 2 mg Tablet
2 mg PO Q6HPRN PRN (Reason: diarrhea)
miconazole nitrate 2 % Powder
1 applic TOPICAL BID
cyanocobalamin (vitamin B-12) 1,000 mcg Tablet
1,000 mcg PO DAILY
torsemide 10 mg Tablet
20 mg PO BID
Procrit 20,000 unit/mL Solution
20,000 unit SC TU PRN (Reason: for hgb<10)
sodium bicarbonate 650 mg Tablet
1,300 mg PO TID
bisacodyl 10 mg Suppository
10 mg [place] DAILYPRN PRN (Reason: constipation)
pantoprazole 40 mg Tablet,Delayed Release (Dr/Ec)
40 mg PO DAILY
ferrous sulfate 325 mg (65 mg iron) Tablet
325 mg PO DAILY
ammonium lactate 12 % Cream
1 applic TOPICAL QPM
ammonium lactate 12 % Cream
1 applic TOPICAL [id number] PRN (Reason: B/L legs)
gabapentin 100 mg Capsule
100 mg PO TID
Referrals:
Jhonathan Gabriel MD [Family Provider] -
Activity Restrictions/Additional Instructions:
You came to the emergency department today with concerns of low hemoglobin. You are given a unit of blood here. Please follow closely with your outpatient doctors. Return to the emergency department for any worsening, new or concerning symptoms.
Interventions
Interventions:
*Risk Screen - Suicide Last Done: 06/10/24 10:47
*General Assessment Last Done: 06/10/24 10:47
*Neglect/Abuse Screening Last Done: 06/10/24 10:47
ED- Fall Risk Assessment Last Done: 06/10/24 11:12
*ED COVID-19 Vaccine History Last Done: 06/10/24 10:47
Discharge Date and Time
Print Language: CZECH
[2024-06-10 11:27] LABS: % Basophils 0.6 % (0-2); % Eosinophils 4.5 % (0-6); % Immature Granulocytes 0.4 % (0-0.5); % Lymphocytes 15.4 % (20.5-51.1); % Monocytes 5.1 % (1.7-9.3); Absolute Eosinophils 0.2 10^3/uL (0-0.7); Absolute Lymphocytes 0.8 10^3/uL (1.2-3.4); Absolute Monocytes 0.3 10^3/uL (0.1-0.6); Absolute Neutrophils 3.8 10^3/uL (1.4-6.5); Hematocrit 20.4 % (37.0-47.0); Hemoglobin 6.5 g/dL (12.0-16.0); Mean Corp Hgb Conc. 31.9 g/dL (33.0-37.0); Mean Corpuscular Hgb 30.7 pg (27.0-31.0); Mean Corpuscular Volume 96.2 fL (81.0-99.0); Mean Platelet Volume 9.4 fL (7.4-10.4); Nucleated Red Blood Cells % 0 %; Platelet Count 182 10^3/uL (130-400); Red Blood Cell Count 2.12 10^6/uL (4.20-5.40); Red Cell Dist. Width 16.7 % (11.5-14.5); White Blood Cell Count 5.1 10^3/uL (4.8-10.8)
[2024-06-10 11:29] LABS: ALT (SGPT) < 10 U/L (0-35); AST (SGOT) 14 U/L (14-36); Albumin 3.2 g/dl (3.5-5.0); Alkaline Phosphatase 75 U/L (38-126); Blood Urea Nitrogen 86 mg/dl (7-17); Carbon Dioxide 17 mmol/L (22-30); Chloride 107 mmol/L (98-107); Estimated Creatinine Clearance 15 ml/min; Glucose 132 mg/dl (70-99); Sodium 138 mmol/L (135-145); Total Bilirubin 0.4 mg/dl (0.2-1.3); Total Protein 5.5 g/dl (6.3-8.2); eGFR 11.26
== END 2024-06-10 17:02 | disposition home or self-care (01) ==
LOC: EMR 10:44
PROVIDERS: Physician Assistant; EMERGENCY PHYSICIAN Emergency Medicine; FAMILY PHYSICIAN Internal Medicine
DX: D64.9 Anemia, unspecified (principal); K92.2 Gastrointestinal hemorrhage, unspecified; I12.9 Hypertensive chronic kidney disease with stage 1 through stage 4 chronic kidney disease, or unspecified chronic kidney disease; E78.5 Hyperlipidemia, unspecified; E11.22 Type 2 diabetes mellitus with diabetic chronic kidney disease; N18.9 Chronic kidney disease, unspecified
CPT/HCPCS: 99285; 36430; 80053; 85025; 86850; 86900; 86901; 86920; P9016

== ENCOUNTER 2024-06-17 17:21 | Inpatient (IN) | payer MEDICARE, OTHER, SELFPAY ==
[2024-06-17] VITALS (8 sets, daily range): BP systolic 121–151; BP diastolic 41–76; BMI 35.3; BMI 34.4
[2024-06-17 13:51] LABS: % Eosinophils 5.4 % (0-6); % Immature Granulocytes 0.3 % (0-0.5); % Lymphocytes 16.4 % (20.5-51.1); % Monocytes 5.2 % (1.7-9.3); % Neutrophils 71.7 % (42.2-75.2); Absolute Basophils 0.1 10^3/uL (0-0.2); Absolute Eosinophils 0.3 10^3/uL (0-0.7); Absolute Monocytes 0.3 10^3/uL (0.1-0.6); Absolute Neutrophils 4.4 10^3/uL (1.4-6.5); Hematocrit 21.6 % (37.0-47.0); Hemoglobin 6.9 g/dL (12.0-16.0); Mean Corp Hgb Conc. 31.9 g/dL (33.0-37.0); Mean Corpuscular Hgb 30.4 pg (27.0-31.0); Mean Corpuscular Volume 95.2 fL (81.0-99.0); Nucleated Red Blood Cells % 0 %; Red Blood Cell Count 2.27 10^6/uL (4.20-5.40); Red Cell Dist. Width 16.7 % (11.5-14.5); White Blood Cell Count 6.1 10^3/uL (4.8-10.8)
--- NOTE | 2024-06-17 13:55 | ED.GENMED ---
History of Present Illness
General
Chief Complaint: Abnormal Lab Value
Source: patient and family
Exam Limitations: none
Time Seen by Provider: 06/17/24 13:58
History of Present Illness
History of Present Illness:
Patient is a 78-year-old female with past medical history of hypertension, hyperlipidemia, diabetes, chronic kidney disease, CAD, GERD, hypothyroidism, who presents to the emergency department from her nursing facility evaluated by her sister for
evaluation of anemia. Patient had blood work performed yesterday which demonstrated a hemoglobin of 6.1 and the patient was referred to the emergency department for further treatment. Patient reports that she has a history of anemia for which she
has received 54 blood transfusion over the past 18 months. She reports that they cannot find the reason that she is anemic. She reports that she knows that she does have some degree of iron deficiency anemia and does take iron supplements and this
post also received IV infusions. Patient has also been told that she may have some gastrointestinal bleeding but no etiology has been found. Records indicate that the patient may have AV malformations. Patient denies that she was told anything
about this. Patient reports that she has had brown stool, she denies any blood in the stool. Patient denies any recent constipation, denies any straining to have a bowel movement. Patient reports that she has had colonoscopy as well as pill
endoscopy in the past without etiology of the bleeding found. Patient reports that she has been feeling a little bit more tired than usual however she denies headaches, chest pain, shortness of breath, abdominal pain, nausea, vomiting. Patient
denies any bleeding from anywhere else, denies any vaginal bleeding or hematuria.
Past History
Past History
ED Past Medical History: CAD, GERD, HTN, Hypercholesterolemia, NIDDM, Renal failure, Hypothyroidism and Other (Dysfunctional uterine bleeding, chronic kidney disease pending dialysis, Renal calculus, Iron def anemia, hemorrhagic disorder due to
extrinsic Circulatory anticoagulation. PNA, Back pain, )
ED Past Surgical History: Appendectomy, Gynecological (D&C), Orthopedic (Left carpal tunnel ), Tonsilectomy, Urological (Kidney stent) and Other (L AV fistula)
Social History
Tobacco: Non-smoker
Alcohol: Occasional
Drug: None
Personal: Single
Living: long term
Family History
Family History: Diabetes, Hypertension and Early CAD; Negative Asthma or Cancer
Review of Systems
Review of Systems
Allergies reviewed?: Yes
All Other Systems: ROS reviewed and negative except as documented in HPI and ROS
Constitutional: Reports fatigue; Denies fever
EENT: Denies sore throat
Respiratory: Denies hemoptysis or trouble breathing
Cardiac: Denies chest pain, palpitations or syncope
ABD/GI: Denies abdominal pain, vomiting, diarrhea or black stools
: Denies bleeding
Musculoskeletal: Reports edema
Skin: Denies rash
Neurological: Denies dizzy, headache or weakness
Hematologic/Lymphatic: Denies bleeding
Phy Exam
General Physical Exam
General Presentation: well appearing and no apparent distress
General Skin: warm and dry
General Habitus: normal
General Mental: alert
General Hydration: appears well hydrated
ENT Exam
ENT Exam: EOMI, pharynx normal, neck supple and normocephalic
Eye Exam
Eye Exam: PERRL, cornea clear and other (Pale conjunctiva)
Cardiovascular Exam
Cardiovascular Exam: regular rate/rhythm, no edema, no murmur and normal peripheral pulses
Pulmonary Exam
Pulmonary Exam: lungs clear, no respiratory distress, no rales, no crackles, no rhonchi, no stridor, no wheezing and no cough
Gastrointestinal Exam
Gastrointestinal Exam: normal bowel sounds, non tender, soft, no organomegaly, no pulsatile mass and non distended
Stool: brown and other (Very heme positive)
Neurological Exam
Neurological Exam: alert, oriented x3, no motor deficits and speech normal
Musculoskeletal Exam
Musculoskeletal Exam: full ROM and no edema
Skin Exam
Skin Exam: normal color, warm/dry, no rash and no petechia
Psychiatric Exam
Psychiatric Exam: normal mood/affect
Course
Orders/Labs/Results
Orders:
Orders
06/17/24 13:21
Type+Screen Urgent
Basic Metabolic Panel Urgent
CBC/With Diff [Complete Blood Count/With Diff] Urgent
06/17/24 14:26
Blood Bank Products [* Blood Bank Products] Urgent
Blood Bank Products: *Packed RBC Leuko(PRBC's)
Quantity: 1
Transfuse Today: Yes
Reason: Anemia
06/17/24 16:15
Admit/Transfer Patient As Directed
Co-Sign Provider:
Level of Care: Inpatient admission
Assign to:: Telemetry
Physician / Group: Braxton
Diagnosis: Symptomatic anemia
Reason for Telemetry: Arrhythmia
Date to Stop Telemetry: 06/20/24
Time to Stop Telemetry: 11:00
Reason for Hospitalization: Transfusion, GI consult
Expected length of stay greater than two midnights?: Yes
ELOS- Estimated Length of Stay in days: 2
I certify the patient meets the requirements for IP care: Yes
06/17/24 16:16
PRN Pain Medication Management As Directed
May give lesser potent ordered pain med per pt: Yes
preference::
Protocol:: Medication orders for pain may be administered in a
manner that supports deferring to patient preference
when the pt is:
- Requesting an ordered lesser potent pain medication.
Least to most potent pain medications are defined
as: acetaminophen < NSAID < tramadol < opioids
(morphine, oxycodone, hydromorphone).
- Requesting a lesser dose of the same medication IF
ORDERED.
- Requesting a less intrusive route of administration
if both routes are prescribed by the provider (PO <
IV).
06/17/24 16:19
Code Status As Directed
Resuscitation Status: Full Code
06/20/24 11:00
DC Protocol for Telemetry ONCE
Abnormal Lab Results
06/17/24
13:21
RBC 2.27 L 10^6/uL
(4.20-5.40)
Hgb 6.9 L* g/dL
(12.0-16.0)
Hct 21.6 L %
(37.0-47.0)
MCHC 31.9 L g/dL
(33.0-37.0)
RDW 16.7 H %
(11.5-14.5)
Absolute Lymphs (auto) 1.0 L 10^3/uL
(1.2-3.4)
Lymphocytes % 16.4 L %
(20.5-51.1)
Carbon Dioxide 17 L mmol/L
(22-30)
BUN 84 H mg/dl
(7-17)
Creatinine 3.9 H mg/dL
(0.6-1.0)
Glucose 143 H mg/dl
(70-99)
Crossmatch IS Only See Detail
06/17/24 13:21
06/17/24 13:21
Vital Signs
Initial and Last Documented VS:
Initial Vital Signs
Temp Pulse Resp BP Pulse Ox
98.6 F 71 14 122/76 99
06/17/24 13:16 06/17/24 13:16 06/17/24 13:16 06/17/24 13:16 06/17/24 13:16
Last Documented Vital Signs
Temp Pulse Resp BP Pulse Ox
98.6 F 70 14 124/67 98
06/17/24 16:09 06/17/24 16:09 06/17/24 16:09 06/17/24 16:09 06/17/24 16:09
*Critical Care Note
Total Time (30-74mins, 75-104mins- exclusive of procedures): Not Applicable
Update Note
Update Note:
78-year-old female with history of anemia requiring multiple transfusions over the past year and a half presents to the emergency department for anemia performed on outpatient labs yesterday. Patient endorses fatigue but denies any other
complaints. On arrival, patient's vital signs are stable, she is afebrile. On exam, patient is well-appearing, she is no acute distress, she has a benign abdomen, she does have brown heme positive stool. Labs were performed and the patient was in
the waiting room and demonstrated hemoglobin of 6.9. Will give the patient 1 unit of packed red blood cells. I discussed risks and benefits of blood transfusion with the patient and her sister, patient consents to blood transfusion today. In
addition, I discussed the case with Dr. Hart of gastroenterology and she recommends admission for repeat endoscopy tomorrow given how any blood transfusions the patient has required. I discussed this recommendation with the patient and her sister
who expressed understanding and agreed.
ED Attending Note
-
Portions of this chart may have been created with voice recognition software.� Occasional wrong word or��sound alike� substitutions may have occurred due to the inherent limitations of voice recognition software.
Discharge Plan
Departure
Patient Disposition: Admit
Date of Disposition: 06/17/24
Time of Disposition: 15:36
Presentation/result/management discussed w/ accepting MD/DO: Hospitalist
Discharge Problem:
Anemia, GI bleed
Prescriptions:
No Action
allopurinol 100 mg Tablet
100 mg PO DAILY
atorvastatin [Lipitor] 40 mg Tablet
40 mg PO DAILY
carvedilol [Coreg] 25 mg Tablet
25 mg PO BID
folic acid 1 mg Tablet
1 mg PO DAILY
acetaminophen [Tylenol] 325 mg Tablet
650 mg PO Q4HPRN PRN (Reason: mild pain/temp 100F or above)
levothyroxine 25 mcg Tablet
25 mcg PO DAILY
insulin aspart U-100 [Novolog FlexPen U-100 Insulin] 100 unit/mL (3 mL) insulin pen
0 - 12 sliding scale dose SC ACHS
Rx Instructions:
BS 70-150 = 0 units; 151-200 = 2 units; 201-250 = 4 units; 251-300 = 6 units; 301-350 = 8 units; 351-400 = 10 units; 401-450 = 12 units. If BS>451 call PCP.
aspirin 81 mg Tablet,Delayed Release (Dr/Ec)
81 mg PO DAILY
hydralazine 25 mg Tablet
25 mg PO TID
polyethylene glycol 3350 [Miralax] 17 gram Powder In Packet
17 g PO DAILYPRN PRN (Reason: constipation)
sennosides-docusate sodium 8.6-50 mg Tablet
1 tab-cap PO [id number] PRN (Reason: constipation)
loperamide 2 mg Tablet
2 mg PO Q6HPRN PRN (Reason: diarrhea)
miconazole nitrate 2 % Powder
1 applic TOPICAL BID
cyanocobalamin (vitamin B-12) 1,000 mcg Tablet
1,000 mcg PO DAILY
torsemide 10 mg Tablet
20 mg PO BID
Procrit 20,000 unit/mL Solution
20,000 unit SC TU PRN (Reason: for hgb<10)
sodium bicarbonate 650 mg Tablet
1,300 mg PO TID
bisacodyl 10 mg Suppository
10 mg [place] DAILYPRN PRN (Reason: constipation)
pantoprazole 40 mg Tablet,Delayed Release (Dr/Ec)
40 mg PO DAILY
ferrous sulfate 325 mg (65 mg iron) Tablet
325 mg PO DAILY
ammonium lactate 12 % Cream
1 applic TOPICAL QPM
ammonium lactate 12 % Cream
1 applic TOPICAL [id number] PRN (Reason: B/L legs)
gabapentin 100 mg Capsule
100 mg PO TID
Referrals:
Jhonathan Gabriel MD [Family Provider] -
Interventions
Interventions:
*Risk Screen - Suicide Last Done: 06/17/24 13:16
*General Assessment Last Done: 06/17/24 13:16
*Neglect/Abuse Screening Last Done: 06/17/24 13:16
ED- Fall Risk Assessment Last Done: 06/17/24 14:08
Discharge Date and Time
Print Language: GERMAN
[2024-06-17 14:29] LABS: Blood Urea Nitrogen 84 mg/dl (7-17); Estimated Creatinine Clearance 15 ml/min; Glucose 143 mg/dl (70-99); eGFR 11.26
[2024-06-17 14:30] LABS: Calcium 9.9 mg/dl (8.4-10.2); Carbon Dioxide 17 mmol/L (22-30); Chloride 107 mmol/L (98-107); Sodium 138 mmol/L (135-145)
--- NOTE | 2024-06-17 15:18 | CON.GI ---
Addendum entered and electronically signed by Debbie Hart DO 06/17/24 16:52:
Patient seen and examined independently of DAPHNE. I agree with her note with my additions below.
There is a 78-year-old female with history of CKD 5 not on active dialysis followed by Dr. Kim, CVA not on anticoagulation, only on 81 mg aspirin, hypertension, iron deficiency anemia of the chronic transfusion requirement with prior GI workup
finding angioectasias with most recent EGD in November and colonoscopy in December requiring APC and EMR with outpatient capsule endoscopy showing severe gastritis and a polypoid lesion in the duodenum that was not found on EGD.
She has no significant GI symptoms, no weight loss. Lives in a senior living. Receiving oral iron and her stools are dark paul because of it. She is on pantoprazole once daily.
# Transfusion dependent iron deficiency anemia In the setting of end-stage renal disease
-- BUN 84, creatinine 3.9
-- check PT/INR - Report from patient states that Dr. Ríos has been following her for significant transfusions and mentioned her INR was elevated. We will check it here. I reviewed her outpatient notes but I do not have anything recent from him.
They are just not scanned in yet
-- I do have concern that if her BUN is not elevated she could potentially have uremic platelet dysfunction which can contribute to chronic GI loss. Consider DDAVP. Dr. Limon is discussing this with renal
-- ferritin from 06/16 is 12
-- Will proceed to EGD tomorrow And give IV iron
Original Note:
Consultation
-
Date/Time Consultation Requested: 06/17/24 1500
Date/Time Consultation Performed: 06/17/24 1520
Requesting Provider: Lani Paulino PA-C
Performing Provider: DAPHNE Card
Reason for Consultation: anemia
Medical History
Chief Complaint / HPI
Chief Complaint: abnormal labs
History of Present Illness:
Pt is a 78 yo female with a PMH significant for CKD stage V on Procrit with placement of LUE AV fistula , CVA, HTN, GERD, HLD, IDDM, LITTLE on chronic iron supplement, duodenal and colonic angiectasias, dysfunctional uterine bleeding with prior D+C,
constipation with prior fecal impaction, hypothyroidism, obesity, hx DVT ( off AC), CAD, chronic LE lymphedema, colon polyp with hx EMR completed 12/2023 for 2 sessile serrated polyps present to ER with recurrent anemia and transfusion dependancy
for last 1-2 year. She has completed multiple GI tests including with EGD noted erythema in stomach with few non bleeding angioectasia, capsule noted severe gastritis and colonoscopy with polyps requiring EMR, and multiple colonic angioectasia with
APC. She has been following with Dr. Ríos from hematology and maintained on Procrit and has been on oral iron. She now presents with hbg 6.9 with hbg range from 5-8 over last year and persistent iron deficiency. In ER noted with brown heme +
stool
Pt currently living at [facility] and per family chronic dark stools with iron use. She did have some diarrhea last week. She denies shortness of breath but limited mobility, dizziness, dysphagia, GERD, nausea, vomiting, constipation, or blood in
stools.
prior procedures:
EGD 10/2022-[facility] Normal esophagus. Erythematous mucosa in the stomach. Biopsied. Mucosal nodule found in the duodenum. Biopsied. Normal second portion of the duodenum. Biopsied. bx neg
EG Bohning Normal esophagus� - Erythematous mucosa in the stomach. Biopsied. - A few non-bleeding angiectasias in the duodenum.
capsule 03/2024- severe gastritis, polypoid lesion in duodenum, unclear etiology but likely inflammatory consider repeat EGD if not previously well visualize
colonoscopy: 01/01/24- Juan Manuel- fair prep, hemorrhoids, stool in sigmoid, multiple colonic angioectasia treated with APC, EMR of 16 mm cecal polyp and 18 mm AC polyp bx both polyps Sessile serrated lesions due 1 year follow up
Colonoscopy:� 11/2022 [facility] Preparation of the colon was poor. Five 3 to 6 mm polyps in the rectum, in the sigmoid colon and in the cecum, removed with a cold snare. Resected and retrieved. One 1 mm polyp in the cecum, removed with a jumbo� cold
forceps. Resected and retrieved. One 20 mm polyp in the cecum. Biopsied. One 18 mm polyp in the ascending colon. Biopsied. One 10 mm polyp in the transverse colon, removed with a hot snare. Complete resection. Partial retrieval. Clips were placed.
Internal hemorrhoids. bx with TA and hyperplastic polyps.
Past Medical History
Past Medical History: CAD, GERD, HTN, Hypercholesterolemia, Hypothyroidism, NIDDM, Renal Failure (CKD to start HD soon stage V) and Other (LITTLE, DVT, obesity, constipation, LE lymphedema, colonic and duodenal angioectasias, colon polyps with recent
EMR fo cecum and AC sessile serrated lesions, vaginal bleeding with [employer] QUAL[employer] evaluation)
Past Surgical History: Appendectomy, Orthopedic (left carpal tunnel surgery), Tonsilectomy and Other (D&C (for vaginal bleeding), LUE AV fistula)
Social History
Tobacco: Non-Smoker
Alcohol: None
Drug: None
Living: Penit[facility]iary
Family History
Family History: Other (no family hx colon CA or polyps)
Allergies / Home Medications
Allergy/AdvReac Type Severity Reaction Status Date / Time
Penicillins Allergy Hives Verified 06/10/24 12:45
�Medication �Instructions �Recorded
allopurinol 100 mg tablet 100 mg PO DAILY Gout 09/07/22
atorvastatin 40 mg tablet (Lipitor) 40 mg PO DAILY High cholesterol 09/07/22
carvedilol 25 mg tablet (Coreg) 25 mg PO BID Heart 09/07/22
disease/condition
folic acid 1 mg tablet 1 mg PO DAILY Supplement 09/07/22
acetaminophen 325 mg tablet 650 mg PO Q4HPRN PRN mild 11/28/22
(Tylenol) pain/temp 100F or above
levothyroxine 25 mcg tablet 25 mcg PO DAILY Thyroid 11/28/22
insulin aspart U-100 100 unit/mL 0 - 12 sliding scale dose SC ACHS 03/26/23
(3 mL) subcutaneous pen (Novolog Diabetes
FlexPen U-100 Insulin aspart)
aspirin 81 mg tablet,delayed 81 mg PO DAILY Blood Clot 12/20/23
release Prevention/Tx
hydralazine 25 mg tablet 25 mg PO TID Blood Pressure 02/13/24
ammonium lactate 12 % topical cream 1 applic topical [id number] PRN B/L 04/03/24
legs
ammonium lactate 12 % topical cream 1 applic topical QPM B/L legs 04/03/24
bisacodyl 10 mg rectal suppository 10 mg MN DAILYPRN PRN constipation 04/03/24
cyanocobalamin (vitamin B-12) 1,000 mcg PO DAILY Supplement 04/03/24
1,000 mcg tablet
epoetin dora 20,000 unit/mL 20,000 unit SC TU PRN for hgb<10 04/03/24
injection solution (Procrit)
ferrous sulfate 325 mg (65 mg 325 mg PO DAILY Supplement 04/03/24
iron) tablet
gabapentin 100 mg capsule 100 mg PO TID PAIN 04/03/24
loperamide 2 mg tablet 2 mg PO Q6HPRN PRN diarrhea 04/03/24
miconazole nitrate 2 % topical 1 applic topical BID abd 04/03/24
powder folds/groin
pantoprazole 40 mg tablet,delayed 40 mg PO DAILY Gastrointestinal 04/03/24
release Issue
polyethylene glycol 3350 17 gram 17 g PO DAILYPRN PRN constipation 04/03/24
oral powder packet (Miralax)
sennosides 8.6 mg-docusate sodium 1 tab-cap PO [id number] PRN 04/03/24
50 mg tablet constipation
sodium bicarbonate 650 mg tablet 1,300 mg PO TID Supplement 04/03/24
torsemide 10 mg tablet 20 mg PO BID 04/03/24
Review of Systems
-
History Source: Patient
Constitutional: Reports Weight Loss (over time but now some LE swelling ? gain )
EENT: Reports No Symptoms
Respiratory: Reports No Symptoms
Cardiac: Reports No Symptoms
Abdomen/GI: Reports Diarrhea (last week)
: Reports No Symptoms and Other (denies further vaginal bleeding )
Skin: Reports No Symptoms
Neurological: Reports Weakness
Endocrine: Reports No Symptoms
Hematologic/Lymphatic: Reports No Symptoms
Vital Signs
Temp Pulse Resp BP Pulse Ox
98.6 F 71 14 122/76 99
06/17/24 13:16 06/17/24 13:16 06/17/24 13:16 06/17/24 13:16 06/17/24 13:16
Physical Exam
Exam
General: Well Developed, Well Nourished and No Apparent Distress
HEENT: Normocephalic and Anicteric
Respiratory: Clear
Cardiac: Regular Rhythm and Peripheral Edema
GI: Soft, Non Tender and Non Distended
Rectal: Other (brown heme + in ER)
Musculoskeletal: No Clubbing and No Cyanosis
Skin: Warm and Dry
Neuro: Awake, Alert and AO x 3
Psych: Calm
Results
WBC 6.1 10^3/uL (4.8-10.8) 06/17/24 13:21
Hgb 6.9 g/dL (12.0-16.0) L* 06/17/24 13:21
Hct 21.6 % (37.0-47.0) L 06/17/24 13:21
MCV 95.2 fL (81.0-99.0) 06/17/24 13:21
Plt Count 10^3/uL (130-400) 06/17/24 13:21
Absolute Neuts (auto) 4.4 10^3/uL (1.4-6.5) 06/17/24 13:21
Sodium 138 mmol/L (135-145) 06/17/24 13:21
Potassium mmol/L (3.5-5.1) 06/17/24 13:21
Chloride 107 mmol/L (98-107) 06/17/24 13:21
Carbon Dioxide 17 mmol/L (22-30) L 06/17/24 13:21
BUN 84 mg/dl (7-17) H 06/17/24 13:21
Creatinine 3.9 mg/dL (0.6-1.0) H 06/17/24 13:21
Calcium 9.9 mg/dl (8.4-10.2) 06/17/24 13:21
Total Bilirubin Cancelled 06/17/24 13:21
AST Cancelled 06/17/24 13:21
ALT Cancelled 06/17/24 13:21
Alkaline Phosphatase Cancelled 06/17/24 13:21
Diagnostic Image Results:
08/2023 US Abdomen Complete/Upper
1.� Cholelithiasis without convincing sonographic evidence for acute cholecystitis.
2. Slightly increased echogenicity in the liver, compatible with underlying hepatocellular disease, which most commonly relates to mild fatty infiltration of the liver.
3. Mild splenomegaly.
4. Upper abdominal ascites. Bilateral pleural effusions.
Prior GI Procedures:
EGD: 11/06/23 - Normal esophagus� - Erythematous mucosa in the stomach. Biopsied.
�� � � � � � � � � � � - A few non-bleeding angiectasias in the duodenum.
EGD:�10/03/22- Protano- Normal esophagus. Erythematous mucosa in the stomach. Biopsied. Mucosal nodule found in the duodenum. Biopsied. Normal second portion of the duodenum. Biopsied. bx neg
capsule endoscopy 03/2024- severe gastritis, polypoid lesion in duodenum, unclear etiology but likely inflammatory consider repeat EGD if not previously well visualized
Colonoscopy:� � �10/04/22- Protano� � - Preparation of the colon was poor. Five 3 to 6 mm polyps in the rectum, in the sigmoid colon and in the cecum, removed with a cold snare. Resected and retrieved. One 1 mm polyp in the cecum, removed with a
jumbo� cold forceps. Resected and retrieved. One 20 mm polyp in the cecum. Biopsied. One 18 mm polyp in the ascending colon. Biopsied. One 10 mm polyp in the transverse colon, removed with a hot snare. Complete resection. Partial retrieval. Clips
were placed. Internal hemorrhoids. bx with TA and hyperplastic polyps.
colonoscopy 12/2023- Nishant Zambrano MD - Preparation of the colon was fair.
- Hemorrhoids found on perianal exam.
- The examined portion of the ileum was normal.
- Stool in the sigmoid colon, in the descending colon
and in the ascending colon.
- One 16 mm polyp in the cecum, removed with mucosal
resection. Resected and retrieved.
- One 18 mm polyp in the ascending colon, removed with
mucosal resection. Resected and retrieved.
- Multiple colonic angioectasias. Treated with argon
plasma coagulation (APC).
- Internal hemorrhoids.
Assessment / Plan
-
Pt is a 78 yo female with a PMH significant for CKD stage V on Procrit with placement of LUE AV fistula , CVA, HTN, GERD, HLD, IDDM, LITTLE on chronic iron supplement, duodenal and colonic angiectasias, dysfunctional uterine bleeding with prior D+C,
constipation with prior fecal impaction, hypothyroidism, obesity, hx DVT ( off AC), CAD, chronic LE lymphedema, colon polyp with hx EMR completed 12/2023 for 2 sessile serrated polyps present to ER with recurrent anemia and transfusion dependancy
for last 1-2 year. She has completed multiple GI tests including with EGD noted erythema in stomach with few non bleeding angioectasia, capsule noted severe gastritis and colonoscopy with polyps requiring EMR, and multiple colonic angioectasia with
APC. She has been following with Dr. Ríos from hematology and maintained on Procrit and has been on oral iron. She now presents with hbg 6.9 with hbg range from 5-8 over last year and persistent iron deficiency. In ER noted with brown heme +
stool.
prior procedures:
EGD 10/2022-[facility]ano Normal esophagus. Erythematous mucosa in the stomach. Biopsied. Mucosal nodule found in the duodenum. Biopsied. Normal second portion of the duodenum. Biopsied. bx neg
EG/2023 [facility] Normal esophagus� - Erythematous mucosa in the stomach. Biopsied. - A few non-bleeding angiectasias in the duodenum.
capsule 03/2024- severe gastritis, polypoid lesion in duodenum, unclear etiology but likely inflammatory consider repeat EGD if not previously well visualize
colonoscopy: 01/01/24- Juan Manuel- fair prep, hemorrhoids, stool in sigmoid, multiple colonic angioectasia treated with APC, EMR of 16 mm cecal polyp and 18 mm AC polyp bx both polyps Sessile serrated lesions
Colonoscopy:� 11/2022 [facility] Preparation of the colon was poor. Five 3 to 6 mm polyps in the rectum, in the sigmoid colon and in the cecum, removed with a cold snare. Resected and retrieved. One 1 mm polyp in the cecum, removed with a jumbo� cold
forceps. Resected and retrieved. One 20 mm polyp in the cecum. Biopsied. One 18 mm polyp in the ascending colon. Biopsied. One 10 mm polyp in the transverse colon, removed with a hot snare. Complete resection. Partial retrieval. Clips were placed.
Internal hemorrhoids. bx with TA and hyperplastic polyps.
-recurrent anemia with heme + stool in ER
-large colonic polyps with recent EMR 12/31
-Colonoscopy 12/2023 with multiple colonic angiectasias
-EGD 2023 with few non bleeding duodenal angioectasia
-capsule 2023 with severe gastritis
-CKD stage V due for eventual start of dialysis
- hx stercoral colitis.hx chronic constipation
-vaginal bleeding with OP [employer] follow
-borderline b12 2022
Other pertinent medical hx:
-cholelithiasis
-DVT
-CVA
-CAD
-IDDM
-HTN
-HLD
Recommendations:
etiology of anemia and heme + stools likely multifactorial related ectasias anywhere in GI tract as noted on past , chronic anemia with CKD, prior vaginal bleeding ( currently denies any recurrent symptoms) vs other
pt has been transfusion dependent last 1-2 year
pt currently following with OP hematology
agree with transfusion
trend hbg
will review with Dr. Hart repeat EGD Pt is otherwise due 12/2024 for repeat colon with EMR resection can consider repeat sooner with colonic ectasia if continued bleeding
cont PPI
cont OP procrit
cont B12 supplement
cont IV iron as may have been due OP for dose
ok for ADA diet
monitor stools during admission with hx constipation on PRN regiment and prior diarrhea in past week
-
-
Thank you for consultation and allowing me to participate in the patient's care. Please call the transformation analyst GI physician during the after hours with any questions or concerns.
--- NOTE | 2024-06-17 16:22 | HPS.HSE ---
Family Physician
-
Family Physician: Jhonathan Gabriel
Chief Complaint
-
Weakness, anemia
History of Present Illness
78-year-old female with multiple medical problems including chronic anemia, referred to the emergency room by her group home for evaluation of ongoing anemia and generalized weakness.
She was last transfused on June 10. Did not feel much better after transfusion and in fact states that she felt more weak and fatigued.
Denies any melena or hematochezia.
Has had prior GI bleed workup, including capsule endoscopy. Findings included colonic polyps, hemorrhoids, angiectasia's.
Medical History
Past Medical History
Past Medical History: Reports Other
Additional Past Medical History:
Chronic anemia
CKD 5
DM2
Essential hypertension
Hyperlipidemia
Hypothyroidism
CAD
GERD
Past Surgical History: Reports Appendectomy, Gynocological, Orthopedic, Tonsilectomy and Other
Additional Past Surgical History:
Left upper extremity AV fistula
Social History
Tobacco: Non-smoker
Alcohol: Occasional
Drug: None
Personal: Single
Living: Care Home
Family History
Family History: Not pertinent
Allergies / Home Medications
Allergies reflects when Allergies were last updated in [employer].
Home Medications with original date entered in [employer]
Allergy/Medication List:
Allergies
Allergy/AdvReac Type Severity Reaction Status Date / Time
Penicillins Allergy Hives Verified 06/10/24 12:45
Home Medications
allopurinol 100 mg tablet 100 mg PO DAILY Gout 09/07/22
atorvastatin 40 mg tablet (Lipitor) 40 mg PO DAILY High cholesterol 09/07/22
carvedilol 25 mg tablet (Coreg) 25 mg PO BID Heart disease/condition 09/07/22
folic acid 1 mg tablet 1 mg PO DAILY Supplement 09/07/22
acetaminophen 325 mg tablet (Tylenol) 650 mg PO Q4HPRN PRN mild pain/temp 100F or above 11/28/22
levothyroxine 25 mcg tablet 25 mcg PO DAILY Thyroid 11/28/22
insulin aspart U-100 100 unit/mL (3 mL) subcutaneous pen (Novolog FlexPen U-100 Insulin aspart) 0 - 12 sliding scale dose SC ACHS Diabetes 03/26/23
aspirin 81 mg tablet,delayed release 81 mg PO DAILY Blood Clot Prevention/Tx 12/20/23
hydralazine 25 mg tablet 25 mg PO TID Blood Pressure 02/13/24
ammonium lactate 12 % topical cream 1 applic topical [id number] PRN B/L legs 04/03/24
ammonium lactate 12 % topical cream 1 applic topical QPM B/L legs 04/03/24
bisacodyl 10 mg rectal suppository 10 mg AK DAILYPRN PRN constipation 04/03/24
cyanocobalamin (vitamin B-12) 1,000 mcg tablet 1,000 mcg PO DAILY Supplement 04/03/24
epoetin doar 20,000 unit/mL injection solution (Procrit) 20,000 unit SC TU PRN for hgb<10 04/03/24
ferrous sulfate 325 mg (65 mg iron) tablet 325 mg PO DAILY Supplement 04/03/24
gabapentin 100 mg capsule 100 mg PO TID PAIN 04/03/24
loperamide 2 mg tablet 2 mg PO Q6HPRN PRN diarrhea 04/03/24
miconazole nitrate 2 % topical powder 1 applic topical BID abd folds/groin 04/03/24
pantoprazole 40 mg tablet,delayed release 40 mg PO DAILY Gastrointestinal Issue 04/03/24
polyethylene glycol 3350 17 gram oral powder packet (Miralax) 17 g PO DAILYPRN PRN constipation 04/03/24
sennosides 8.6 mg-docusate sodium 50 mg tablet 1 tab-cap PO [id number] PRN constipation 04/03/24
sodium bicarbonate 650 mg tablet 1,300 mg PO TID Supplement 04/03/24
torsemide 10 mg tablet 20 mg PO BID 04/03/24
Review of Systems
-
History Source: Patient and Family
A 12 point ROS was completed and negative except as noted: Yes
Physical Exam
Vital Signs
Vital Signs
Temp Pulse Resp BP Pulse Ox
98.6 F 70 14 124/67 98
06/17/24 16:06/17/24 16:06/17/24 16:06/17/24 16:06/17/24 16:09
Physical Exam
General: Well Developed, Well Nourished, No Apparent Distress and Comfortable
HEENT: NormoCephalic, Anicteric and Moist mucous membranes
Respiratory: Clear
Cardiac: S1/S2 and Regular Rhythm
Breast: Deferred by me
GI: Soft, Non Tender and Non Distended
Genito-urinary: Deferred by me
Musculoskeletal: No Clubbing, No Cyanosis and Other (Bilateral lower extremity lymphedema)
Skin: Warm, Dry and Other (Skin thickening due to chronic edema, left lateral plantar ulcer without active drainage)
Neuro: AO x 3
Hematologic/Lymphatic: No Lymphadenopathy
Psych: Calm
Laboratory Results
-
06/17/24 13:21
06/17/24 13:21
Laboratory Results
Total Bilirubin Cancelled 06/17/24 13:21
AST Cancelled 06/17/24 13:21
ALT Cancelled 06/17/24 13:21
Alkaline Phosphatase Cancelled 06/17/24 13:21
Impression/Plan
-
Symptomatic anemia -normocytic. Hemoglobin 6.9 today. Hemoglobin was 6.5 seven days ago at which point she was transfused 1 unit of blood. She is followed by hematology as well as the GI service.
Admit to telemetry. Consult gastroenterology. Last EGD was November 2023, last colonoscopy was December 2023. She also had capsule endoscopy this year.
Known history of chronic iron deficiency anemia. Does have known pathology that can contribute to chronic GI blood loss including polyps, hemorrhoids, angiectasia's.
Perhaps she has a component of uremic platelet dysfunction given her advanced chronic kidney disease. Will discuss with her quality technician, Dr. Kim.
CKD 5 -with stable chronic metabolic acidosis. Bicarbonate 17. Anion gap 14. Continue sodium bicarbonate. Has yet to start dialysis. Has a left upper extremity AV fistula. Recent duplex ultrasound June 05 showed hemodynamically significant
stenosis of the fistula. She is followed by vascular surgery and nephrology, Dr. Kim.
DM2 without hyperglycemia -treated with NovoLog sliding scale in the group home.
Essential hypertension -stable.
Hyperlipidemia -on atorvastatin.
CAD -stable, continue medical therapy.
Hypothyroidism -continue levothyroxine.
GERD -continue Protonix.
Chronic bilateral lower extremity lymphedema
Chronic ambulatory dysfunction -uses a walker at baseline, minimal ambulation due to significant deconditioning and weakness, lymphedema in her legs. Consult PT/OT.
Left plantar ulcer - debrided by cracker and cookie machine operator this morning prior to admission. Does not appear infected.
Obesity due to excess calories
Full code
Updated sister at the bedside.
[2024-06-17 17:19] LABS: INR 1.19; PT 14.9 Sec (11.4-14.6)
--- NOTE | 2024-06-17 19:38 | PTCARENOTE ---
Received patient from ED at 1800. Pt oriented to room. Pt arrived from ED with first unit of blood hanging. Pt offered no complaints. Made patient comfortable. Cont to assess patient status.
[2024-06-17] MEDS: DESENEX/MITRAZOL/ZEASORB 1 APPLIC TOPICAL (20:08)
[2024-06-17] MEDS: DEMADEX 20 MG PO (20:23)
[2024-06-17] MEDS: COREG 25 MG PO (20:24)
[2024-06-17] MEDS: APRESOLINE 25 MG PO (22:15)
[2024-06-17] MEDS: SODIUM BICARBONATE 1300 MG PO (22:15)
[2024-06-17] MEDS: NEURONTIN 100 MG PO (22:16)
[2024-06-18] VITALS (11 sets, daily range): BP systolic 13–143; BP diastolic 35–98; BMI 34.4
--- NOTE | 2024-06-18 05:00 | DOWNTIME ---
There was a [employer] Client Access Analyst Downtime on 06/18/2024 from 0100 to 06/18/2024 at 0300. Downtime documentation of patient's care, including medication administrations, has been reconciled in the electronic record per guidelines. Refer to the
patient's paper chart under the miscellaneous tab to see printed paper medication records and downtime forms.
[2024-06-18] MEDS: SYNTHROID 25 MCG PO (05:34)
[2024-06-18 07:42] LABS: % Eosinophils 5.1 % (0-6); % Immature Granulocytes 0.4 % (0-0.5); % Lymphocytes 17.3 % (20.5-51.1); % Monocytes 5.9 % (1.7-9.3); % Neutrophils 70.3 % (42.2-75.2); Absolute Basophils 0.1 10^3/uL (0-0.2); Absolute Eosinophils 0.3 10^3/uL (0-0.7); Absolute Lymphocytes 0.9 10^3/uL (1.2-3.4); Absolute Monocytes 0.3 10^3/uL (0.1-0.6); Absolute Neutrophils 3.4 10^3/uL (1.4-6.5); Hematocrit 26.7 % (37.0-47.0); Hemoglobin 8.6 g/dL (12.0-16.0); Mean Corp Hgb Conc. 32.2 g/dL (33.0-37.0); Mean Corpuscular Hgb 29.9 pg (27.0-31.0); Mean Corpuscular Volume 92.7 fL (81.0-99.0); Mean Platelet Volume 9.2 fL (7.4-10.4); Nucleated Red Blood Cells % 0 %; Platelet Count 179 10^3/uL (130-400); Red Blood Cell Count 2.88 10^6/uL (4.20-5.40); Red Cell Dist. Width 17.2 % (11.5-14.5); White Blood Cell Count 4.9 10^3/uL (4.8-10.8)
[2024-06-18] MEDS: COREG 25 MG PO (08:36)
[2024-06-18] MEDS: ZYLOPRIM 100 MG PO (08:39)
[2024-06-18] MEDS: PROTONIX 40 MG PO (08:39)
[2024-06-18] MEDS: DESENEX/MITRAZOL/ZEASORB 1 APPLIC TOPICAL (08:43)
[2024-06-18] MEDS: FOLVITE 1 MG PO (08:45)
[2024-06-18] MEDS: VITAMIN B-12 1000 MCG PO (08:45)
[2024-06-18] MEDS: ASPIR LOW (ENTERIC COATED) 81 MG PO (08:45)
[2024-06-18] MEDS: APRESOLINE 25 MG PO ×2 (08:45→16:05)
[2024-06-18] MEDS: NEURONTIN 100 MG PO ×2 (08:45→16:05)
[2024-06-18] MEDS: FEOSOL 325 MG PO (08:45)
[2024-06-18] MEDS: SODIUM BICARBONATE 1300 MG PO ×2 (08:46→16:05)
[2024-06-18] MEDS: LIPITOR 40 MG PO (08:46)
[2024-06-18] MEDS: DEMADEX 20 MG PO ×2 (08:53→16:08)
--- NOTE | 2024-06-18 08:59 | W.PN.HOSP.TC ---
Addendum entered and electronically signed by Sean Limon DO 06/18/24 12:32:
EGD completed showing thickening gastric folds, significant gastritis and duodenitis. Friable mucosa. Biopsies performed.
I spoke with GI service, recommend 1 dose of IV iron today and discharge on Protonix and Carafate. Every other day iron, vitamin C. Outpatient follow-up.
Informed patient of findings and plan of care. She is agreeable to discharge. Case management aware. CBC next week with primary care doctor.
Original Note:
Today's Communication/Plan
-
EGD today
IV iron
Assessment / Plan
Assessment / Plan
Gen-AAOx3, NAD obese
HEENT-NC, AT, anicteric, clear oral mm
Neck-supple
CV-reg, no M, +S1/S2
Lungs-clear B/L
Abd-soft, NT, ND
Ext-bilateral lower extremity lymphedema
Musculoskeletal-no cyanosis, clubbing
Skin-warm and dry
Neuro-grossly non-focal
Psych-calm, cooperative
Symptomatic anemia -normocytic. Hemoglobin improved to 8.6 this morning, was transfused 2 units of blood last night. Suspect chronic GI blood loss anemia, iron deficiency. Await EGD today. GI consulted.
Last EGD was November 2023, last colonoscopy was December 2023. She also had capsule endoscopy this year.
Known history of chronic iron deficiency anemia. Does have known pathology that can contribute to chronic GI blood loss including polyps, hemorrhoids, angiectasia's.
Perhaps she has a component of uremic platelet dysfunction given her advanced chronic kidney disease. Dr. Kim does not feel that hemodialysis will prevent GI bleeding. Unclear role of DDAVP, will discuss with nephrology.
CKD 5 -with stable chronic metabolic acidosis. Bicarbonate 17. Anion gap 14. Continue sodium bicarbonate. Has yet to start dialysis. Has a left upper extremity AV fistula. Recent duplex ultrasound June 05 showed hemodynamically significant
stenosis of the fistula. She is followed by vascular surgery and nephrology, Dr. Kim.
DM2 without hyperglycemia -treated with NovoLog sliding scale in the halfway.
Essential hypertension -stable.
Hyperlipidemia -on atorvastatin.
CAD -stable, continue medical therapy.
Hypothyroidism -continue levothyroxine.
GERD -continue Protonix.
Chronic bilateral lower extremity lymphedema
Chronic ambulatory dysfunction -uses a walker at baseline, minimal ambulation due to significant deconditioning and weakness, lymphedema in her legs. Consult PT/OT.
Left plantar ulcer - debrided by sr. consultant this morning prior to admission. Does not appear infected.
Obesity due to excess calories
Full code
Anticipated Discharge: Within 24 hours
Subjective/Interval History
-
Date of Service: June 18, 2024
Patient seen and examined. No complaints.
Objective Data
-
Labs:
Laboratory Results
06/17/24 06/18/24
13:21 06:56
WBC 4.9
Hgb 8.6 L D
Hct 26.7 L
Plt Count 179
Sodium 138
Potassium
Chloride 107
Carbon Dioxide 17 L
BUN 84 H
Creatinine 3.9 H
Glucose 143 H
Calcium 9.9
Total Bilirubin Cancelled
AST Cancelled
ALT Cancelled
Alkaline Phosphatase Cancelled
Vital Signs:
Vital Signs
Temp Pulse Resp BP Pulse Ox
97.7 F 63 16 129/45 98
06/18/24 03:31 06/18/24 08:45 06/18/24 03:31 06/18/24 08:45 06/18/24 03:31
I&O
06/17/24 06/18/24 06/19/24
06:59 06:59 06:59
Intake Total 500 / 500
Output Total 700 / 700
Balance -200 / -200
Review of Systems
-
History Source: Patient
All other systems: Reviewed and negative
[2024-06-18 09:59] LABS: Glucose - Point of Care 98 mg/dl (70-99)
--- NOTE | 2024-06-18 11:17 | PTCARENOTE ---
pt back from GI lab s/p EGD. Vss, room air 100%. pt on overlay mattress. call hoang within the reach. plan of care ongoing.
--- NOTE | 2024-06-18 11:19 | WOUNDNOTE ---
BUTTOCKS/GLUTEAL CLEFT
--- NOTE | 2024-06-18 11:21 | WOUNDNOTE ---
WON RN note: Patient admitted with GI bleed and anemia.
See H&P for complete history. From [facility].
PMH:CKD, GERD, DVT on Eliquis, CAD. constipation/impaction,NIDDM, obesity, stroke, incontinence and lymphedema.
Wound Location and type/assessment: Patient known to service, last seen 11/21/22. Since then buttocks/sacrum improved and no longer has ulcer on R heel. Today admitted with MASD on buttocks/gluteal cleft macerated. Student nurse assisted.Nurse
reports patient is incontinent of urine, [place] and skin care given. MASD under L breast with foul odor upon cleaning, fungal powder in use. L lateral foot with small diabetic ulcer, patient states started as a blister. Patient also states she
feels it started from rubbing on bed rail at [place]. Assistant Track Coach at [place] follows patient 2 x per week patient states, does not recall medicine that is used on it. Small shallow mostly pink ulcer, no complaint of pain. Heels are intact and legs with much
less plaques of dried skin from lymphedema. Using Lachydrin lotion at [place] for legs.
Appetite: States good appetite.
Pressure redistribution devices in place: Static air overlay placed and inflated, palm check done for adequate inflation. Pillow placed under calves and protective foams on heels. Air chair cushion when sitting in chair.
Plan: Fungal powder to breast and groin skin folds bid. Recommend to buttocks and gluteal cleft apply dusting of fungal powder followed by skin prep, allow to dry then thin layer of clear barrier cream bid. For L lateral foot will order honey gel,
adaptic and dry dressing daily. offload heels with pillows, can add air cushion on pillow if needed. Ammonia lactate lotion on order already for legs, Vaseline applied today. Nurse Browning assisted with care and updated on the above. Called [facility] for
honey gel and asked nurse to apply under current dressing when able.
Will confirm wound care orders with hospitalist and update care plan. Will follow as needed.
Patient to return to [place] and resume care by Assistant Track Coach there.
[2024-06-18] MEDS: CARAFATE 1 GRAM PO ×2 (11:51→16:05)
[2024-06-18 12:01] LABS: Glucose - Point of Care 96 mg/dl (70-99)
--- NOTE | 2024-06-18 12:36 | W.DS.TRANS ---
DC Summary - Day Habilitation Specialist
-
Discharge Instructions:
Discharge Diagnosis/Procedures Acute on chronic anemia
Diet Diabetic, Carb Controlled
Activity With assistance
Driving Restrictions No driving
Bathing Restrictions None
Blood Work CBC next week
Instructions:
Stand-Alone Forms:
Changes to Home Medications: No
Discharge Medications:
DC Medications w/original date entered in [facility]
allopurinol 100 mg tablet 100 mg PO DAILY Gout 09/07/22
atorvastatin 40 mg tablet (Lipitor) 40 mg PO DAILY High cholesterol 09/07/22
carvedilol 25 mg tablet (Coreg) 25 mg PO BID Heart disease/condition 09/07/22
folic acid 1 mg tablet 1 mg PO DAILY Supplement 09/07/22
levothyroxine 25 mcg tablet 25 mcg PO DAILY Thyroid 11/28/22
insulin aspart U-100 100 unit/mL (3 mL) subcutaneous pen (Novolog FlexPen U-100 Insulin aspart) 0 - 12 sliding scale dose SC ACHS Diabetes 03/26/23
aspirin 81 mg tablet,delayed release 81 mg PO DAILY Blood Clot Prevention/Tx 12/20/23
hydralazine 25 mg tablet 25 mg PO TID Blood Pressure 02/13/24
ammonium lactate 12 % topical cream 1 applic topical [id number] PRN B/L legs 04/03/24
ammonium lactate 12 % topical cream 1 applic topical QPM B/L legs 04/03/24
bisacodyl 10 mg rectal suppository 10 mg LA DAILYPRN PRN constipation 04/03/24
cyanocobalamin (vitamin B-12) 1,000 mcg tablet 1,000 mcg PO DAILY Supplement 04/03/24
epoetin dora 20,000 unit/mL injection solution (Procrit) 20,000 unit SC TU PRN for hgb<10 04/03/24
gabapentin 100 mg capsule 100 mg PO TID PAIN 04/03/24
loperamide 2 mg tablet 2 mg PO Q6HPRN PRN diarrhea 04/03/24
miconazole nitrate 2 % topical powder 1 applic topical BID abd folds/groin 04/03/24
pantoprazole 40 mg tablet,delayed release 40 mg PO DAILY Gastrointestinal Issue 04/03/24
polyethylene glycol 3350 17 gram oral powder packet (Miralax) 17 g PO DAILYPRN PRN constipation 04/03/24
sennosides 8.6 mg-docusate sodium 50 mg tablet 1 tab-cap PO [id number] PRN constipation 04/03/24
sodium bicarbonate 650 mg tablet 1,300 mg PO TID Supplement 04/03/24
torsemide 10 mg tablet 20 mg PO BID 04/03/24
ascorbic acid (vitamin C) 250 mg tablet (Vitamin C) 250 mg PO DAILY #30 tabs 06/18/24
ferrous sulfate 325 mg (65 mg iron) tablet 325 mg PO Q OTHER DAY Supplement #0 tabs 06/18/24
sucralfate 1 gram tablet 1 g PO BID #0 tabs 06/18/24
Home Medication Changes
Pending Results: No
[2024-06-18] MEDS: FERRLECIT 110 MG IV (13:51)
--- NOTE | 2024-06-18 15:03 | CM ---
Addendum entered by Pina Orta 06/18/24 15:26:
SHANIQUE spoke with Alis's daughter in law to make her aware that Alis was returning to [facility] today. [phone]
Addendum entered by Pina Orta 06/18/24 15:24:
Ambulance transport cotton picker operator time is 8pm unless earlier time becomes available.
Original Note:
Alis is discharged today to return to [facility] where she is a [facility] resident. Ambulance transport has been requested for return, as Alis is bed bound at baseline per [facility].
Ambulance transport request given to the Packaging Technician.
Plan: Discharge to [facility] today via ambulance.
[facility] Report: [phone]
[facility]
[2024-06-18 15:57] LABS: Glucose - Point of Care 108 mg/dl (70-99)
[2024-06-18] MEDS: LAC HYDRIN, AM LACTIN LOTION 1 APPLIC TOPICAL (17:49)
== END 2024-06-18 21:02 | DRG 812 ==
LOC: 4 EAST ACU 17:21
PROVIDERS: Emergency Medicine; ADMITTING PHYSICIAN Hospitalist; CONSULT PHYSICIAN Internal Medicine; EMERGENCY PHYSICIAN Emergency Medicine; FAMILY PHYSICIAN Internal Medicine
PROC: 0W3P8ZZ Control Bleeding in Gastrointestinal Tract, Via Natural or Artificial Opening Endoscopic (ICD-10-PCS; 2024-06-18)
PROC: 0DB58ZX Excision of Esophagus, Via Natural or Artificial Opening Endoscopic, Diagnostic (ICD-10-PCS; 2024-06-18)
DX: D50.9 Iron deficiency anemia, unspecified (principal); E87.22 Chronic metabolic acidosis; I12.0 Hypertensive chronic kidney disease with stage 5 chronic kidney disease or end stage renal disease; N18.5 Chronic kidney disease, stage 5; K29.80 Duodenitis without bleeding; E11.22 Type 2 diabetes mellitus with diabetic chronic kidney disease; E78.00 Pure hypercholesterolemia, unspecified; I25.10 Atherosclerotic heart disease of native coronary artery without angina pectoris; E03.9 Hypothyroidism, unspecified; K21.9 Gastro-esophageal reflux disease without esophagitis; E66.09 Other obesity due to excess calories; K44.9 Diaphragmatic hernia without obstruction or gangrene; K31.89 Other diseases of stomach and duodenum
CPT/HCPCS: 88305; 80048; 82728; 82962; 83540; 83550; 85025; 85610; 86850; 86900; 86901; 86920; 87070; 88342; 99285; J2916; P9016

== ENCOUNTER 2024-07-10 10:13 | Emergency (ER) | payer MEDICARE, OTHER, SELFPAY ==
[2024-07-10] VITALS (20 sets, daily range): BP systolic 115–156; BP diastolic 49–64
--- NOTE | 2024-07-10 10:26 | ED.GENMED ---
History of Present Illness
General
Chief Complaint: Abnormal Lab Value
Source: patient
Exam Limitations: none
Time Seen by Provider: 07/10/24 10:13
History of Present Illness
History of Present Illness:
78-year-old female with history of anemia presents from [facility] after outpatient labs demonstrated hemoglobin of below 6. She feels weak and out of breath. She has known history of anemia. She has seen GI and has endoscopies and
colonoscopies as well as virtual camera swallows. She does follow with hematology and gets Procrit and iron infusions. She was told today to come here to the hospital. She denies abdominal pain chest pain. She does note dark stools but it is
always dark. She denies fever. No chest pain. No other complaints at this time
Past History
Past History
ED Past Medical History: CAD, GERD, HTN, Hypercholesterolemia, NIDDM, Renal failure, Hypothyroidism and Other (Dysfunctional uterine bleeding, chronic kidney disease pending dialysis, Renal calculus, Iron def anemia, hemorrhagic disorder due to
extrinsic Circulatory anticoagulation. PNA, Back pain, )
ED Past Surgical History: Appendectomy, Gynecological (D&C), Orthopedic (Left carpal tunnel ), Tonsilectomy, Urological (Kidney stent) and Other (L AV fistula)
Social History
Tobacco: Non-smoker
Alcohol: Occasional
Drug: None
Personal: Single
Living: [facility]
Family History
Family History: Diabetes, Hypertension and Early CAD; Negative Asthma or Cancer
Phy Exam
Physical Exam
Physical Exam:
General: Pale appearing female no acute respiratory distress
HEENT: Normocephalic atraumatic
Heart: Regular rate and rhythm mild holosystolic murmur
Lungs: Clear no wheeze
Abdomen is soft nontender
Rectal exam: Black-colored stool is heme positive
Extremities: No cyanosis mild edema
Course
Orders/Labs/Results
Orders:
Orders
07/10/24 10:32
Type+Screen Urgent
Complete Blood Count/With Diff Urgent
Comprehensive Metabolic Panel Urgent
07/10/24 10:54
Blood Bank Products [* Blood Bank Products] Urgent
Blood Bank Products: *Packed RBC Leuko(PRBC's)
Quantity: 1
Transfuse Today: Yes
Reason: Anemia
Abnormal Lab Results
07/10/24
10:32
RBC 2.13 L 10^6/uL
(4.20-5.40)
Hgb 6.7 L* g/dL
(12.0-16.0)
Hct 21.6 L %
(37.0-47.0)
MCV 101.4 H fL
(81.0-99.0)
MCH 31.5 H pg
(27.0-31.0)
MCHC 31.0 L g/dL
(33.0-37.0)
RDW 15.8 H %
(11.5-14.5)
Absolute Lymphs (auto) 0.7 L 10^3/uL
(1.2-3.4)
Neutrophils % 76.8 H %
(42.2-75.2)
Lymphocytes % 13.4 L %
(20.5-51.1)
Carbon Dioxide 21 L mmol/L
(22-30)
BUN 84 H mg/dl
(7-17)
Creatinine 3.8 H mg/dL
(0.6-1.0)
Glucose 147 H mg/dl
(70-99)
Total Protein 5.6 L g/dl
(6.3-8.2)
Albumin 3.3 L g/dl
(3.5-5.0)
Crossmatch IS Only See Detail
07/10/24 10:32
07/10/24 10:32
Vital Signs
Initial and Last Documented VS:
Initial Vital Signs
Pulse Resp Pulse Ox
82 13 92
07/10/24 10:15 07/10/24 10:15 07/10/24 10:15
Last Documented Vital Signs
Temp Pulse Resp BP Pulse Ox
98.6 F 66 18 138/56 99
07/10/24 14:36 07/10/24 14:36 07/10/24 14:36 07/10/24 14:36 07/10/24 11:30
MDM/Problems Addressed
Differential Diagnosis Includes:
Patient sent in by nursing facility with low hemoglobin level as an outpatient. She has a history of anemia. She is symptomatic with shortness of breath and fatigue. Vital signs are stable currently.
Review of prior records demonstrates most recent admission in middle of June of this year for anemia secondary to chronic gastrointestinal bleeding. She had an endoscopy at that time found some friable membranes. She was treated with
sulcrafate
Will recheck labs today. She was discharged at that time with a hemoglobin of 8.6
*Critical Care Note
Total Time (30-74mins, 75-104mins- exclusive of procedures): Not Applicable
Update Note
Update Note:
Vital signs remained stable here. She received 1 unit of blood. This should get her to her baseline. She has received a full workup through the GI team for her ongoing GI bleeding. At this point hospital admission will not change anything. She
is hoping to get back to her facility. Will discharge her back
ED Attending Note
-
Portions of this chart may have been created with voice recognition software.� Occasional wrong word or��sound alike� substitutions may have occurred due to the inherent limitations of voice recognition software.
Discharge Plan
Departure
Patient Disposition: Home (Routine Discharge)
Date of Disposition: 07/10/24
Time of Disposition: 14:58
Patient with high blood pressure during this ER visit?: No
Discharge Problem:
Anemia
Instructions: Normocytic Normochromic Anemia (DC)
Prescriptions:
No Action
allopurinol 100 mg Tablet
100 mg PO DAILY
atorvastatin [Lipitor] 40 mg Tablet
40 mg PO DAILY
carvedilol [Coreg] 25 mg Tablet
25 mg PO BID
folic acid 1 mg Tablet
1 mg PO DAILY
levothyroxine 25 mcg Tablet
25 mcg PO DAILY
insulin aspart U-100 [Novolog FlexPen U-100 Insulin] 100 unit/mL (3 mL) insulin pen
0 - 12 sliding scale dose SC ACHS
Rx Instructions:
BS 70-150 = 0 units; 151-200 = 2 units; 201-250 = 4 units; 251-300 = 6 units; 301-350 = 8 units; 351-400 = 10 units; 401-450 = 12 units. If BS>451 call PCP.
aspirin 81 mg Tablet,Delayed Release (Dr/Ec)
81 mg PO DAILY
hydralazine 25 mg Tablet
25 mg PO TID
polyethylene glycol 3350 [Miralax] 17 gram Powder In Packet
17 g PO DAILYPRN PRN (Reason: constipation)
sennosides-docusate sodium 8.6-50 mg Tablet
1 tab-cap PO [id number] PRN (Reason: constipation)
loperamide 2 mg Tablet
2 mg PO Q6HPRN PRN (Reason: diarrhea)
miconazole nitrate 2 % Powder
1 applic TOPICAL BID
cyanocobalamin (vitamin B-12) 1,000 mcg Tablet
1,000 mcg PO DAILY
torsemide 10 mg Tablet
20 mg PO BID
Procrit 20,000 unit/mL Solution
20,000 unit SC TU PRN (Reason: for hgb<10)
sodium bicarbonate 650 mg Tablet
1,300 mg PO TID
bisacodyl 10 mg Suppository
10 mg MO DAILYPRN PRN (Reason: constipation)
pantoprazole 40 mg Tablet,Delayed Release (Dr/Ec)
40 mg PO DAILY
ammonium lactate 12 % Cream
1 applic TOPICAL QPM
ammonium lactate 12 % Cream
1 applic TOPICAL [id number] PRN (Reason: B/L legs)
gabapentin 100 mg Capsule
100 mg PO TID
sucralfate 1 gram Tablet
1 g PO BID Qty: 0 0RF
ascorbic acid (vitamin C) [Vitamin C] 250 mg tablet
250 mg PO DAILY Qty: 30 0RF
acetaminophen [Tylenol] 325 mg Tablet
650 mg PO Q4HPRN PRN (Reason: mildpain)
ferrous sulfate 325 mg (65 mg iron) tablet
325 mg PO Q48H
Referrals:
Jhonathan Gabriel MD [Family Provider] -
Activity Restrictions/Additional Instructions:
Please return here if needed. Follow-up with your doctors otherwise
Interventions
Interventions:
*Risk Screen - Suicide Last Done: 07/10/24 10:20
*Neglect/Abuse Screening Last Done: 07/10/24 10:20
ED- Fall Risk Assessment Last Done: 07/10/24 10:29
*ED COVID-19 Vaccine History Last Done: 07/10/24 10:28
Discharge Date and Time
Print Language: SYRIAC
[2024-07-10 10:45] LABS: % Basophils 0.7 % (0-2); % Eosinophils 3.7 % (0-6); % Immature Granulocytes 0.5 % (0-0.5); % Lymphocytes 13.4 % (20.5-51.1); % Monocytes 4.9 % (1.7-9.3); % Neutrophils 76.8 % (42.2-75.2); Absolute Eosinophils 0.2 10^3/uL (0-0.7); Absolute Lymphocytes 0.7 10^3/uL (1.2-3.4); Absolute Monocytes 0.3 10^3/uL (0.1-0.6); Absolute Neutrophils 4.2 10^3/uL (1.4-6.5); Hematocrit 21.6 % (37.0-47.0); Hemoglobin 6.7 g/dL (12.0-16.0); Mean Corpuscular Hgb 31.5 pg (27.0-31.0); Mean Corpuscular Volume 101.4 fL (81.0-99.0); Nucleated Red Blood Cells % 0 %; Platelet Count 182 10^3/uL (130-400); Red Blood Cell Count 2.13 10^6/uL (4.20-5.40); Red Cell Dist. Width 15.8 % (11.5-14.5); White Blood Cell Count 5.5 10^3/uL (4.8-10.8)
[2024-07-10 10:55] LABS: ALT (SGPT) 12 U/L (0-35); AST (SGOT) 15 U/L (14-36); Albumin 3.3 g/dl (3.5-5.0); Alkaline Phosphatase 70 U/L (38-126); Blood Urea Nitrogen 84 mg/dl (7-17); Carbon Dioxide 21 mmol/L (22-30); Chloride 107 mmol/L (98-107); Glucose 147 mg/dl (70-99); Potassium 4.5 mmol/L (3.5-5.1); Sodium 140 mmol/L (135-145); Total Bilirubin 0.2 mg/dl (0.2-1.3); Total Protein 5.6 g/dl (6.3-8.2); eGFR 11.62
== END 2024-07-10 20:25 | disposition home or self-care (01) ==
LOC: EMR 10:13
PROVIDERS: Physician Assistant; EMERGENCY PHYSICIAN Student in an Organized Health Care Education/Training Program; FAMILY PHYSICIAN Internal Medicine
DX: D64.9 Anemia, unspecified (principal)
CPT/HCPCS: 99285; 36430; 80053; 85025; 86850; 86900; 86901; 86920; P9016

== ENCOUNTER 2024-07-16 23:13 | Observation (INO) | payer MEDICARE, OTHER, SELFPAY ==
[2024-07-16] VITALS (8 sets, daily range): BP systolic 126–144; BP diastolic 53–84; BMI 34.0
[2024-07-16 20:44] LABS: % Basophils 0.4 % (0-2); % Immature Granulocytes 0.4 % (0-0.5); % Lymphocytes 20.5 % (20.5-51.1); % Monocytes 6.1 % (1.7-9.3); % Neutrophils 70.6 % (42.2-75.2); Absolute Eosinophils 0.1 10^3/uL (0-0.7); Absolute Lymphocytes 1.1 10^3/uL (1.2-3.4); Absolute Monocytes 0.3 10^3/uL (0.1-0.6); Absolute Neutrophils 3.6 10^3/uL (1.4-6.5); Hematocrit 20.4 % (37.0-47.0); Hemoglobin 6.5 g/dL (12.0-16.0); Mean Corp Hgb Conc. 31.9 g/dL (33.0-37.0); Mean Corpuscular Hgb 30.7 pg (27.0-31.0); Mean Corpuscular Volume 96.2 fL (81.0-99.0); Nucleated Red Blood Cells % 0 %; Platelet Count 148 10^3/uL (130-400); Red Blood Cell Count 2.12 10^6/uL (4.20-5.40); Red Cell Dist. Width 14.2 % (11.5-14.5); White Blood Cell Count 5.1 10^3/uL (4.8-10.8)
[2024-07-16 20:59] LABS: Blood Urea Nitrogen 81 mg/dl (7-17); Calcium 9.9 mg/dl (8.4-10.2); Carbon Dioxide 23 mmol/L (22-30); Chloride 105 mmol/L (98-107); Estimated Creatinine Clearance 17 ml/min; Glucose 128 mg/dl (70-99); Potassium 4.4 mmol/L (3.5-5.1); Sodium 138 mmol/L (135-145); eGFR 13.28
--- NOTE | 2024-07-16 22:11 | ED.GENMED ---
History of Present Illness
General
Chief Complaint: Abnormal Lab Value
Source: patient
Exam Limitations: none
Time Seen by Provider: 07/16/24 19:48
History of Present Illness
History of Present Illness:
78-year-old female who presents again with anemia. The patient states she has been getting Procrit and also got an iron infusion. She has been seeing hematology. She does have a history of chronic GI bleeding as well as kidney disease. The
patient states she has been mostly just fatigued over the last few times but also recently got diagnosed with COVID. She states otherwise with COVID she has been okay with the exception of a cough. No vomiting. No melena or hematochezia
Past History
Past History
ED Past Medical History: CAD, GERD, HTN, Hypercholesterolemia, NIDDM, Renal failure, Hypothyroidism and Other (Dysfunctional uterine bleeding, chronic kidney disease pending dialysis, Renal calculus, Iron def anemia, hemorrhagic disorder due to
extrinsic Circulatory anticoagulation. PNA, Back pain, )
ED Past Surgical History: Appendectomy, Gynecological (D&C), Orthopedic (Left carpal tunnel ), Tonsilectomy, Urological (Kidney stent) and Other (L AV fistula)
Social History
Tobacco: Non-smoker
Alcohol: Occasional
Drug: None
Personal: Single
Living: [facility]
Family History
Family History: Diabetes, Hypertension and Early CAD; Negative Asthma or Cancer
Phy Exam
Physical Exam
Physical Exam:
CONSTITUTIONAL Vital signs reviewed, Patient alert and oriented to person, place and time. Well-appearing
HEAD atraumatic, normocephalic.
EYES eyelids normal to inspection, Extraocular muscles intact, Conjunctiva normal, Sclera normal.
NECK normal range of motion, Trachea midline, no jugular venous distention.
RESP no respiratory distress
BACK No obvious deformities
UPPER EXTREMITY Gross Range of motion normal, gross motor strength normal
LOWER EXTREMITY Gross range of motion normal, Gross motor strength normal
NEURO Speech normal, No focal motor deficits include, Daysi coma scale 15, Memory normal, Cranial Nerves intact to screening exam.
SKIN Skin warm, dry, and pale
PSYCHIATRIC Patient oriented to person place and time, Normal affect.
Course
Orders/Labs/Results
Orders:
Orders
07/16/24 19:49
IV Insert/Care/Rem.- Treatment PRN
07/16/24 20:16
Type+Screen Urgent
Basic Metabolic Panel Urgent
Complete Blood Count/With Diff Urgent
07/16/24 22:09
* Blood Bank Products Urgent
Blood Bank Products: *Packed RBC Leuko(PRBC's)
Quantity: 2
Transfuse Today: Yes
Reason: Anemia
07/16/24 22:10
IV Insert/Care/Rem.- Treatment PRN
Abnormal Lab Results
07/16/24
20:16
RBC 2.12 L 10^6/uL
(4.20-5.40)
Hgb 6.5 L* g/dL
(12.0-16.0)
Hct 20.4 L* %
(37.0-47.0)
MCHC 31.9 L g/dL
(33.0-37.0)
Absolute Lymphs (auto) 1.1 L 10^3/uL
(1.2-3.4)
BUN 81 H mg/dl
(7-17)
Creatinine 3.4 H mg/dL
(0.6-1.0)
Glucose 128 H mg/dl
(70-99)
07/16/24 20:16
07/16/24 20:16
Vital Signs
Initial and Last Documented VS:
Initial Vital Signs
Temp Pulse BP Pulse Ox
98.4 F 77 126/84 98
07/16/24 19:47 07/16/24 19:47 07/16/24 19:47 07/16/24 19:47
Last Documented Vital Signs
Temp Pulse Resp BP Pulse Ox
98.4 F 73 16 137/70 98
07/16/24 19:47 07/16/24 21:45 07/16/24 21:45 07/16/24 21:00 07/16/24 20:24
MDM/Problems Addressed
MDM/Problems Addressed:
Acute severe anemia, chronic renal failure, COVID-19
*Pulse Oximetry
Patient hypoxic: no
*Critical Care Note
Total Time (30-74mins, 75-104mins- exclusive of procedures): 30 minutes
Data Reviewed
Review of Other/Old Records Reveals: Discharge Summary (Prior discharge summaries reviewed)
Source: patient and records
Prescriptions/Medications Considered But Not Given:
Consider Protonix drip but will give bolus Protonix
Patient Management
Discussion with other providers: Hospitalist
Escalation/DeEscalation of care consider admission/obs:
78-year-old female with intermittent chronic severe anemia. Now at 6.5. Has had full GI workup. Is taking Procrit and iron. Given the fact that she is down into the [facility], admit for transfusion and reassessment
ED Attending Note
-
Portions of this chart may have been created with voice recognition software.� Occasional wrong word or��sound alike� substitutions may have occurred due to the inherent limitations of voice recognition software.
Discharge Plan
Departure
Patient Disposition: Admit
Date of Disposition: 07/16/24
Time of Disposition: 22:14
Admit to: Med/Surg
Presentation/result/management discussed w/ accepting MD/DO: Hospitalist
Discharge Problem:
Acute on chronic anemia, Chronic renal failure, COVID-19
Prescriptions:
No Action
allopurinol 100 mg Tablet
100 mg PO DAILY
atorvastatin [Lipitor] 40 mg Tablet
40 mg PO DAILY
carvedilol [Coreg] 25 mg Tablet
25 mg PO BID
folic acid 1 mg Tablet
1 mg PO DAILY
levothyroxine 25 mcg Tablet
25 mcg PO DAILY
insulin aspart U-100 [Novolog FlexPen U-100 Insulin] 100 unit/mL (3 mL) insulin pen
0 - 12 sliding scale dose SC ACHS
Rx Instructions:
BS 70-150 = 0 units; 151-200 = 2 units; 201-250 = 4 units; 251-300 = 6 units; 301-350 = 8 units; 351-400 = 10 units; 401-450 = 12 units. If BS>451 call PCP.
aspirin 81 mg Tablet,Delayed Release (Dr/Ec)
81 mg PO DAILY
hydralazine 25 mg Tablet
25 mg PO TID
polyethylene glycol 3350 [Miralax] 17 gram Powder In Packet
17 g PO DAILYPRN PRN (Reason: constipation)
sennosides-docusate sodium 8.6-50 mg Tablet
1 tab-cap PO [id number] PRN (Reason: constipation)
loperamide 2 mg Tablet
2 mg PO Q6HPRN PRN (Reason: diarrhea)
miconazole nitrate 2 % Powder
1 applic TOPICAL BID
cyanocobalamin (vitamin B-12) 1,000 mcg Tablet
1,000 mcg PO DAILY
torsemide 10 mg Tablet
20 mg PO BID
Procrit 20,000 unit/mL Solution
20,000 unit SC TU PRN (Reason: for hgb<10)
sodium bicarbonate 650 mg Tablet
1,300 mg PO TID
bisacodyl 10 mg Suppository
10 mg [place] DAILYPRN PRN (Reason: constipation)
pantoprazole 40 mg Tablet,Delayed Release (Dr/Ec)
40 mg PO DAILY
ammonium lactate 12 % Cream
1 applic TOPICAL QPM
ammonium lactate 12 % Cream
1 applic TOPICAL [id number] PRN (Reason: B/L legs)
gabapentin 100 mg Capsule
100 mg PO TID
ascorbic acid (vitamin C) [Vitamin C] 250 mg tablet
250 mg PO DAILY Qty: 30 0RF
acetaminophen [Tylenol] 325 mg Tablet
650 mg PO Q4HPRN PRN (Reason: mild pain/Temp >100)
ferrous sulfate 325 mg (65 mg iron) tablet
325 mg PO Q48H
sucralfate 1 gram tablet
1 g PO AC
Referrals:
Jhonathan Gabriel MD [Family Provider] -
Interventions
Interventions:
*Risk Screen - Suicide Last Done: 07/16/24 20:24
*General Assessment Last Done: 07/16/24 20:24
*Neglect/Abuse Screening Last Done: 07/16/24 20:24
ED- Fall Risk Assessment Last Done: 07/16/24 20:24
*ED COVID-19 Vaccine History Last Done: 07/16/24 20:24
Discharge Date and Time
Print Language: URDU
--- NOTE | 2024-07-16 22:31 | HPS.HSE ---
Family Physician
-
Family Physician: Jhonathan Gabriel
Chief Complaint
-
Abnormal Labs
History of Present Illness
Patient is a 78 y/o female past medical history of CAD, CKD and Chronic Anemia who presents with abnormal labs. Patient had outpatient labs today which reveal Hgb down in the 6s. Blood work in the ED confirmed Hgb 6.5. Patient denies any
significant changes in her stool. She denies any chest pains, palpitations, shortness of breath, dizziness/lightheadedness.
Patient reports she just tested positive for COVID on Sunday. She reports mild cough that started yesterday.
Medical History
Past Medical History
Past Medical History: Reports Other
Additional Past Medical History:
Coronary Artery Disease
Essential Hypertension
Hyperlipidemia
Diabetes Mellitus, Type II
CKD Stage V
Chronic Anemia
Chronic Metabolic Acidosis
Hypothyroidism
Chronic Lower Ext Lymphedema
Chronic Venous Stasis Dermatitis
Hx DVT
Past Surgical History: Reports Other
Additional Past Surgical History:
Left Upper Ext AV Fistula
Left Carpal Tunnel
Appendectomy
Tonsillectomy
D&C
Hysteroscopy / Failed Endometrial Ablation
Ureteral Stents
Social History
Tobacco: Non-smoker
Living: [facility]
Family History
Family History: Not pertinent
Allergies / Home Medications
Allergies reflects when Allergies were last updated in [facility].
Home Medications with original date entered in [facility]
Allergy/Medication List:
Allergies
Allergy/AdvReac Type Severity Reaction Status Date / Time
Penicillins Allergy Hives Verified 06/10/24 12:45
Home Medications
allopurinol 100 mg tablet 100 mg PO DAILY Gout 09/07/22
atorvastatin 40 mg tablet (Lipitor) 40 mg PO DAILY High cholesterol 09/07/22
carvedilol 25 mg tablet (Coreg) 25 mg PO BID Heart disease/condition 09/07/22
folic acid 1 mg tablet 1 mg PO DAILY Supplement 09/07/22
levothyroxine 25 mcg tablet 25 mcg PO DAILY Thyroid 11/28/22
insulin aspart U-100 100 unit/mL (3 mL) subcutaneous pen (Novolog FlexPen U-100 Insulin aspart) 0 - 12 sliding scale dose SC ACHS Diabetes 03/26/23
aspirin 81 mg tablet,delayed release 81 mg PO DAILY Blood Clot Prevention/Tx 12/20/23
hydralazine 25 mg tablet 25 mg PO TID Blood Pressure 02/13/24
ammonium lactate 12 % topical cream 1 applic topical [id number] PRN B/L legs 04/03/24
ammonium lactate 12 % topical cream 1 applic topical QPM B/L legs 04/03/24
bisacodyl 10 mg rectal suppository 10 mg MO DAILYPRN PRN constipation 04/03/24
cyanocobalamin (vitamin B-12) 1,000 mcg tablet 1,000 mcg PO DAILY Supplement 04/03/24
epoetin dora 20,000 unit/mL injection solution (Procrit) 20,000 unit SC TU PRN for hgb<10 04/03/24
gabapentin 100 mg capsule 100 mg PO TID PAIN 04/03/24
loperamide 2 mg tablet 2 mg PO Q6HPRN PRN diarrhea 04/03/24
miconazole nitrate 2 % topical powder 1 applic topical BID abd folds/groin 04/03/24
pantoprazole 40 mg tablet,delayed release 40 mg PO DAILY Gastrointestinal Issue 04/03/24
polyethylene glycol 3350 17 gram oral powder packet (Miralax) 17 g PO DAILYPRN PRN constipation 04/03/24
sennosides 8.6 mg-docusate sodium 50 mg tablet 1 tab-cap PO [id number] PRN constipation 04/03/24
sodium bicarbonate 650 mg tablet 1,300 mg PO TID Supplement 04/03/24
torsemide 10 mg tablet 20 mg PO BID 04/03/24
ascorbic acid (vitamin C) 250 mg tablet (Vitamin C) 250 mg PO DAILY #30 tabs 06/18/24
acetaminophen 325 mg tablet (Tylenol) 650 mg PO Q4HPRN PRN mild pain/Temp >100 07/10/24
ferrous sulfate 325 mg (65 mg iron) tablet 325 mg PO Q48H Supplement 07/10/24
sucralfate 1 gram tablet 1 g PO AC 07/16/24
Review of Systems
-
A 12 point ROS was completed and negative except as noted: Yes
Constitutional: Denies Fever or Chills
Respiratory: Reports Cough; Denies Trouble Breathing
Physical Exam
Vital Signs
Vital Signs
Temp Pulse Resp BP Pulse Ox
98.4 F 73 16 137/70 98
07/16/24 19:47 07/16/24 21:45 07/16/24 21:45 07/16/24 21:00 07/16/24 20:24
Physical Exam
General: Comfortable and Conversant
HEENT: Anicteric and Moist mucous membranes
Respiratory: Other (Few scattered rhonchi anteriorly; Non labored respirations)
Cardiac: S1/S2 and Regular Rhythm
GI: Soft and Non Tender
Musculoskeletal: No Clubbing, No Cyanosis and Other (Chronic lower extremity lymphedema )
Skin: Warm and Dry
Neuro: Awake, Alert, Oriented and Nonfocal/grossly intact
Psych: Calm
Laboratory Results
-
07/16/24 20:16
07/16/24 20:16
Data Reviewed
-
Lab Data: Labs Reviewed by me
Impression/Plan
-
Acute on Chronic Anemia
-Transfuse 1 unit PRBCs
-Recheck Hgb in AM
-Continue iron, vitamin b12 and folic acid supplements
-Continue Procrit as outpatient
-Follow-up with Hematology and GI as outpatient
COVID Bronchitis
-Patient diagnosed on July 13
-Continue supportive care
Gastritis
-Continue Protonix and Carafate
Coronary Artery Disease
-Continue aspirin
Essential Hypertension
-Continue carvedilol, hydralazine
Hyperlipidemia
-Continue atorvastatin
Diabetes Mellitus, Type II
-Monitor sugars and continue coverage insulin
CKD Stage V
-Creatinine at baseline
Chronic Metabolic Acidosis
-Continue sodium bicarbonate
Hypothyroidism
-Continue levothyroxine
Chronic Lower Ext Lymphedema
-Continue Torsemide
DVT proph: SCDs
Code Status: Full Code
--- NOTE | 2024-07-16 22:54 | W.PN.UPDATE ---
Update Note
Progress Note Update
Patient seen in conjunction with PROGRAM MANAGEMENT ANALYST. I agree with findings on history and physical. I concur with assessment and plan entirely.
Patient is a 78-year-old female with past medical history of advanced CKD but not currently on dialysis, iron deficiency anemia, chronic GI bleed, type 2 diabetes, CAD and acute on chronic GI bleed who presents to the emergency department after
blood test at snf showed a hemoglobin of 6.5. Patient was transfused about 1 week ago with units of blood for hemoglobin of 6.7. Now she comes in with slightly decreased hemoglobin again. Patient himself denies any symptoms. She is
recently diagnosed with COVID and has a slight productive cough. She denies shortness of breath dyspnea exertion orthopnea or PND. She has not been febrile. She denied any specific medications. She she appears euvolemic on exam. She is
hemodynamically stable. Hemoglobin 6.5 with platelet count of 148. Chemistries shows no acute abnormalities compared to prior.
Patient had EGD done in June 18 showing some duodenitis and gastritis. She had a prior colonoscopy and capsule endoscopy this year. Ultimately patient was placed on a PPI twice daily and on PPI daily. She received iron infusion 3 weeks ago.
Goal hemoglobin is around 8.
Well appearing with chronic anemia from iron deficiency, occult bleeding and renal failure. Will transfuse 1 unit prbc and reassess. No acute bleeding or instability. Will hold off GI consult pending response to transfusion. She is euvolemic
without acute electrolyte abnormalties. Renal function is stable.
Continue rest of medical plan as per snf records as detailed in PROGRAM MANAGEMENT ANALYST note.
[2024-07-17] VITALS (20 sets, daily range): BP systolic 64–157; BP diastolic 46–67; BMI 34.4
[2024-07-17] MEDS: FEOSOL 325 MG PO (01:40)
[2024-07-17 06:16] LABS: Hematocrit 25.8 % (37.0-47.0); Hemoglobin 8.8 g/dL (12.0-16.0); Mean Corp Hgb Conc. 34.1 g/dL (33.0-37.0); Mean Corpuscular Hgb 32.8 pg (27.0-31.0); Mean Corpuscular Volume 96.3 fL (81.0-99.0); Mean Platelet Volume 9.3 fL (7.4-10.4); Platelet Count 135 10^3/uL (130-400); Red Blood Cell Count 2.68 10^6/uL (4.20-5.40); Red Cell Dist. Width 15.5 % (11.5-14.5); White Blood Cell Count 5.4 10^3/uL (4.8-10.8)
[2024-07-17 06:36] LABS: Blood Urea Nitrogen 75 mg/dl (7-17); Calcium 9.7 mg/dl (8.4-10.2); Carbon Dioxide 22 mmol/L (22-30); Chloride 107 mmol/L (98-107); Estimated Creatinine Clearance 18 ml/min; Glucose 94 mg/dl (70-99); Potassium 4.5 mmol/L (3.5-5.1); Sodium 142 mmol/L (135-145); eGFR 14.28
[2024-07-17] MEDS: SYNTHROID 25 MCG PO (06:40)
--- NOTE | 2024-07-17 08:25 | W.PN.HOSP.TC ---
Today's Communication/Plan
-
thoracentesis and pulm eval
Assessment / Plan
Assessment / Plan
78yo F with PMHx of (s/p LUE AV fistula, not yet started on HD), CVA, HTN, LITTLE, HLD, DM2, hx AVMs (duodenal and colonic), chronic constipation, hx DVT (not on AC), hx of colon polyps, CAD, recurrent anemia, apparently requiring multiple transfusions
in the past, followed by GI and Journeyman Meat Cutter (with no concern for BM dysfunction as per previous notes), recent EGD with gastritis, angiectasia, CKD stage 5, Hx of vaginal bleeding s/p I&D and benign endometrial biopsy, recommended for hysterectomy,
but patient would like to avoid major surgeries, so was previously on progesterone therapy brought from the snf after her regular weekly labs showed Hgb of 6.7. Had 1 unit PRBC transfused with appropriate elevation in her Hgb
A/P:
#Acute on chronic anemia, multifactorial
2/2 combination of recurrent GIB with Hx of colonic AVM and angiodysplasia of duodenum, advanced CKD stage 5, dysfunctional post-menopausal bleeding, iron deficiency
Essentially transfusion dependent with weekly H&H
s/p 1 unit PRBC with appropriate increase in Hgb
continue weekly CBC and to follow up with Journeyman Meat Cutter, GI, radiology physician and PUBLIC [employer] RESEARCHER
cont PPI and sucralfate
avoid anticoagulation
#COVID-19
not hypoxic
symptomatic treatment
#Recurrent R pleural effusion
previously found transudate in Aug 2024 and nephrology was contributing effusion to CKD
Currently patient without hypoxia
Since persistent effusion - will get pulm consult and ask IRAD for thoracentesis and pulm eval
#Hypothyroidism
#CAD, stable
#Hx of CVA, Essential HTN
#DM type 2 with nephropathy
#CKD stage 5
cont home meds
DVT ppx SCDS
Full code
I have spent at least 59min reviewing chart, test results and providing direct patient care
Anticipated Discharge: Within 24 hours
Subjective/Interval History
-
Date of Service: July 17, 2024
Objective Data
-
Labs:
Laboratory Results
07/16/24 07/17/24
20:16 05:53
WBC 5.1 5.4
Hgb 6.5 L* 8.8 L D
Hct 20.4 L* 25.8 L
Plt Count 148 135
Sodium 138 142
Potassium 4.4 4.5
Chloride 105 107
Carbon Dioxide 23 22
BUN 81 H 75 H
Creatinine 3.4 H 3.2 H
Glucose 128 H 94
Calcium 9.9 9.7
Vital Signs:
Vital Signs
Temp Pulse Resp BP Pulse Ox
98.8 F 65 13 140/55 99
07/17/24 02:37 07/17/24 02:37 07/17/24 02:37 07/17/24 02:37 07/17/24 02:37
I&O
07/16/24 07/17/24 07/18/24
06:59 06:59 06:59
Intake Total 500 / 500
Output Total 675 / 675
Balance -175 / -175
Review of Systems
-
History Source: Patient
All other systems: Reviewed and negative
Physical Exam
-
General: No Apparent Distress
HEENT: Normocephalic
Respiratory: Crackles
Cardiac: Regular Rhythm
GI: Soft, Nontender and Nondistended
Musculoskeletal: No Clubbing, No Cyanosis and No Edema
Neuro: Awake, Alert, Oriented and AO x 3
Psych: Calm
[2024-07-17] MEDS: MUCINEX 600 MG PO (08:34)
[2024-07-17] MEDS: ZYLOPRIM 100 MG PO (08:34)
[2024-07-17] MEDS: ASPIR LOW (ENTERIC COATED) 81 MG PO (08:34)
[2024-07-17] MEDS: PROTONIX 40 MG PO (08:34)
[2024-07-17] MEDS: NEURONTIN 100 MG PO ×2 (08:34→16:05)
[2024-07-17] MEDS: FOLVITE 1 MG PO (08:35)
[2024-07-17] MEDS: APRESOLINE 25 MG PO ×2 (08:35→16:05)
[2024-07-17] MEDS: DEMADEX 20 MG PO (08:35)
[2024-07-17] MEDS: CARAFATE 1 GRAM PO ×3 (08:35→16:05)
[2024-07-17] MEDS: SODIUM BICARBONATE 1300 MG PO ×2 (08:35→16:05)
[2024-07-17] MEDS: PAXLOVID 150-100 MG DOSE PACK 1 DOSE PO (08:36)
[2024-07-17] MEDS: COREG 25 MG PO (08:36)
[2024-07-17] MEDS: VITAMIN B-12 1000 MCG PO (08:36)
[2024-07-17] MEDS: VITAMIN C 250 MG PO (08:36)
[2024-07-17 08:42] LABS: Glucose - Point of Care 108 mg/dl (70-99)
[2024-07-17 10:39] LABS: LDH 176 U/L (120-246)
--- NOTE | 2024-07-17 12:37 | CM ---
Patient from [facility], LTC patient. CM called to Liaison and requested level of care information,VM left. Patient is OBS/LINTON status and out of room at this time to IR at this time. CM will review with liaison at [facility] and call family
to review OBS/LINTON status.
Plan; return to [facility] when medically appropriate
[2024-07-17 12:46] LABS: Body Fluid Mononuclear 95.8 %; Body Fluid Polymorphonuclear 4.2 %; Body Fluid WBC 551 /CUMM
[2024-07-17 12:50] LABS: Body Fluid pH 7.44
[2024-07-17 12:51] LABS: Body Fluid Second Tech CF
[2024-07-17 13:09] LABS: Body Fluid Albumin 1.3 g/dl; Body Fluid LDH < 90 U/L; Body Fluid Protein 2.7 g/dl
[2024-07-17 13:29] LABS: Glucose - Point of Care 115 mg/dl (70-99)
--- NOTE | 2024-07-17 13:47 | CON.PUL ---
Consultation
Consultation Request
Date/Time Consultation Requested: 07/17/2024
Date/Time Consultation Performed: 07/17/2024
Requesting Provider: Dr. Miles
Performing Provider: Dr. Kody Brody
Reason for Consultation: Pleural effusion
Medical History
-
History of Present Illness:
78-year-old female with past medical history significant for coronary artery disease, chronic kidney disease, chronic anemia who presented today hospital with abnormal labs on 07/16/2024. His hemoglobin was low in the range of 6 g/dL. She denies
any signs or symptoms of GI bleed. Denies any pulmonary symptoms.
Patient just tested positive for COVID last Sunday. Reports mild coughing without phlegm production or hemoptysis.
Denies significant shortness of breath
Reports some coughing with minimal phlegm production. Some nasal congestion.
Denies any chest pain.
Currently on room air
Past Medical History
Past Medical History: Other (See assessment and plan)
Social History
Tobacco: Non-smoker
Alcohol: None
Living: [facility]
Family History
Family History: Reviewed & Not Pertinent
Allergies / Home Medications
Allergies
Allergy/AdvReac Type Severity Reaction Status Date / Time
Penicillins Allergy Hives Verified 06/10/24 12:45
Home Medications
�Medication �Instructions �Recorded �Confirmed �Last Taken �Type
allopurinol 100 mg tablet 100 mg PO DAILY Gout 09/07/22 07/16/24 04/24/24 History
atorvastatin 40 mg tablet (Lipitor) 40 mg PO DAILY High cholesterol 09/07/22 07/16/24 04/24/24 History
carvedilol 25 mg tablet (Coreg) 25 mg PO BID Heart 09/07/22 07/16/24 04/24/24 History
disease/condition
folic acid 1 mg tablet 1 mg PO DAILY Supplement 09/07/22 07/16/24 04/24/24 History
levothyroxine 25 mcg tablet 25 mcg PO DAILY Thyroid 11/28/22 07/16/24 04/24/24 History
insulin aspart U-100 100 unit/mL 0 - 12 sliding scale dose SC ACHS 03/26/23 07/16/24 04/24/24 History
(3 mL) subcutaneous pen (Novolog Diabetes
FlexPen U-100 Insulin aspart)
aspirin 81 mg tablet,delayed 81 mg PO DAILY Blood Clot 12/20/23 07/16/24 04/24/24 History
release Prevention/Tx
hydralazine 25 mg tablet 25 mg PO TID Blood Pressure 02/13/24 07/16/24 04/24/24 History
ammonium lactate 12 % topical cream 1 applic topical [id number] PRN B/L 04/03/24 07/16/24 Unknown History
legs
ammonium lactate 12 % topical cream 1 applic topical QPM B/L legs 04/03/24 07/16/24 Unknown History
bisacodyl 10 mg rectal suppository 10 mg SD DAILYPRN PRN constipation 04/03/24 07/16/24 Unknown History
cyanocobalamin (vitamin B-12) 1,000 mcg PO DAILY Supplement 04/03/24 07/16/24 04/24/24 History
1,000 mcg tablet
epoetin dora 20,000 unit/mL 20,000 unit SC TU PRN for hgb<10 04/03/24 07/16/24 04/22/24 History
injection solution (Procrit)
gabapentin 100 mg capsule 100 mg PO TID PAIN 04/03/24 07/16/24 04/24/24 History
loperamide 2 mg tablet 2 mg PO Q6HPRN PRN diarrhea 04/03/24 07/16/24 Unknown History
miconazole nitrate 2 % topical 1 applic topical BID abd 04/03/24 07/16/24 04/24/24 History
powder folds/groin
pantoprazole 40 mg tablet,delayed 40 mg PO DAILY Gastrointestinal 04/03/24 07/16/24 04/24/24 History
release Issue
polyethylene glycol 3350 17 gram 17 g PO DAILYPRN PRN constipation 04/03/24 07/16/24 Unknown History
oral powder packet (Miralax)
sennosides 8.6 mg-docusate sodium 1 tab-cap PO [id number] PRN 04/03/24 07/16/24 Unknown History
50 mg tablet constipation
sodium bicarbonate 650 mg tablet 1,300 mg PO TID Supplement 04/03/24 07/16/24 04/24/24 History
torsemide 10 mg tablet 20 mg PO BID Fluid 04/03/24 07/16/24 04/24/24 History
Retention/Swelling
ascorbic acid (vitamin C) 250 mg 250 mg PO DAILY #30 tabs 06/18/24 07/16/24 Unknown Rx
tablet (Vitamin C)
acetaminophen 325 mg tablet 650 mg PO Q4HPRN PRN mild 07/10/24 07/16/24 Unknown History
(Tylenol) pain/Temp >100
ferrous sulfate 325 mg (65 mg 325 mg PO Q48H Supplement 07/10/24 07/16/24 Unknown History
iron) tablet
sucralfate 1 gram tablet 1 g PO AC Gastrointestinal Issue 07/16/24 07/16/24 Unknown History
Review of Systems
-
History Source: Patient
All other systems: Negative unless noted
Vitals / Labs / Diagnostic Testing
Vital Signs
Temp Pulse Resp BP Pulse Ox
98 F 60 18 129/58 100
07/17/24 11:18 07/17/24 12:10 07/17/24 12:10 07/17/24 12:10 07/17/24 13:12
Lab Data
07/17/24 05:53
07/17/24 05:53
Diagnostic Testing:
Physical Exam
-
HEENT: Normocephalic
Cardiovascular: S1/S2
Respiratory: Clear and Non-Labored Respirations
GI: Soft and Non Distended
Neurology: Awake, Alert, AO x 3 and No Motor Deficits
Skin: Warm
General: Comfortable
Assessment
-
78-year-old man woman with multiple comorbidities, admitted with severe anemia, COVID-positive illness, chest x-ray documented recurrent right pleural effusion. Previously transudative. We were consulted on 07/17/2024 for evaluation of pleural
effusion.
Recurrent right pleural effusion: Transudate August 2023 likely due to CKD
Chest x-ray: Mild diffuse coarsening of bronchial markings throughout both lungs-blunting of the right close to left phrenic angle-small right pleural effusion
Status post right thoracentesis 07/17/2024-800 cc yellow pleural fluid
Acute anemia chronic. On Procrit in the outpatient setting.. Transfusion dependent
History of colonic AV malformation/angiodysplasia of the duodenum
Anemia of chronic kidney disease
Dysfunctional uterine bleeding
COVID viral [id number] July 13
No oxygen requirements
Chest x-ray: No acute pneumonitis noted on review
Conditions present prior admission
History of coronary artery disease
Essential hypertension
Hyperlipidemia
Type 2 diabetes
Chronic kidney disease stage V
Chronic metabolic acidosis
Hypothyroidism
Chronic lower extremity lymphedema
Chronic metabolic acidosis
History of DVT
Left upper extremity AV fistula
Left carpal tunnel syndrome
History of appendectomy
Tonsillectomy
Failed endometrial ablation
Ureteral stents
Assessment and plan:
Recurrent right pleural effusion: Likely associated to chronic kidney disease and volume overload. Low albumin also contributing. Records reviewed.
Thoracentesis performed 09/11/2023: Reviewed 1300 cc of history of colored fluid drained. From the right
pH 7.41/white blood cells 219/mononuclears 85%/fluid glucose 103/total protein 2.5/LDH 97
Cytology negative for malignancy.
Thoracentesis 07/17/2024: 800 cc
pH 7.44/white blood cell 551/95% mononuclear/total protein 2.7/albumin 1.3/LDH less than 90.
Again suggest transudative from volume overload. No evidence for infection.
-
From the pulmonary perspective continue to treat underlying chronic kidney disease, sodium restriction, diuresis if indicated
She seems to be asymptomatic from that recurrent pleural effusion.
Would not perform additional thoracentesis in the future unless pleural effusion is significant.
-
Liver function testing is normal.
For completion we will obtain TSH.
-
Not requiring supplemental oxygen. Pulse ox 100%
In regards to COVID, not hypoxemic. No evidence for infiltrate chest x-ray
Continue supportive care
-
No additional recommendation from the pulmonary perspective.
Please call with questions
--- NOTE | 2024-07-17 14:39 | W.DCSUMMARY ---
Discharge Summary
Discharge Data
Date of Admission: 07/16/24
Date of Discharge: 07/17/24
-
Pending Results: Yes
Additional Pending Results:
Thoracentesis pathology
Hospital Course
78yo F with PMHx of (s/p LUE AV fistula, not yet started on HD), CVA, HTN, LITTLE, HLD, DM2, hx AVMs (duodenal and colonic), chronic constipation, hx DVT (not on AC), hx of colon polyps, CAD, recurrent anemia, apparently requiring multiple transfusions
in the past, followed by GI and [employer] Wafer (with no concern for BM dysfunction as per previous notes), recent EGD with gastritis, angiectasia, CKD stage 5, Hx of vaginal bleeding s/p I&D and benign endometrial biopsy, recommended for hysterectomy,
but patient would like to avoid major surgeries, so was previously on progesterone therapy brought from the group home after her regular weekly labs showed Hgb of 6.7. Had 1 unit PRBC transfused with appropriate elevation in her Hgb
Had thoracentesis with 800ml fluid removed, evaluated by Pulm. Effusion is transudative so most likely 2/2 volume overload with poor kidney function. As per Pulm - would avoid futher thoracentesis if fluid reaccumulates, unless symptomatic.
Since medically stable - can be d/c for further outpatient mgmt with already established specialists
I have spent at least 88min reviewing chart, test results, communication with consultants and direct patient care
A/P:
#Acute on chronic anemia, multifactorial
2/2 combination of recurrent GIB with Hx of colonic AVM and angiodysplasia of duodenum, advanced CKD stage 5, dysfunctional post-menopausal bleeding, iron deficiency
#COVID-19
#Recurrent R pleural effusion
#Hypothyroidism
#CAD, stable
#Hx of CVA, Essential HTN
#DM type 2 with nephropathy
#CKD stage 5
Discharge Plan
-
Patient Disposition: Custodial/SNF
Discharge Diagnosis/Procedures: anemia
Diet: Diabetic, Carb Controlled
Activity: As tolerated
Driving Restrictions: As prior to admission
Blood Work: CBC weekly
Activity Restrictions/Additional Instructions:
outpatient management with already established specialists
Referrals:
Jhonathan Gabriel MD [Family Provider] -
Prescriptions:
Continued
allopurinol 100 mg Tablet
100 mg PO DAILY
atorvastatin [Lipitor] 40 mg Tablet
40 mg PO DAILY
carvedilol [Coreg] 25 mg Tablet
25 mg PO BID
folic acid 1 mg Tablet
1 mg PO DAILY
levothyroxine 25 mcg Tablet
25 mcg PO DAILY
insulin aspart U-100 [Novolog FlexPen U-100 Insulin] 100 unit/mL (3 mL) insulin pen
0 - 12 sliding scale dose SC ACHS
Rx Instructions:
BS 70-150 = 0 units; 151-200 = 2 units; 201-250 = 4 units; 251-300 = 6 units; 301-350 = 8 units; 351-400 = 10 units; 401-450 = 12 units. If BS>451 call PCP.
aspirin 81 mg Tablet,Delayed Release (Dr/Ec)
81 mg PO DAILY
hydralazine 25 mg Tablet
25 mg PO TID
polyethylene glycol 3350 [Miralax] 17 gram Powder In Packet
17 g PO DAILYPRN PRN (Reason: constipation)
sennosides-docusate sodium 8.6-50 mg Tablet
1 tab-cap PO [id number] PRN (Reason: constipation)
loperamide 2 mg Tablet
2 mg PO Q6HPRN PRN (Reason: diarrhea)
miconazole nitrate 2 % Powder
1 applic TOPICAL BID
cyanocobalamin (vitamin B-12) 1,000 mcg Tablet
1,000 mcg PO DAILY
torsemide 10 mg Tablet
20 mg PO BID
Procrit 20,000 unit/mL Solution
20,000 unit SC TU PRN (Reason: for hgb<10)
sodium bicarbonate 650 mg Tablet
1,300 mg PO TID
bisacodyl 10 mg Suppository
10 mg ID DAILYPRN PRN (Reason: constipation)
pantoprazole 40 mg Tablet,Delayed Release (Dr/Ec)
40 mg PO DAILY
ammonium lactate 12 % Cream
1 applic TOPICAL QPM
ammonium lactate 12 % Cream
1 applic TOPICAL [id number] PRN (Reason: B/L legs)
gabapentin 100 mg Capsule
100 mg PO TID
ascorbic acid (vitamin C) [Vitamin C] 250 mg tablet
250 mg PO DAILY Qty: 30 0RF
acetaminophen [Tylenol] 325 mg Tablet
650 mg PO Q4HPRN PRN (Reason: mild pain/Temp >100)
ferrous sulfate 325 mg (65 mg iron) tablet
325 mg PO Q48H
sucralfate 1 gram tablet
1 g PO AC
Discharge Orders:
Discharge Patient (As Directed); Ordered 07/17/24
Ordered By: Thomas Miles
Discharge Date and Time
Print Language: [place]
--- NOTE | 2024-07-17 15:31 | WOUNDNOTE ---
LEFT LATERAL TOE
--- NOTE | 2024-07-17 16:26 | CM ---
Addendum entered by Raven Parks 07/17/24 16:32:
D/C today
Original Note:
Pt from [facility].
Pt is medically stable for d/c per hospitalist
Spoke w/ Clementine/Elma Pointantonette re d/c plan. Clementine agreeable to pt returning
Will need ambulance transport. Transport forms given to community program assistant
LINTON reviewed w/ pt over the phone due to COVID status, copy placed in chart
Clinicals sent to facility via [facility]
Attempted TC to daughter to inform of d/c, no answer, left vm.
[place]
Report#: [phone]

Plan: Return to [facility] via ambulance transport
[2024-07-17 16:36] LABS: Glucose - Point of Care 166 mg/dl (70-99)
--- NOTE | 2024-07-17 19:15 | PTCARENOTE ---
This Rn attempted to call report to boogie sparrow at [phone] at 1700, 1820 and 1914. No answer at nursing station. Bedside report provided to acute care staff.
== END 2024-07-17 19:22 ==
LOC: 3 WEST ACU 23:13
PROVIDERS: Physician Assistant Medical; ADMITTING PHYSICIAN Internal Medicine; ATTENDING PHYSICIAN Internal Medicine; CONSULT PHYSICIAN Internal Medicine Critical Care Medicine; EMERGENCY PHYSICIAN Emergency Medicine; FAMILY PHYSICIAN Internal Medicine
DX: D50.0 Iron deficiency anemia secondary to blood loss (chronic) (principal); R79.89 Other specified abnormal findings of blood chemistry; U07.1 COVID-19; R53.83 Other fatigue; J20.8 Acute bronchitis due to other specified organisms; K29.70 Gastritis, unspecified, without bleeding; I25.10 Atherosclerotic heart disease of native coronary artery without angina pectoris; J90 Pleural effusion, not elsewhere classified; K21.9 Gastro-esophageal reflux disease without esophagitis; I12.0 Hypertensive chronic kidney disease with stage 5 chronic kidney disease or end stage renal disease; D63.1 Anemia in chronic kidney disease; N18.5 Chronic kidney disease, stage 5; E78.00 Pure hypercholesterolemia, unspecified; E03.9 Hypothyroidism, unspecified; E11.22 Type 2 diabetes mellitus with diabetic chronic kidney disease; I89.0 Lymphedema, not elsewhere classified; E87.22 Chronic metabolic acidosis; E78.5 Hyperlipidemia, unspecified; I87.8 Other specified disorders of veins; E11.41 Type 2 diabetes mellitus with diabetic mononeuropathy; Z87.442 Personal history of urinary calculi; Z87.01 Personal history of pneumonia (recurrent); Z90.49 Acquired absence of other specified parts of digestive tract; Z83.3 Family history of diabetes mellitus; Z82.49 Family history of ischemic heart disease and other diseases of the circulatory system; Z79.4 Long term (current) use of insulin; Z79.82 Long term (current) use of aspirin; Z86.718 Personal history of other venous thrombosis and embolism; Z88.0 Allergy status to penicillin; Z79.890 Hormone replacement therapy; Z86.0100 Personal history of colon polyps, unspecified; Z87.19 Personal history of other diseases of the digestive system; Z86.73 Personal history of transient ischemic attack (TIA), and cerebral infarction without residual deficits; Z60.2 Problems related to living alone
CPT/HCPCS: 88305; 32555; 36430; 71045; 80048; 82042; 82962; 83615; 83986; 84157; 85025; 85027; 86850; 86900; 86901; 86920; 87015; 87070; 87205; 88112; 89051; 99291; P9016

== ENCOUNTER 2024-08-12 10:25 | Inpatient (IN) | payer MEDICARE, OTHER, SELFPAY ==
[2024-08-11 20:22] VITALS: BP 150/54
[2024-08-11 20:24] VITALS: BP 150/54
[2024-08-11 20:28] VITALS: BMI 34.4
--- NOTE | 2024-08-11 20:34 | ED.GENMED ---
History of Present Illness
General
Chief Complaint: Abnormal Lab Value
Time Seen by Provider: 08/11/24 20:33
History of Present Illness
History of Present Illness:
TIME OF INITIAL ENCOUNTER: 8:40 PM
HPI: The patient had outpatient blood work today through [facility] and had a hemoglobin of 6.2. She was to have an iron infusion today but due to generalized weakness and rectal pain, she could not make the appointment. She recently had
MiraLAX due to constipation and now has loose stool. She came here from [facility] by ambulance. She is on baby aspirin but no other anticoagulation.
EXAM:
GENERAL: The patient appears generally weak and debilitated
HEENT: Moist oral mucosa
CARDIOVASCULAR: No murmurs, normal heart rate, regular rhythm, No chest wall tenderness
PULMONARY: No respiratory distress, breath sounds are clear and equal
ABDOMEN: Soft with no peritoneal signs, no tenderness, briskly heme-positive very dark brown stool
NEUROLOGIC: Fair strength all extremities, no coordination deficits
PSYCHIATRIC: Appropriate mental status, normal insight and judgement
EXTREMITIES: Nontender, no edema, moves all extremities equally
SKIN: Appears somewhat pale
NUMBER AND COMPLEXITY OF PROBLEMS ADDRESSED AT THE ENCOUNTER
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
� Acute Exacerbation and/or Progression of Chronic Illness: This is an acute but recurrent problem
� Differential Diagnosis includes: GI bleed, iron deficiency anemia
AMOUNT AND/OR COMPLEXITY OF DATA TO BE REVIEWED AND ANALYZED
� I performed an independent evaluation of and my interpretation is:
EKG:
CT:
X-rays:
Laboratory Studies: Hemoglobin 6.3, BUN 81 and creatinine 3.7 which is near baseline
Other:
� Review of other/old records: I reviewed old records including discharge summary from last month and EGD from 06/18/2024 that showed gastritis and duodenitis and bleeding was noted treated with APC
� Clinical information was obtained by an independent historian: I spoke to the sister at bedside; I also reviewed notes paperwork from [facility] which indicates that she is on baby aspirin
� Prescriptions/Medications Considered but not given:
� Further testing considered but not performed:
RISK OF COMPLICATIONS AND/OR MORBIDITY OR MORTALITY OF PATIENT MANAGEMENT
� Social determinants of health affecting care: The patient resides at [facility]
� Discussion with other providers: Hospitalist for admission, Dr. Gilliam at 8:53 PM
� Escalation of care including admission/observation vs risk of discharge considered: Most recent hemoglobin on 07/17/2024 was 8.8. As patient's hemoglobin has dropped and remains heme positive and could not tolerate getting to
her iron infusion today as an outpatient due to severe weakness, I recommend she stay in the hospital for further evaluation. She did have APC on last EGD 2 months ago. She did sign consent for 1 unit of blood transfusion.
ANY OTHER UPDATES:
8:50 PM: Patient signed consent for blood transfusion
Past History
Past History
ED Past Medical History: CAD, GERD, HTN, Hypercholesterolemia, NIDDM, Renal failure, Hypothyroidism and Other (Dysfunctional uterine bleeding, chronic kidney disease pending dialysis, Renal calculus, Iron def anemia, hemorrhagic disorder due to
extrinsic Circulatory anticoagulation. PNA, Back pain, )
ED Past Surgical History: Appendectomy, Gynecological (D&C), Orthopedic (Left carpal tunnel ), Tonsilectomy, Urological (Kidney stent) and Other (L AV fistula)
Social History
Tobacco: Non-smoker
Alcohol: Occasional
Drug: None
Personal: Single
Living: halfway
Family History
Family History: Diabetes, Hypertension and Early CAD; Negative Asthma or Cancer
Phy Exam
Physical Exam
Physical Exam:
See HPI
Course
Orders/Labs/Results
Orders:
Orders
08/11/24 20:30
Type+Screen Urgent
Complete Blood Count/With Diff Urgent
Comprehensive Metabolic Panel Urgent
08/11/24 20:34
Add On- LAB Urgent
Tests Added?: Iron, TIBC, ferritin
08/11/24 20:45
Pantoprazole [Protonix IV] 80 mg IV NOW STA
Abnormal Lab Results
08/11/24
20:30
RBC 2.05 L 10^6/uL
(4.20-5.40)
Hgb 6.3 L* g/dL
(12.0-16.0)
Hct 20.3 L* %
(37.0-47.0)
MCHC 31.0 L g/dL
(33.0-37.0)
RDW 15.5 H %
(11.5-14.5)
Potassium 5.3 H mmol/L
(3.5-5.1)
BUN 81 H mg/dl
(7-17)
Creatinine 3.7 H mg/dL
(0.6-1.0)
AST 13 L U/L
(14-36)
Total Protein 5.2 L g/dl
(6.3-8.2)
Albumin 2.9 L g/dl
(3.5-5.0)
08/11/24 20:30
08/11/24 20:30
Vital Signs
Initial and Last Documented VS:
Initial Vital Signs
Temp Pulse Resp BP Pulse Ox
98.7 F 66 16 150/54 99
08/11/24 20:22 08/11/24 20:22 08/11/24 20:22 08/11/24 20:22 08/11/24 20:22
Last Documented Vital Signs
Temp Pulse Resp BP Pulse Ox
98.7 F 65 22 150/54 99
08/11/24 20:22 08/11/24 20:30 08/11/24 20:30 08/11/24 20:24 08/11/24 20:30
*Critical Care Note
Total Time (30-74mins, 75-104mins- exclusive of procedures): Not Applicable
ED Attending Note
-
Portions of this chart may have been created with voice recognition software.� Occasional wrong word or��sound alike� substitutions may have occurred due to the inherent limitations of voice recognition software.
Discharge Plan
Departure
Patient Disposition: Admit
Date of Disposition: 08/11/24
Time of Disposition: 20:50
Presentation/result/management discussed w/ accepting MD/DO: Hospitalist
Discharge Problem:
Anemia
Prescriptions:
No Action
allopurinol 100 mg Tablet
100 mg PO DAILY
atorvastatin [Lipitor] 40 mg Tablet
40 mg PO DAILY
carvedilol [Coreg] 25 mg Tablet
25 mg PO BID
folic acid 1 mg Tablet
1 mg PO DAILY
levothyroxine 25 mcg Tablet
25 mcg PO DAILY
insulin aspart U-100 [Novolog FlexPen U-100 Insulin] 100 unit/mL (3 mL) insulin pen
0 - 12 sliding scale dose SC ACHS
Rx Instructions:
BS 70-150 = 0 units; 151-200 = 2 units; 201-250 = 4 units; 251-300 = 6 units; 301-350 = 8 units; 351-400 = 10 units; 401-450 = 12 units. If BS>451 call PCP.
aspirin 81 mg Tablet,Delayed Release (Dr/Ec)
81 mg PO DAILY
hydralazine 25 mg Tablet
25 mg PO TID
polyethylene glycol 3350 [Miralax] 17 gram Powder In Packet
17 g PO DAILYPRN PRN (Reason: constipation)
loperamide 2 mg Tablet
2 mg PO Q6HPRN PRN (Reason: diarrhea)
miconazole nitrate 2 % Powder
1 applic TOPICAL BID
cyanocobalamin (vitamin B-12) 1,000 mcg Tablet
1,000 mcg PO DAILY
torsemide 10 mg Tablet
20 mg PO BID
Procrit 20,000 unit/mL Solution
20,000 unit SC MO
sodium bicarbonate 650 mg Tablet
1,300 mg PO TID
bisacodyl 10 mg Suppository
10 mg DC DAILYPRN PRN (Reason: constipation)
pantoprazole 40 mg Tablet,Delayed Release (Dr/Ec)
40 mg PO DAILY
ammonium lactate 12 % Cream
1 applic TOPICAL QPM
ammonium lactate 12 % Cream
1 applic TOPICAL [id number] PRN (Reason: B/L legs)
gabapentin 100 mg Capsule
100 mg PO TID
ascorbic acid (vitamin C) [Vitamin C] 250 mg tablet
250 mg PO DAILY Qty: 30 0RF
acetaminophen [Tylenol] 325 mg Tablet
650 mg PO Q4HPRN PRN (Reason: mild pain/Temp >100)
ferrous sulfate 325 mg (65 mg iron) tablet
325 mg PO Q48H
sucralfate 1 gram tablet
1 g PO AC
ipratropium-albuterol 0.5 mg-3 mg(2.5 mg base)/3 mL Solution For Nebulization
3 ml INHALATION R Q6HPRN PRN (Reason: sob/wheezing)
guaifenesin [Diabetic Tussin EX] 100 mg/5 mL Liquid
200 mg PO Q4HPRN PRN (Reason: cough)
Interventions
Interventions:
*Risk Screen - Suicide Last Done: 08/11/24 20:26
*Neglect/Abuse Screening Last Done: 08/11/24 20:26
ED- Fall Risk Assessment Last Done: 08/11/24 20:26
*ED COVID-19 Vaccine History Last Done: 08/11/24 20:26
Discharge Date and Time
Print Language: SOMALI
[2024-08-11 20:47] LABS: % Basophils 0.6 % (0-2); % Eosinophils 3.7 % (0-6); % Immature Granulocytes 0.4 % (0-0.5); % Lymphocytes 24.5 % (20.5-51.1); % Monocytes 6.3 % (1.7-9.3); % Neutrophils 64.5 % (42.2-75.2); Absolute Eosinophils 0.2 10^3/uL (0-0.7); Absolute Lymphocytes 1.2 10^3/uL (1.2-3.4); Absolute Monocytes 0.3 10^3/uL (0.1-0.6); Absolute Neutrophils 3.3 10^3/uL (1.4-6.5); Hematocrit 20.3 % (37.0-47.0); Hemoglobin 6.3 g/dL (12.0-16.0); Mean Corpuscular Hgb 30.7 pg (27.0-31.0); Mean Platelet Volume 9.1 fL (7.4-10.4); Nucleated Red Blood Cells % 0 %; Platelet Count 190 10^3/uL (130-400); Red Blood Cell Count 2.05 10^6/uL (4.20-5.40); Red Cell Dist. Width 15.5 % (11.5-14.5); White Blood Cell Count 5.1 10^3/uL (4.8-10.8)
[2024-08-11 20:58] LABS: ALT (SGPT) 11 U/L (0-35); AST (SGOT) 13 U/L (14-36); Albumin 2.9 g/dl (3.5-5.0); Alkaline Phosphatase 57 U/L (38-126); Blood Urea Nitrogen 81 mg/dl (7-17); Calcium 10.1 mg/dl (8.4-10.2); Carbon Dioxide 22 mmol/L (22-30); Estimated Creatinine Clearance 15 ml/min; Glucose 94 mg/dl (70-99); Total Bilirubin 0.2 mg/dl (0.2-1.3); Total Protein 5.2 g/dl (6.3-8.2); eGFR 11.92
[2024-08-11 21:00] VITALS: BP 158/62
[2024-08-11] MEDS: PROTONIX IV 80 MG IV (21:03)
[2024-08-11 21:07] LABS: Chloride 107 mmol/L (98-107); Potassium 5.3 mmol/L (3.5-5.1); Sodium 141 mmol/L (135-145)
--- NOTE | 2024-08-11 21:16 | HPS.HSE ---
Family Physician
-
Family Physician: Jhonathan Gabriel
Chief Complaint
-
abnormal outpatient lab
History of Present Illness
Patient is a 79-year-old female with past medical history significant for coronary artery disease, essential hypertension, hyperlipidemia, diabetes mellitus type II, CKD Stage V, chronic anemia, chronic metabolic acidosis, hypothyroidism and chronic
lower extremity lymphedema who presented to [place] ED for evaluation following out patient lab results of Hgb 6.3. Patient denies any melena, hematochezia, hematemesis or hemoptysis. She denies any dizziness, or generalized weakness.
Medical History
Past Medical History
Past Medical History: Reports Other
Additional Past Medical History:
Coronary Artery Disease
Essential Hypertension
Hyperlipidemia
Diabetes Mellitus, Type II
CKD Stage V
Chronic Anemia
Chronic Metabolic Acidosis
Hypothyroidism
Chronic Lower Ext Lymphedema
Chronic Venous Stasis Dermatitis
Hx DVT
Past Surgical History: Reports Other
Additional Past Surgical History:
Left Upper Ext AV Fistula
Left Carpal Tunnel
Appendectomy
Tonsillectomy
D&C
Hysteroscopy / Failed Endometrial Ablation
Ureteral Stents
Social History
Tobacco: Non-smoker
Living: [facility] ([facility])
Family History
Family History: Not pertinent
Allergies / Home Medications
Allergies reflects when Allergies were last updated in [employer].
Home Medications with original date entered in [employer]
Allergy/Medication List:
Allergies
Allergy/AdvReac Type Severity Reaction Status Date / Time
Penicillins Allergy Hives Verified 08/11/24 20:22
Home Medications
allopurinol 100 mg tablet 100 mg PO DAILY Gout 09/07/22
atorvastatin 40 mg tablet (Lipitor) 40 mg PO DAILY High cholesterol 09/07/22
carvedilol 25 mg tablet (Coreg) 25 mg PO BID Heart disease/condition 09/07/22
folic acid 1 mg tablet 1 mg PO DAILY Supplement 09/07/22
levothyroxine 25 mcg tablet 25 mcg PO DAILY Thyroid 11/28/22
insulin aspart U-100 100 unit/mL (3 mL) subcutaneous pen (Novolog FlexPen U-100 Insulin aspart) 0 - 12 sliding scale dose SC ACHS Diabetes 03/26/23
aspirin 81 mg tablet,delayed release 81 mg PO DAILY Blood Clot Prevention/Tx 12/20/23
hydralazine 25 mg tablet 25 mg PO TID Blood Pressure 02/13/24
ammonium lactate 12 % topical cream 1 applic topical [id number] PRN B/L legs 04/03/24
ammonium lactate 12 % topical cream 1 applic topical QPM B/L legs 04/03/24
bisacodyl 10 mg rectal suppository 10 mg GA DAILYPRN PRN constipation 04/03/24
cyanocobalamin (vitamin B-12) 1,000 mcg tablet 1,000 mcg PO DAILY Supplement 04/03/24
epoetin dora 20,000 unit/mL injection solution (Procrit) 20,000 unit SC MO 04/03/24
gabapentin 100 mg capsule 100 mg PO TID PAIN 04/03/24
loperamide 2 mg tablet 2 mg PO Q6HPRN PRN diarrhea 04/03/24
miconazole nitrate 2 % topical powder 1 applic topical BID abd folds/groin 04/03/24
pantoprazole 40 mg tablet,delayed release 40 mg PO DAILY Gastrointestinal Issue 04/03/24
polyethylene glycol 3350 17 gram oral powder packet (Miralax) 17 g PO DAILYPRN PRN constipation 04/03/24
sodium bicarbonate 650 mg tablet 1,300 mg PO TID Supplement 04/03/24
torsemide 10 mg tablet 20 mg PO BID Fluid Retention/Swelling 04/03/24
ascorbic acid (vitamin C) 250 mg tablet (Vitamin C) 250 mg PO DAILY #30 tabs 06/18/24
acetaminophen 325 mg tablet (Tylenol) 650 mg PO Q4HPRN PRN mild pain/Temp >100 07/10/24
ferrous sulfate 325 mg (65 mg iron) tablet 325 mg PO Q48H Supplement 07/10/24
sucralfate 1 gram tablet 1 g PO AC Gastrointestinal Issue 07/16/24
guaifenesin 100 mg/5 mL oral liquid 200 mg PO Q4HPRN PRN cough 08/11/24
ipratropium 0.5 mg-albuterol 3 mg (2.5 mg base)/3 mL nebulization soln 3 ml inhalation R Q6HPRN PRN sob/wheezing 08/11/24
Review of Systems
-
History Source: Patient
Constitutional: Reports Fatigue
EENT: Reports No Symptoms
Respiratory: Reports No Symptoms
Cardiac: Reports No Symptoms
Abdomen/GI: Reports No Symptoms
: Reports No Symptoms
Musculoskeletal: Reports No Symptoms
Skin: Reports No Symptoms
Neurological: Reports No Symptoms
Endocrine: Reports No Symptoms
Hematologic/Lymphatic: Reports No Symptoms
Psych: Reports No Symptoms
Physical Exam
Vital Signs
Vital Signs
Temp Pulse Resp BP Pulse Ox
98.7 F 65 22 150/54 99
08/11/24 20:22 08/11/24 20:30 08/11/24 20:30 08/11/24 20:24 08/11/24 20:30
Physical Exam
General: Well Developed, Well Nourished, No Apparent Distress, Comfortable, Conversant and Morbidly Obese
HEENT: NormoCephalic, Moist mucous membranes, Atraumatic, PERRLA, [place] Conjunctivae, Nose Appears Normal and Ears Appear Normal
Respiratory: Clear and Non Labored Respirations; No Wheezes, Rales, Rhonchi or Crackles
Cardiac: S1/S2 and Regular Rhythm; No Murmur, Rub or Gallop
Breast: Deferred by me
GI: Soft, Non Tender, Non Distended and Normal Bowel Sounds; No Organomegaly
Rectal: Deferred by Provider
Genito-urinary: Deferred by me
Musculoskeletal: No Clubbing, No Cyanosis and No Edema
Skin: Warm, Dry and IV/Catheter Site; No Rash
Neuro: Awake, AO x 3 and Nonfocal/grossly intact
Hematologic/Lymphatic: No Lymphadenopathy
Psych: Calm and Intact Judgment/Insight
Laboratory Results
-
08/11/24 20:30
08/11/24 20:30
Laboratory Results
Total Bilirubin 0.2 mg/dl (0.2-1.3) 08/11/24 20:30
AST 13 U/L (14-36) L 08/11/24 20:30
ALT 11 U/L (0-35) 08/11/24 20:30
Alkaline Phosphatase 57 U/L (38-126) 08/11/24 20:30
Data Reviewed
-
Lab Data: Labs Reviewed by me (hgb 6.3, Hct 20.3, BUN 81, Creat 3.7, )
Impression/Plan
-
IMPRESSION/PLAN:
#Acute on Chronic Anemia
- hgb 6.3/hct 20.3
- Admit to M/S for observation
- ED obtained blood consent
- 1 unit PRBCs
- Protonix IV BID
- Monitor H/H
- continue B12, ferrous sulfate, folic acid, and procrit
- follow up with hematology and GI outpatient
- nursing observed vaginal bleeding with clot
- consult entered for GAS CHECK PAD MAKER
#Coronary Artery Disease
- continue ASA
#Essential Hypertension
- continue carvedilol and torsemide
#Hyperlipidemia
- continue atorvastatin
#Diabetes Mellitus, Type II
- Accuchecks AC & HS
- SSI
#CKD Stage V
- Creat3.7 at baseline
#Chronic Metabolic Acidosis
- continue sodium bicarbonate
#Hypothyroidism
- continue levothyroxine
#Chronic Lower Ext Lymphedema
- continue torsemide
Full Code
DVT Px: SCDs
--- NOTE | 2024-08-11 21:43 | W.PN.UPDATE ---
Update Note
Progress Note Update
Patient seen in conjunction with SAUSAGE GRINDER. I agree with findings on history and physical. I concur with assessment and plan entirely.
This is a 78-year-old female with past medical history of advanced CKD but not currently on dialysis, iron deficiency anemia, chronic GI bleed, type 2 diabetes, CAD and acute on chronic GI bleed, dysfunctional uterine bleeding/fibroids, who presents
to the emergency department after blood test at longterm showed a hemoglobin of 6.3. Patient was transfused about 1 month ago with 2 units of blood for hemoglobin of 6.5 and discharge with Hgb of 8.8. Gets weekly hgb checks, last week was 7.7
and now 6.3.
She endorsed constipation which was treated with laxatives and has now had loose bowel movements for about a day. Otherwise denies hematochezia. She is unsure but has no dark or black stools. She denies any nausea vomiting or hematemesis. She
denies feeling dizzy or lightheaded. She denies any chest pain dyspnea exertion or shortness of breath but she is mostly not very mobile. Patient has been supported with IV iron, Procrit and she is supposed to be on hormone treatment for
dysfunctional uterine bleeding for which she is not a candidate for surgical treatment. While in ED she had vaginal bleeding with clots. She reports that she has seen blood when wiping and when she urinates suggesting more active vaginal bleeding.
She has not received her hormone treatment that was q 90 days (last dose in may 02 2024).
Patient had EGD done in June 18 showing some duodenitis and gastritis. She had a prior colonoscopy and capsule endoscopy this year. Ultimately patient was placed on a PPI twice daily and on PPI daily now. Goal hemoglobin is around 8.
In the ED she has noted no 6.3. Blood pressure is stable at 150 systolic, pulse 65 she is satting 98% on room air. Electrolytes were mostly stable with a potassium of 5.3, creatinine of 3.7 and a BUN of 81.
Well appearing with chronic anemia from iron deficiency, occult bleeding and renal failure. Likely more vaginal bleeding now.
Skirt Panel Assembler consult, known dysfunction uterine bleeding and ongoing activity, no brisk bleeding but may benefit from high dose estrogen/ocp. Said not to be a surgical candidate. If brisk bleeding, will consult IR.
Will transfuse up to 2 unit prbc and reassess. If stable an no acute bleeding or instability will hold off GI consult. She will continue procrit, IV iron infusion and q 90 day progesterones. She is euvolemic without acute electrolyte
abnormalities. Renal function is stable. Mild hyperkalemia. Continue renal volume management with torsemide and serum bicarb for acidosis. Low K diet. Repeat lytes in am after transfusion.
Continue rest of medical plan as per longterm records as detailed in SAUSAGE GRINDER note.
[2024-08-11 22:24] LABS: Iron 32 ug/dl (37-170)
[2024-08-11 22:33] LABS: Percent Saturation 11 % (20-50); Total Iron Binding Capacity 289 ug/dl (265-497)
[2024-08-11 23:30] LABS: Ferritin 11.3 ng/ml (11.1-264.0)
[2024-08-11 23:49] VITALS: BP 144/53; BMI 36.4
--- NOTE | 2024-08-11 23:49 | PTCARENOTE ---
Pt arrived onto floor @2349. Pt AAOx3 and a gum puller to the bed. Pt with no complaints of pain or SOB at this time. Pt oriented to room and call hoang; will continue to monitor.
[2024-08-12] VITALS (9 sets, daily range): BP systolic 131–159; BP diastolic 50–68
[2024-08-12] MEDS: SODIUM BICARBONATE 1300 MG PO ×4 (00:41→20:47)
[2024-08-12] MEDS: NEURONTIN 100 MG PO ×4 (00:41→20:46)
[2024-08-12] MEDS: APRESOLINE 25 MG PO ×4 (00:41→20:48)
[2024-08-12] MEDS: SYNTHROID 25 MCG PO (03:46)
[2024-08-12 08:21] LABS: Hematocrit 23.9 % (37.0-47.0); Hemoglobin 7.4 g/dL (12.0-16.0); Mean Corpuscular Hgb 31.4 pg (27.0-31.0); Mean Corpuscular Volume 101.3 fL (81.0-99.0); Mean Platelet Volume 9.1 fL (7.4-10.4); Platelet Count 181 10^3/uL (130-400); Red Blood Cell Count 2.36 10^6/uL (4.20-5.40); Red Cell Dist. Width 15.6 % (11.5-14.5); White Blood Cell Count 4.2 10^3/uL (4.8-10.8)
[2024-08-12 08:34] LABS: Blood Urea Nitrogen 78 mg/dl (7-17); Calcium 10.5 mg/dl (8.4-10.2); Carbon Dioxide 21 mmol/L (22-30); Chloride 111 mmol/L (98-107); Estimated Creatinine Clearance 16 ml/min; Glucose 89 mg/dl (70-99); Potassium 5.3 mmol/L (3.5-5.1); Sodium 142 mmol/L (135-145); eGFR 11.92
[2024-08-12 09:22] LABS: Glucose - Point of Care 97 mg/dl (70-99)
--- NOTE | 2024-08-12 09:54 | W.PN.HOSP.TC ---
Today's Communication/Plan
-
Transfuse
Assessment / Plan
Assessment / Plan
Gen-AAOx3, NAD
HEENT-NC, AT, anicteric, clear oral mm
Neck-supple
CV-reg, no M, +S1/S2
Lungs-clear B/L
Abd-soft, NT, ND
Ext-no edema
Musculoskeletal-no cyanosis, clubbing
Skin-warm and dry
Neuro-grossly non-focal
Psych-calm, cooperative
Acute on chronic blood loss anemia -most likely etiology currently is postmenopausal vaginal bleeding. She is overdue for her Depo-Provera injection. Usually gets it every 3 months, was due for it on August 02. Unclear why she did not get the
dose in her [facility]. Await UNIT REACTOR OPERATOR input.
Hemoglobin improved from 6.3-7.4 after 1 unit PRBC, will give second unit today.
Does have baseline chronic blood loss anemia due to history of GI bleed. Also with chronic anemia due to CKD. Stool currently is brown.
Hyperkalemia -potassium 5.3, etiology of CKD. Low potassium diet. Give a dose of Lokelma.
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
DM2 without hyperglycemia -treated with NovoLog sliding scale in the [facility].
Essential hypertension -stable.
Hyperlipidemia -on atorvastatin.
CAD -stable, continue medical therapy.
Hypothyroidism -continue levothyroxine.
GERD -continue Protonix.
Chronic bilateral lower extremity lymphedema
Chronic ambulatory dysfunction -uses a walker at baseline, minimal ambulation due to significant deconditioning and weakness, lymphedema in her legs.
Obesity due to excess calories
Full code
Dispo - back to [facility] when stable.
Anticipated Discharge: Within 24 hours
Subjective/Interval History
-
Date of Service: August 12, 2024
Patient seen and examined. No complaints.
Objective Data
-
Labs:
Laboratory Results
08/12/24
08:01
WBC 4.2 L
Hgb 7.4 L
Hct 23.9 L
Plt Count 181
Sodium 142
Potassium 5.3 H
Chloride 111 H
Carbon Dioxide 21 L
BUN 78 H
Creatinine 3.7 H
Glucose 89
Calcium 10.5 H
Vital Signs:
Vital Signs
Temp Pulse Resp BP Pulse Ox
98.1 F 70 20 141/54 99
08/12/24 07:00 08/12/24 07:00 08/12/24 07:00 08/12/24 07:00 08/12/24 07:00
I&O
08/11/24 08/12/24 08/13/24
06:59 06:59 06:59
Intake Total 490 / 490
Output Total 200 / 200
Balance 290 / 290
Review of Systems
-
History Source: Patient
All other systems: Reviewed and negative
[2024-08-12] MEDS: FOLVITE 1 MG PO (09:57)
[2024-08-12] MEDS: VITAMIN B-12 1000 MCG PO (09:57)
[2024-08-12] MEDS: LIPITOR 40 MG PO (09:57)
[2024-08-12] MEDS: CARAFATE 1 GRAM PO ×2 (09:57→15:03)
[2024-08-12] MEDS: DEMADEX 20 MG PO ×2 (09:58→20:46)
[2024-08-12] MEDS: COREG 25 MG PO ×2 (10:08→20:48)
[2024-08-12] MEDS: ZYLOPRIM 100 MG PO (10:08)
[2024-08-12] MEDS: VITAMIN C 250 MG PO (10:09)
--- NOTE | 2024-08-12 10:14 | CM ---
CM reviewed chart, met with patient bedside. Patient confirms she is a LTC resident of [facility], has been there about two years. Patient reports she currently uses wheelchair, prior to going to [facility] was ambulating with a walker, has
been receiving therapy at [facility]. Patient PCP Jhonathan Gabriel, pharmacy [facility]. [place] form reviewed, signed, placed in chart, patient provided with copy. CM will send referral to [facility] for return of patient when stable. CM will continue
to follow for all discharge planning needs.
Plan; return to [facility] when stable.
--- NOTE | 2024-08-12 12:02 | CON.MD ---
Documented by User: Almita Cortes MD, Resident 08/12/24 15:04
Consultation - Medical
-
79 yr old female with hx of Stage V CKD, chronic anemia, iron deficiency, dysfunctional post menopausal bleeding, Recurrent GIB, angiodysplasia of duodenum, CVA, CAD, HLD, Type 2 Diabetes Mellitus, chronic constipation, DVT, Gastritis who was
admitted yesterday after weekly outpatient labs showed Hgb 6.3/Hct 20.3.
Her history of dysfunctional postmenopausal bleeding started about 2 years ago. She was seen by Dr Vazquez with the [facility], and had an endometrial biopsy from 11/08/2022 showed Benign endometrial polyps, cystic atrophic change, and
prominent fragments of organized smooth muscle. there was also a hysteroscopy with dilation and curettage in November 2022, during which an unsuccessful endometrial ablation was attempted, however, endometrial biopsy showed superficial fragments of
inactive endometrium with papillary metaplasia, fragments of atrophic endometrium and benign endocervical glands. She reports being deemed an unsuitable candidate for hysterectomy due to her age and comorbidities. She is now followed by Dr. Tesfaye of
[facility] in [place], and has been treated with Q90d Depo Provera. She reports minor bleeding usually seen at the end of her 90day depo provera cycle, which quickly resolves after she gets the shot. She is currently 10 days late from her
scheduled shot (due 08/02/2024).
While here, nursing staff noted some vaginal bleeding with clots. She has been given 2 units of PRBCs during this admission. We have been consulted to provide recommendations for postmenopausal bleeding.
Abnormal Lab Results
08/11/24 08/12/24
20:30 08:01
WBC 4.2 L
RBC 2.05 L 2.36 L
Hgb 6.3 L* 7.4 L
Hct 20.3 L* 23.9 L
MCV 101.3 H
MCH 31.4 H
MCHC 31.0 L 31.0 L
RDW 15.5 H 15.6 H
Potassium 5.3 H 5.3 H
Chloride 111 H
Carbon Dioxide 21 L
BUN 81 H 78 H
Creatinine 3.7 H 3.7 H
Calcium 10.5 H
Iron 32 L
% Saturation 11 L
AST 13 L
Total Protein 5.2 L
Albumin 2.9 L
Crossmatch IS Only See Detail
ROS:
Denies dizziness, chest pain, SOB, palpitations, leg pain, bloody/tarry stool, hematuria, N/V, abdominal pain or cramping. Denies unexplained weight loss or anorexia.
Physical exam:
Gen: Well-appearing female, in no acute distress
HEENT: Anicteric, moist mucous membranes
Heart: Systolic murmur, RRR
Lungs: Clear to auscultation bilaterally
Abd: Normal Bowel sounds, nontender, nondistended, no masses, no suprapubic or adnexal tenderness
Genitourinary: Minimal blood noted in diaper. No notable rashes, or suspicious lesions
A&P;
79 yo F with postmenopausal bleeding.
PLAN:
- Will get pelvic ultrasound
- Start Medroxyprogesterone 10mg daily to treat postmenopausal bleed
- Potentially hysteroscopy - exam under anesthesia, and endometrial sampling in OR tomorrow if cleared by medical team. Potentially D&C vs other procedure
- Discussed placing Mirena IUD with patient if available, as this could be a better option given postmenopausal status and risk of osteoporosis with ongoing Depo provera. Pt is not sure of this option at this time.
- Will obtain [facility] [employer] [facility] medical records from [facility]

Documented by User: Violeta Rushing DO 08/12/24 16:05
Consultation - Medical
-
79 yr old female with hx of Stage V CKD, chronic anemia, iron deficiency, postmenopausal bleeding, Recurrent GI bleed, angiodysplasia of duodenum, CVA, CAD, HLD, Type 2 Diabetes Mellitus, chronic constipation, DVT, Gastritis who was admitted
yesterday after weekly outpatient labs showed Hgb 6.3/Hct 20.3. She has chronic multifactorial anemia and has had multiple admissions for transfusions. Followed with weekly outpatient labs. Last week hgb 7.7. Patient does not know if any source of
current bleeding.
While here, nursing staff noted some vaginal bleeding with clots. Her history of postmenopausal bleeding started about 2 years ago, at which time she was on Eliquis for h/o VTE. No longer on any blood thinners. She was seen by Dr Vazquez with the
[facility], and had a D&C in 11/08/2022, which showed Benign endometrial polyps, cystic atrophic change and prominent fragments of organized smooth muscle. She again underwent a hysteroscopy with dilation and curettage in November 2022, during
which an unsuccessful endometrial ablation was attempted to control bleeding. Endometrial sampling at that time showed superficial fragments of inactive endometrium with papillary metaplasia, fragments of atrophic endometrium and benign endocervical
glands. She reports being deemed an unsuitable candidate for hysterectomy due to her age and comorbidities. She is now followed by Dr. Tesfaye of [facility] in [place], and has been treated with Q90d Depo Provera. She reports minor bleeding
usually seen at the end of her 90day depo provera cycle, which quickly resolves after she gets the shot. She is currently 10 days late from her scheduled shot (due 08/02/2024). Patient reports scant spotting to no bleeding now. Had some lower
abdominal cramping yesterday, but was very constipated. Cramping has resolved after BM.
She has been given 2 units of PRBCs during this admission. We have been consulted to provide recommendations for postmenopausal bleeding.
Meds- see med list
ALL: PCN
PMH: Stage V CKD, chronic anemia, iron deficiency, postmenopausal bleeding, Recurrent GI bleed, angiodysplasia of duodenum, CVA, CAD, HLD, Type 2 Diabetes Mellitus, chronic constipation, h/o DVT, Gastritis, h/o VTE, morbid obesity
PSH: hysteroscopy/D&C x2 2022, left AV fistula, endoscopy, colonoscopy, appendectomy
OBhx: G0
GynHx: menarche 13yo, menopause at 48yo, reg menses her whole life; denies STIs or abn paps. Does not know when her last pap was.
Social: denies T/E/I, lives at [facility]
FmHx: M- from cervical cancer. No h/o breast or ovarian cancers.
Colonoscopy last year, polyps removed, had bleeding afterwards; mammo 2022 nml, per prior records
ROS:
Denies dizziness, chest pain, SOB, palpitations, leg pain, bloody/tarry stool, hematuria, N/V, abdominal pain. Denies unexplained weight loss or anorexia.
Physical exam:
VSS- see below
Gen: Well-appearing female, in no acute distress
HEENT: Anicteric, moist mucous membranes
Heart: Systolic murmur, RRR
Lungs: Clear to auscultation bilaterally
Abd: Normal Bowel sounds, nontender, nondistended, no masses, no suprapubic or adnexal tenderness
Genitourinary: Minimal blood noted in diaper. No notable rashes, or suspicious lesions
See labs and last imaging below
A&P:
79 yo F with 2yr h/o postmenopausal bleeding. Has been on depo provera, currently overdue and is not a typical progestin to use in a postmenopausal female.
Scant bleeding currently, so not convinced that vaginal bleeding is the cause of her acute drop in hgb.
Her last pelvic US in 12/2023 did show a 1.4cm endometrial mass, which was not followed up with hysteroscopy and/or endometrial sampling. In addition, last endometrial sampling in 11/2022, though benign, showed papillary metaplasia, so repeat sampling
is indicated.
PLAN:
- Will get pelvic ultrasound, hopefully today
- Start Medroxyprogesterone 10mg daily to treat postmenopausal bleeding. This should be given instead of Depo Provera and dose can be increased if still having bleeding.
- Pending US results and medical clearance, would like to set patient up for EUA, dx/possible operative hysteroscopy (Myosure) + endometrial sampling (Myosure vs. D&C) in OR during this admission (? tomorrow). Patient was counseled and consented
for this procedure tentatively, and understands R/B/A. Once US results, will talk to the OR to get her on schedule. Will need to be NPO prior to procedure. Will also consider cytotec tonight for cervical ripening.
- Discussed placing Mirena IUD with patient if IUD is available tomorrow in the OR after hysteroscopy, as this could be a better option given postmenopausal status and risk of osteoporosis with ongoing Depo provera, and could be good for up to 7yrs.
Pt is not sure if she wants this option at this time.
- Working on obtaining [employer] milling [employer] medical records from [facility]
Vital Signs / Labs
-
Vital Signs and Labs:
Temp Pulse Resp BP Pulse Ox
98.1 F 74 20 145/62 98
08/12/24 12:55 08/12/24 12:55 08/12/24 12:55 08/12/24 12:55 08/12/24 13:04
08/12/24 08:01
08/12/24 08:01
08/11/24 08/12/24
20:30 08:01
WBC 4.2 L
RBC 2.05 L 2.36 L
Hgb 6.3 L* 7.4 L
Hct 20.3 L* 23.9 L
MCV 101.3 H
MCH 31.4 H
MCHC 31.0 L 31.0 L
RDW 15.5 H 15.6 H
Potassium 5.3 H 5.3 H
Chloride 111 H
Carbon Dioxide 21 L
BUN 81 H 78 H
Creatinine 3.7 H 3.7 H
Calcium 10.5 H
Iron 32 L
% Saturation 11 L
AST 13 L
Total Protein 5.2 L
Albumin 2.9 L
Crossmatch IS Only See Detail
Imaging Data
-
Exams: US Pelvis W Transvag 01/17/2024
Indication: Postmenopausal bleeding
COMPARISON: 03/26/2023 CT abdomen pelvis
Critical value: These findings and recommendations were called directly by telephone to Dr. Sharma's office at 4:55 PM on 01/17/2024 as well as called and faxed as an urgent report.
Scanning parameters:
Real-time/grayscale transabdominal and endovaginal ultrasound of the pelvis was obtained.
Endovaginal ultrasound was performed to better evaluate the ovaries.
FINDINGS:
There is a 1.4 cm echogenic mass in the endometrial cavity of the uterus.
This mass may be benign or malignant and follow-up MRI and/or dilatation and curettage is recommended
The uterus is normal in size measuring 9.2 x 2.3 x 4.3 cm.
The uterus is anteverted.
There are no abnormal solid or complex adnexal masses.
The right ovary is not visualized
The left ovary measures 1.7 x 2.1 x 1.6 cm.
There is no free fluid in the pelvis.
IMPRESSION:
There is a 1.4 cm echogenic mass in the endometrial cavity of the uterus.
This mass may be benign or malignant and follow up with dilatation and curettage and/or MRI is recommended
CT: Abd/pelvis 03/2023:
PROCEDURE: CT Abd/pel (oral only)-DH Only
CLINICAL INDICATION: Abdominal and rectal pain. Rectal bleeding. Epigastric abdominal pain. Previous appendectomy. Chronic kidney disease.
TECHNIQUE: A CT examination of the abdomen and pelvis was performed without intravenous contrast. Oral contrast was administered. Coronal and sagittal reformatted images were obtained. Automatic exposure control radiation dose reduction technology
was utilized.
COMPARISON: Comparison is made with a prior CT examination of the abdomen and pelvis performed 11/19/2022.
FINDINGS:
CHEST: The heart is normal in size. There is calcific atherosclerotic plaque in the coronary arteries and descending thoracic aorta. There is a small pericardial effusion. There is a small right pleural effusion. There is a mild amount of
compressive subsegmental atelectasis in the basilar segments of the right lower lobe. There is mild subsegmental atelectasis and scarring in the left lower lobe adjacent to a mild amount of pleural thickening.
ABDOMEN: The liver is normal in size measuring 16.4 cm in length. There is a large amount of cholelithiasis in the gallbladder lumen. There is no abnormal gallbladder distention or pericholecystic inflammation. There is no biliary dilatation. There
is mild diffuse pancreatic parenchymal atrophy. The spleen is mildly enlarged measuring 14.2 cm in length. There is no mesenteric lymphadenopathy.
The adrenal glands appear normal. There is severe calcific atherosclerotic plaque in the abdominal aorta. There is no abdominal aortic aneurysm. There is moderate to severe bilateral renal cortical volume loss. There are a large number of bilateral
intrarenal arterial vascular calcifications. There are nonobstructing intrarenal calculi in the mid and lower pole of the left kidney. There is mild bilateral dilatation of both intrarenal collecting systems and ureters without evidence for ureteral
obstruction.
There is no abnormal distention or wall thickening in the stomach, duodenum, or jejunum. There is no upper abdominal ascites or pneumoperitoneum. There is a small fat-containing umbilical hernia.
PELVIS: There is no abnormal small bowel wall thickening or distention. There has been a previous appendectomy. Oral contrast material passes through the small bowel and colon to reach the level of the rectum.
The rectum is distended to 7.9 cm in diameter with a large amount of fecal material. There is mild diffuse thickening of the rectal wall. There is a moderate to large amount of perirectal inflammation in the presacral space. The appearance is
consistent with acute stercoral colitis. There is no pneumatosis in the colonic wall. There is no extraluminal air or pneumoperitoneum.
There is a minimal amount of nondependent air in the anterior lumen of the urinary bladder. The uterus and ovaries are normal in size. There is a small amount of air in the endometrial canal of the uterine fundus. There is a 1.3 cm calcified
leiomyoma in the right side of the uterine fundus. There is no peritoneal fluid or lymphadenopathy in the pelvis.
SKELETON: There is a mild right convex curvature of the midlumbar spine. There is severe discogenic degenerative disease at L1/L2, L2/L3, and L3/L4. There is severe discogenic degenerative disease at T10/T11. There are multilevel bridging anterior
vertebral body endplate osteophytes in the lower thoracic spine. There is grade 2 anterolisthesis of L4 on L5 secondary to severe bilateral facet joint arthrosis. There is mild bilateral osteoarthritis of the sacroiliac joints. There are mild
degenerative changes of the pubic symphysis. There is moderate diffuse parapelvic muscle atrophy. There is a moderate amount of subcutaneous edema lateral to the right hip and in the lateral right upper thigh.
IMPRESSION:
1. MODERATE ACUTE STERCORAL COLITIS in the RECTUM with fecal impaction and adjacent inflammation.
2. Severe chronic bilateral renal disease.
3. Cholelithiasis.
4. Mild splenomegaly.
5. Small right pleural effusion.
6. Small pericardial effusion.
7. Severe multilevel discogenic degenerative disease and facet joint arthrosis in the lumbar spine.
Electronically signed by Lauri Berumen MD 03/26/2023 9:31 PM
[2024-08-12] MEDS: LOKELMA 10 GRAM PO (12:06)
[2024-08-12] MEDS: PROVERA 10 MG PO (15:06)
[2024-08-12] MEDS: DESENEX/MITRAZOL/ZEASORB 1 APPLIC TOPICAL ×2 (15:07→20:47)
--- NOTE | 2024-08-12 16:23 | WOUNDNOTE ---
[facility] RN note: Patient admitted with chronic anemia, need for transfusion. From [facility]
See H&P for complete history.
PMH: DM, HTN, hyperlipidemia, GI bleed, ESRD, urinary incontinence, obesity, transfers to wheelchair.
Wound Location and type/assessment: Patient admitted with stage 3 PI to left lateral foot. Patient said she sees wound care practitioner at facility and has an air bed. The wound appears with clean edges and some slough in the center of the wound.
Patient also has stage 2 of left sacrum. Heels with stage 1 PI. Air filled boots have already been applied. Fungal appearing skin under breasts noted and antifungal powder has already been applied. Patient provided incontinence care by this ad writer
and [facility] Aileen.
Appetite: Good
Pressure redistribution devices in place: Air bed has been ordered by Tobi in housekeeping. Heel boots intact. Turning schedule.
Plan: All dressings maintained as patient was being assessed by Senior Dentist and then transferred to stretcher for ultrasound. JUNG Noel made aware of plan for wound care. Will confirm orders with hospitalist.
Updated care plan and will follow as needed.
Note to case management of equipment requested for discharge:
Recommend follow up at wound care center upon discharge.
--- NOTE | 2024-08-12 16:50 | WOUNDNOTE ---
LEFT BREAST FOLD
--- NOTE | 2024-08-12 16:50 | WOUNDNOTE ---
LEFT LATERAL FOOT
[2024-08-12] MEDS: CARAFATE PO (18:44)
--- NOTE | 2024-08-12 19:22 | W.PN.GYN ---
Today's Communication / Plan
-
A/P 79yo F with 2yr h/o PMB.
Chronic anemia, likely from multiple causes. Now s/p 2u PRBCs this admission.
Do not feel Vera's PMB is significantly contributing to her anemia currently, but she does need further evaluation of the endometrium due to prior US results showing 1.4cm endometrial lesion (in 12/2023) and last endometrial sampling benign with
papillary metaplasia 1.5yrs ago (in 11/2022).
US today without clear view of the endometrium, so not helpful.
-Pt again counseled on R/B/A of EUA, dx/op hysteroscopy, endometrial sampling (with myosure vs. D&C). Pap can be done at that time, as well. Consent on chart. Added to the OR schedule for Dr. Hay tomorrow, who is aware of patient. Timing likely
will be late morning.
-Cytotec 400mcg to be placed vaginally this evening for cervical ripening (just waiting for med to be tubed up from pharmacy)
-Cleared for surgery by primary team, Dr. Limon
-NPO after midnight. Dr. Limon aware and will adjust AM fluids/glucose checks orders if needed
-CBC in AM
Physician Note
-
Pt doing fine, now s/p transfusion of 2nd unit of PRBCs. Still no heavy vaginal bleeding noted. Started on PO Provera 10mg today.
VSS- see below
See Pelvic US below- ES not visualized. ?2 possible calcified fibroids vs. adjacent material in the bowel. No adnexal masses.
A/P 79yo F with 2yr h/o PMB.
Chronic anemia, likely from multiple causes. Now s/p 2u PRBCs this admission.
Do not feel Vera's PMB is significantly contributing to her anemia currently, but she does need further evaluation of the endometrium due to prior US results showing 1.4cm endometrial lesion (in 12/2023) and last endometrial sampling benign with
papillary metaplasia 1.5yrs ago (in 11/2022).
US today without clear view of the endometrium, so not helpful.
-Pt again counseled on R/B/A of EUA, dx/op hysteroscopy, endometrial sampling (with myosure vs. D&C). Pap can be done at that time, as well. Consent on chart. Added to the OR schedule for Dr. Hay tomorrow, who is aware of patient. Timing likely
will be late morning.
-Cytotec 400mcg to be placed vaginally this evening for cervical ripening (just waiting for med to be tubed up from pharmacy)
-Cleared for surgery by primary team, Dr. Limon
-NPO after midnight. Dr. Limon aware and will adjust AM fluids/glucose checks orders if needed
-CBC in AM
Tianna Rushing, DO
Vital Signs / Labs
-
Vital Signs and Labs:
Temp Pulse Resp BP Pulse Ox
98.6 F 73 19 131/50 98
08/12/24 15:41 08/12/24 15:41 08/12/24 15:41 08/12/24 15:41 08/12/24 15:41
08/12/24 08:01
08/12/24 08:01
08/11/24 08/12/24
20:30 08:01
WBC 4.2 L
RBC 2.05 L 2.36 L
Hgb 6.3 L* 7.4 L
Hct 20.3 L* 23.9 L
MCV 101.3 H
MCH 31.4 H
MCHC 31.0 L 31.0 L
RDW 15.5 H 15.6 H
Potassium 5.3 H 5.3 H
Chloride 111 H
Carbon Dioxide 21 L
BUN 81 H 78 H
Creatinine 3.7 H 3.7 H
Calcium 10.5 H
Iron 32 L
% Saturation 11 L
AST 13 L
Total Protein 5.2 L
Albumin 2.9 L
Crossmatch IS Only See Detail
Imaging Data
-
SignedOrder #:[id number]
Exams: US Pelvis Transvaginal Only
CPT: 80208
PROCEDURE: US Pelvis Transvaginal Only
CLINICAL INDICATION: Postmenopausal bleeding. Acute on chronic anemia.
TECHNIQUE: A transvaginal ultrasound examination of the pelvis was performed.
COMPARISON: Comparison is made with a prior ultrasound examination of the pelvis performed 01/17/[address] examination of the abdomen and pelvis performed 03/26/2023.
FINDINGS:
UTERUS: There are linear bands of hyperechogenicity measuring 3.2 cm and 4.4 cm in size suggesting calcified uterine leiomyoma, although this could also be air within bowel loops. The endometrium is not clearly visualized.
RIGHT OVARY: Not visualized.
LEFT OVARY: Not visualized.
There is no sonographic evidence for peritoneal fluid in the pelvis.
IMPRESSION:
Probable calcified uterine leiomyoma.
Electronically signed by Lauri Berumen MD, 08/12/2024 4:48 PM
Dictated By: Lauri Berumen MD.
Dictated Date & Time: 08/12/24 1638
Signed/Co-Signer By: Lauri Berumen MD /
Signed/Co-Signer Date & Time: 08/12/24 1648 /
Transcribed by: Lauri Berumen
Printed Date and Time: @
cc:
--- NOTE | 2024-08-12 19:49 | PTCARENOTE ---
Family Resident Sophia notified to administer 400mcg cyotec
[2024-08-13] VITALS (16 sets, daily range): BP systolic 119–176; BP diastolic 53–97; BMI 36.4
[2024-08-13 01:39] LABS: Hematocrit 26.5 % (37.0-47.0); Hemoglobin 8.9 g/dL (12.0-16.0)
[2024-08-13] MEDS: SYNTHROID 25 MCG PO (05:32)
[2024-08-13] MEDS: CARAFATE PO (07:19)
[2024-08-13] MEDS: COREG 25 MG PO ×2 (07:40→20:48)
[2024-08-13] MEDS: CYTOTEC 400 MCG VAG (07:43)
[2024-08-13] MEDS: NEURONTIN 100 MG PO ×3 (07:44→20:47)
[2024-08-13] MEDS: LIPITOR 40 MG PO (07:44)
[2024-08-13] MEDS: FOLVITE 1 MG PO (07:45)
[2024-08-13] MEDS: SODIUM BICARBONATE 1300 MG PO ×3 (07:45→20:47)
[2024-08-13] MEDS: FEOSOL 325 MG PO (07:45)
[2024-08-13] MEDS: DEMADEX 20 MG PO ×2 (07:45→20:48)
[2024-08-13] MEDS: ZYLOPRIM 100 MG PO (07:45)
[2024-08-13] MEDS: VITAMIN C 250 MG PO (07:45)
[2024-08-13] MEDS: VITAMIN B-12 1000 MCG PO (07:45)
[2024-08-13] MEDS: PROVERA 10 MG PO (07:45)
[2024-08-13] MEDS: APRESOLINE 25 MG PO ×3 (07:45→20:48)
[2024-08-13] MEDS: DESENEX/MITRAZOL/ZEASORB 1 APPLIC TOPICAL ×2 (07:46→20:48)
[2024-08-13] MEDS: NOVOLOG FLEXPEN-LOW RESISTANCE SC ×2 (07:56→12:14)
[2024-08-13 07:58] LABS: Glucose - Point of Care 107 mg/dl (70-99)
[2024-08-13 08:54] LABS: % Eosinophils 5.9 % (0-6); % Immature Granulocytes 0.5 % (0-0.5); % Lymphocytes 23.4 % (20.5-51.1); % Neutrophils 62.2 % (42.2-75.2); Absolute Basophils 0.1 10^3/uL (0-0.2); Absolute Eosinophils 0.4 10^3/uL (0-0.7); Absolute Lymphocytes 1.4 10^3/uL (1.2-3.4); Absolute Monocytes 0.4 10^3/uL (0.1-0.6); Absolute Neutrophils 3.7 10^3/uL (1.4-6.5); Hemoglobin 10.6 g/dL (12.0-16.0); Mean Corp Hgb Conc. 32.1 g/dL (33.0-37.0); Mean Corpuscular Hgb 31.3 pg (27.0-31.0); Mean Corpuscular Volume 97.3 fL (81.0-99.0); Nucleated Red Blood Cells % 0 %; Platelet Count 182 10^3/uL (130-400); Red Blood Cell Count 3.39 10^6/uL (4.20-5.40); Red Cell Dist. Width 16.6 % (11.5-14.5)
[2024-08-13 08:56] LABS: Blood Urea Nitrogen 76 mg/dl (7-17); Calcium 10.3 mg/dl (8.4-10.2); Carbon Dioxide 21 mmol/L (22-30); Chloride 109 mmol/L (98-107); Estimated Creatinine Clearance 17 ml/min; Glucose 97 mg/dl (70-99); Potassium 5.4 mmol/L (3.5-5.1); Sodium 142 mmol/L (135-145); eGFR 12.75
[2024-08-13 10:33] LABS: Glycohemoglobin (HgbA1c) 4.6 % (4.0-5.6)
--- NOTE | 2024-08-13 10:38 | W.SUR.PREOP ---
Pre-Operative Surgical Note
-
I have examined this patient prior to the performance of the scheduled procedure.
The patient's condition is unchanged from the time of the current History and
Physical and the patient is able to undergo the scheduled procedure.
[2024-08-13 11:43] LABS: Glucose - Point of Care 96 mg/dl (70-99)
--- NOTE | 2024-08-13 11:54 | W.IMMPOSTOP ---
Surgical Immed Post Op Note
-
Primary Surgeon: Jaja Hay DO
Assisting Surgeon: none
Pre-op Diagnosis: Postmenopausal bleeding, endometrial mass
Post-op Diagnosis: same; submucosal fibroid
Procedure Performed: Diagnostic hysteroscopy D&C
Anesthesia Type: general LMA Dr. Nelson
Specimen / Cultures: 1. endocervical curettings 2. endometrial curettings 3. biopsy of endometrial mass (suspected fibroid)
Estimated Blood Loss: 5 ml
Complications: none
Operative Findings: Uterus sounds to approx 8 cm. Irregular appearing tissue noted just inside lower endocervical canal-concerning for possible malignancy. Ectocervix grossly normal appearance. Mass appears to be a submucosal fibroid noted in
endometrial cavity-biopsied. Bilateral tubal ostia seen. Did not completely resect fibroid due to need to rule out malignancy first (so as not to potentially spread abnormal cells).
Stable to recovery.
Counts correct times 2.
[facility] texted findings to Braxton Oh.
[2024-08-13] MEDS: CARAFATE 1 GRAM PO ×2 (12:51→16:45)
--- NOTE | 2024-08-13 13:02 | CM ---
CM reviewed chart, patient for OR today. Patient seen bedside, update on switch to inpatient status. CM will continue to follow for all discharge planning needs.
Plan; return to [facility] when stable.
--- NOTE | 2024-08-13 13:31 | W.PN.HOSP.TC ---
Addendum entered and electronically signed by Sean Limon DO 08/13/24 16:38:
Updated patient's family, Elizabet, on the phone.
Original Note:
Today's Communication/Plan
-
CBC in the morning
Assessment / Plan
Assessment / Plan
Gen-AAOx3, NAD
HEENT-NC, AT, anicteric, clear oral mm
Neck-supple
CV-reg, no M, +S1/S2
Lungs-clear B/L
Abd-soft, NT, ND
Ext-no edema
Musculoskeletal-no cyanosis, clubbing
Skin-warm and dry
Neuro-grossly non-focal
Psych-calm, cooperative
Acute on chronic blood loss anemia -most likely etiology currently is postmenopausal vaginal bleeding. She is overdue for her Depo-Provera injection. Usually gets it every 3 months, was due for it on August 02. Unclear why she did not get the
dose in her alf. Await SPECTRAL SCIENTIST input. Does have baseline chronic blood loss anemia due to history of GI bleed. Also with chronic anemia due to CKD. Stool currently is brown.
Hemoglobin now 10.6, has had 3 units of blood so far. SPECTRAL SCIENTIST service requested the third unit of blood due to their concerns over potential operative bleeding.
Hyperkalemia -potassium 5.4, etiology of CKD. Low potassium diet. Give another dose of Lokelma.
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
DM2 without hyperglycemia -treated with NovoLog sliding scale in the alf.
Essential hypertension -stable.
Hyperlipidemia -on atorvastatin.
CAD -stable, continue medical therapy.
Hypothyroidism -continue levothyroxine.
GERD -continue Protonix.
Chronic bilateral lower extremity lymphedema
Chronic ambulatory dysfunction -uses a walker at baseline, minimal ambulation due to significant deconditioning and weakness, lymphedema in her legs.
Obesity due to excess calories
Full code
Dispo - back to [facility] when stable, hopefully tomorrow if hemoglobin stable. Discussed with SPECTRAL SCIENTIST service.
Anticipated Discharge: Within 24 hours
Subjective/Interval History
-
Date of Service: August 13, 2024
Patient seen and examined. No complaints.
Objective Data
-
Labs:
Laboratory Results
08/13/24 08/13/24
01:18 06:58
WBC 6.0
Hgb 8.9 L D 10.6 L
Hct 26.5 L 33.0 L
Plt Count 182
Sodium 142
Potassium 5.4 H
Chloride 109 H
Carbon Dioxide 21 L
BUN 76 H
Creatinine 3.5 H
Glucose 97
Calcium 10.3 H
Vital Signs:
Vital Signs
Temp Pulse Resp BP Pulse Ox
97.9 F 64 20 150/68 99
08/13/24 13:00 08/13/24 13:00 08/13/24 13:00 08/13/24 13:00 08/13/24 13:00
I&O
08/12/24 08/13/24 08/14/24
06:59 06:59 06:59
Intake Total 490 / 490 1080 / 1080 50 / 50
Output Total 200 / 200
Balance 290 / 290 1080 / 1080 50 / 50
Review of Systems
-
History Source: Patient
All other systems: Reviewed and negative
[2024-08-13 13:32] LABS: Glucose - Point of Care 115 mg/dl (70-99)
[2024-08-13] MEDS: LOKELMA 10 GRAM PO (13:37)
[2024-08-13 16:39] LABS: Glucose - Point of Care 192 mg/dl (70-99)
[2024-08-13] MEDS: NOVOLOG FLEXPEN-LOW RESISTANCE 1 UNITS SC (17:28)
[2024-08-13] MEDS: LAC HYDRIN, AM LACTIN LOTION 1 APPLIC TOPICAL (17:29)
[2024-08-13 22:11] LABS: Glucose - Point of Care 221 mg/dl (70-99)
[2024-08-14 03:01] VITALS: BP 158/78
[2024-08-14] MEDS: SYNTHROID 25 MCG PO (05:03)
[2024-08-14 07:00] VITALS: BP 159/62
[2024-08-14 08:25] LABS: Glucose - Point of Care 133 mg/dl (70-99)
[2024-08-14 09:15] LABS: % Immature Granulocytes 0.4 % (0-0.5); % Lymphocytes 10.9 % (20.5-51.1); % Monocytes 4.6 % (1.7-9.3); % Neutrophils 84.1 % (42.2-75.2); Absolute Lymphocytes 0.6 10^3/uL (1.2-3.4); Absolute Monocytes 0.3 10^3/uL (0.1-0.6); Absolute Neutrophils 4.8 10^3/uL (1.4-6.5); Hematocrit 33.4 % (37.0-47.0); Hemoglobin 10.9 g/dL (12.0-16.0); Mean Corp Hgb Conc. 32.6 g/dL (33.0-37.0); Mean Corpuscular Hgb 31.3 pg (27.0-31.0); Nucleated Red Blood Cells % 0 %; Platelet Count 180 10^3/uL (130-400); Red Blood Cell Count 3.48 10^6/uL (4.20-5.40); Red Cell Dist. Width 15.7 % (11.5-14.5); White Blood Cell Count 5.7 10^3/uL (4.8-10.8)
[2024-08-14 09:36] LABS: Blood Urea Nitrogen 73 mg/dl (7-17); Calcium 10.9 mg/dl (8.4-10.2); Carbon Dioxide 21 mmol/L (22-30); Chloride 107 mmol/L (98-107); Estimated Creatinine Clearance 17 ml/min; Glucose 150 mg/dl (70-99); Potassium 5.2 mmol/L (3.5-5.1); Sodium 138 mmol/L (135-145)
--- NOTE | 2024-08-14 09:50 | W.PN.HOSP.TC ---
Addendum entered and electronically signed by Sean Limon DO 08/14/24 13:25:
- Stage 3 left lateral foot pressure injury
- Stage 2 sacrum pressure injury
- Stage 1 bilateral heels pressure injuries
Original Note:
Today's Communication/Plan
-
Discharge
Assessment / Plan
Assessment / Plan
Gen-AAOx3, NAD
HEENT-NC, AT, anicteric, clear oral mm
Neck-supple
CV-reg, no M, +S1/S2
Lungs-clear B/L
Abd-soft, NT, ND
Ext-no edema
Musculoskeletal-no cyanosis, clubbing
Skin-warm and dry
Neuro-grossly non-focal
Psych-calm, cooperative
Acute on chronic blood loss anemia -most likely etiology currently is postmenopausal vaginal bleeding. Bleeding resolved. Getting daily Depo-Provera as per PCA. Fibroid in the uterus noted and was biopsied. Awaiting pathology. Anticipate
outpatient follow-up with PCA for definitive fibroid treatment. Does have baseline chronic blood loss anemia due to history of GI bleed. Also with chronic anemia due to CKD. Stool currently is brown.
Hemoglobin stable, 10.9.
Hyperkalemia -potassium 5.2, etiology of CKD. Low potassium diet.
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
DM2 without hyperglycemia -treated with NovoLog sliding scale in the [facility].
Essential hypertension -stable.
Hyperlipidemia -on atorvastatin.
CAD -stable, continue medical therapy.
Hypothyroidism -continue levothyroxine.
GERD -continue Protonix.
Chronic bilateral lower extremity lymphedema
Chronic ambulatory dysfunction -uses a walker at baseline, minimal ambulation due to significant deconditioning and weakness, lymphedema in her legs.
Obesity due to excess calories
Full code
Dispo -stable for discharge back to her [facility]. Outpatient follow-up.
35 minutes spent in discharge process.
Anticipated Discharge: Today
Subjective/Interval History
-
Date of Service: August 14, 2024
Patient seen and examined. No complaints. Denies further bleeding.
Objective Data
-
Labs:
Laboratory Results
08/14/24
08:57
WBC 5.7
Hgb 10.9 L
Hct 33.4 L
Plt Count 180
Sodium 138
Potassium 5.2 H
Chloride 107
Carbon Dioxide 21 L
BUN 73 H
Creatinine 3.4 H
Glucose 150 H
Calcium 10.9 H
Vital Signs:
Vital Signs
Temp Pulse Resp BP Pulse Ox
98.1 F 66 20 159/62 99
08/14/24 07:00 08/14/24 07:00 08/14/24 07:00 08/14/24 07:00 08/14/24 07:00
I&O
08/13/24 08/14/24 08/15/24
06:59 06:59 06:59
Intake Total 1080 / 1080 1260 / 1260
Balance 1080 / 1080 1260 / 1260
Review of Systems
-
History Source: Patient
All other systems: Reviewed and negative
--- NOTE | 2024-08-14 09:57 | W.DS.TRANS ---
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
-
Discharge Instructions:
Discharge Diagnosis/Procedures Vaginal bleeding, uterine fibroids, anemia
Diet Other diet,Diabetic, Carb Controlled
Additional Diets 2 Gram potassium diet
Activity As tolerated
Driving Restrictions No driving
Bathing Restrictions None
Blood Work CBC, BMP in 1 week
Instructions:
Stand-Alone Forms:
Changes to Home Medications: No
Discharge Medications:
DC Medications w/original date entered in [employer]
allopurinol 100 mg tablet 100 mg PO DAILY Gout 09/07/22
atorvastatin 40 mg tablet (Lipitor) 40 mg PO DAILY High cholesterol 09/07/22
carvedilol 25 mg tablet (Coreg) 25 mg PO BID Heart disease/condition 09/07/22
folic acid 1 mg tablet 1 mg PO DAILY Supplement 09/07/22
levothyroxine 25 mcg tablet 25 mcg PO DAILY Thyroid 11/28/22
insulin aspart U-100 100 unit/mL (3 mL) subcutaneous pen (Novolog FlexPen U-100 Insulin aspart) 0 - 12 sliding scale dose SC ACHS Diabetes 03/26/23
aspirin 81 mg tablet,delayed release 81 mg PO DAILY Blood Clot Prevention/Tx 12/20/23
hydralazine 25 mg tablet 25 mg PO TID Blood Pressure 02/13/24
ammonium lactate 12 % topical cream 1 applic topical [id number] PRN B/L legs 04/03/24
ammonium lactate 12 % topical cream 1 applic topical QPM B/L legs 04/03/24
bisacodyl 10 mg rectal suppository 10 mg AR DAILYPRN PRN constipation 04/03/24
cyanocobalamin (vitamin B-12) 1,000 mcg tablet 1,000 mcg PO DAILY Supplement 04/03/24
epoetin dora 20,000 unit/mL injection solution (Procrit) 20,000 unit SC MO 04/03/24
gabapentin 100 mg capsule 100 mg PO TID PAIN 04/03/24
loperamide 2 mg tablet 2 mg PO Q6HPRN PRN diarrhea 04/03/24
miconazole nitrate 2 % topical powder 1 applic topical BID abd folds/groin 04/03/24
pantoprazole 40 mg tablet,delayed release 40 mg PO DAILY Gastrointestinal Issue 04/03/24
polyethylene glycol 3350 17 gram oral powder packet (Miralax) 17 g PO DAILYPRN PRN constipation 04/03/24
sodium bicarbonate 650 mg tablet 1,300 mg PO TID Supplement 04/03/24
torsemide 10 mg tablet 20 mg PO BID Fluid Retention/Swelling 04/03/24
ascorbic acid (vitamin C) 250 mg tablet (Vitamin C) 250 mg PO DAILY #30 tabs 06/18/24
acetaminophen 325 mg tablet (Tylenol) 650 mg PO Q4HPRN PRN mild pain/Temp >100 07/10/24
ferrous sulfate 325 mg (65 mg iron) tablet 325 mg PO Q48H Supplement 07/10/24
sucralfate 1 gram tablet 1 g PO AC Gastrointestinal Issue 07/16/24
guaifenesin 100 mg/5 mL oral liquid 200 mg PO Q4HPRN PRN cough 08/11/24
ipratropium 0.5 mg-albuterol 3 mg (2.5 mg base)/3 mL nebulization soln 3 ml inhalation R Q6HPRN PRN sob/wheezing 08/11/24
medroxyprogesterone 10 mg tablet 10 mg PO DAILY #0 tabs 08/14/24
sennosides 8.6 mg-docusate sodium 50 mg tablet 1 tab PO BIDPRN PRN constipation #0 tabs 08/14/24
Home Medication Changes
Pending Results: No
--- NOTE | 2024-08-14 10:01 | CM ---
Addendum entered by Estefania Thomason 08/14/24 10:27:
Patient scheduled for 1:00 p.m. ambulance transport.
Original Note:
Patient seen bedside, discussed plan for discharge today. IMM reviewed, signed, placed in chart, patient provided with copy. Patient will require ambulance transport. Patient reports she has already made her family aware of discharge plan. CM will
continue to follow for all discharge planning needs.
Plan; return to [facility], ambulance transport.
[2024-08-14] MEDS: VITAMIN C 250 MG PO (10:18)
[2024-08-14] MEDS: COREG 25 MG PO (10:18)
[2024-08-14] MEDS: ZYLOPRIM 100 MG PO (10:18)
[2024-08-14] MEDS: SODIUM BICARBONATE 1300 MG PO (10:18)
[2024-08-14] MEDS: LIPITOR 40 MG PO (10:19)
[2024-08-14] MEDS: CARAFATE 1 GRAM PO ×2 (10:19→12:02)
[2024-08-14] MEDS: NOVOLOG FLEXPEN-LOW RESISTANCE SC (10:19)
[2024-08-14] MEDS: FOLVITE 1 MG PO (10:20)
[2024-08-14] MEDS: APRESOLINE 25 MG PO (10:20)
[2024-08-14] MEDS: PROVERA 10 MG PO (10:20)
[2024-08-14] MEDS: VITAMIN B-12 1000 MCG PO (10:20)
[2024-08-14] MEDS: NEURONTIN 100 MG PO (10:20)
[2024-08-14] MEDS: DEMADEX 20 MG PO (10:20)
[2024-08-14] MEDS: DESENEX/MITRAZOL/ZEASORB 1 APPLIC TOPICAL (10:23)
--- NOTE | 2024-08-14 10:26 | PN.CDI ---
CDI
- -
CDI:
Physician Documentation Request
Admit Date: 08/12/24 10:25
Dear Doctor Braxton,
Please review the following and provide your response in the progress notes.
Clinical Indicators:
- 08/12 Wound note indicates wounds POA:
- Stage 3 left lateral foot pressure injury
- Stage 2 sacrum pressure injury
- Stage 1 bilateral heels pressure injuries
Physician documentation of the type and location of wounds is required for compliant documentation. Based on the above clinical findings and your assessment, please provide the following in your progress note:
1. Location of the ulcer/wound, including laterality.
2. Type (etiology) of ulcer/wound:
- Diabetic ulcer
- Arterial (ischemic) ulcer
- Traumatic wound
- Venous stasis ulcer
- Pressure (decubitus) ulcer
- Non-healing surgical wound
- Other
- Unable to determine
Use of terms such as suspected, likely, concern for, or probable (associated with a specific diagnosis that is being evaluated, monitored, or treated as if it exists) are acceptable and can be coded in the inpatient setting, when documented at the
time of discharge.
Thank you,
Ayanna Jauregui RN
CDI Specialist
Please use your independent medical judgment in providing your response.
*Source: National Pressure Ulcer Advisory Panel (NPUAP)
[2024-08-14 11:49] LABS: Glucose - Point of Care 176 mg/dl (70-99)
[2024-08-14] MEDS: FLUAD (65 yr+) 2024-2025 FORMULA 0.5 ML IM (11:59)
[2024-08-14] MEDS: NOVOLOG FLEXPEN-LOW RESISTANCE 1 UNITS SC (12:02)
[2024-08-14 13:11] VITALS: BP 149/79
== END 2024-08-14 13:28 | DRG 744 ==
LOC: 4 WEST ACU 10:25
PROVIDERS: Nurse Practitioner Family; Nurse Practitioner Gerontology; Obstetrics & Gynecology; ADMITTING PHYSICIAN Internal Medicine; ATTENDING PHYSICIAN Hospitalist; EMERGENCY PHYSICIAN Emergency Medicine; FAMILY PHYSICIAN Internal Medicine; OTHER PHYSICIAN Obstetrics & Gynecology
PROC: 0UDB8ZX Extraction of Endometrium, Via Natural or Artificial Opening Endoscopic, Diagnostic (ICD-10-PCS; 2024-08-13)
DX: N95.0 Postmenopausal bleeding (principal); L89.523 Pressure ulcer of left ankle, stage 3; E87.22 Chronic metabolic acidosis; N18.5 Chronic kidney disease, stage 5; I12.0 Hypertensive chronic kidney disease with stage 5 chronic kidney disease or end stage renal disease; D62 Acute posthemorrhagic anemia; D25.0 Submucous leiomyoma of uterus; D50.9 Iron deficiency anemia, unspecified; I25.10 Atherosclerotic heart disease of native coronary artery without angina pectoris; E78.5 Hyperlipidemia, unspecified; E11.22 Type 2 diabetes mellitus with diabetic chronic kidney disease; E03.9 Hypothyroidism, unspecified; I89.0 Lymphedema, not elsewhere classified; L89.152 Pressure ulcer of sacral region, stage 2; L89.621 Pressure ulcer of left heel, stage 1; L89.611 Pressure ulcer of right heel, stage 1; E11.65 Type 2 diabetes mellitus with hyperglycemia; E87.5 Hyperkalemia
CPT/HCPCS: 88305; 76830; 80048; 80053; 82728; 82962; 83036; 83540; 83550; 85014; 85018; 85025; 85027; 86850; 86900; 86901; 86920; 87070; 90662; 96374; 99285; G0008; G0123; P9016

== ENCOUNTER 2024-08-18 08:57 | Day surgery (SDC) | payer MEDICARE, OTHER, SELFPAY ==
[2024-08-18] VITALS (12 sets, daily range): BP systolic 101–148; BP diastolic 49–76; BMI 36.3
[2024-08-18 09:48] LABS: Mean Corp Hgb Conc. 32.4 g/dL (33.0-37.0); Mean Corpuscular Hgb 31.5 pg (27.0-31.0); Mean Corpuscular Volume 97.4 fL (81.0-99.0); Mean Platelet Volume 9.4 fL (7.4-10.4); Platelet Count 162 10^3/uL (130-400); Red Blood Cell Count 3.49 10^6/uL (4.20-5.40); Red Cell Dist. Width 14.8 % (11.5-14.5); White Blood Cell Count 6.2 10^3/uL (4.8-10.8)
[2024-08-18 09:49] LABS: Glucose - Point of Care 93 mg/dl (70-99)
[2024-08-18 09:58] LABS: Blood Urea Nitrogen 74 mg/dl (7-17); Calcium 10.4 mg/dl (8.4-10.2); Carbon Dioxide 23 mmol/L (22-30); Chloride 109 mmol/L (98-107); Estimated Creatinine Clearance 18 ml/min; Glucose 97 mg/dl (70-99); Potassium 5.2 mmol/L (3.5-5.1); Sodium 144 mmol/L (135-145); eGFR 14.19
[2024-08-18] MEDS: NSS 500 IV (10:03)
[2024-08-18 10:06] LABS: INR 1.08; PT 14.3 Sec (11.4-14.6)
[2024-08-18 10:07] LABS: APTT 34.5 Sec (23.4-35.0)
[2024-08-18 12:01] LABS: Glucose - Point of Care 100 mg/dl (70-99)
--- NOTE | 2024-08-18 12:21 | W.IMMPOSTOP ---
Surgical Immed Post Op Note
-
Primary Surgeon: Dr. Jairo Ghosh III, MD
Assisting Surgeon: Brody Luna MD, PhD (PGY-2)
Pre-op Diagnosis: s/p LUE fistula
Post-op Diagnosis: s/p LUE fistula
Procedure Performed: fistulagram, LUE venography, central venography, balloon angioplasty of fistula (4mm and 5mm), LUE radial artery vascular access, balloon angioplasty and intravascular lithotripsy left radial artery
Anesthesia Type: Sedation
Specimen / Cultures: None
Estimated Blood Loss: 10cc
Complications: None
Operative Findings: The patient was brought to the OR and placed in the supine position with the left arm out on an armboard. The arm was prepped and draped in usual sterile fashion. Ultrasound guidance was used to identify the course of the
previous left radial-cephalic AV fistula. Micropuncture needle was used to access the AV fistula about 1/3 up from the anastomosis. Fistulagram showed a patent fistula and cephalic vein up to the central veins. Distally there was an area of
narrowing of the proximal fistula, a patent anastomosis, and area of radial arterial disease proximal to the anastomosis. The sheath was removed from the fistula and the site of the fistula puncture was closed with one figure of eight 4-0 stitch.
Micropuncture kit was used to access the radial artery under ultrasound guidance. Balloon angioplasty and intravascular lithotripsy was performed at the proximal radial artery where the narrowing was present. Radial arteriogram showed improved
caliber and patency of the radial artery site. Then a glidewire was used to cross the anastomosis from the radial artery into the fistula. Balloon angioplasty (4mm then 5mm) was performed of the proximal fistula at the area of narrowing.
Nitroglycerin was injected into the fistula to relieve local venous spasm. Completion arteriogram showed improved radial artery patency, good anastomosis into the AV fistula, and improved proximal AV fistula narrowing. A palpable thrill was noted in
the proximal 25% of the fistula. The radial artery sheath was removed and a TR band was placed for hemostasis. The patient was transferred to the PACU in stable condition.
--- NOTE | 2024-08-18 12:34 | OR.RPT ---
Operative Report
Operative Report
Date of Operation: 08/18/2024
Pre Op Diagnosis: Poorly functioning left forearm arteriovenous fistula for hemodialysis
Post Op Diagnosis: Poorly functioning left forearm arteriovenous fistula for hemodialysis
Procedure:
1.) Diagnostic left upper extremity fistulogram
2.) Central venogram
3.) Balloon venoplasty of proximal cephalic vein stenosis adjacent to the arteriovenous anastomosis (4 mm x 40 mm--> 5 mm x 40 mm angioplasty balloons)
4.) Intravascular lithotripsy to calcified left radial artery stenosis (3 mm x 40 mm S4 shockwave balloon)
5.) Left upper extremity arteriogram
6.) Ultrasound-guided percutaneous access to the left radial artery at the wrist
Surgeon: Jairo Ghosh III, MD
[employer]er [employer]: Brody Luna MD PhD, PGY2
Anesthesia: Sedation/local
Complications: None
Fluoroscopy:
14 minutes
11 mGy
2.34 DAP
History and Indications for Procedure: 79-year-old female with poorly functioning left forearm arteriovenous fistula.
Procedure in Detail: Alis Tejeda was correctly identified and placed supine on the operating table. After adequate induction of anesthesia the left arm was positioned, prepped and draped in the usual sterile fashion. Preoperative antibiotics were
administered. A timeout procedure was performed with the nursing and anesthesia staff confirming the patient�s identity as well as the nature and laterality of the procedure.
Intraoperative ultrasound was performed on the AV access. This was a left forearm radiocephalic fistula. Ultrasound demonstrated patent AV fistula.
I identified a puncture site along the venous outflow and infiltrated local anesthesia at this site. Under ultrasound guidance I accessed the fistula with a micropuncture needle facing towards the upper arm and placed the micropuncture sheath. I
performed a fistulogram which demonstrated the following:
Fistulogram: Patent fistula. Cephalic vein near the anastomosis/wrist with mild aneurysmal degeneration. Widely patent cephalic vein in the mid and proximal forearm. Reflux fistulogram demonstrated focal venous stenosis adjacent to the
arteriovenous anastomosis in the proximal cephalic vein. Widely patent upper arm cephalic and basilic vein with no stenosis identified. Widely patent cephalic arch and distal cephalic vein. Reflux fistulogram demonstrated a patent arteriovenous
anastomosis. Heavily calcified mid to distal radial artery was identified with high-grade stenosis present proximal to the arteriovenous anastomosis.
Central venogram: Widely patent central veins with no stenosis identified.
Due to the location of the disease I elected to intervene on the radial artery and the proximal cephalic vein stenosis using a trans radial artery approach. A monocryl suture was placed around the micro sheath puncture site. The micro sheath was
removed and the suture secured. Hemostasis was achieved.
Endovascular intervention: Under ultrasound guidance we identified the radial artery at the wrist distal to the arteriovenous anastomosis. Local anesthesia was infiltrated into the puncture site. I successfully punctured the radial artery at the
wrist in a retrograde fashion with a micropuncture needle. We then upsized using a 5 Mongolian radial artery access sheath. The radial artery cocktail was administered through the 5 Mongolian sheath immediately upon obtaining access.
Systemic heparin was administered. An arteriogram was performed through the 5 Mongolian sheath. The radial artery was diffusely calcified. Again demonstrated was mid to distal radial artery calcified stenosis proximal to the arteriovenous
anastomosis. The proximal radial artery was widely patent with no stenosis identified. The ulnar artery was diffusely calcified but patent. The distal brachial artery was visualized and was widely patent. A 0[address] wire was navigated under
roadmap guidance through the proximal radial artery. Due to the heavily calcified nature of the arterial disease and in an effort to modify the calcium to achieve maximum luminal gain with endovascular intervention I elected to proceed with
intravascular lithotripsy. A 3 mm x 40 mm S4 shockwave balloon was placed across the radial artery stenosis under roadmap guidance. Alternating rounds of lithotripsy pulse delivery at sub-nominal pressure and angioplasty at nominal pressure was
performed across the stenosis. In between rounds of pulse delivery and angioplasty the balloon was deflated and repositioned under roadmap guidance. All 160 pulses were delivered Across the calcified radial artery stenosis.
Subsequent arteriogram demonstrated an excellent technical result with a widely patent radial artery and significant improvement in luminal diameter. Brisk flow through the radial artery was identified with no significant residual stenosis. No
filling defects were identified.
Under roadmap guidance we then pulled the [place] [address] wire back and readvanced it across the arteriovenous anastomosis into the cephalic vein outflow. Under roadmap guidance I positioned a 4 mm x 40 mm angioplasty balloon across the proximal cephalic
vein stenosis. This was inflated to nominal pressure, held in place for 30 seconds and then slowly deflated and removed over the wire. Subsequent arteriogram demonstrated a suboptimal result. I then repeated angioplasty on the same segment using
a 5 mm x 40 mm angioplasty balloon. Subsequent arteriogram demonstrated spasm in the treated area. 100 mcg of nitroglycerin were administered through the sheath. After 2 minutes a completion fistulogram was performed demonstrating a patent
fistula. Mild residual spasm was identified at the treated cephalic vein segment. Flow through the fistula was brisk with no other areas of stenosis identified.
At the conclusion of the procedure a radial band was positioned across the radial artery access site at the wrist. The radial band was inflated while the sheath was removed. Hemostasis was achieved. The radial band was secured in place.
The patient tolerated the procedure well and was taken to the PACU in stable condition
Attestation: I was present and responsible for the entire procedure
Signed:
Jairo Ghosh III, MD
[facility] V[facility] Surgery
[phone] (ryde)
[2024-08-18 12:58] LABS: Glucose - Point of Care 85 mg/dl (70-99)
--- NOTE | 2024-08-18 14:17 | PTCARENOTE ---
Spoke with Hardik from [facility] @ [phone] with request for patient pickup at 1500, for discharge.
Pt report called to Christine. FENG at [facility] @ 1341. All questions addressed. Additionally, discharge instructions provided to patient. All questions addressed.
== END 2024-08-18 15:00 | disposition home or self-care (01) ==
LOC: CATH 08:57
PROVIDERS: ATTENDING PHYSICIAN Surgery Vascular Surgery; FAMILY PHYSICIAN Internal Medicine
DX: T82.858D Stenosis of other vascular prosthetic devices, implants and grafts, subsequent encounter (principal); Y83.2 Surgical operation with anastomosis, bypass or graft as the cause of abnormal reaction of the patient, or of later complication, without mention of misadventure at the time of the procedure; N18.5 Chronic kidney disease, stage 5; D50.9 Iron deficiency anemia, unspecified; I25.10 Atherosclerotic heart disease of native coronary artery without angina pectoris; I12.0 Hypertensive chronic kidney disease with stage 5 chronic kidney disease or end stage renal disease; E13.22 Other specified diabetes mellitus with diabetic chronic kidney disease; Z79.82 Long term (current) use of aspirin; Z79.890 Hormone replacement therapy; Z79.899 Other long term (current) drug therapy; Z79.4 Long term (current) use of insulin
CPT/HCPCS: 36902; 80048; 82962; 85027; 85610; 85730; C1725; C1769; C1894; Q9967

== ENCOUNTER → 2024-09-19 08:38 | Outpatient (REF) | payer MEDICARE, OTHER, SELFPAY | LOC: RAD 08:38 | PROVIDERS: ATTENDING PHYSICIAN Surgery Vascular Surgery; FAMILY PHYSICIAN Internal Medicine | DX: I77.0 Arteriovenous fistula, acquired (principal) | CPT/HCPCS: 93990 ==

== ENCOUNTER 2024-09-26 12:53 | Emergency (ER) | payer MEDICARE, OTHER, SELFPAY ==
[2024-09-26 12:57] VITALS: BP 122/55
[2024-09-26 13:00] VITALS: BP 122/55
[2024-09-26 13:01] VITALS: BP 122/55
[2024-09-26 13:02] VITALS: BMI 33.2
[2024-09-26 13:25] LABS: % Basophils 0.6 % (0-2); % Eosinophils 2.5 % (0-6); % Immature Granulocytes 0.7 % (0-0.5); % Monocytes 3.6 % (1.7-9.3); % Neutrophils 75.6 % (42.2-75.2); Absolute Eosinophils 0.2 10^3/uL (0-0.7); Absolute Immature Granulocytes 0.1 10^3/uL (0-0.05); Absolute Lymphocytes 1.2 10^3/uL (1.2-3.4); Absolute Monocytes 0.3 10^3/uL (0.1-0.6); Absolute Neutrophils 5.5 10^3/uL (1.4-6.5); Hematocrit 26.3 % (37.0-47.0); Mean Corp Hgb Conc. 30.4 g/dL (33.0-37.0); Mean Corpuscular Hgb 30.4 pg (27.0-31.0); Mean Platelet Volume 9.3 fL (7.4-10.4); Nucleated Red Blood Cells % 0 %; Platelet Count 248 10^3/uL (130-400); Red Blood Cell Count 2.63 10^6/uL (4.20-5.40); Red Cell Dist. Width 13.8 % (11.5-14.5); White Blood Cell Count 7.3 10^3/uL (4.8-10.8)
[2024-09-26 13:38] LABS: ALT (SGPT) 12 U/L (0-35); AST (SGOT) 15 U/L (14-36); Albumin 3.8 g/dl (3.5-5.0); Alkaline Phosphatase 61 U/L (38-126); Blood Urea Nitrogen 91 mg/dl (7-17); Calcium 10.4 mg/dl (8.4-10.2); Carbon Dioxide 19 mmol/L (22-30); Chloride 105 mmol/L (98-107); Estimated Creatinine Clearance 14 ml/min; Glucose 138 mg/dl (70-99); Potassium 4.9 mmol/L (3.5-5.1); Sodium 139 mmol/L (135-145); Total Bilirubin 0.3 mg/dl (0.2-1.3); Total Protein 6.4 g/dl (6.3-8.2); eGFR 10.54
--- NOTE | 2024-09-26 13:47 | ED.GENMED ---
History of Present Illness
General
Chief Complaint: Abnormal Lab Value
Source: patient
Exam Limitations: none
Time Seen by Provider: 09/26/24 13:05
Nursing documentation reviewed up to this point in time: agreed with
History of Present Illness
History of Present Illness:
79-year-old female with past ministry of CKD chronic anemia presenting to the emergency department today with concerns of hemoglobin 6 point symptoms drawn yesterday. No additional complaints no shortness of breath or chest pain nausea vomiting.
Past History
Past History
ED Past Medical History: CAD, GERD, HTN, Hypercholesterolemia, NIDDM, Renal failure, Hypothyroidism and Other (Dysfunctional uterine bleeding, chronic kidney disease pending dialysis, Renal calculus, Iron def anemia, hemorrhagic disorder due to
extrinsic Circulatory anticoagulation. PNA, Back pain, )
ED Past Surgical History: Appendectomy, Gynecological (D&C), Orthopedic (Left carpal tunnel ), Tonsilectomy, Urological (Kidney stent) and Other (L AV fistula)
Social History
Tobacco: Non-smoker
Alcohol: Occasional
Drug: None
Personal: Single
Living: fdc
Family History
Family History: Diabetes, Hypertension and Early CAD; Negative Asthma or Cancer
Review of Systems
Review of Systems
Allergies reviewed?: Yes
All Other Systems: ROS reviewed and negative except as documented in HPI and ROS
Phy Exam
Physical Exam
Physical Exam:
GENERAL: Alert , in no apparent distress
EYE: pupils equal and reactive
NECK: Supple, no significant adenopathy.
ENT: o/p clr, mmm.
CARDIAC: Regular rate and rhythm .
LUNGS: Clear breath sounds bilaterally, no acute respiratory distress, no wheezes/rales/rhonchi
ABDOMEN: Soft, without focal tenderness, no r/g, no cvat
NEUROLOGICAL: Alert and oriented, no focal neuro deficits
SKIN: Warm and dry, skin intact.
MUSCULOSKELETAL: No edema, well perfused.
PSYCH: Normal and appropriate interaction.
Course
Orders/Labs/Results
Orders:
Orders
09/26/24 12:59
EKG [Electrocardiogram (*1)] Urgent
Reason for Study: Fatigue / Weakness
EKG- Treatment ONCE
09/26/24 13:09
Type And Crossmatch [Type+Screen] Urgent
Complete Blood Count/With Diff Urgent
Comprehensive Metabolic Panel Urgent
Abnormal Lab Results
09/26/24
13:09
RBC 2.63 L 10^6/uL
(4.20-5.40)
Hgb 8.0 L g/dL
(12.0-16.0)
Hct 26.3 L %
(37.0-47.0)
MCV 100.0 H fL
(81.0-99.0)
MCHC 30.4 L g/dL
(33.0-37.0)
Abs Immat Gran (auto) 0.1 H 10^3/uL
(0-0.05)
Immature Gran % 0.7 H %
(0-0.5)
Neutrophils % 75.6 H %
(42.2-75.2)
Lymphocytes % 17.0 L %
(20.5-51.1)
Carbon Dioxide 19 L mmol/L
(22-30)
BUN 91 H mg/dl
(7-17)
Creatinine 4.1 H* mg/dL
(0.6-1.0)
Glucose 138 H mg/dl
(70-99)
Calcium 10.4 H mg/dl
(8.4-10.2)
09/26/24 13:09
09/26/24 13:09
Vital Signs
Initial and Last Documented VS:
Initial Vital Signs
Temp Pulse Resp BP Pulse Ox
98.5 F 86 15 122/55 99
09/26/24 12:57 09/26/24 12:57 09/26/24 12:57 09/26/24 12:57 09/26/24 12:57
Last Documented Vital Signs
Temp Pulse Resp BP Pulse Ox
98.5 F 72 13 122/55 100
09/26/24 13:01 09/26/24 13:01 09/26/24 13:01 09/26/24 13:01 09/26/24 13:01
MDM/Problems Addressed
MDM/Problems Addressed:
79-year-old female presenting to the emergency department with concerns of low hemoglobin as an outpatient. Was 6.7 yesterday. Here redrawn 8.0. Patient claims that she very typically is in the eights and sevens. She claims that a 8.0 is not low
for her chronically. Concerning this patient will not get transfused at this time stable for discharge. Otherwise her labs does show significant CKD but not significantly off of her baseline. Typically in the mid to high threes currently 4.1 BUN
is elevated at 91 but has been in the 80s in the past.
*Critical Care Note
Total Time (30-74mins, 75-104mins- exclusive of procedures): Not Applicable
ED Attending Note
-
Portions of this chart may have been created with voice recognition software.� Occasional wrong word or��sound alike� substitutions may have occurred due to the inherent limitations of voice recognition software.
Discharge Plan
Departure
Patient Disposition: Home (Routine Discharge)
Date of Disposition: 09/26/24
Time of Disposition: 13:50
Patient with high blood pressure during this ER visit?: No
Condition: Good
Covid-19: Not Applicable
Discharge Problem:
Anemia in chronic kidney disease (CKD)
Prescriptions:
No Action
allopurinol 100 mg Tablet
100 mg PO DAILY
atorvastatin [Lipitor] 40 mg Tablet
40 mg PO DAILY
carvedilol [Coreg] 25 mg Tablet
25 mg PO BID
folic acid 1 mg Tablet
1 mg PO DAILY
levothyroxine 25 mcg Tablet
25 mcg PO DAILY
insulin aspart U-100 [Novolog FlexPen U-100 Insulin] 100 unit/mL (3 mL) insulin pen
0 - 12 sliding scale dose SC ACHS
Rx Instructions:
BS 70-150 = 0 units; 151-200 = 2 units; 201-250 = 4 units; 251-300 = 6 units; 301-350 = 8 units; 351-400 = 10 units; 401-450 = 12 units. If BS>451 call PCP.
aspirin 81 mg Tablet,Delayed Release (Dr/Ec)
81 mg PO DAILY
hydralazine 25 mg Tablet
25 mg PO TID
polyethylene glycol 3350 [Miralax] 17 gram Powder In Packet
17 g PO DAILYPRN PRN (Reason: constipation)
loperamide 2 mg Tablet
2 mg PO Q6HPRN PRN (Reason: diarrhea)
miconazole nitrate 2 % Powder
1 applic TOPICAL BID
cyanocobalamin (vitamin B-12) 1,000 mcg Tablet
1,000 mcg PO DAILY
torsemide 10 mg Tablet
20 mg PO BID
sodium bicarbonate 650 mg Tablet
1,300 mg PO TID
bisacodyl 10 mg Suppository
10 mg [place] DAILYPRN PRN (Reason: constipation)
pantoprazole 40 mg Tablet,Delayed Release (Dr/Ec)
40 mg PO DAILY
ammonium lactate 12 % Cream
1 applic TOPICAL [id number] PRN (Reason: legs)
ammonium lactate 12 % Cream
1 applic TOPICAL QPM
gabapentin 100 mg Capsule
100 mg PO TID
ascorbic acid (vitamin C) [Vitamin C] 250 mg tablet
250 mg PO DAILY Qty: 30 0RF
acetaminophen [Tylenol] 325 mg Tablet
650 mg PO Q4HPRN PRN (Reason: mild pain/Temp >100)
ferrous sulfate 325 mg (65 mg iron) tablet
325 mg PO Q48H
sucralfate 1 gram tablet
1 g PO AC
epoetin dora 20,000 unit/mL Solution
20,000 unit SC MO
Procrit 2,000 unit/mL Solution
2,000 unit SC ONCE
ipratropium-albuterol 0.5 mg-3 mg(2.5 mg base)/3 mL Solution For Nebulization
3 ml INHALATION R Q6HPRN PRN (Reason: sob/wheezing)
guaifenesin 100 mg/5 mL Liquid
200 mg PO Q4HPRN PRN (Reason: cough)
medroxyprogesterone 10 mg Tablet
10 mg PO DAILY Qty: 0 0RF
sennosides-docusate sodium 8.6-50 mg Tablet
1 tab PO BIDPRN PRN (Reason: constipation) Qty: 0 0RF
Activity Restrictions/Additional Instructions:
You came to the emergency department with concerns of low hemoglobin. It was 8.0 here. He also had elevated creatinine and BUN numbers. Please have this monitored as an outpatient over the next few days to weeks. Return for any worsening
symptoms.
Interventions
Interventions:
*Risk Screen - Suicide Last Done: 09/26/24 13:07
*General Assessment Last Done: 09/26/24 13:04
*Neglect/Abuse Screening Last Done: 09/26/24 13:07
ED- Fall Risk Assessment Last Done: 09/26/24 13:07
*ED COVID-19 Vaccine History Last Done: 09/26/24 13:04
Discharge Date and Time
Print Language: FIJIAN
== END 2024-09-26 18:06 | disposition home or self-care (01) ==
LOC: EMR 12:53
PROVIDERS: Emergency Medicine; EMERGENCY PHYSICIAN Emergency Medicine; FAMILY PHYSICIAN Internal Medicine
DX: N18.9 Chronic kidney disease, unspecified (principal); D63.1 Anemia in chronic kidney disease
CPT/HCPCS: 99284; 80053; 85025; 86850; 86900; 86901; 93005

== ENCOUNTER 2024-10-03 23:08 | Emergency (ER) | payer MEDICARE, OTHER, SELFPAY ==
[2024-10-03 23:17] VITALS: BP 139/57
[2024-10-03 23:57] LABS: Blood Urea Nitrogen 85 mg/dl (7-17); Calcium 10.2 mg/dl (8.4-10.2); Carbon Dioxide 19 mmol/L (22-30); Chloride 107 mmol/L (98-107); Glucose 114 mg/dl (70-99); Potassium 4.6 mmol/L (3.5-5.1); Sodium 139 mmol/L (135-145); eGFR 11.55
[2024-10-03 23:58] LABS: % Basophils 0.7 % (0-2); % Eosinophils 4.8 % (0-6); % Immature Granulocytes 0.4 % (0-0.5); % Lymphocytes 27.5 % (20.5-51.1); % Monocytes 5.5 % (1.7-9.3); % Neutrophils 61.1 % (42.2-75.2); Absolute Eosinophils 0.3 10^3/uL (0-0.7); Absolute Lymphocytes 1.5 10^3/uL (1.2-3.4); Absolute Monocytes 0.3 10^3/uL (0.1-0.6); Absolute Neutrophils 3.3 10^3/uL (1.4-6.5); Hematocrit 22.7 % (37.0-47.0); Hemoglobin 7.1 g/dL (12.0-16.0); Mean Corp Hgb Conc. 31.3 g/dL (33.0-37.0); Mean Corpuscular Hgb 30.9 pg (27.0-31.0); Mean Corpuscular Volume 98.7 fL (81.0-99.0); Mean Platelet Volume 9.6 fL (7.4-10.4); Nucleated Red Blood Cells % 0 %; Platelet Count 191 10^3/uL (130-400); White Blood Cell Count 5.5 10^3/uL (4.8-10.8)
[2024-10-04] VITALS (12 sets, daily range): BP systolic 128–156; BP diastolic 45–64; BMI 31.2
--- NOTE | 2024-10-04 02:52 | ED.GENMED ---
History of Present Illness
General
Chief Complaint: Abnormal Lab Value
Source: patient
Exam Limitations: none
Time Seen by Provider: 10/04/24 01:36
History of Present Illness
History of Present Illness:
Patient here for low hemoglobin. No complaints. Had outpatient labs done yesterday. Was told to go to the ER tonight. No complaints of abdominal pain lightheadedness weakness etc. Per patient she has a history of a chronic GI bleed. She always
test positive. She is followed by GI for this
Past History
Past History
ED Past Medical History: CAD, GERD, HTN, Hypercholesterolemia, NIDDM, Renal failure, Hypothyroidism and Other (Dysfunctional uterine bleeding, chronic kidney disease pending dialysis, Renal calculus, Iron def anemia, hemorrhagic disorder due to
extrinsic Circulatory anticoagulation. PNA, Back pain, )
ED Past Surgical History: Appendectomy, Gynecological (D&C), Orthopedic (Left carpal tunnel ), Tonsilectomy, Urological (Kidney stent) and Other (L AV fistula)
Social History
Tobacco: Non-smoker
Alcohol: Occasional
Drug: None
Personal: Single
Living: fpc
Family History
Family History: Diabetes, Hypertension and Early CAD; Negative Asthma or Cancer
Review of Systems
Review of Systems
All Other Systems: Not applicable
Constitutional: Denies fever or chills
Respiratory: Reports no symptoms
Cardiac: Reports no symptoms
ABD/GI: Denies abdominal pain
Phy Exam
Physical Exam
Physical Exam:
GENERAL: Alert and oriented in no apparent distress
EYE: Orbits normal.
NECK: Supple
CARDIAC: Regular rate and rhythm without any obvious murmurs.
LUNGS: Clear breath sounds,normal
ABDOMEN: Soft, without focal tenderness or distention. Elevated BMI. Stool is brown but does test mildly positive
NEUROLOGICAL: Alert and oriented , grossly non-focal
SKIN: Warm and dry
PSYCH: Normal and appropriate interaction.
Course
Orders/Labs/Results
Orders:
Orders
10/03/24 23:30
Type+Screen Urgent
Basic Metabolic Panel Urgent
Complete Blood Count/With Diff Urgent
10/04/24 02:34
* Blood Bank Products Urgent
Blood Bank Products: *Packed RBC Leuko(PRBC's)
Quantity: 1
Transfuse Today: Yes
Reason: Anemia
IV Insert/Care/Rem.- Treatment PRN
Abnormal Lab Results
10/03/24
23:30
RBC 2.30 L 10^6/uL
(4.20-5.40)
Hgb 7.1 L g/dL
(12.0-16.0)
Hct 22.7 L %
(37.0-47.0)
MCHC 31.3 L g/dL
(33.0-37.0)
Carbon Dioxide 19 L mmol/L
(22-30)
BUN 85 H mg/dl
(7-17)
Creatinine 3.8 H mg/dL
(0.6-1.0)
Glucose 114 H mg/dl
(70-99)
10/03/24 23:30
10/03/24 23:30
Vital Signs
Initial and Last Documented VS:
Initial Vital Signs
Temp Pulse Resp BP Pulse Ox
98.2 F 69 16 139/57 100
10/03/24 23:17 10/03/24 23:17 10/03/24 23:17 10/03/24 23:17 10/03/24 23:17
Last Documented Vital Signs
Temp Pulse Resp BP Pulse Ox
98.2 F 64 18 144/58 100
10/03/24 23:17 10/04/24 02:00 10/04/24 02:00 10/04/24 02:00 10/04/24 02:00
MDM/Problems Addressed
Differential Diagnosis Includes:
Patient clinically very stable. Previous hemoglobins were reviewed. Last hemoglobin was 8. Patient has an occult ongoing GI bleed that she is aware of and followed by GI. Vital signs are stable. No indication for medical admission. Comfortable
with 1 unit of blood and discharge.
*Critical Care Note
Total Time (30-74mins, 75-104mins- exclusive of procedures): Not Applicable
Data Reviewed
Review of Other/Old Records Reveals: Labs, Records and Testing
ED Attending Note
-
Portions of this chart may have been created with voice recognition software.� Occasional wrong word or��sound alike� substitutions may have occurred due to the inherent limitations of voice recognition software.
Discharge Plan
Departure
Patient Disposition: Home (Routine Discharge)
Date of Disposition: 10/04/24
Time of Disposition: 02:56
Patient with high blood pressure during this ER visit?: Yes
Discharge Problem:
Anemia, Ongoing occult GI bleed
Instructions: Normocytic Normochromic Anemia (DC), GI bleed - Discharge instructions, BLOOD PRESSURE
Prescriptions:
No Action
allopurinol 100 mg Tablet
100 mg PO DAILY
atorvastatin [Lipitor] 40 mg Tablet
40 mg PO DAILY
carvedilol [Coreg] 25 mg Tablet
25 mg PO BID
folic acid 1 mg Tablet
1 mg PO DAILY
levothyroxine 25 mcg Tablet
25 mcg PO DAILY
insulin aspart U-100 [Novolog FlexPen U-100 Insulin] 100 unit/mL (3 mL) insulin pen
0 - 12 sliding scale dose SC ACHS
Rx Instructions:
BS 70-150 = 0 units; 151-200 = 2 units; 201-250 = 4 units; 251-300 = 6 units; 301-350 = 8 units; 351-400 = 10 units; 401-450 = 12 units. If BS>451 call PCP.
aspirin 81 mg Tablet,Delayed Release (Dr/Ec)
81 mg PO DAILY
hydralazine 25 mg Tablet
25 mg PO TID
polyethylene glycol 3350 [Miralax] 17 gram Powder In Packet
17 g PO DAILYPRN PRN (Reason: constipation)
loperamide 2 mg Tablet
2 mg PO Q6HPRN PRN (Reason: diarrhea)
miconazole nitrate 2 % Powder
1 applic TOPICAL BID
cyanocobalamin (vitamin B-12) 1,000 mcg Tablet
1,000 mcg PO DAILY
torsemide 10 mg Tablet
20 mg PO BID
sodium bicarbonate 650 mg Tablet
1,300 mg PO TID
bisacodyl 10 mg Suppository
10 mg [place] DAILYPRN PRN (Reason: constipation)
pantoprazole 40 mg Tablet,Delayed Release (Dr/Ec)
40 mg PO DAILY
ammonium lactate 12 % Cream
1 applic TOPICAL [id number] PRN (Reason: legs)
ammonium lactate 12 % Cream
1 applic TOPICAL QPM
gabapentin 100 mg Capsule
100 mg PO TID
ascorbic acid (vitamin C) [Vitamin C] 250 mg tablet
250 mg PO DAILY Qty: 30 0RF
acetaminophen [Tylenol] 325 mg Tablet
650 mg PO Q4HPRN PRN (Reason: mild pain/Temp >100)
ferrous sulfate 325 mg (65 mg iron) tablet
325 mg PO Q48H
sucralfate 1 gram tablet
1 g PO AC
epoetin dora 20,000 unit/mL Solution
20,000 unit SC MO
Procrit 2,000 unit/mL Solution
2,000 unit SC ONCE
ipratropium-albuterol 0.5 mg-3 mg(2.5 mg base)/3 mL Solution For Nebulization
3 ml INHALATION R Q6HPRN PRN (Reason: sob/wheezing)
guaifenesin 100 mg/5 mL Liquid
200 mg PO Q4HPRN PRN (Reason: cough)
medroxyprogesterone 10 mg Tablet
10 mg PO DAILY Qty: 0 0RF
sennosides-docusate sodium 8.6-50 mg Tablet
1 tab PO BIDPRN PRN (Reason: constipation) Qty: 0 0RF
Referrals:
Jhonathan Gabriel MD [Family Provider] - Follow up in 2-3 days
Activity Restrictions/Additional Instructions:
Also follow-up with your GI physician
Interventions
Interventions:
*Risk Screen - Suicide Last Done: 10/03/24 23:17
*General Assessment Last Done: 10/03/24 23:17
*Neglect/Abuse Screening Last Done: 10/03/24 23:17
Discharge Date and Time
Print Language: GAMBIAN
== END 2024-10-04 09:30 | disposition home or self-care (01) ==
LOC: EMR 23:08
PROVIDERS: EMERGENCY PHYSICIAN Emergency Medicine; FAMILY PHYSICIAN Internal Medicine
DX: D64.9 Anemia, unspecified (principal); K92.2 Gastrointestinal hemorrhage, unspecified; I25.10 Atherosclerotic heart disease of native coronary artery without angina pectoris; K21.9 Gastro-esophageal reflux disease without esophagitis; I10 Essential (primary) hypertension; E78.00 Pure hypercholesterolemia, unspecified; E11.9 Type 2 diabetes mellitus without complications; E03.9 Hypothyroidism, unspecified; Z90.49 Acquired absence of other specified parts of digestive tract
CPT/HCPCS: 36430; 99285; 80048; 85025; 86850; 86900; 86901; 86920; P9016

== ENCOUNTER 2024-10-31 08:58 | Emergency (ER) | payer MEDICARE, OTHER, SELFPAY ==
[2024-10-31] VITALS (14 sets, daily range): BP systolic 144–162; BP diastolic 52–117; BMI 35.0
--- NOTE | 2024-10-31 09:35 | ED.GENMED ---
History of Present Illness
General
Chief Complaint: Abnormal Lab Value
Source: patient and records
Exam Limitations: none
Time Seen by Provider: 10/31/24 09:11
Nursing documentation reviewed up to this point in time: agreed with
History of Present Illness
History of Present Illness:
79 yo female presents to the emergency department due to anemia found on labs performed yesterday. She has a slow GI bleed and gets frequent transfusions. Cr has been stable. She denies any complaints.
Past History
Past History
ED Past Medical History: CAD, GERD, HTN, Hypercholesterolemia, NIDDM, Renal failure, Hypothyroidism and Other (Dysfunctional uterine bleeding, chronic kidney disease pending dialysis, Renal calculus, Iron def anemia, hemorrhagic disorder due to
extrinsic Circulatory anticoagulation. PNA, Back pain, )
ED Past Surgical History: Appendectomy, Gynecological (D&C), Orthopedic (Left carpal tunnel ), Tonsilectomy, Urological (Kidney stent) and Other (L AV fistula)
Social History
Tobacco: Non-smoker
Alcohol: Occasional
Drug: None
Personal: Single
Living: senior care
Family History
Family History: Diabetes, Hypertension and Early CAD; Negative Asthma or Cancer
Review of Systems
Review of Systems
Allergies reviewed?: Yes
All Other Systems: Not applicable
Constitutional: Reports no symptoms
EENT: Reports no symptoms
Respiratory: Reports no symptoms
Cardiac: Reports no symptoms
ABD/GI: Reports no symptoms
: Reports no symptoms
Musculoskeletal: Reports no symptoms
Skin: Reports no symptoms
Neurological: Reports no symptoms
Endocrine: Reports no symptoms
Hematologic/Lymphatic: Reports no symptoms
Psychiatric: Reports no symptoms
Phy Exam
Physical Exam
Physical Exam:
Physical Exam
General: no apparent distress, not acutely ill
Neck: supple. no meningeal signs. normal posterior pharynx
Heart: s1/s2 regular rate and rhythm, no murmur. equal radial
pulses.
HEENT: Pupils equal round reactive to light, EOMI, pale oral mucosa
Lungs: no acute respiratory distress. clear bilaterally
Abdomen: normal bowel sounds. not tender. no CVAT
Neuro: alert and oriented. no focal neurological deficits cranial nerves II through XII intact
Skin: no rash
Psychiatric: well kept. interactive and cooperative
Extremities: no edema. no calf tenderness. negative homans. good distal pulses, fistula left forearm left forearm/wrist, palpable thrill
Course
Orders/Labs/Results
Orders:
Orders
10/31/24 09:28
Cardiac Monitoring- Treatment ONCE
IV Insert/Care/Rem.- Treatment PRN
10/31/24 09:44
Type+Screen Urgent
Complete Blood Count/With Diff Urgent
Comprehensive Metabolic Panel Urgent
10/31/24 09:59
Blood Bank Products [* Blood Bank Products] Urgent
Dr's Orders: 1 unit prbcs
Blood Bank Products: *Packed RBC Leuko(PRBC's)
Quantity: 1
Transfuse Today: Yes
Reason: Anemia
Abnormal Lab Results
10/31/24
09:44
RBC 2.34 L 10^6/uL
(4.20-5.40)
Hgb 7.2 L g/dL
(12.0-16.0)
Hct 22.8 L %
(37.0-47.0)
MCHC 31.6 L g/dL
(33.0-37.0)
10/31/24 09:44
Vital Signs
Initial and Last Documented VS:
Initial Vital Signs
Temp Pulse Resp BP Pulse Ox
98.2 F 72 16 146/54 100
10/31/24 09:15 10/31/24 09:15 10/31/24 09:15 10/31/24 09:15 10/31/24 09:15
Last Documented Vital Signs
Temp Pulse Resp BP Pulse Ox
98.2 F 72 16 149/53 100
10/31/24 09:15 10/31/24 09:15 10/31/24 09:15 10/31/24 09:25 10/31/24 09:25
MDM/Problems Addressed
Differential Diagnosis Includes:
Anemia, GI bleed, renal failure
MDM/Problems Addressed:
79-year-old female with anemia and slow GI bleed. Chronic renal failure. Will give 1 unit packed red blood cells and discharged home.
Chronic conditions affecting care: Kidney disease and Other (anemia, chronic GI bleed)
Acute Exacerbation and/or Progression of Chronic Illness: Kidney disease and Other (anemia, chronic GI bleed)
*Pulse Oximetry
Patient hypoxic: no
*Critical Care Note
Total Time (30-74mins, 75-104mins- exclusive of procedures): 30
comment:
Critical care statement: A total of 30 minutes of critical care time was provided for this patient. This includes management of unstable vital signs, evaluation of the patient at bedside, reviewing the patient's pertinent medical records, discussion
with consultants, review of old EKGs and review of pertinent medical records. This time with separate from time utilized to perform the aforementioned documented procedures
ED Attending Note
-
Portions of this chart may have been created with voice recognition software.� Occasional wrong word or��sound alike� substitutions may have occurred due to the inherent limitations of voice recognition software.
Discharge Plan
Departure
Patient with high blood pressure during this ER visit?: Yes
Condition: Good
Discharge Problem:
Anemia in chronic kidney disease (CKD), CKD (chronic kidney disease), stage V
Prescriptions:
No Action
allopurinol 100 mg Tablet
100 mg PO DAILY
atorvastatin [Lipitor] 40 mg Tablet
40 mg PO DAILY
carvedilol [Coreg] 25 mg Tablet
25 mg PO BID
folic acid 1 mg Tablet
1 mg PO DAILY
levothyroxine 25 mcg Tablet
25 mcg PO DAILY
insulin aspart U-100 [Novolog FlexPen U-100 Insulin] 100 unit/mL (3 mL) insulin pen
0 - 12 sliding scale dose SC ACHS
Rx Instructions:
BS 70-150 = 0 units; 151-200 = 2 units; 201-250 = 4 units; 251-300 = 6 units; 301-350 = 8 units; 351-400 = 10 units; 401-450 = 12 units. If BS>451 call PCP.
aspirin 81 mg Tablet,Delayed Release (Dr/Ec)
81 mg PO DAILY
hydralazine 25 mg Tablet
25 mg PO TID
polyethylene glycol 3350 [Miralax] 17 gram Powder In Packet
17 g PO DAILYPRN PRN (Reason: constipation)
loperamide 2 mg Tablet
2 mg PO Q6HPRN PRN (Reason: diarrhea)
miconazole nitrate 2 % Powder
1 applic TOPICAL BID
cyanocobalamin (vitamin B-12) 1,000 mcg Tablet
1,000 mcg PO DAILY
torsemide 10 mg Tablet
20 mg PO BID
sodium bicarbonate 650 mg Tablet
1,300 mg PO TID
bisacodyl 10 mg Suppository
10 mg [place] DAILYPRN PRN (Reason: constipation)
pantoprazole 40 mg Tablet,Delayed Release (Dr/Ec)
40 mg PO DAILY
ammonium lactate 12 % Cream
1 applic TOPICAL [id number] PRN (Reason: legs)
ammonium lactate 12 % Cream
1 applic TOPICAL QPM
gabapentin 100 mg Capsule
100 mg PO TID
ascorbic acid (vitamin C) [Vitamin C] 250 mg tablet
250 mg PO DAILY Qty: 30 0RF
acetaminophen [Tylenol] 325 mg Tablet
650 mg PO Q4HPRN PRN (Reason: mild pain/Temp >100)
ferrous sulfate 325 mg (65 mg iron) tablet
325 mg PO Q48H
sucralfate 1 gram tablet
1 g PO AC
epoetin dora 20,000 unit/mL Solution
20,000 unit SC MO
Procrit 2,000 unit/mL Solution
2,000 unit SC ONCE
ipratropium-albuterol 0.5 mg-3 mg(2.5 mg base)/3 mL Solution For Nebulization
3 ml INHALATION R Q6HPRN PRN (Reason: sob/wheezing)
guaifenesin 100 mg/5 mL Liquid
200 mg PO Q4HPRN PRN (Reason: cough)
medroxyprogesterone 10 mg Tablet
10 mg PO DAILY Qty: 0 0RF
sennosides-docusate sodium 8.6-50 mg Tablet
1 tab PO BIDPRN PRN (Reason: constipation) Qty: 0 0RF
Referrals:
Jeronimo Luke MD [Family Provider] -
Interventions
Interventions:
*Risk Screen - Suicide Last Done: 10/31/24 09:26
*General Assessment Last Done: 10/31/24 09:26
*Neglect/Abuse Screening Last Done: 10/31/24 09:26
ED- Fall Risk Assessment Last Done: 10/31/24 09:26
*ED COVID-19 Vaccine History Last Done: 10/31/24 09:26
Discharge Date and Time
Print Language: POLISH
[2024-10-31 09:50] LABS: % Basophils 0.8 % (0-2); % Eosinophils 4.2 % (0-6); % Immature Granulocytes 0.2 % (0-0.5); % Lymphocytes 22.7 % (20.5-51.1); % Monocytes 4.2 % (1.7-9.3); % Neutrophils 67.9 % (42.2-75.2); Absolute Eosinophils 0.2 10^3/uL (0-0.7); Absolute Lymphocytes 1.2 10^3/uL (1.2-3.4); Absolute Monocytes 0.2 10^3/uL (0.1-0.6); Absolute Neutrophils 3.5 10^3/uL (1.4-6.5); Hematocrit 22.8 % (37.0-47.0); Hemoglobin 7.2 g/dL (12.0-16.0); Mean Corp Hgb Conc. 31.6 g/dL (33.0-37.0); Mean Corpuscular Hgb 30.8 pg (27.0-31.0); Mean Corpuscular Volume 97.4 fL (81.0-99.0); Mean Platelet Volume 9.2 fL (7.4-10.4); Nucleated Red Blood Cells % 0 %; Platelet Count 166 10^3/uL (130-400); Red Blood Cell Count 2.34 10^6/uL (4.20-5.40); Red Cell Dist. Width 14.5 % (11.5-14.5); White Blood Cell Count 5.2 10^3/uL (4.8-10.8)
[2024-10-31 10:03] LABS: ALT (SGPT) < 10 U/L (0-35); AST (SGOT) 13 U/L (14-36); Albumin 3.1 g/dl (3.5-5.0); Alkaline Phosphatase 57 U/L (38-126); Blood Urea Nitrogen 84 mg/dl (7-17); Calcium 9.6 mg/dl (8.4-10.2); Carbon Dioxide 18 mmol/L (22-30); Chloride 109 mmol/L (98-107); Estimated Creatinine Clearance 17 ml/min; Glucose 85 mg/dl (70-99); Potassium 4.4 mmol/L (3.5-5.1); Sodium 140 mmol/L (135-145); Total Bilirubin 0.5 mg/dl (0.2-1.3); Total Protein 5.6 g/dl (6.3-8.2)
--- NOTE | 2024-10-31 14:18 | EDRN ---
[phone] time. [facility] [employer] said no one is available to take report on pt's floor at this time and attempt to call back later.
--- NOTE | 2024-10-31 14:45 | EDRN ---
Attempting to call report at this time.
--- NOTE | 2024-10-31 14:49 | EDRN ---
Report called to Destiny Recinos LPN was given report on pt at this time.
== END 2024-10-31 14:53 ==
LOC: EMR 08:58
PROVIDERS: EMERGENCY PHYSICIAN Emergency Medicine; FAMILY PHYSICIAN Specialist
DX: N18.4 Chronic kidney disease, stage 4 (severe) (principal); D63.1 Anemia in chronic kidney disease; I12.9 Hypertensive chronic kidney disease with stage 1 through stage 4 chronic kidney disease, or unspecified chronic kidney disease; E11.22 Type 2 diabetes mellitus with diabetic chronic kidney disease; Z82.49 Family history of ischemic heart disease and other diseases of the circulatory system; Z83.3 Family history of diabetes mellitus; Z90.49 Acquired absence of other specified parts of digestive tract; I25.10 Atherosclerotic heart disease of native coronary artery without angina pectoris; E78.00 Pure hypercholesterolemia, unspecified
CPT/HCPCS: 99291; 80053; 85025; 86850; 86900; 86901; 86920; P9016

== ENCOUNTER 2024-11-20 18:30 | Emergency (ER) | payer MEDICARE, OTHER, SELFPAY ==
[2024-11-20] VITALS (9 sets, daily range): BP systolic 124–161; BP diastolic 54–107; BMI 34.7
[2024-11-20 19:10] LABS: ALT (SGPT) < 10 U/L (0-35); AST (SGOT) 14 U/L (14-36); Albumin 3.4 g/dl (3.5-5.0); Alkaline Phosphatase 63 U/L (38-126); Blood Urea Nitrogen 89 mg/dl (7-17); Calcium 10.4 mg/dl (8.4-10.2); Carbon Dioxide 19 mmol/L (22-30); Chloride 108 mmol/L (98-107); Estimated Creatinine Clearance 17 ml/min; Glucose 105 mg/dl (70-99); Potassium 4.4 mmol/L (3.5-5.1); Sodium 138 mmol/L (135-145); Total Bilirubin 0.6 mg/dl (0.2-1.3); Total Protein 5.8 g/dl (6.3-8.2); eGFR 13.68
[2024-11-20 19:13] LABS: % Basophils 0.3 % (0-2); % Eosinophils 3.2 % (0-6); % Immature Granulocytes 0.7 % (0-0.5); % Lymphocytes 19.5 % (20.5-51.1); % Monocytes 5.1 % (1.7-9.3); % Neutrophils 71.2 % (42.2-75.2); Absolute Eosinophils 0.2 10^3/uL (0-0.7); Absolute Lymphocytes 1.1 10^3/uL (1.2-3.4); Absolute Monocytes 0.3 10^3/uL (0.1-0.6); Absolute Neutrophils 4.2 10^3/uL (1.4-6.5); Hematocrit 21.5 % (37.0-47.0); Hemoglobin 6.8 g/dL (12.0-16.0); Mean Corp Hgb Conc. 31.6 g/dL (33.0-37.0); Mean Corpuscular Hgb 30.5 pg (27.0-31.0); Mean Corpuscular Volume 96.4 fL (81.0-99.0); Mean Platelet Volume 9.4 fL (7.4-10.4); Nucleated Red Blood Cells % 0 %; Platelet Count 197 10^3/uL (130-400); Red Blood Cell Count 2.23 10^6/uL (4.20-5.40); Red Cell Dist. Width 14.6 % (11.5-14.5); White Blood Cell Count 5.9 10^3/uL (4.8-10.8)
--- NOTE | 2024-11-20 19:42 | ED.GENMED ---
History of Present Illness
General
Chief Complaint: Abnormal Lab Value
Time Seen by Provider: 11/20/24 18:38
History of Present Illness
History of Present Illness:
79-year-old female with history of CAD, GERD, hypertension, CKD, anemia, known GI bleed, being followed with GI presenting for low hemoglobin at her facility. Noted to be 6.7 prior to arrival. Patient with repeated history of requiring
transfusions, most recently on 10/31. Denies any acute complaints. Denies chest pain, difficulty breathing, abdominal pain, weakness or lightheadedness.
Past History
Past History
ED Past Medical History: CAD, GERD, HTN, Hypercholesterolemia, NIDDM, Renal failure, Hypothyroidism and Other (Dysfunctional uterine bleeding, chronic kidney disease pending dialysis, Renal calculus, Iron def anemia, hemorrhagic disorder due to
extrinsic Circulatory anticoagulation. PNA, Back pain, )
ED Past Surgical History: Appendectomy, Gynecological (D&C), Orthopedic (Left carpal tunnel ), Tonsilectomy, Urological (Kidney stent) and Other (L AV fistula)
Social History
Tobacco: Non-smoker
Alcohol: Occasional
Drug: None
Personal: Single
Living: senior living
Family History
Family History: Diabetes, Hypertension and Early CAD; Negative Asthma or Cancer
Phy Exam
Physical Exam
Physical Exam:
General: Well-appearing, no clinical signs of dehydration, nontoxic and in no acute distress
HEENT: protecting airway
Neck: appears supple
CV: Normal heart rate, regular rhythm
Resp: No accessory muscle use, no increased work of breathing
Abd: no distension
Extremities: No deformities, no swelling
Neuro: alert, no focal neurologic deficit
: deferred
Rectal: deferred
Psych: Normal affect
Skin: Intact
Course
Orders/Labs/Results
Orders:
Orders
11/20/24 18:41
Complete Blood Count/With Diff Urgent
02/20/25 18:49
Type+Screen Urgent
Comprehensive Metabolic Panel Urgent
11/20/24 19:15
* Blood Bank Products Urgent
Blood Bank Products: *Packed RBC Leuko(PRBC's)
Quantity: 1
Transfuse Today: Yes
Reason: Anemia
Abnormal Lab Results
11/20/24 11/20/24
18:41 18:49
RBC 2.23 L 10^6/uL
(4.20-5.40)
Hgb 6.8 L* g/dL
(12.0-16.0)
Hct 21.5 L %
(37.0-47.0)
MCHC 31.6 L g/dL
(33.0-37.0)
RDW 14.6 H %
(11.5-14.5)
Absolute Lymphs (auto) 1.1 L 10^3/uL
(1.2-3.4)
Immature Gran % 0.7 H %
(0-0.5)
Lymphocytes % 19.5 L %
(20.5-51.1)
Chloride 108 H mmol/L
(98-107)
Carbon Dioxide 19 L mmol/L
(22-30)
BUN 89 H mg/dl
(7-17)
Creatinine 3.3 H mg/dL
(0.6-1.0)
Glucose 105 H mg/dl
(70-99)
Calcium 10.4 H mg/dl
(8.4-10.2)
Total Protein 5.8 L g/dl
(6.3-8.2)
Albumin 3.4 L g/dl
(3.5-5.0)
Crossmatch IS Only See Detail
11/20/24 18:41
11/20/24 18:49
Vital Signs
Initial and Last Documented VS:
Initial Vital Signs
Temp Resp BP
98.4 F 18 161/62
11/20/24 18:33 11/20/24 18:33 11/20/24 18:33
Last Documented Vital Signs
Temp Pulse Resp BP Pulse Ox
98.1 F 73 17 124/81 100
11/20/24 20:34 11/20/24 20:34 11/20/24 20:34 11/20/24 21:00 11/20/24 20:34
MDM/Problems Addressed
MDM/Problems Addressed:
79-year-old female with history of chronic GI bleed and anemia presenting for low hemoglobin at facility. Vital signs significant for mild hypertension.
On exam patient is resting comfortably, without present acute complaints. She is presently hemodynamically stable. Plan for repeat hemoglobin check with transfusion as needed. Patient usually receives transfusion with return back to nursing
facility for continued outpatient management.
19:50 - Hemoglobin is 6.8. Last hemoglobin is 7.2, without significant derivation. Given less than 7, will administer 1 unit with plan for discharge back to nursing facility once complete. Patient consented
*Critical Care Note
Total Time (30-74mins, 75-104mins- exclusive of procedures): Not Applicable
ED Attending Note
-
Portions of this chart may have been created with voice recognition software.� Occasional wrong word or��sound alike� substitutions may have occurred due to the inherent limitations of voice recognition software.
Discharge Plan
Departure
Patient Disposition: Home (Routine Discharge)
Date of Disposition: 11/20/24
Time of Disposition: 22:19
Patient with high blood pressure during this ER visit?: Yes
Condition: Good
Discharge Problem:
Iron deficiency anemia
Instructions: Anemia caused by low iron, BLOOD PRESSURE
Prescriptions:
No Action
allopurinol 100 mg Tablet
100 mg PO DAILY
atorvastatin [Lipitor] 40 mg Tablet
40 mg PO DAILY
carvedilol [Coreg] 25 mg Tablet
25 mg PO BID
folic acid 1 mg Tablet
1 mg PO DAILY
levothyroxine 25 mcg Tablet
25 mcg PO DAILY
insulin aspart U-100 [Novolog FlexPen U-100 Insulin] 100 unit/mL (3 mL) insulin pen
0 - 12 sliding scale dose SC ACHS
Rx Instructions:
BS 70-150 = 0 units; 151-200 = 2 units; 201-250 = 4 units; 251-300 = 6 units; 301-350 = 8 units; 351-400 = 10 units; 401-450 = 12 units. If BS>451 call PCP.
aspirin 81 mg Tablet,Delayed Release (Dr/Ec)
81 mg PO DAILY
hydralazine 25 mg Tablet
25 mg PO TID
polyethylene glycol 3350 [Miralax] 17 gram Powder In Packet
17 g PO DAILYPRN PRN (Reason: constipation)
loperamide 2 mg Tablet
2 mg PO Q6HPRN PRN (Reason: diarrhea)
miconazole nitrate 2 % Powder
1 applic TOPICAL BID
cyanocobalamin (vitamin B-12) 1,000 mcg Tablet
1,000 mcg PO DAILY
sodium bicarbonate 650 mg Tablet
1,300 mg PO TID
bisacodyl 10 mg Suppository
10 mg [place] DAILYPRN PRN (Reason: constipation)
pantoprazole 40 mg Tablet,Delayed Release (Dr/Ec)
40 mg PO DAILY
ammonium lactate 12 % Cream
1 applic TOPICAL [id number] PRN (Reason: legs)
ammonium lactate 12 % Cream
1 applic TOPICAL QPM
gabapentin 100 mg Capsule
100 mg PO TID
acetaminophen [Tylenol] 325 mg Tablet
650 mg PO Q4HPRN PRN (Reason: mild pain/Temp >100)
ferrous sulfate 325 mg (65 mg iron) tablet
325 mg PO Q48H
sucralfate 1 gram tablet
1 g PO AC
epoetin dora 20,000 unit/mL Solution
20,000 unit SC MO
Procrit 2,000 unit/mL Solution
2,000 unit SC MO
ipratropium-albuterol 0.5 mg-3 mg(2.5 mg base)/3 mL Solution For Nebulization
3 ml INHALATION R Q6HPRN PRN (Reason: sob/wheezing)
medroxyprogesterone 10 mg Tablet
10 mg PO DAILY Qty: 0 0RF
dextromethorphan-guaifenesin [Diabetic Tussin] 10-100 mg/5 mL Liquid
10 ml PO Q4HPRN PRN (Reason: COUGH)
torsemide 10 mg Tablet
20 mg PO BID
ascorbic acid (vitamin C) [Vitamin C] 250 mg Tablet
250 mg PO DAILY
docusate sodium [Colace] 100 mg Capsule
100 mg PO BID
cholecalciferol (vitamin D3) 1,250 mcg (50,000 unit) Tablet
1,250 mcg PO MO
Activity Restrictions/Additional Instructions:
You were seen in the emergency department for low hemoglobin
You were found to have a hemoglobin of 6.8 and you were subsequently transfused 1 unit. Please continue to follow-up with your doctor
Please follow-up closely with your primary care physician.
Return to the emergency department for any worsening of your symptoms, or any development of chest pain, difficulty breathing, abdominal pain with persistent vomiting and inability to tolerate food or liquid by mouth (concern for dehydration),
weakness, headache or confusion, fever greater than 100.4, or any additional symptoms that are concerning to you.
Thank you for choosing [facility].
Interventions
Interventions:
*Risk Screen - Suicide Last Done: 11/20/24 18:38
*General Assessment Last Done: 11/20/24 18:38
*Neglect/Abuse Screening Last Done: 11/20/24 18:38
ED- Fall Risk Assessment Last Done: 11/20/24 18:39
*ED COVID-19 Vaccine History Last Done: 11/20/24 18:38
Discharge Date and Time
Print Language: KYRGYZ
[2024-11-21] VITALS: BP 164/59
== END 2024-11-21 00:30 ==
LOC: EMR 18:30
PROVIDERS: EMERGENCY PHYSICIAN Student in an Organized Health Care Education/Training Program; FAMILY PHYSICIAN Internal Medicine
DX: D50.0 Iron deficiency anemia secondary to blood loss (chronic) (principal); I25.10 Atherosclerotic heart disease of native coronary artery without angina pectoris; K21.9 Gastro-esophageal reflux disease without esophagitis; I12.9 Hypertensive chronic kidney disease with stage 1 through stage 4 chronic kidney disease, or unspecified chronic kidney disease; N18.9 Chronic kidney disease, unspecified; Z90.49 Acquired absence of other specified parts of digestive tract
CPT/HCPCS: 36430; 99285; 80053; 85025; 86850; 86900; 86901; 86920; P9016

== ENCOUNTER 2025-01-08 06:21 | Day surgery (SDC) | payer MEDICARE, OTHER, SELFPAY ==
[2025-01-08 08:11] VITALS: BMI 32.1
[2025-01-08 08:17] VITALS: BMI 32.1
[2025-01-08 08:30] VITALS: BP 126/71
[2025-01-08 08:33] LABS: Glucose - Point of Care 84 mg/dl (70-99)
[2025-01-08 11:05] VITALS: BP 130/62
[2025-01-08 11:15] VITALS: BP 151/60
[2025-01-08 11:22] LABS: Glucose - Point of Care 81 mg/dl (70-99)
[2025-01-08 11:30] VITALS: BP 157/73
== END 2025-01-08 12:10 | disposition home or self-care (01) ==
LOC: GI 06:21
PROVIDERS: ATTENDING PHYSICIAN Internal Medicine Gastroenterology
DX: Z09 Encounter for follow-up examination after completed treatment for conditions other than malignant neoplasm (principal); K64.9 Unspecified hemorrhoids; D50.9 Iron deficiency anemia, unspecified; K31.7 Polyp of stomach and duodenum; K31.819 Angiodysplasia of stomach and duodenum without bleeding; K31.89 Other diseases of stomach and duodenum; Z86.0101 Personal history of adenomatous and serrated colon polyps; Z53.8 Procedure and treatment not carried out for other reasons
CPT/HCPCS: 43255; 45378; 43251; 88305; 82962

== ENCOUNTER → 2025-01-13 13:04 | Outpatient (REF) | payer MEDICARE, OTHER, SELFPAY | LOC: RAD 13:04 | PROVIDERS: ATTENDING PHYSICIAN Surgery Vascular Surgery; FAMILY PHYSICIAN Internal Medicine | DX: I77.0 Arteriovenous fistula, acquired (principal) | CPT/HCPCS: 93990 ==

== ENCOUNTER 2025-01-20 09:17 | Emergency (ER) | payer MEDICARE, OTHER, SELFPAY ==
[2025-01-20] VITALS (7 sets, daily range): BP systolic 126–170; BP diastolic 52–71; BMI 31.3
--- NOTE | 2025-01-20 09:36 | ED.GENMED ---
History of Present Illness
General
Chief Complaint: Abnormal Lab Value
Source: patient
Exam Limitations: none
Time Seen by Provider: 01/20/25 09:24
History of Present Illness
History of Present Illness:
79-year-old female with chronic anemia, chronic GI bleed presents from [facility] after outpatient labs demonstrating hemoglobin of 6.8. She denies shortness of breath or lightheadedness. Of note she has been coughing for several
days and tested positive for influenza yesterday. No fever chest pain or shortness of breath. She denies abdominal pain. No other complaints at this time
Past History
Past History
ED Past Medical History: CAD, GERD, HTN, Hypercholesterolemia, NIDDM, Renal failure, Hypothyroidism and Other (Dysfunctional uterine bleeding, chronic kidney disease pending dialysis, Renal calculus, Iron def anemia, hemorrhagic disorder due to
extrinsic Circulatory anticoagulation. PNA, Back pain, )
ED Past Surgical History: Appendectomy, Gynecological (D&C), Orthopedic (Left carpal tunnel ), Tonsilectomy, Urological (Kidney stent) and Other (L AV fistula)
Social History
Tobacco: Non-smoker
Alcohol: Occasional
Drug: None
Personal: Single
Living: half-way
Family History
Family History: Diabetes, Hypertension and Early CAD; Negative Asthma or Cancer
Phy Exam
Physical Exam
Physical Exam:
General: Well-appearing female no acute respiratory distress
HEENT: Normocephalic atraumatic
Heart: Regular rate and rhythm
Lungs: Clear no wheeze
Abdomen is soft nontender nondistended
Extremities: No cyanosis or edema
Course
Orders/Labs/Results
Orders:
Orders
01/20/25 09:36
Type+Screen Urgent
Complete Blood Count/With Diff Urgent
Comprehensive Metabolic Panel Urgent
Abnormal Lab Results
01/20/25
09:36
RBC 2.52 L 10^6/uL
(4.20-5.40)
Hgb 7.3 L g/dL
(12.0-16.0)
Hct 23.4 L %
(37.0-47.0)
MCHC 31.2 L g/dL
(33.0-37.0)
Absolute Lymphs (auto) 0.9 L 10^3/uL
(1.2-3.4)
Lymphocytes % 17.7 L %
(20.5-51.1)
Eosinophils % 7.6 H %
(0-6)
Chloride 111 H mmol/L
(98-107)
Carbon Dioxide 19 L mmol/L
(22-30)
BUN 77 H mg/dl
(7-17)
Creatinine 2.9 H mg/dL
(0.6-1.0)
Glucose 107 H mg/dl
(70-99)
Calcium 10.7 H mg/dl
(8.4-10.2)
AST 13 L U/L
(14-36)
Total Protein 5.5 L g/dl
(6.3-8.2)
Albumin 3.0 L g/dl
(3.5-5.0)
01/20/25 09:36
01/20/25 09:36
Vital Signs
Initial and Last Documented VS:
Initial Vital Signs
Temp Pulse Resp BP Pulse Ox
98.2 F 74 18 141/54 100
01/20/25 09:22 01/20/25 09:22 01/20/25 09:22 01/20/25 09:22 01/20/25 09:22
Last Documented Vital Signs
Temp Pulse Resp BP Pulse Ox
98.2 F 71 13 126/54 100
01/20/25 09:22 01/20/25 10:45 01/20/25 10:45 01/20/25 10:00 01/20/25 10:45
MDM/Problems Addressed
Differential Diagnosis Includes:
Patient with chronic anemia outpatient labs demonstrated low hemoglobin. Relatively asymptomatic with stable vital signs. Recheck labs. May require blood transfusion but anticipate discharge back to facility
*Critical Care Note
Total Time (30-74mins, 75-104mins- exclusive of procedures): Not Applicable
Update Note
Update Note:
Hemoglobin today is 7.3 which is actually the patient's baseline. Vital signs are stable she has no complaints of shortness of breath or lightheadedness. She has chronic anemia at this point no indication for blood transfusion. Recommend she
follow-up with skin therapist for further evaluation. Stable for discharge back to facility. Patient and sister understanding.
ED Attending Note
-
Portions of this chart may have been created with voice recognition software.� Occasional wrong word or��sound alike� substitutions may have occurred due to the inherent limitations of voice recognition software.
Discharge Plan
Departure
Patient Disposition: Home (Routine Discharge)
Date of Disposition: 01/20/25
Time of Disposition: 12:35
Patient with high blood pressure during this ER visit?: No
Discharge Problem:
Chronic anemia
Prescriptions:
No Action
allopurinol 100 mg Tablet
100 mg PO DAILY
atorvastatin [Lipitor] 40 mg Tablet
40 mg PO DAILY
carvedilol [Coreg] 25 mg Tablet
25 mg PO BID
folic acid 1 mg Tablet
1 mg PO DAILY
levothyroxine 25 mcg Tablet
25 mcg PO DAILY
insulin aspart U-100 [Novolog FlexPen U-100 Insulin] 100 unit/mL (3 mL) insulin pen
0 - 12 sliding scale dose SC ACHS
Rx Instructions:
BS 70-150 = 0 units; 151-200 = 2 units; 201-250 = 4 units; 251-300 = 6 units; 301-350 = 8 units; 351-400 = 10 units; 401-450 = 12 units. If BS>451 call PCP.
aspirin 81 mg Tablet,Delayed Release (Dr/Ec)
81 mg PO DAILY
hydralazine 25 mg Tablet
25 mg PO TID
polyethylene glycol 3350 [Miralax] 17 gram Powder In Packet
17 g PO DAILYPRN PRN (Reason: constipation)
loperamide 2 mg Tablet
2 mg PO Q6HPRN PRN (Reason: diarrhea)
miconazole nitrate 2 % Powder
1 applic TOPICAL BID
cyanocobalamin (vitamin B-12) 1,000 mcg Tablet
1,000 mcg PO DAILY
sodium bicarbonate 650 mg Tablet
1,300 mg PO TID
bisacodyl 10 mg Suppository
10 mg [place] DAILYPRN PRN (Reason: constipation)
pantoprazole 40 mg Tablet,Delayed Release (Dr/Ec)
40 mg PO DAILY
ammonium lactate 12 % Cream
1 applic TOPICAL [id number] PRN (Reason: b/l legs)
gabapentin 100 mg Capsule
100 mg PO TID
acetaminophen [Tylenol] 325 mg Tablet
650 mg PO Q4HPRN PRN (Reason: mild pain/Temp >100)
ferrous sulfate 325 mg (65 mg iron) tablet
325 mg PO Q48H@0800,1700
sucralfate 1 gram tablet
1 g PO AC
Procrit 2,000 unit/mL Solution
3,000 unit SC TU
ipratropium-albuterol 0.5 mg-3 mg(2.5 mg base)/3 mL Solution For Nebulization
3 ml INHALATION R Q6HPRN PRN (Reason: sob/wheezing)
medroxyprogesterone 10 mg Tablet
10 mg PO DAILY Qty: 0 0RF
dextromethorphan-guaifenesin [Diabetic Tussin] 10-100 mg/5 mL Liquid
10 ml PO Q4HPRN PRN (Reason: COUGH)
torsemide 10 mg Tablet
20 mg PO BID
ascorbic acid (vitamin C) [Vitamin C] 250 mg Tablet
250 mg PO DAILY
docusate sodium [Colace] 100 mg Capsule
100 mg PO BID
cholecalciferol (vitamin D3) 1,250 mcg (50,000 unit) Tablet
1,250 mcg PO MO
Referrals:
Jhonathan Gabriel MD [Family Provider] -
Activity Restrictions/Additional Instructions:
As discussed, your hemoglobin today is 7.3 which is about your baseline. Please follow-up with hematology for further recommendations regarding your chronic anemia
Interventions
Interventions:
*Risk Screen - Suicide Last Done: 01/20/25 09:40
*General Assessment Last Done: 01/20/25 10:58
*Neglect/Abuse Screening Last Done: 01/20/25 09:40
*ED- Fall Risk Assessment Last Done: 01/20/25 09:40
*ED COVID-19 Vaccine History Last Done: 01/20/25 09:40
Discharge Date and Time
Print Language: MALTESE
[2025-01-20 10:02] LABS: % Basophils 0.6 % (0-2); % Eosinophils 7.6 % (0-6); % Immature Granulocytes 0.2 % (0-0.5); % Lymphocytes 17.7 % (20.5-51.1); % Neutrophils 67.9 % (42.2-75.2); Absolute Eosinophils 0.4 10^3/uL (0-0.7); Absolute Lymphocytes 0.9 10^3/uL (1.2-3.4); Absolute Monocytes 0.3 10^3/uL (0.1-0.6); Absolute Neutrophils 3.3 10^3/uL (1.4-6.5); Hematocrit 23.4 % (37.0-47.0); Hemoglobin 7.3 g/dL (12.0-16.0); Mean Corp Hgb Conc. 31.2 g/dL (33.0-37.0); Mean Corpuscular Volume 92.9 fL (81.0-99.0); Mean Platelet Volume 9.8 fL (7.4-10.4); Nucleated Red Blood Cells % 0 %; Platelet Count 174 10^3/uL (130-400); Red Blood Cell Count 2.52 10^6/uL (4.20-5.40); Red Cell Dist. Width 13.7 % (11.5-14.5); White Blood Cell Count 4.9 10^3/uL (4.8-10.8)
[2025-01-20 10:05] LABS: ALT (SGPT) < 10 U/L (0-35); AST (SGOT) 13 U/L (14-36); Alkaline Phosphatase 64 U/L (38-126); Blood Urea Nitrogen 77 mg/dl (7-17); Calcium 10.7 mg/dl (8.4-10.2); Carbon Dioxide 19 mmol/L (22-30); Chloride 111 mmol/L (98-107); Estimated Creatinine Clearance 19 ml/min; Glucose 107 mg/dl (70-99); Potassium 4.3 mmol/L (3.5-5.1); Sodium 141 mmol/L (135-145); Total Bilirubin 0.4 mg/dl (0.2-1.3); Total Protein 5.5 g/dl (6.3-8.2); eGFR 15.97
== END 2025-01-20 15:15 | disposition home or self-care (01) ==
LOC: EMR 09:17
PROVIDERS: Physician Assistant; EMERGENCY PHYSICIAN Student in an Organized Health Care Education/Training Program; FAMILY PHYSICIAN Internal Medicine
DX: D64.9 Anemia, unspecified (principal); E11.22 Type 2 diabetes mellitus with diabetic chronic kidney disease; I12.9 Hypertensive chronic kidney disease with stage 1 through stage 4 chronic kidney disease, or unspecified chronic kidney disease; N18.9 Chronic kidney disease, unspecified; I25.10 Atherosclerotic heart disease of native coronary artery without angina pectoris; E03.9 Hypothyroidism, unspecified
CPT/HCPCS: 99283; 80053; 85025; 86850; 86900; 86901

== ENCOUNTER 2025-01-22 19:46 | Emergency (ER) | payer MEDICARE, OTHER, SELFPAY ==
[2025-01-22 19:51] VITALS: BP 149/63; BMI 31.1
[2025-01-22 20:00] VITALS: BP 156/69
[2025-01-22 20:33] LABS: % Basophils 0.5 % (0-2); % Immature Granulocytes 0.3 % (0-0.5); % Lymphocytes 35.1 % (20.5-51.1); % Monocytes 5.1 % (1.7-9.3); Absolute Eosinophils 0.2 10^3/uL (0-0.7); Absolute Lymphocytes 1.4 10^3/uL (1.2-3.4); Absolute Monocytes 0.2 10^3/uL (0.1-0.6); Absolute Neutrophils 2.2 10^3/uL (1.4-6.5); Hematocrit 23.7 % (37.0-47.0); Hemoglobin 7.5 g/dL (12.0-16.0); Mean Corp Hgb Conc. 31.6 g/dL (33.0-37.0); Mean Corpuscular Hgb 29.3 pg (27.0-31.0); Mean Corpuscular Volume 92.6 fL (81.0-99.0); Mean Platelet Volume 9.9 fL (7.4-10.4); Nucleated Red Blood Cells % 0 %; Platelet Count 190 10^3/uL (130-400); Red Blood Cell Count 2.56 10^6/uL (4.20-5.40); Red Cell Dist. Width 13.8 % (11.5-14.5)
[2025-01-22 20:53] LABS: Blood Urea Nitrogen 72 mg/dl (7-17); Calcium 10.8 mg/dl (8.4-10.2); Carbon Dioxide 18 mmol/L (22-30); Chloride 112 mmol/L (98-107); Estimated Creatinine Clearance 19 ml/min; Glucose 109 mg/dl (70-99); Potassium 4.1 mmol/L (3.5-5.1); Sodium 141 mmol/L (135-145); eGFR 16.66
[2025-01-22 21:00] VITALS: BP 132/62
[2025-01-22 22:00] VITALS: BP 136/59
[2025-01-22 23:00] VITALS: BP 139/62
--- NOTE | 2025-01-22 23:37 | ED.GENMED ---
History of Present Illness
General
Chief Complaint: Abnormal Lab Value
Source: patient and records
Exam Limitations: none
Time Seen by Provider: 01/22/25 20:17
History of Present Illness
History of Present Illness:
79yoF with history of ESRD not on dialysis, chronic anemia, CHF, hypertension, hyperlipidemia, prior CVA presenting for evaluation of an abnormal outpatient lab. Patient has a history of chronic anemia and baseline hemoglobin is around 7. She
reports having over 50 blood transfusions within the past year. She receives Procrit injections weekly. She also has blood work done twice weekly for close monitoring. She was seen in the ED 2 days ago her hemoglobin was 6.8 on outpatient labs.
Repeat hemoglobin was 7.3 in the ED and she was discharged. She had more blood work done today and hemoglobin was 6.7 so she was sent back to the ED for transfusion. She does report feeling more fatigued and weak than normal. She denies any
shortness of breath or syncope. Stools are chronically black due to iron supplements. She denies any hematochezia.
Past History
Past History
ED Past Medical History: CAD, GERD, HTN, Hypercholesterolemia, NIDDM, Renal failure, Hypothyroidism and Other (Dysfunctional uterine bleeding, chronic kidney disease pending dialysis, Renal calculus, Iron def anemia, hemorrhagic disorder due to
extrinsic Circulatory anticoagulation. PNA, Back pain, )
ED Past Surgical History: Appendectomy, Gynecological (D&C), Orthopedic (Left carpal tunnel ), Tonsilectomy, Urological (Kidney stent) and Other (L AV fistula)
Social History
Tobacco: Non-smoker
Alcohol: Occasional
Drug: None
Personal: Single
Living: [facility]
Family History
Family History: Diabetes, Hypertension and Early CAD; Negative Asthma or Cancer
Phy Exam
Physical Exam
Physical Exam:
Chronically ill appearing female, no acute distress
General Physical Exam
General Presentation: no apparent distress
General Skin: warm and dry
General Habitus: normal
General Mental: alert
ENT Exam
ENT Exam: normocephalic
Pulmonary Exam
Pulmonary Exam: no respiratory distress
Gastrointestinal Exam
Guaiac Status: negative
Neurological Exam
Neurological Exam: alert
[place] Coma Scale
Eye Opening: Spontaneous
Verbal Response: Oriented
Motor Response: Obeys Commands
GCS Total Score: 15
Skin Exam
Skin Exam: warm/dry and pallor
Psychiatric Exam
Psychiatric Exam: normal mood/affect
Course
Orders/Labs/Results
Orders:
Orders
01/22/25 20:21
Basic Metabolic Panel Urgent
01/22/25 20:22
Complete Blood Count/With Diff Urgent
01/22/25 20:53
Blood Bank Products [* Blood Bank Products] Urgent
Blood Bank Products: *Packed RBC Leuko(PRBC's)
Quantity: 1
Transfuse Today: Yes
Reason: Anemia
01/22/25 22:22
Type+Screen Urgent
BBK Wristband Number:
Abnormal Lab Results
01/22/25 01/22/25
20:21 20:22
WBC 4.0 L 10^3/uL
(4.8-10.8)
RBC 2.56 L 10^6/uL
(4.20-5.40)
Hgb 7.5 L g/dL
(12.0-16.0)
Hct 23.7 L %
(37.0-47.0)
MCHC 31.6 L g/dL
(33.0-37.0)
Chloride 112 H mmol/L
(98-107)
Carbon Dioxide 18 L mmol/L
(22-30)
BUN 72 H mg/dl
(7-17)
Creatinine 2.8 H mg/dL
(0.6-1.0)
Glucose 109 H mg/dl
(70-99)
Calcium 10.8 H mg/dl
(8.4-10.2)
01/22/25 20:22
01/22/25 20:21
Vital Signs
Initial and Last Documented VS:
Initial Vital Signs
Temp Pulse Resp BP Pulse Ox
99.0 F 79 20 149/63 99
01/22/25 19:51 01/22/25 19:51 01/22/25 19:51 01/22/25 19:51 01/22/25 19:51
Last Documented Vital Signs
Temp Pulse Resp BP Pulse Ox
99.0 F 75 17 132/62 99
01/22/25 19:51 01/22/25 21:15 01/22/25 21:15 01/22/25 21:00 01/22/25 20:45
MDM/Problems Addressed
Differential Diagnosis Includes:
79yoF here with a hemoglobin of 6.7 seen on outpatient labs. Hx of chronic anemia with frequent transfusions. Seen in the ED 2 days ago for the same. C/o fatigue. VSS. She is chronically ill appearing in no distress. Stool is hemoccult negative.
Differential diagnosis includes: anemia of chronic disease, iron deficiency anemia, symptomatic anemia
Repeat blood work today shows a hemoglobin of 7.5 which appears close to her baseline. Patient is requesting a transfusion due to feeling fatigued. Consent form signed and 1 unit PRBCs ordered for transfusion. Case signed out to Ed Narciso ANGEL
pending transfusion.
*Critical Care Note
Total Time (30-74mins, 75-104mins- exclusive of procedures): Not Applicable
ED Attending Note
-
Portions of this chart may have been created with voice recognition software.� Occasional wrong word or��sound alike� substitutions may have occurred due to the inherent limitations of voice recognition software.
Discharge Plan
Departure
Prescriptions:
No Action
allopurinol 100 mg Tablet
100 mg PO DAILY
atorvastatin [Lipitor] 40 mg Tablet
40 mg PO DAILY
carvedilol [Coreg] 25 mg Tablet
25 mg PO BID
folic acid 1 mg Tablet
1 mg PO DAILY
levothyroxine 25 mcg Tablet
25 mcg PO DAILY
insulin aspart U-100 [Novolog FlexPen U-100 Insulin] 100 unit/mL (3 mL) insulin pen
0 - 12 sliding scale dose SC ACHS
Rx Instructions:
BS 70-150 = 0 units; 151-200 = 2 units; 201-250 = 4 units; 251-300 = 6 units; 301-350 = 8 units; 351-400 = 10 units; 401-450 = 12 units. If BS>451 call PCP.
aspirin 81 mg Tablet,Delayed Release (Dr/Ec)
81 mg PO DAILY
hydralazine 25 mg Tablet
25 mg PO TID
polyethylene glycol 3350 [Miralax] 17 gram Powder In Packet
17 g PO DAILYPRN PRN (Reason: constipation)
loperamide 2 mg Tablet
2 mg PO Q6HPRN PRN (Reason: diarrhea)
miconazole nitrate 2 % Powder
1 applic TOPICAL BID
cyanocobalamin (vitamin B-12) 1,000 mcg Tablet
1,000 mcg PO DAILY
sodium bicarbonate 650 mg Tablet
1,300 mg PO TID
bisacodyl 10 mg Suppository
10 mg [place] DAILYPRN PRN (Reason: constipation)
pantoprazole 40 mg Tablet,Delayed Release (Dr/Ec)
40 mg PO DAILY
ammonium lactate 12 % Cream
1 applic TOPICAL Q12H
gabapentin 100 mg Capsule
100 mg PO TID
acetaminophen [Tylenol] 325 mg Tablet
650 mg PO Q4HPRN PRN (Reason: mild pain/Temp >100)
ferrous sulfate 325 mg (65 mg iron) tablet
325 mg PO Q48H@0800,1700
sucralfate 1 gram tablet
1 g PO AC
Procrit 2,000 unit/mL Solution
3,000 unit SC TU
ipratropium-albuterol 0.5 mg-3 mg(2.5 mg base)/3 mL Solution For Nebulization
3 ml INHALATION R Q6HPRN PRN (Reason: sob/wheezing)
medroxyprogesterone 10 mg Tablet
10 mg PO DAILY Qty: 0 0RF
dextromethorphan-guaifenesin [Diabetic Tussin] 10-100 mg/5 mL Liquid
10 ml PO Q4HPRN PRN (Reason: COUGH)
torsemide 10 mg Tablet
20 mg PO BID
ascorbic acid (vitamin C) [Vitamin C] 250 mg Tablet
250 mg PO DAILY
docusate sodium [Colace] 100 mg Capsule
100 mg PO BID
cholecalciferol (vitamin D3) 1,250 mcg (50,000 unit) Tablet
1,250 mcg PO MO
Referrals:
Jhonathan Gabriel MD [Family Provider] -
Interventions
Interventions:
*Risk Screen - Suicide Last Done: 01/22/25 19:51
*General Assessment Last Done: 01/22/25 19:51
*Neglect/Abuse Screening Last Done: 01/22/25 19:51
*ED- Fall Risk Assessment Last Done: 01/22/25 19:51
*ED COVID-19 Vaccine History Last Done: 01/22/25 19:51
Discharge Date and Time
Print Language: SWEDISH
[2025-01-23] VITALS (10 sets, daily range): BP systolic 144–170; BP diastolic 58–62
--- NOTE | 2025-01-23 02:49 | ED.GENMED ---
History of Present Illness
General
Chief Complaint: Abnormal Lab Value
Time Seen by Provider: 01/22/25 20:17
Past History
Past History
ED Past Medical History: CAD, GERD, HTN, Hypercholesterolemia, NIDDM, Renal failure, Hypothyroidism and Other (Dysfunctional uterine bleeding, chronic kidney disease pending dialysis, Renal calculus, Iron def anemia, hemorrhagic disorder due to
extrinsic Circulatory anticoagulation. PNA, Back pain, )
ED Past Surgical History: Appendectomy, Gynecological (D&C), Orthopedic (Left carpal tunnel ), Tonsilectomy, Urological (Kidney stent) and Other (L AV fistula)
Social History
Tobacco: Non-smoker
Alcohol: Occasional
Drug: None
Personal: Single
Living: half-way
Family History
Family History: Diabetes, Hypertension and Early CAD; Negative Asthma or Cancer
Course
Orders/Labs/Results
Orders:
Orders
01/22/25 20:21
Basic Metabolic Panel Urgent
01/22/25 20:22
Complete Blood Count/With Diff Urgent
01/22/25 20:53
Blood Bank Products [* Blood Bank Products] Urgent
Blood Bank Products: *Packed RBC Leuko(PRBC's)
Quantity: 1
Transfuse Today: Yes
Reason: Anemia
01/22/25 22:22
Type+Screen Urgent
BBK Wristband Number:
Abnormal Lab Results
01/22/25 01/22/25 01/22/25
20:21 20:22 22:22
WBC 4.0 L 10^3/uL
(4.8-10.8)
RBC 2.56 L 10^6/uL
(4.20-5.40)
Hgb 7.5 L g/dL
(12.0-16.0)
Hct 23.7 L %
(37.0-47.0)
MCHC 31.6 L g/dL
(33.0-37.0)
Chloride 112 H mmol/L
(98-107)
Carbon Dioxide 18 L mmol/L
(22-30)
BUN 72 H mg/dl
(7-17)
Creatinine 2.8 H mg/dL
(0.6-1.0)
Glucose 109 H mg/dl
(70-99)
Calcium 10.8 H mg/dl
(8.4-10.2)
Crossmatch IS Only See Detail
01/22/25 20:22
01/22/25 20:21
Vital Signs
Initial and Last Documented VS:
Initial Vital Signs
Temp Pulse Resp BP Pulse Ox
99.0 F 79 20 149/63 99
01/22/25 19:51 01/22/25 19:51 01/22/25 19:51 01/22/25 19:51 01/22/25 19:51
Last Documented Vital Signs
Temp Pulse Resp BP Pulse Ox
98.1 F 60 14 155/58 99
01/23/25 00:26 01/23/25 01:45 01/23/25 01:45 01/23/25 01:00 01/23/25 01:45
Update Note
Update Note:
0245: ES//// No complications during transfusion. Stable for discharge.
ED Attending Note
-
Portions of this chart may have been created with voice recognition software.� Occasional wrong word or��sound alike� substitutions may have occurred due to the inherent limitations of voice recognition software.
Discharge Plan
Departure
Patient Disposition: Home (Routine Discharge)
Date of Disposition: 01/23/25
Time of Disposition: 02:49
Patient with high blood pressure during this ER visit?: No
Condition: Good
Covid-19: Not Applicable
Discharge Problem:
Chronic anemia
Instructions: Anemia in adults, possibly from low iron - ED discharge instructions
Prescriptions:
No Action
allopurinol 100 mg Tablet
100 mg PO DAILY
atorvastatin [Lipitor] 40 mg Tablet
40 mg PO DAILY
carvedilol [Coreg] 25 mg Tablet
25 mg PO BID
folic acid 1 mg Tablet
1 mg PO DAILY
levothyroxine 25 mcg Tablet
25 mcg PO DAILY
insulin aspart U-100 [Novolog FlexPen U-100 Insulin] 100 unit/mL (3 mL) insulin pen
0 - 12 sliding scale dose SC ACHS
Rx Instructions:
BS 70-150 = 0 units; 151-200 = 2 units; 201-250 = 4 units; 251-300 = 6 units; 301-350 = 8 units; 351-400 = 10 units; 401-450 = 12 units. If BS>451 call PCP.
aspirin 81 mg Tablet,Delayed Release (Dr/Ec)
81 mg PO DAILY
hydralazine 25 mg Tablet
25 mg PO TID
polyethylene glycol 3350 [Miralax] 17 gram Powder In Packet
17 g PO DAILYPRN PRN (Reason: constipation)
loperamide 2 mg Tablet
2 mg PO Q6HPRN PRN (Reason: diarrhea)
miconazole nitrate 2 % Powder
1 applic TOPICAL BID
cyanocobalamin (vitamin B-12) 1,000 mcg Tablet
1,000 mcg PO DAILY
sodium bicarbonate 650 mg Tablet
1,300 mg PO TID
bisacodyl 10 mg Suppository
10 mg IA DAILYPRN PRN (Reason: constipation)
pantoprazole 40 mg Tablet,Delayed Release (Dr/Ec)
40 mg PO DAILY
ammonium lactate 12 % Cream
1 applic TOPICAL Q12H
gabapentin 100 mg Capsule
100 mg PO TID
acetaminophen [Tylenol] 325 mg Tablet
650 mg PO Q4HPRN PRN (Reason: mild pain/Temp >100)
ferrous sulfate 325 mg (65 mg iron) tablet
325 mg PO Q48H@0800,1700
sucralfate 1 gram tablet
1 g PO AC
Procrit 2,000 unit/mL Solution
3,000 unit SC TU
ipratropium-albuterol 0.5 mg-3 mg(2.5 mg base)/3 mL Solution For Nebulization
3 ml INHALATION R Q6HPRN PRN (Reason: sob/wheezing)
medroxyprogesterone 10 mg Tablet
10 mg PO DAILY Qty: 0 0RF
dextromethorphan-guaifenesin [Diabetic Tussin] 10-100 mg/5 mL Liquid
10 ml PO Q4HPRN PRN (Reason: COUGH)
torsemide 10 mg Tablet
20 mg PO BID
ascorbic acid (vitamin C) [Vitamin C] 250 mg Tablet
250 mg PO DAILY
docusate sodium [Colace] 100 mg Capsule
100 mg PO BID
cholecalciferol (vitamin D3) 1,250 mcg (50,000 unit) Tablet
1,250 mcg PO MO
Referrals:
Jhonathan Gabriel MD [Family Provider] -
Activity Restrictions/Additional Instructions:
Please follow-up with your family doctor. Return to the ER with any new or worsening symptoms.
Interventions
Interventions:
*Risk Screen - Suicide Last Done: 01/22/25 19:51
*General Assessment Last Done: 01/22/25 19:51
*Neglect/Abuse Screening Last Done: 01/22/25 19:51
*ED- Fall Risk Assessment Last Done: 01/22/25 19:51
*ED COVID-19 Vaccine History Last Done: 01/22/25 19:51
Discharge Date and Time
Print Language: IRISH
== END 2025-01-23 04:20 | disposition home or self-care (01) ==
LOC: EMR 19:46
PROVIDERS: Physician Assistant; EMERGENCY PHYSICIAN Emergency Medicine; FAMILY PHYSICIAN Internal Medicine
DX: D64.9 Anemia, unspecified (principal); I13.2 Hypertensive heart and chronic kidney disease with heart failure and with stage 5 chronic kidney disease, or end stage renal disease; N18.6 End stage renal disease; Z82.49 Family history of ischemic heart disease and other diseases of the circulatory system; Z83.3 Family history of diabetes mellitus; Z90.49 Acquired absence of other specified parts of digestive tract
CPT/HCPCS: 99283; 36430; 80048; 85025; 86850; 86900; 86901; 86920; P9016

== ENCOUNTER 2025-02-02 17:27 | Inpatient (IN) | payer MEDICARE, OTHER, SELFPAY ==
[2025-02-02] VITALS (14 sets, daily range): BP systolic 122–164; BP diastolic 58–88; BMI 29.6; BMI 29.3
--- NOTE | 2025-02-02 11:59 | ED.GENMED ---
History of Present Illness
General
Chief Complaint: Abdominal Pain
Source: patient, records and ambulance crew
Exam Limitations: none
Time Seen by Provider: 02/02/25 11:57
History of Present Illness
History of Present Illness:
79yoF with history of ESRD not on dialysis, CHF, chronic anemia, hypertension, hyperlipidemia, prior CVA presenting via EMS for evaluation of abdominal pain. Patient reports pain throughout her upper abdomen that began yesterday. Pain feels like
electric shocks that come and go. She also is constipated and has not had a bowel movement in the past 3 days. prison staff has been giving her stool softeners and they tried enema this morning without any relief. She is otherwise
asymptomatic and denies any fevers, vomiting, chest pain, difficulty urinating. Previous abdominal surgeries include an appendectomy.
Past History
Past History
ED Past Medical History: CAD, GERD, HTN, Hypercholesterolemia, NIDDM, Renal failure, Hypothyroidism and Other (Dysfunctional uterine bleeding, chronic kidney disease pending dialysis, Renal calculus, Iron def anemia, hemorrhagic disorder due to
extrinsic Circulatory anticoagulation. PNA, Back pain, )
ED Past Surgical History: Appendectomy, Gynecological (D&C), Orthopedic (Left carpal tunnel ), Tonsilectomy, Urological (Kidney stent) and Other (L AV fistula)
Social History
Tobacco: Non-smoker
Alcohol: Occasional
Drug: None
Personal: Single
Living: fpc
Family History
Family History: Diabetes, Hypertension and Early CAD; Negative Asthma or Cancer
Phy Exam
Physical Exam
Physical Exam:
Chronically ill appearing, no acute distress
General Physical Exam
General Presentation: no apparent distress
General Skin: warm and dry
General Habitus: elderly and frail
General Mental: alert
ENT Exam
ENT Exam: normocephalic
Cardiovascular Exam
Cardiovascular Exam: systolic murmur
Pulmonary Exam
Pulmonary Exam: lungs clear, no respiratory distress, no rales, no crackles and no rhonchi
Gastrointestinal Exam
Gastrointestinal Exam: soft, non distended and other (+Tenderness throughout upper abdominal. Abdomen soft, non-distended. Normoactive bowel sounds. No rebound or guarding.)
Neurological Exam
Neurological Exam: alert
Daysi Coma Scale
Eye Opening: Spontaneous
Verbal Response: Oriented
Motor Response: Obeys Commands
GCS Total Score: 15
Skin Exam
Skin Exam: warm/dry
Psychiatric Exam
Psychiatric Exam: normal mood/affect
Course
Orders/Labs/Results
Orders:
Orders
02/02/25 11:58
Iohexol [Omnipaque] See Protocol PO NOW STA
02/02/25 11:59
CT Abd/pel (oral only)-DH Only Urgent
Comment:
Reason For Exam: Upper abd pain, constipation
02/02/25 12:21
Complete Blood Count/With Diff Urgent
Comprehensive Metabolic Panel Urgent
Lactate Level [Lactic Acid] Urgent
Lipase Urgent
02/02/25 Dinner
Sodium, 2 Gram
At Your Request: Full Participation
02/02/25 15:07
CefTRIAXone [Rocephin] 2,000 mg IV NOW STA
Furosemide [Lasix] 40 mg IV NOW STA
MetroNIDAZOLE 500 MG/100 ML [Flagyl 500 mg] 100 ml IV NOW
02/02/25 15:09
Polyethylene Glycol Powder [Miralax] 17 grams PO ONCE ONE
Sennosides [Senokot] 8.6 mg PO NOW STA
02/02/25 15:11
Electrocardiogram (*1) Urgent
Reason for Study: Abdominal Pain
EKG- Treatment ONCE
02/02/25 15:26
Sterile Water [Sterile Water For Injection] 20 ml .ROUTE .STK-MED
02/02/25 15:29
NT-proBNP Urgent
02/02/25 16:52
Admit/Transfer Patient As Directed
Co-Sign Provider:
Level of Care: Inpatient admission
Assign to:: Telemetry
Physician / Group: Bryson
Diagnosis: Pericardial effusion, b/l pleural effusions, stercoral colitis
Reason for Telemetry: Pulmonary Edema
Date to Stop Telemetry: 02/05/25
Time to Stop Telemetry: 11:00
Reason for Hospitalization: Pericardial effusion, b/l pleural effusions, stercoral colitis
Expected length of stay greater than two midnights?: Yes
ELOS- Estimated Length of Stay in days: 3
I certify the patient meets the requirements for IP care: Yes
PRN Pain Medication Management As Directed
May give lesser potent ordered pain med per pt: Yes
preference::
Protocol:: Medication orders for pain may be administered in a
manner that supports deferring to patient preference
when the pt is:
- Requesting an ordered lesser potent pain medication.
Least to most potent pain medications are defined
as: acetaminophen < NSAID < tramadol < opioids
(morphine, oxycodone, hydromorphone).
- Requesting a lesser dose of the same medication IF
ORDERED.
- Requesting a less intrusive route of administration
if both routes are prescribed by the provider (PO <
IV).
02/02/25 16:57
Code Status As Directed
Resuscitation Status: Full Code
02/02/25 17:22
Acetaminophen [Tylenol] 650 mg PO Q4HPRN PRN
Aspirin Low Dose EC [Aspir Low (Enteric Coated)] 81 mg PO DAILY
Ipratropium/Albuterol Sulfate [Duoneb] 3 ml INH R Q6HPRN PRN
Polyethylene Glycol Powder [Miralax] 17 grams PO DAILYPRN PRN
Tamsulosin [Flomax] 0.4 mg PO DAILY
ammonium lactate 1 applic TOPICAL BIDPRN PRN
ammonium lactate 1 applic TOPICAL Q12H
02/02/25 17:22
Echo 2D MMode Color/Doppler Routine
Reason for Study: pericardial effusion, murmurs
CARDIOLOGY CONSULT Routine
Consulting Provider: Byron Baez
Was physician already notified: Yes
Enema As Directed
Type: Milk and molasses
Amount: 500 mL
US Chest - Bilateral Routine
Comment:
Reason For Exam: pleural effusions b/l
DX Deep Vein Thrombosis Video Routine
02/02/25 17:44
Bisacodyl [Dulcolax] 10 mg RECTAL DAILYPRN PRN
02/02/25 18:00
Atorvastatin [Lipitor] 40 mg PO QPM
CefTRIAXone [Rocephin] 2,000 mg IV Q24H
MetroNIDAZOLE 500 MG/100 ML [Flagyl 500 mg] 100 ml IV Q6H
02/02/25 20:00
Carvedilol [Coreg] 25 mg PO BID
Docusate Sodium [Colace] 100 mg PO BID
Miconazole Nitrate [Desenex/Mitrazol/Zeasorb] 1 applic TOPICAL BID
02/02/25 22:00
Gabapentin [Neurontin] 100 mg PO TID
Sodium Bicarbonate 1,300 mg PO TID
02/03/25 00:00
Heparin 5,000 units SC Q8
02/03/25 06:00
Complete Blood Count/With Diff IN AM
Comprehensive Metabolic Panel IN AM
PTH [Intact PTH Includes Calcium] IN AM
TSH Reflex To Free T4 IN AM
CR Chest - 2 Views Routine
Comment:
Reason For Exam: b/l pulm edema, wheezing
02/03/25 08:00
Allopurinol [Zyloprim] 100 mg PO DAILY
Ascorbic Acid [Vitamin C] 250 mg PO DAILY
Cyanocobalamin [Vitamin B-12] 1,000 mcg PO DAILY
FOLic ACID [Folvite] 1 mg PO DAILY
Levothyroxine [Synthroid] 25 mcg PO DAILY
Medroxyprogesterone [Provera] 10 mg PO DAILY
Pantoprazole [Protonix] 40 mg PO DAILY
epoetin dora [Procrit] 3,000 unit SC TU
02/04/25 06:00
Complete Blood Count/No Diff IN AM
Comprehensive Metabolic Panel IN AM
02/05/25 06:00
Complete Blood Count/No Diff IN AM
Comprehensive Metabolic Panel IN AM
02/05/25 11:00
DC Protocol for Telemetry ONCE
02/06/25 06:00
Complete Blood Count/No Diff IN AM
Comprehensive Metabolic Panel IN AM
02/07/25 06:00
Complete Blood Count/No Diff IN AM
Comprehensive Metabolic Panel IN AM
02/09/25 08:00
cholecalciferol (vitamin D3) 1,250 mcg PO MO
Abnormal Lab Results
02/02/25
12:21
RBC 3.03 L 10^6/uL
(4.20-5.40)
Hgb 8.8 L g/dL
(12.0-16.0)
Hct 28.1 L %
(37.0-47.0)
MCHC 31.3 L g/dL
(33.0-37.0)
RDW 14.9 H %
(11.5-14.5)
Absolute Neuts (auto) 8.1 H 10^3/uL
(1.4-6.5)
Absolute Lymphs (auto) 0.9 L 10^3/uL
(1.2-3.4)
Neutrophils % 84.9 H %
(42.2-75.2)
Lymphocytes % 9.3 L %
(20.5-51.1)
Chloride 111 H mmol/L
(98-107)
Carbon Dioxide 19 L mmol/L
(22-30)
BUN 86 H mg/dl
(7-17)
Creatinine 3.1 H mg/dL
(0.6-1.0)
Glucose 103 H mg/dl
(70-99)
Calcium 11.3 H mg/dl
(8.4-10.2)
AST 11 L U/L
(14-36)
Total Protein 5.6 L g/dl
(6.3-8.2)
Albumin 3.1 L g/dl
(3.5-5.0)
02/02/25 12:21
02/02/25 12:21
Vital Signs
Initial and Last Documented VS:
Initial Vital Signs
Temp Pulse Resp BP Pulse Ox
98.6 F 71 16 146/63 100
02/02/25 11:55 02/02/25 11:55 02/02/25 11:55 02/02/25 11:55 02/02/25 11:55
Last Documented Vital Signs
Temp Pulse Resp BP Pulse Ox
98.6 F 71 18 138/67 100
02/02/25 11:55 02/02/25 19:45 02/02/25 19:45 02/02/25 19:44 02/02/25 11:55
MDM/Problems Addressed
Differential Diagnosis Includes:
79yoF here with upper abd pain and constipation. No relieve with OTC interventions. VSS. She is chronically ill-appearing in no acute distress. No signs of peritonitis on abdominal exam. Differential diagnosis includes but is not limited to:
Constipation, small bowel obstruction, colitis, pancreatitis, biliary colic
Initial ED plan: Check abdominal labs, lactate, and CT abdomen with PO contrast only given history of CKD.
*Critical Care Note
Total Time (30-74mins, 75-104mins- exclusive of procedures): Not Applicable
Update Note
Update Note:
Labs unremarkable. Hemoglobin and renal function at baseline. CT shows that rectum is distended with stool and there is evidence of stercoral colitis. There is also a moderate right pleural region as well as a mild to moderate pericardial
effusion both are increased on prior exam. 40 mg IV Lasix ordered. IV Rocephin and Flagyl ordered to cover for colitis. Will admit for further management.
ED Attending Note
-
Portions of this chart may have been created with voice recognition software.� Occasional wrong word or��sound alike� substitutions may have occurred due to the inherent limitations of voice recognition software.
Discharge Plan
Departure
Patient Disposition: Admit
Date of Disposition: 02/02/25
Time of Disposition: 15:11
Presentation/result/management discussed w/ accepting MD/DO: Hospitalist
Discharge Problem:
Stercoral colitis, Pericardial effusion, Pleural effusion, right
Interventions
Interventions:
*Risk Screen - Suicide Last Done: 02/02/25 11:55
*General Assessment Last Done: 02/02/25 11:55
*Neglect/Abuse Screening Last Done: 02/02/25 11:55
*ED- Fall Risk Assessment Last Done: 02/02/25 11:55
*ED COVID-19 Vaccine History Last Done: 02/02/25 11:55
LE-Tdzuiz-Rydafjoynn Assessment Last Done: 02/02/25 11:55
[2025-02-02] MEDS: OMNIPAQUE 50 ML PO (12:07)
[2025-02-02 12:28] LABS: % Basophils 0.4 % (0-2); % Eosinophils 2.2 % (0-6); % Immature Granulocytes 0.3 % (0-0.5); % Lymphocytes 9.3 % (20.5-51.1); % Monocytes 2.9 % (1.7-9.3); % Neutrophils 84.9 % (42.2-75.2); Absolute Eosinophils 0.2 10^3/uL (0-0.7); Absolute Lymphocytes 0.9 10^3/uL (1.2-3.4); Absolute Monocytes 0.3 10^3/uL (0.1-0.6); Absolute Neutrophils 8.1 10^3/uL (1.4-6.5); Hematocrit 28.1 % (37.0-47.0); Hemoglobin 8.8 g/dL (12.0-16.0); Mean Corp Hgb Conc. 31.3 g/dL (33.0-37.0); Mean Corpuscular Volume 92.7 fL (81.0-99.0); Mean Platelet Volume 9.6 fL (7.4-10.4); Nucleated Red Blood Cells % 0 %; Platelet Count 210 10^3/uL (130-400); Red Blood Cell Count 3.03 10^6/uL (4.20-5.40); Red Cell Dist. Width 14.9 % (11.5-14.5); White Blood Cell Count 9.6 10^3/uL (4.8-10.8)
[2025-02-02 12:42] LABS: Lactic Acid 0.7 mmol/L (0.7-2.0)
[2025-02-02 12:49] LABS: ALT (SGPT) < 10 U/L (0-35); AST (SGOT) 11 U/L (14-36); Albumin 3.1 g/dl (3.5-5.0); Alkaline Phosphatase 64 U/L (38-126); Blood Urea Nitrogen 86 mg/dl (7-17); Calcium 11.3 mg/dl (8.4-10.2); Carbon Dioxide 19 mmol/L (22-30); Chloride 111 mmol/L (98-107); Estimated Creatinine Clearance 17 ml/min; Glucose 103 mg/dl (70-99); Lipase 177 U/L (23-300); Potassium 4.3 mmol/L (3.5-5.1); Sodium 141 mmol/L (135-145); Total Bilirubin 0.4 mg/dl (0.2-1.3); Total Protein 5.6 g/dl (6.3-8.2); eGFR 14.74
--- NOTE | 2025-02-02 15:22 | HPS.HSE ---
Family Physician
-
Family Physician: Jhonathan Gabriel
Chief Complaint
-
abdominal pain
History of Present Illness
79yo F [facility] ESRD not on dialysis, CHF, HTN, HLD, prior CVA who presented to [facility] ED for abdominal pain. Epigastric pain started a couple days ago. Additionally, pt has constipation. Last BM Sunday. Feels as if there is a mass of stool stuck in her
rectum. Rectal pain for the past two days.
Medical History
Past Medical History
Past Medical History: Reports CAD, GERD, Hypothyroidism, NIDDM, Renal Failure and Other (Dysfunctional uterine bleeding, chronic kidney disease pending dialysis, Renal calculus, Iron def anemia, hemorrhagic disorder due to extrinsic Circulatory
anticoagulation. PNA, Back pain)
Past Surgical History: Reports Appendectomy, Gynocological (D&C), Orthopedic (L carpal tunnel release), Tonsilectomy, Urological (kidney stent) and Other (L AV fistula)
Social History
Tobacco: Non-smoker
Alcohol: Occasional
Drug: None
Personal: Single
Living: [facility]
Family History
Family History: Early CAD, Diabetes and Hypertension
Allergies / Home Medications
Allergies reflects when Allergies were last updated in [facility].
Home Medications with original date entered in [facility]
Allergy/Medication List:
Allergies
Allergy/AdvReac Type Severity Reaction Status Date / Time
Penicillins Allergy Hives Verified 01/08/25 08:08
Home Medications
allopurinol 100 mg tablet 100 mg PO DAILY Gout 09/07/22
atorvastatin 40 mg tablet (Lipitor) 40 mg PO QPM High cholesterol 09/07/22
carvedilol 25 mg tablet (Coreg) 25 mg PO BID Heart disease/condition 09/07/22
folic acid 1 mg tablet 1 mg PO DAILY Supplement 09/07/22
levothyroxine 25 mcg tablet 25 mcg PO DAILY Thyroid 11/28/22
insulin aspart U-100 100 unit/mL (3 mL) subcutaneous pen (Novolog FlexPen U-100 Insulin aspart) 0 - 12 sliding scale dose SC ACHS Diabetes 03/26/23
aspirin 81 mg tablet,delayed release 81 mg PO DAILY Blood Clot Prevention/Tx 12/20/23
hydralazine 25 mg tablet 25 mg PO TID Blood Pressure 02/13/24
ammonium lactate 12 % topical cream 1 applic topical Q12H b/l legs 04/03/24
bisacodyl 10 mg rectal suppository 10 mg DC DAILYPRN PRN constipation 04/03/24
cyanocobalamin (vitamin B-12) 1,000 mcg tablet 1,000 mcg PO DAILY Supplement 04/03/24
gabapentin 100 mg capsule 100 mg PO TID PAIN 04/03/24
loperamide 2 mg tablet 2 mg PO Q6HPRN PRN diarrhea 04/03/24
miconazole nitrate 2 % topical powder 1 applic topical BID abd folds/groin 04/03/24
pantoprazole 40 mg tablet,delayed release 40 mg PO DAILY Gastrointestinal Issue 04/03/24
polyethylene glycol 3350 17 gram oral powder packet (Miralax) 17 g PO DAILYPRN PRN constipation 04/03/24
sodium bicarbonate 650 mg tablet 1,300 mg PO TID Supplement 04/03/24
acetaminophen 325 mg tablet (Tylenol) 650 mg PO Q4HPRN PRN mild pain/Temp >100 07/10/24
ferrous sulfate 325 mg (65 mg iron) tablet 325 mg PO Q48H@0800,1700 Supplement 07/10/24
sucralfate 1 gram tablet 1 g PO AC Gastrointestinal Issue 07/16/24
ipratropium 0.5 mg-albuterol 3 mg (2.5 mg base)/3 mL nebulization soln 3 ml inhalation R Q6HPRN PRN sob/wheezing 08/11/24
medroxyprogesterone 10 mg tablet 10 mg PO DAILY #0 tabs 08/14/24
epoetin dora 2,000 unit/mL injection solution (Procrit) 3,000 unit SC TU 08/18/24
ascorbic acid (vitamin C) 250 mg tablet (Vitamin C) 250 mg PO DAILY 10/31/24
cholecalciferol (vitamin D3) 1,250 mcg (50,000 unit) tablet 1,250 mcg PO MO 10/31/24
dextromethorphan-guaifenesin 10 mg-100 mg/5 mL oral liquid (Diabetic Tussin DM) 10 ml PO Q4HPRN PRN COUGH 10/31/24
docusate sodium 100 mg capsule (Colace) 100 mg PO BID 10/31/24
torsemide 10 mg tablet 20 mg PO BID 10/31/24
ammonium lactate 12 % topical cream 1 applic topical BIDPRN PRN dry skin 02/02/25
Review of Systems
-
History Source: Patient
A 12 point ROS was completed and negative except as noted: Yes
Constitutional: Reports No Symptoms
EENT: Reports No Symptoms
Respiratory: Reports No Symptoms
Cardiac: Reports No Symptoms
Abdomen/GI: Reports Abdominal Pain and Constipated; Denies Nausea, Vomiting or Diarrhea
: Reports No Symptoms
Musculoskeletal: Reports No Symptoms
Skin: Reports No Symptoms
Neurological: Reports No Symptoms
Hematologic/Lymphatic: Reports No Symptoms
Psych: Reports No Symptoms
Physical Exam
Vital Signs
Vital Signs
Temp Pulse Resp BP Pulse Ox
98.6 F 72 15 164/72 100
02/02/25 11:55 02/02/25 15:00 02/02/25 15:00 02/02/25 15:00 02/02/25 11:55
Physical Exam
General: Well Developed, Well Nourished and No Apparent Distress
HEENT: NormoCephalic, Anicteric and Moist mucous membranes
Respiratory: Crackles
Cardiac: S1/S2, Regular Rhythm and Murmur
GI: Soft, Non Distended, Normal Bowel Sounds and Tender (epigastric, LUQ)
Genito-urinary: Clear Urine
Musculoskeletal: No Clubbing, No Cyanosis and No Edema
Skin: Warm, Dry and Rash
Neuro: Awake and AO x 3
Psych: Calm
Laboratory Results
-
02/02/25 12:21
02/02/25 12:21
Laboratory Results
Lactic Acid 0.7 mmol/L (0.7-2.0) 02/02/25 12:21
Total Bilirubin 0.4 mg/dl (0.2-1.3) 02/02/25 12:21
AST 11 U/L (14-36) L 02/02/25 12:21
ALT < 10 U/L (0-35) 02/02/25 12:21
Alkaline Phosphatase 64 U/L (38-126) 02/02/25 12:21
Lipase 177 U/L (23-300) 02/02/25 12:21
Impression/Plan
-
IMPRESSION:
79yo F [facility] ESRD not on dialysis, CHF, HTN, HLD, prior CVA who presented to [facility] ED for epigastric pain. CT abdo/pelvis positive for pericardial fluid, b/l pleural effusions, murmur heard on exam
PLAN:
Pericardial effusion
- likely secondary to ESRD
- echo
- diurese
- cardio consult
Pleural effusion b/l
- CT abdo/pelvis: mod R pleural effusion, mild-mod pericardial effusion
- CXR, b/l thoracic u/s pending
ESRD not on dialysis s/p fistula creation
- nephro consult
- Cr at baseline 3.0
Rectal pain, constipation secondary to stercoral colitis
- CT: stercoral colitis
- hold sucralfate, loperamide, iron tablet
- rocephin, flagyl
HTN/HLD
- cont home carvedilol, statin
- cmp
NIDDM
- cont home meds
Hypothyroidism
- cont home levothyroxine
- check TSH
Hypercalcemia
- check intact PTH
Renal calculi
- flomax
- monitor
Iron deficiency anemia
- hold home iron for constipation
- follow cbc
Diet: 2g sodium
DVT ppx: subq heparin
Code status: FULL CODE
[2025-02-02] MEDS: LASIX 40 MG IV (15:33)
[2025-02-02] MEDS: ROCEPHIN 2000 MG IV (15:33)
[2025-02-02] MEDS: SENOKOT 8.6 MG PO (15:34)
[2025-02-02] MEDS: FLAGYL 500 MG 100 IV (15:43)
[2025-02-02] MEDS: MIRALAX 17 GRAMS PO (15:48)
[2025-02-02 16:00] LABS: NT-proBNP 437 pg/ml
--- NOTE | 2025-02-02 16:05 | W.PN.UPDATE ---
Addendum entered and electronically signed by Tiarra Massey MD 02/02/25 16:51:
.
Original Note:
Update Note
Progress Note Update
79-year-old with abdominal pain
CT abdomen and pelvis-moderate right pleural effusion increased from previous. Mild to moderate pericardial effusion increased from previous. Coronary artery calcifications. Aortic valvular calcifications. Stercoral colitis. Perirectal
edema-predominantly presacral no evidence of perforation. Multiple left-sided nephroliths. 3 mm left ureteral calculus located 5 cm superior to the left UVJ dilatation of the proximal ureter and pelvicalyceal system. Mild right-sided
pelvicalyceal system and ureteral dilatation without any obstructing calculus. Calcified gallstones.
EKG- NSR,No Ischemia
CVS: S1-S2 normal, Systolic and diastolic heart mr
Chest: CTA B/L, decreased right base
Abdomen: Soft, NT / Bowel sounds present
Extremities: No edema
[employer]: No facial droop, good distal strength B/L LE.
# Stercoral colitis
Bowel regimen with enema.
Hold Carafate and iron
Check TSH
Antibiotics-ceftriaxone and Flagyl
Discontinue loperamide do not restart
# Mild to moderate pericardial effusion and mild to moderate pleural effusion
Check echo to rule out cardiac tamponade before aggressive diuresis
History of thoracentesis in the past July 2024-transudate. Negative for malignant cells
Thoracentesis right side 09/11/2023-negative for malignant cells
Patient received Lasix in the ER-hold off on further Lasix for now
On torsemide 20 mg twice daily as outpatient- Hold while on IV lasix
Cardiology evaluation
Nephrology evaluation
# 3 mm left ureteral calculus with dilatation of the proximal left ureter and pelvicalyceal system
Start Flomax
History of lithotripsy in the past
# Anemia- Of renal disease. On Procrit as outpatient.
Patient has an AV fistula left wrist
# Hypercalcemia-check intact PTH
# History of gout-continue allopurinol
# Hypertension-continue Coreg, hydralazine
# Diabetes-on sliding scale coverage as outpatient-continue
# Hypothyroidism-continue levothyroxine
# CKD stage V-continue sodium bicarbonate
# Hyperlipidemia/atherosclerosis-continue Lipitor
# History of CVA in the past-continue aspirin and statin
# Ambulatory dysfunction-PT OT
# Obesity with BMI 30
# DVT prophylaxis-subcutaneous heparin
# CODE STATUS-full code
time spent over 75 min
--- NOTE | 2025-02-02 17:16 | CON.CAR ---
Addendum entered and electronically signed by Byron Baez MD 02/02/25 18:01:
79 yo female with PMH of heart murmur, ESRD s/p fistula, but not yet on ED. Presents to ED with abdominal pain. CT showed incidental findings of mild/mod pericardial effusion, AV calcification. She has no chest pain or SOB. Exam with RRR, III/
systolic murmur at RUSB, trace LE edema. EKG: sinus.
Heart murmur. Suspect aortic stenosis. Check echo. AV fistula also contributing to 'murmur' on cardiac exam.
Pericardial effusion. Mild/mod on CT. No clinical evidence of tamponade. Echo in AM.
Original Note:
Consultation
Consultation Request
Date/Time Consultation Requested: 02/02/2025 17:10
Date/Time Consultation Performed: 02/02/2025 17:15
Requesting Provider: Natasha Pulliam MD (Resident)
Performing Provider: DAPHNE Asif for Dr. Baez
Reason for Consultation: Pericardial effusion, cardiac murmur, pleural effusions
Medical History
-
Chief Complaint: Abdominal pain
History of Present Illness:
Alis Tejeda is a 79-year-old female with CAD, ESRD (AV fistula in place, not currently on HD), heart failure (type unknown), anemia of chronic disease, hypertension, dyslipidemia, and prior CVA who presented to the emergency department from [facility] with a chief complaint of abdominal pain. Her abdominal pain started 1 day prior to arrival. She reports it is severe. She had an abdomen pelvis CT which revealed moderate right pleural effusion and mild to moderate pericardial effusion.
Cardiology was consulted. No chest pain. No shortness of breath.
Past Medical History
Past Medical History: CAD, CHF, HTN, Hypercholesterolemia, NIDDM, Renal Failure (ESRD on HD) and Other (Anemia of chronic disease)
Past Surgical History: Appendectomy, Orthopedic and Tonsilectomy
Social History
Tobacco: Non-Smoker
Alcohol: None
Personal: Single
Living: Group Home
Employment: Retired
Family History
Family History: Reviewed & Not Pertinent
Allergies / Home Medications
Allergy/AdvReac Type Severity Reaction Status Date / Time
Penicillins Allergy Hives Verified 01/08/25 08:08
�Medication �Instructions �Recorded �Confirmed �Type
allopurinol 100 mg tablet 100 mg PO DAILY Gout 09/07/22 02/02/25 History
atorvastatin 40 mg tablet (Lipitor) 40 mg PO QPM High cholesterol 09/07/22 02/02/25 History
carvedilol 25 mg tablet (Coreg) 25 mg PO BID Heart 09/07/22 02/02/25 History
disease/condition
folic acid 1 mg tablet 1 mg PO DAILY Supplement 09/07/22 02/02/25 History
levothyroxine 25 mcg tablet 25 mcg PO DAILY Thyroid 11/28/22 02/02/25 History
insulin aspart U-100 100 unit/mL 0 - 12 sliding scale dose SC ACHS 03/26/23 02/02/25 History
(3 mL) subcutaneous pen (Novolog Diabetes
FlexPen U-100 Insulin aspart)
aspirin 81 mg tablet,delayed 81 mg PO DAILY Blood Clot 12/20/23 02/02/25 History
release Prevention/Tx
hydralazine 25 mg tablet 25 mg PO TID Blood Pressure 02/13/24 02/02/25 History
ammonium lactate 12 % topical cream 1 applic topical Q12H b/l legs 04/03/24 02/02/25 History
bisacodyl 10 mg rectal suppository 10 mg VA DAILYPRN PRN constipation 04/03/24 02/02/25 History
cyanocobalamin (vitamin B-12) 1,000 mcg PO DAILY Supplement 04/03/24 02/02/25 History
1,000 mcg tablet
gabapentin 100 mg capsule 100 mg PO TID PAIN 04/03/24 02/02/25 History
loperamide 2 mg tablet 2 mg PO Q6HPRN PRN diarrhea 04/03/24 02/02/25 History
miconazole nitrate 2 % topical 1 applic topical BID abd 04/03/24 02/02/25 History
powder folds/groin
pantoprazole 40 mg tablet,delayed 40 mg PO DAILY Gastrointestinal 04/03/24 02/02/25 History
release Issue
polyethylene glycol 3350 17 gram 17 g PO DAILYPRN PRN constipation 04/03/24 02/02/25 History
oral powder packet (Miralax)
sodium bicarbonate 650 mg tablet 1,300 mg PO TID Supplement 04/03/24 02/02/25 History
acetaminophen 325 mg tablet 650 mg PO Q4HPRN PRN mild 07/10/24 02/02/25 History
(Tylenol) pain/Temp >100
ferrous sulfate 325 mg (65 mg 325 mg PO Q48H@0800,1700 Supplement 07/10/24 02/02/25 History
iron) tablet
sucralfate 1 gram tablet 1 g PO AC Gastrointestinal Issue 07/16/24 02/02/25 History
ipratropium 0.5 mg-albuterol 3 mg 3 ml inhalation R Q6HPRN PRN 08/11/24 02/02/25 History
(2.5 mg base)/3 mL nebulization sob/wheezing
soln
medroxyprogesterone 10 mg tablet 10 mg PO DAILY #0 tabs 08/14/24 02/02/25 Rx
epoetin dora 2,000 unit/mL 3,000 unit SC TU 08/18/24 02/02/25 History
injection solution (Procrit)
ascorbic acid (vitamin C) 250 mg 250 mg PO DAILY 10/31/24 02/02/25 History
tablet (Vitamin C)
cholecalciferol (vitamin D3) 1,250 1,250 mcg PO MO 10/31/24 02/02/25 History
mcg (50,000 unit) tablet
dextromethorphan-guaifenesin 10 10 ml PO Q4HPRN PRN COUGH 10/31/24 02/02/25 History
mg-100 mg/5 mL oral liquid
(Diabetic Tussin DM)
docusate sodium 100 mg capsule 100 mg PO BID 10/31/24 02/02/25 History
(Colace)
torsemide 10 mg tablet 20 mg PO BID 10/31/24 02/02/25 History
ammonium lactate 12 % topical cream 1 applic topical BIDPRN PRN dry 02/02/25 02/02/25 History
skin
Review of Systems
-
History Source: Patient
All other systems: Negative unless noted
Constitutional: Fatigue
EENT: No Symptoms
Respiratory: No Symptoms
Cardiac: No Symptoms
Abdomen/GI: Abdominal Pain and Other (Rectal pain)
: No Symptoms
Musculoskeletal: No Symptoms
Skin: No Symptoms
Neurological: No Symptoms
Endocrine: No Symptoms
Hematologic/Lymphatic: No Symptoms
Physical Exam
Vital Signs
Temp Pulse Resp BP Pulse Ox
98.6 F 69 27 122/88 100
02/02/25 11:55 02/02/25 17:00 02/02/25 17:00 02/02/25 17:00 02/02/25 11:55
Lab Results
02/02/25 12:21
02/02/25 12:21
Ird-I-Aozciuqkfcm Pept 437 pg/ml 02/02/25 15:29
Physical Exam
General: Well Developed, Well Nourished, No Apparent Distress and Comfortable
HEENT: Normocephalic, Anicteric and Moist Mucous Membranes
Respiratory: Clear and Non Labored Respirations
Cardiac: S1/S2, Regular Rhythm and Peripheral Edema (Lymphedema)
Breast: Deferred by me
GI: Soft, Non Tender, Non Distended and Normal Bowel Sounds
Rectal: Deferred by Provider
Genito-urinary: No Costovertebral Tender
Musculoskeletal: No Clubbing and No Cyanosis
Skin: Warm and Dry
Hematologic/Lymphatic: No Lymphadenopathy
Psych: Calm
Impression / Plan
-
I/P: 79F with CAD, ESRD (AV fistula in place, not currently on HD), anemia of chronic disease, hypertension, dyslipidemia, and prior CVA who presented to the emergency department from [facility] with a chief complaint of abdominal pain.
Pericardial effusion
- Moderate on CT
- No hypotension
- Echocardiogram in a.m.
Cardiac murmur
- Reports having a murmur 'for forever'
- Aortic valvular calcification on CT
- Second murmur likely from AV fistula
- Echocardiogram in a.m.
Pleural effusion, right
- Diuretics per nephrology given CKD
Heart failure, type unknown, chronic
- Does not recall any recent exacerbations
- Diuretic being managed by nephrology given her CKD
- Echocardiogram in a.m.
Chronic kidney disease
- AV fistula in place, not currently on hemodialysis
Hypertension
- BP stable, managed by nephrology given CKD
CAD
- Stable without chest pain, continue ASA
- No prior cardiac interventions
Abdominal pain, in the setting of stercoral colitis, per primary
Lymphedema, bilateral lower extremity, chronic
Prior CVA
Anemia of chronic disease
Type 2 diabetes mellitus, per primary
Dyslipidemia, on atorvastatin
Data Reviewed
-
EKG: Report Reviewed by me (Sinus rhythm, rate 71)
Radiology: Report Reviewed by me (As above)
Labs: Labs Reviewed by me
Old Records: Reviewed
[2025-02-02] MEDS: FLOMAX 0.4 MG PO (18:21)
[2025-02-02] MEDS: LIPITOR 40 MG PO (18:22)
[2025-02-02] MEDS: COREG 25 MG PO (19:44)
[2025-02-02] MEDS: COLACE 100 MG PO (19:45)
[2025-02-02] MEDS: LAC HYDRIN, AM LACTIN LOTION TOPICAL (21:37)
[2025-02-02] MEDS: NEURONTIN 100 MG PO (21:38)
[2025-02-02] MEDS: DESENEX/MITRAZOL/ZEASORB TOPICAL (21:38)
--- NOTE | 2025-02-02 22:18 | PTCARENOTE ---
Pt arrived from ED via stretcher and was pulled over to bed. She is AAOx3, VSS, and complains that her last BM was 2 days ago. Upon arrival to the floor, she had 2 small brown liquid BM's. Pt refused the milk and molasses enema that was ordered in
the ED since she had 2 small BM's. Pt complains of rectal pain. RN administered Tylenol. Pt call hoang within reach.
[2025-02-02] MEDS: SODIUM BICARBONATE 1300 MG PO (22:22)
[2025-02-02] MEDS: TYLENOL 650 MG PO (22:26)
[2025-02-02] MEDS: HEPARIN 5000 UNITS SC (23:14)
[2025-02-03] VITALS (7 sets, daily range): BP systolic 82–148; BP diastolic 52–65; BMI 29.3
[2025-02-03] MEDS: FLAGYL 500 MG 100 IV ×2 (05:21→16:04)
[2025-02-03] MEDS: DULCOLAX 10 MG RECTAL (05:21)
--- NOTE | 2025-02-03 05:30 | PTCARENOTE ---
Pt had a small hard BM complaining of rectal discomfort. A large amount of harden stool was still visible in the rectum. Pt was agreeable to a milk and molasses enema @04:00. Pt was only able to tolerate half of the enema and had another small
hardened BM. A large amount of harden stool was still visible and pt is without relief. PLISSE MACHINE OPERATOR notified- ordered to give Dulcolax suppository. Pt call hoang within reach.
[2025-02-03 07:22] LABS: % Basophils 0.7 % (0-2); % Eosinophils 2.8 % (0-6); % Immature Granulocytes 0.4 % (0-0.5); % Lymphocytes 10.1 % (20.5-51.1); % Monocytes 4.7 % (1.7-9.3); % Neutrophils 81.3 % (42.2-75.2); Absolute Basophils 0.1 10^3/uL (0-0.2); Absolute Eosinophils 0.2 10^3/uL (0-0.7); Absolute Lymphocytes 0.8 10^3/uL (1.2-3.4); Absolute Monocytes 0.4 10^3/uL (0.1-0.6); Absolute Neutrophils 6.2 10^3/uL (1.4-6.5); Hematocrit 25.3 % (37.0-47.0); Hemoglobin 8.4 g/dL (12.0-16.0); Mean Corp Hgb Conc. 33.2 g/dL (33.0-37.0); Mean Corpuscular Hgb 29.7 pg (27.0-31.0); Mean Corpuscular Volume 89.4 fL (81.0-99.0); Mean Platelet Volume 9.6 fL (7.4-10.4); Nucleated Red Blood Cells % 0 %; Platelet Count 186 10^3/uL (130-400); Red Blood Cell Count 2.83 10^6/uL (4.20-5.40); Red Cell Dist. Width 14.8 % (11.5-14.5); White Blood Cell Count 7.6 10^3/uL (4.8-10.8)
[2025-02-03 07:43] LABS: ALT (SGPT) < 10 U/L (0-35); AST (SGOT) 12 U/L (14-36); Albumin 3.1 g/dl (3.5-5.0); Alkaline Phosphatase 65 U/L (38-126); Blood Urea Nitrogen 88 mg/dl (7-17); Calcium 11.5 mg/dl (8.4-10.2); Carbon Dioxide 17 mmol/L (22-30); Chloride 110 mmol/L (98-107); Estimated Creatinine Clearance 18 ml/min; Glucose 91 mg/dl (70-99); Potassium 4.4 mmol/L (3.5-5.1); Sodium 139 mmol/L (135-145); Total Bilirubin 0.3 mg/dl (0.2-1.3); Total Protein 5.6 g/dl (6.3-8.2); eGFR 15.97
[2025-02-03 08:26] LABS: TSH Reflex To Free T4 2.43 uIU/ml (0.47-4.68)
[2025-02-03 08:44] LABS: Glucose - Point of Care 99 mg/dl (70-99)
--- NOTE | 2025-02-03 08:45 | W.PN.CD ---
Today's Communication / Plan
-
Repeat echo next week for small pericardial effusion
Diuretics per nephrology
Pending echo report
We will sign off please call with questions/concerns.
Impression / Plan
-
I/P: 79F with CAD, ESRD (AV fistula in place, not currently on HD), anemia of chronic disease, hypertension, dyslipidemia, and prior CVA who presented to the emergency department from [facility] with a chief complaint of abdominal pain.
Pericardial effusion
- Moderate on CT, but small on echo
- No hypotension
- Echocardiogram report pending
Cardiac murmur
- Sclerotic AV with no stenosis
- Second murmur likely from AV fistula
- Echocardiogram in a.m.
Pleural effusion, right
- Diuretics per nephrology given CKD
acute on chronic HFpEF
- Does not recall any recent exacerbations
- Diuretic being managed by nephrology given her CKD
- Echocardiogram in a.m.
Chronic kidney disease
- AV fistula in place, not currently on hemodialysis
Hypertension
- BP stable, managed by nephrology given CKD
CAD
- Stable without chest pain, continue ASA
- No prior cardiac interventions
Abdominal pain, in the setting of stercoral colitis, per primary
Lymphedema, bilateral lower extremity, chronic
Prior CVA
Anemia of chronic disease
Type 2 diabetes mellitus, per primary
Dyslipidemia, on atorvastatin
Subjective: Feeling improved
Physical Exam
Vital Signs/Labs
Vital Signs
Temp Pulse Resp BP Pulse Ox
98.2 F 72 18 137/53 99
02/03/25 03:55 02/03/25 03:55 02/03/25 03:55 02/03/25 03:55 02/03/25 03:55
02/02/25 02/03/25 02/04/25
06:59 06:59 06:59
Actual Weight 192 lb 8 oz
02/03/25 07:09
02/03/25 07:09
02/02/25
15:29
Swx-P-Dwniowcpjek Pept 437
Physical Exam
Constitutional: No acute distress and Comfortable
EENT: Anicteric
Cardiovascular: Rhythm & rate is regular, Pedal edema present and Systolic murmur present
Respiratory: Respiratory effort normal
GI: Soft
Neuro/Psych: Alert and Oriented
Data Reviewed
-
Date of Service: February 03, 2025
EKG: Tracing Personally Visualized and interpreted (sr)
Echo: Tracing Personally Visualized and interpreted
Labs: Labs Reviewed by me
--- NOTE | 2025-02-03 08:47 | W.PN.HOSP.TC ---
Addendum entered and electronically signed by Tiarra Massey MD 02/03/25 15:01:
79-year-old with abdominal pain
I saw and evaluated the patient. I reviewed the resident�s note and agree with findings and plan as documented in the resident�s note except for changes in my documentation.
CT abdomen and pelvis-moderate right pleural effusion increased from previous. Mild to moderate pericardial effusion increased from previous. Coronary artery calcifications. Aortic valvular calcifications. Stercoral colitis. Perirectal
edema-predominantly presacral no evidence of perforation. Multiple left-sided nephroliths. 3 mm left ureteral calculus located 5 cm superior to the left UVJ dilatation of the proximal ureter and pelvicalyceal system. Mild right-sided
pelvicalyceal system and ureteral dilatation without any obstructing calculus. Calcified gallstones.
EKG- NSR,No Ischemia
CVS: S1-S2 normal, Systolic and diastolic heart mr
Chest: CTA B/L, decreased right base
Abdomen: Soft, NT / Bowel sounds present
Extremities: No edema
PAPER MACHINE BACK TENDER: No facial droop, good distal strength B/L LE.
# Stercoral colitis
Bowel regimen with enema. Patient had multiple bowel movements
Feels much better
Okay to restart Carafate and iron
Normal TSH
Antibiotics-ceftriaxone and Flagyl
Discontinue loperamide do not restart
# Mild to moderate pericardial effusion and mild to moderate pleural effusion
Echo 02/03/2025-normal biventricular size and systolic function. EF 55%. Mild . Small circumferential pericardial effusion. Thickened anterior pericardium. Pleural effusion
History of thoracentesis in the past July 2024-transudate. Negative for malignant cells
Thoracentesis right side 09/11/2023-negative for malignant cells
Patient received Lasix in the ER
On torsemide 20 mg twice daily as outpatient- restarted
Nephrology evaluation appreciated
# 3 mm left ureteral calculus with dilatation of the proximal left ureter and pelvicalyceal system
Started Flomax
History of lithotripsy in the past
# Anemia- Of renal disease. On Procrit as outpatient.Patient has an AV fistula left wrist
# Hypercalcemia-check intact PTH
# History of gout-continue allopurinol
# Hypertension-continue Coreg, hydralazine
# Diabetes-on sliding scale coverage as outpatient-continue
# Hypothyroidism-continue levothyroxine
# CKD stage V-continue sodium bicarbonate
# Hyperlipidemia/atherosclerosis-continue Lipitor
# History of CVA in the past-continue aspirin and statin
# Ambulatory dysfunction-PT OT
# Obesity with BMI 30
# DVT prophylaxis-subcutaneous heparin
# CODE STATUS-full code
Discussed with nursing at bedside
Discussed with nephrology
Discussed with sister at bedside
Part of this note was created using voice recognition system. Occasional wrong word or��sound alike� substitutions may have inadvertently occurred due to the inherent limitations of voice recognition software. If noted kindly bring it to my
attention for correction.
Original Note:
Today's Communication/Plan
-
- R thoracentesis
Assessment / Plan
Assessment / Plan
IMPRESSION:
79yo F [facility] ESRD not on dialysis, CHF, HTN, HLD, prior CVA who presented to [facility] ED for epigastric pain. CT abdo/pelvis positive for pericardial fluid, b/l pleural effusions, murmur heard on exam
PLAN:
Pericardial effusion
- likely secondary to ESRD
- echo: LVEF 55%, mild , small pericardial effusion
- diurese
- cardio consult - Repeat echo next week
Pleural effusion b/l
- CT abdo/pelvis: mod R pleural effusion, mild-mod pericardial effusion
- CXR, b/l thoracic u/s: R pleural effusion
- R thoracentesis ordered
ESRD not on dialysis s/p fistula creation
- nephro consult - no urgent dialysis needs at this time
- Cr at baseline 3.0
Rectal pain, constipation secondary to stercoral colitis
- CT: stercoral colitis
- hold sucralfate, loperamide, iron tablet
- rocephin, flagyl
HTN/HLD
- cont home carvedilol, statin
- cmp
NIDDM
- cont home meds
Hypothyroidism
- cont home levothyroxine
- check TSH
Hypercalcemia
- check intact PTH
Renal calculi
- flomax
- monitor
Iron deficiency anemia
- hold home iron for constipation
- follow cbc
Diet: 2g sodium
DVT ppx: subq heparin
Code status: FULL CODE
Anticipated Discharge: Within 24 hours
Subjective/Interval History
-
Date of Service: February 03, 2025
Passed several BM. Echo no evidence of cardiac tamponade
Objective Data
-
Labs:
Laboratory Results
02/03/25
07:09
WBC 7.6
Hgb 8.4 L
Hct 25.3 L
Plt Count 186
Sodium 139
Potassium 4.4
Chloride 110 H
Carbon Dioxide 17 L
BUN 88 H
Creatinine 2.9 H
Glucose 91
Calcium 11.5 H
Total Bilirubin 0.3
AST 12 L
ALT < 10
Alkaline Phosphatase 65
Vital Signs:
Vital Signs
Temp Pulse Resp BP Pulse Ox
98.2 F 72 18 137/53 99
02/03/25 03:55 02/03/25 03:55 02/03/25 03:55 02/03/25 03:55 02/03/25 03:55
Review of Systems
-
History Source: Patient
Constitutional: Reports No Symptoms
EENT: Reports No Symptoms Reported
Respiratory: Reports No Symptoms
Cardiac: Reports No Symptoms
Abdomen/GI: Reports Abdominal Pain
Genitourinary: Reports No Symptoms
Musculoskeletal: Reports No Symptoms
Skin: Reports No Symptoms
Neuro: Reports No Symptoms
Physical Exam
-
General: Well Developed, Well Nourished and No Apparent Distress
HEENT: Normocephalic, Atraumatic, Moist Mucous Membranes and Anicteric
Respiratory: Crackles
Cardiac: Regular Rhythm, S1/S2, Murmur and Rub
GI: Soft, Nontender, Nondistended and Normal Bowel Sounds
Musculoskeletal: No Clubbing, No Cyanosis and No Edema
Skin: Warm and Dry
Neuro: Awake and AO x 3
Psych: Calm
[2025-02-03] MEDS: VITAMIN C 250 MG PO (09:12)
[2025-02-03] MEDS: SODIUM BICARBONATE 1300 MG PO ×3 (09:12→20:32)
[2025-02-03] MEDS: ZYLOPRIM 100 MG PO (09:12)
[2025-02-03] MEDS: FOLVITE 1 MG PO (09:12)
[2025-02-03] MEDS: VITAMIN B-12 1000 MCG PO (09:13)
[2025-02-03] MEDS: COREG 25 MG PO ×2 (09:13→20:29)
[2025-02-03] MEDS: SYNTHROID 25 MCG PO (09:13)
[2025-02-03] MEDS: FLOMAX 0.4 MG PO (09:14)
[2025-02-03] MEDS: NEURONTIN 100 MG PO ×3 (09:14→20:31)
[2025-02-03] MEDS: COLACE 100 MG PO ×2 (09:14→20:29)
[2025-02-03] MEDS: HEPARIN 5000 UNITS SC ×2 (09:14→16:07)
[2025-02-03] MEDS: DESENEX/MITRAZOL/ZEASORB 1 APPLIC TOPICAL ×2 (09:15→20:29)
[2025-02-03] MEDS: PROTONIX 40 MG PO (09:17)
[2025-02-03] MEDS: ASPIR LOW (ENTERIC COATED) 81 MG PO (09:22)
[2025-02-03] MEDS: LAC HYDRIN, AM LACTIN LOTION 1 APPLIC TOPICAL ×2 (09:23→20:29)
[2025-02-03 11:40] LABS: Glucose - Point of Care 97 mg/dl (70-99)
[2025-02-03] MEDS: RETACRIT 3000 UNITS SC ×2 (12:53→16:19)
[2025-02-03] MEDS: PROVERA 10 MG PO (12:53)
--- NOTE | 2025-02-03 13:36 | W.CON.NEPH ---
Consultation
-
Date/Time Consultation Requested: 02/03/2025 7 AM
Date/Time Consultation Performed: 02/03/2025 10 AM
Requesting Provider: Dr. Massey
Performing Provider: Dr. Kim
Reason for Consultation: CKD 01/03
Medical History
-
Chief Complaint: Abdominal pain
History of Present Illness:
This is a 79-year-old female who resides at [facility] with chronic disease stage IV/V baseline creatinine around 3.0. She has an AV fistula in the left upper arm and is prepared to start dialysis at some point in the future. She has anemia of
CKD on Procrit therapy weekly, hypertension controlled on a multidrug regimen, type as well as type II controlled with insulin therapy. She was admitted because of severe abdominal pain in the lower quadrants. We are asked to follow with her CKD.
She was also found to have incidental hypercalcemia as well. CT scan showed mild colitis as well as a pericardial effusion.
Past Medical History
CAD, CHF, HTN, Hypercholesterolemia, NIDDM, Renal Failure (ESRD on HD) and Other (Anemia of chronic disease)
Appendectomy, Orthopedic and Tonsilectomy, left AV fistula
Social History
Tobacco: Non-Smoker
Alcohol: None
Family History
Family History: Not Pertinent
Allergies / Home Medications
Allergy/AdvReac Type Severity Reaction Status Date / Time
Penicillins Allergy Hives Verified 01/08/25 08:08
�Medication �Instructions �Recorded �Confirmed �Type
allopurinol 100 mg tablet 100 mg PO DAILY Gout 09/07/22 02/02/25 History
atorvastatin 40 mg tablet (Lipitor) 40 mg PO QPM High cholesterol 09/07/22 02/02/25 History
carvedilol 25 mg tablet (Coreg) 25 mg PO BID Heart 09/07/22 02/02/25 History
disease/condition
folic acid 1 mg tablet 1 mg PO DAILY Supplement 09/07/22 02/02/25 History
levothyroxine 25 mcg tablet 25 mcg PO DAILY Thyroid 11/28/22 02/02/25 History
insulin aspart U-100 100 unit/mL 0 - 12 sliding scale dose SC ACHS 03/26/23 02/02/25 History
(3 mL) subcutaneous pen (Novolog Diabetes
FlexPen U-100 Insulin aspart)
aspirin 81 mg tablet,delayed 81 mg PO DAILY Blood Clot 12/20/23 02/02/25 History
release Prevention/Tx
hydralazine 25 mg tablet 25 mg PO TID Blood Pressure 02/13/24 02/02/25 History
ammonium lactate 12 % topical cream 1 applic topical Q12H b/l legs 04/03/24 02/02/25 History
bisacodyl 10 mg rectal suppository 10 mg MA DAILYPRN PRN constipation 04/03/24 02/02/25 History
cyanocobalamin (vitamin B-12) 1,000 mcg PO DAILY Supplement 04/03/24 02/02/25 History
1,000 mcg tablet
gabapentin 100 mg capsule 100 mg PO TID PAIN 04/03/24 02/02/25 History
loperamide 2 mg tablet 2 mg PO Q6HPRN PRN diarrhea 04/03/24 02/02/25 History
miconazole nitrate 2 % topical 1 applic topical BID abd 04/03/24 02/02/25 History
powder folds/groin
pantoprazole 40 mg tablet,delayed 40 mg PO DAILY Gastrointestinal 04/03/24 02/02/25 History
release Issue
polyethylene glycol 3350 17 gram 17 g PO DAILYPRN PRN constipation 04/03/24 02/02/25 History
oral powder packet (Miralax)
sodium bicarbonate 650 mg tablet 1,300 mg PO TID Supplement 04/03/24 02/02/25 History
acetaminophen 325 mg tablet 650 mg PO Q4HPRN PRN mild 07/10/24 02/02/25 History
(Tylenol) pain/Temp >100
ferrous sulfate 325 mg (65 mg 325 mg PO Q48H@0800,1700 Supplement 07/10/24 02/02/25 History
iron) tablet
sucralfate 1 gram tablet 1 g PO AC Gastrointestinal Issue 07/16/24 02/02/25 History
ipratropium 0.5 mg-albuterol 3 mg 3 ml inhalation R Q6HPRN PRN 08/11/24 02/02/25 History
(2.5 mg base)/3 mL nebulization sob/wheezing
soln
medroxyprogesterone 10 mg tablet 10 mg PO DAILY #0 tabs 08/14/24 02/02/25 Rx
epoetin dora 2,000 unit/mL 3,000 unit SC TU Kidney Disease 08/18/24 02/02/25 History
injection solution (Procrit)
ascorbic acid (vitamin C) 250 mg 250 mg PO DAILY Supplement 10/31/24 02/02/25 History
tablet (Vitamin C)
cholecalciferol (vitamin D3) 1,250 1,250 mcg PO MO Supplement 10/31/24 02/02/25 History
mcg (50,000 unit) tablet
dextromethorphan-guaifenesin 10 10 ml PO Q4HPRN PRN COUGH 10/31/24 02/02/25 History
mg-100 mg/5 mL oral liquid
(Diabetic Tussin DM)
docusate sodium 100 mg capsule 100 mg PO BID Gastrointestinal 10/31/24 02/02/25 History
(Colace) Issue
torsemide 10 mg tablet 20 mg PO BID Fluid 10/31/24 02/02/25 History
Retention/Swelling
ammonium lactate 12 % topical cream 1 applic topical BIDPRN PRN dry 02/02/25 02/02/25 History
skin
Review of Systems
-
Abdominal pain resolved after enemas
All other systems: Negative unless noted
Physical Exam
Vital Signs
Vital Signs
Temp Pulse Resp BP Pulse Ox
98.1 F 75 18 141/59 100
02/03/25 11:11 02/03/25 12:18 02/03/25 11:11 02/03/25 12:18 02/03/25 11:11
Lab Results
WBC 7.6 10^3/uL (4.8-10.8) 02/03/25 07:09
RBC 2.83 10^6/uL (4.20-5.40) L 02/03/25 07:09
Hgb 8.4 g/dL (12.0-16.0) L 02/03/25 07:09
Hct 25.3 % (37.0-47.0) L 02/03/25 07:09
Plt Count 186 10^3/uL (130-400) 02/03/25 07:09
Sodium 139 mmol/L (135-145) 02/03/25 07:09
Potassium 4.4 mmol/L (3.5-5.1) 02/03/25 07:09
Chloride 110 mmol/L (98-107) H 02/03/25 07:09
Carbon Dioxide 17 mmol/L (22-30) L 02/03/25 07:09
BUN 88 mg/dl (7-17) H 02/03/25 07:09
Creatinine 2.9 mg/dL (0.6-1.0) H 02/03/25 07:09
eGFR 15.97 02/03/25 07:09
Glucose 91 mg/dl (70-99) 02/03/25 07:09
Calcium 11.5 mg/dl (8.4-10.2) H 02/03/25 07:09
Pqk-Y-Twqbufvdiqe Pept 437 pg/ml 02/02/25 15:29
Albumin 3.1 g/dl (3.5-5.0) L 02/03/25 07:09
Laboratory Tests
01/22/25 01/22/25
20:21 20:22
Hgb 7.5 L
Creatinine 2.8 H
Calcium 10[address] abdomen pelvis 02/02/2025
IMPRESSION: Moderate right pleural effusion, increased from previous CT examination.
Mild to moderate pericardial effusion, increased from prior CT exam.
Coronary artery calcifications are present. Please correlate with symptoms of and risk factors for coronary artery disease, with further workup as clinically appropriate.
Aortic valvular calcifications are present. Please correlate with any clinical signs or symptoms that would suggest clinically significant aortic stenosis.
As described, findings compatible with stercoral colitis. Perirectal edema, predominantly presacral. No evidence for focal perforation.
Multiple left-sided nephroliths. There is a 3 mm left ureteral calculus, located 5 cm superior to the left ureterovesical junction. Dilation of the more proximal left ureter and pelvicalyceal system.
Mild right-sided pelvicalyceal and ureteral dilation, although without evidence for an obstructing calculus.
Calcified gallstones. No CT findings to suggest acute cholecystitis.
Bony degenerative changes as described.
Physical Exam
Patient is awake alert oriented and in no distress. Mood and affect were pleasant, insight and judgment were good. Pupils are equal round and reactive to light, extraocular movements are intact, sclera were anicteric. Hearing was normal, ears and
nose are intact. Oropharynx was clear. Neck was supple with trachea midline and no thyromegaly. Heart was regular rate and rhythm without rubs. Lower extremities without edema. Lungs were clear to auscultation bilaterally and with normal
excursion. Abdomen was soft, nontender, with normal active bowel sounds, and no hepatosplenomegaly. Skin was without rash and with normal turgor. Left AV fistula with good thrill and bruit
Data Reviewed
-
Radiology: Image Personally Visualized and interpreted (Chest x-ray 02/03/2025 by my reading cardiomegaly, right lower lobe opacity)
Ultrasound: Report Reviewed by me (Chest ultrasound 02/02/2025 right effusion)
Labs: Labs Reviewed by me
Old Records: Reviewed
Assessment/Plan
-
Assessment
CKD 01/03
Hypertension
Anemia
Stercoral colitis
Diabetes mellitus type 2
Right effusion
Pericardial effusion
Hypercalcemia
Plan
Follow BMP
Check PTH
Abdominal pain resolved with enemas
Increase Procrit
No emergent dialysis needs
--- NOTE | 2025-02-03 13:50 | CM ---
Received notification from attending that patient is medically cleared for discharge. Placed a call to patient's daughter in law, Susan Tejeda, who is agreeable to return to [facility] today. Spoke with Clementine in admissions who confirmed that she can
return. Will complete forms to set up for transfer.
#Report [phone]
Reviewed IMM with patient's daughter in law. It is signed and on chart.
Plan: Case management will continue to follow and assist with discharge planning. Back to [facility] for fpc care.
[2025-02-03 14:42] LABS: LDH 137 U/L (120-246)
[2025-02-03] MEDS: DEMADEX 20 MG PO (16:05)
[2025-02-03] MEDS: STERILE WATER FOR INJECTION 20 ML IV (16:07)
[2025-02-03] MEDS: ROCEPHIN 2000 MG IV (16:07)
[2025-02-03 16:21] LABS: Glucose - Point of Care 131 mg/dl (70-99)
[2025-02-03] MEDS: LIPITOR 40 MG PO (16:25)
[2025-02-03] MEDS: NOVOLOG FLEXPEN-LOW RESISTANCE SC (17:06)
[2025-02-03 22:08] LABS: Glucose - Point of Care 147 mg/dl (70-99)
[2025-02-04] VITALS (10 sets, daily range): BP systolic 71–152; BP diastolic 49–63; BMI 29.1
[2025-02-04] MEDS: HEPARIN SC (02:33)
[2025-02-04] MEDS: FLAGYL 500 MG 100 IV ×2 (04:42→15:19)
[2025-02-04] MEDS: SYNTHROID 25 MCG PO (04:42)
[2025-02-04 07:16] LABS: Hematocrit 22.8 % (37.0-47.0); Hemoglobin 7.3 g/dL (12.0-16.0); Mean Corpuscular Hgb 28.6 pg (27.0-31.0); Mean Corpuscular Volume 89.4 fL (81.0-99.0); Mean Platelet Volume 9.6 fL (7.4-10.4); Platelet Count 174 10^3/uL (130-400); Red Blood Cell Count 2.55 10^6/uL (4.20-5.40); Red Cell Dist. Width 14.8 % (11.5-14.5); White Blood Cell Count 5.2 10^3/uL (4.8-10.8)
[2025-02-04 07:52] LABS: ALT (SGPT) < 10 U/L (0-35); AST (SGOT) 10 U/L (14-36); Alkaline Phosphatase 63 U/L (38-126); Blood Urea Nitrogen 88 mg/dl (7-17); Calcium 10.8 mg/dl (8.4-10.2); Carbon Dioxide 19 mmol/L (22-30); Chloride 111 mmol/L (98-107); Estimated Creatinine Clearance 17 ml/min; Glucose 102 mg/dl (70-99); Sodium 141 mmol/L (135-145); Total Bilirubin 0.3 mg/dl (0.2-1.3); Total Protein 5.2 g/dl (6.3-8.2); eGFR 14.74
[2025-02-04 08:15] LABS: Glucose - Point of Care 126 mg/dl (70-99)
--- NOTE | 2025-02-04 08:18 | W.PN.HOSP.TC ---
Addendum entered and electronically signed by Tiarra Massey MD 02/04/25 15:53:
I saw and evaluated the patient. I reviewed the resident�s note and agree with findings and plan as documented in the resident�s note except for changes in my documentation
Patient has symptoms of anemia such as no energy to work with physical therapy and feeling tired
CVS: S1-S2 normal, Systolic and diastolic heart mr
Chest: CTA B/L, decreased right base
Abdomen: Soft, NT / Bowel sounds present
Extremities: No edema
# Stercoral colitis
Bowel regimen with enema. Patient had multiple bowel movements
Feels much better
Restarted Carafate
Normal TSH
Antibiotics-ceftriaxone and Flagyl can be stopped.
Discontinued loperamide do not restart
# Mild to moderate pericardial effusion and mild to moderate pleural effusion
Echo 02/03/2025-normal biventricular size and systolic function. EF 55%. Mild . Small circumferential pericardial effusion. Thickened anterior pericardium. Pleural effusion
History of thoracentesis in the past July 2024-transudate. Negative for malignant cells
Thoracentesis right side 09/11/2023-negative for malignant cells
Patient received Lasix in the ER
On torsemide 20 mg twice daily as outpatient- restarted
Nephrology evaluation appreciated
# 3 mm left ureteral calculus with dilatation of the proximal left ureter and pelvicalyceal system
Started Flomax
History of lithotripsy in the past
X ray abdomen in am.
# Anemia- Of renal disease. On Procrit as outpatient.transfuse 1 unit of blood. Informed consent obtained
# Hypercalcemia-elevated parathormone. Primary versus secondary secondary renal failure
# History of gout-continue allopurinol
# Hypertension-continue Coreg, Hold hydralazine
# Diabetes-on sliding scale coverage as outpatient-continue
# Hypothyroidism-continue levothyroxine
# CKD stage V-continue sodium bicarbonate.Patient has an AV fistula left wrist.
# Hyperlipidemia/atherosclerosis-continue Lipitor
# History of CVA in the past-continue aspirin and statin
# Ambulatory dysfunction-PT OT
# Obesity with BMI 30
# DVT prophylaxis-subcutaneous heparin
# CODE STATUS-full code
Discussed with nursing at bedside
Part of this note was created using voice recognition system. Occasional wrong word or��sound alike� substitutions may have inadvertently occurred due to the inherent limitations of voice recognition software. If noted kindly bring it to my
attention for correction.
Transfuse
If stable consider discharge tomorrow
Original Note:
Today's Communication/Plan
-
- thoracentesis
Assessment / Plan
Assessment / Plan
IMPRESSION:
79[facility] not [facility], CHF, HTN, HLD, prior CVA who presented to [facility] ED for epigastric pain. CT abdo/pelvis positive for pericardial fluid, b/l pleural effusions, murmur heard on exam
PLAN:
Pericardial effusion
- likely secondary to ESRD
- echo: LVEF 55%, mild , small pericardial effusion
- diurese
- cardio consult - Repeat echo next week
Pleural effusion b/l
- CT abdo/pelvis: mod R pleural effusion, mild-mod pericardial effusion
- CXR, b/l thoracic u/s: R pleural effusion
- R thoracentesis ordered
ESRD not on dialysis s/p fistula creation
- nephro consult - no urgent dialysis needs at this time
- Cr at baseline 3.0
Rectal pain, constipation secondary to stercoral colitis
- CT: stercoral colitis
- hold sucralfate, loperamide, iron tablet
- rocephin, flagyl
HTN/HLD
- cont home carvedilol, statin
- cmp
NIDDM
- cont home meds
Hypothyroidism
- cont home levothyroxine
- TSH wnl
Hypercalcemia
- intact PTH pending
Renal calculi
- flomax prn
- monitor
Iron deficiency anemia
- hold home iron for constipation
- follow cbc
Diet: 2g sodium
DVT ppx: subq heparin
Code status: FULL CODE
Anticipated Discharge: 24 - 48 hours
Subjective/Interval History
-
Date of Service: February 04, 2025
No acute overnight events, no bloody stools
Objective Data
-
Labs:
Laboratory Results
02/04/25
06:33
WBC 5.2
Hgb 7.3 L
Hct 22.8 L
Plt Count 174
Sodium 141
Potassium 4.0
Chloride 111 H
Carbon Dioxide 19 L
BUN 88 H
Creatinine 3.1 H
Glucose 102 H
Calcium 10.8 H
Total Bilirubin 0.3
AST 10 L
ALT < 10
Alkaline Phosphatase 63
Vital Signs:
Vital Signs
Temp Pulse Resp BP Pulse Ox
98.7 F 64 18 148/56 99
02/04/25 03:41 02/04/25 03:41 02/04/25 03:41 02/04/25 03:41 02/04/25 03:41
I&O
02/03/25 02/04/25 02/05/25
06:59 06:59 06:59
Intake Total 600 / 600
Balance 600 / 600
Review of Systems
-
History Source: Patient
Constitutional: Reports No Symptoms
Respiratory: Reports No Symptoms
Cardiac: Reports No Symptoms
Abdomen/GI: Reports No Symptoms
Genitourinary: Reports No Symptoms
Musculoskeletal: Reports No Symptoms
Skin: Reports No Symptoms
Neuro: Reports No Symptoms
Hematologic / Lymphatic: Reports No Symptoms
Physical Exam
-
General: Well Developed, Well Nourished and No Apparent Distress
HEENT: Normocephalic, Atraumatic, Moist Mucous Membranes and Anicteric
Respiratory: Wheezes
Cardiac: Regular Rhythm and S1/S2
GI: Soft, Nontender, Nondistended and Normal Bowel Sounds
Rectal: Hem Negative
Musculoskeletal: No Clubbing, No Cyanosis and No Edema
Skin: Warm and Dry
Neuro: Awake and AO x 3
Psych: Calm
[2025-02-04] MEDS: NOVOLOG FLEXPEN-LOW RESISTANCE SC ×3 (08:20→16:58)
[2025-02-04] MEDS: SODIUM BICARBONATE 1300 MG PO ×3 (08:21→21:11)
[2025-02-04] MEDS: PROTONIX 40 MG PO (08:21)
[2025-02-04] MEDS: ZYLOPRIM 100 MG PO (08:21)
[2025-02-04] MEDS: FOLVITE 1 MG PO (08:21)
[2025-02-04] MEDS: VITAMIN C 250 MG PO (08:21)
[2025-02-04] MEDS: PROVERA 10 MG PO (08:23)
[2025-02-04] MEDS: NEURONTIN 100 MG PO ×3 (08:23→21:11)
[2025-02-04] MEDS: ASPIR LOW (ENTERIC COATED) 81 MG PO (08:23)
[2025-02-04] MEDS: COLACE 100 MG PO ×2 (08:23→19:28)
[2025-02-04] MEDS: COREG 25 MG PO ×2 (08:23→19:28)
[2025-02-04] MEDS: FEOSOL 325 MG PO ×2 (08:24→16:58)
[2025-02-04] MEDS: HEPARIN 5000 UNITS SC ×3 (08:24→23:03)
[2025-02-04] MEDS: VITAMIN B-12 1000 MCG PO (08:24)
[2025-02-04] MEDS: DESENEX/MITRAZOL/ZEASORB 1 APPLIC TOPICAL ×2 (08:25→19:28)
[2025-02-04] MEDS: LAC HYDRIN, AM LACTIN LOTION 1 APPLIC TOPICAL ×2 (08:26→19:28)
[2025-02-04] MEDS: DEMADEX 20 MG PO ×2 (08:26→15:21)
[2025-02-04 11:27] LABS: Body Fluid pH 7.46
[2025-02-04 11:32] LABS: Body Fluid WBC 440 /CUMM
[2025-02-04 11:33] LABS: Body Fluid Mononuclear 91.4 %; Body Fluid Polymorphonuclear 8.6 %
[2025-02-04 11:36] LABS: Body Fluid Second Tech ASW
[2025-02-04 11:55] LABS: Body Fluid Glucose 124 mg/dl; Body Fluid LDH 73 U/L; Body Fluid Protein 3.4 g/dl; Body Fluid Triglycerides < 30 mg/dl
--- NOTE | 2025-02-04 11:57 | PTCARENOTE ---
pt back from IR s/p Thoracentesis. pt is AAO*3, Vss, room air. denies any pain or discomfort. call hoang within the reach. plan of care ongoing.
[2025-02-04 12:13] LABS: Intact PTH 174.2 pg/ml (13.6-85.8)
[2025-02-04 12:27] LABS: Glucose - Point of Care 135 mg/dl (70-99)
--- NOTE | 2025-02-04 14:12 | W.PN.NEPH.PH ---
Today's Communication / Plan
-
bmp
Assessment/Plan
-
Assessment
CKD 4/5
Hypertension
Anemia
Stercoral colitis
Diabetes mellitus type 2
Right effusion
Pericardial effusion
Hypercalcemia
Plan
Follow BMP
Check PTH
Abdominal pain resolved with enemas
s/p Procrit
No emergent dialysis needs
s/p 650 ml thoro 02/04
cr astable
-
-
Date of Service: February 04, 2025
CC / HPI / ROS
-
Chief Complaint:
abd pain
History of Present Illness:
ckd anemis of ckd s/p thoro 650
Review of Systems:
Labs
-
Labs:
WBC 5.2 10^3/uL (4.8-10.8) 02/04/25 06:33
RBC 2.55 10^6/uL (4.20-5.40) L 02/04/25 06:33
Hgb 7.3 g/dL (12.0-16.0) L 02/04/25 06:33
Hct 22.8 % (37.0-47.0) L 02/04/25 06:33
Plt Count 174 10^3/uL (130-400) 02/04/25 06:33
Sodium 141 mmol/L (135-145) 02/04/25 06:33
Potassium 4.0 mmol/L (3.5-5.1) 02/04/25 06:33
Chloride 111 mmol/L (98-107) H 02/04/25 06:33
Carbon Dioxide 19 mmol/L (22-30) L 02/04/25 06:33
BUN 88 mg/dl (7-17) H 02/04/25 06:33
Creatinine 3.1 mg/dL (0.6-1.0) H 02/04/25 06:33
eGFR 14.74 02/04/25 06:33
Glucose 102 mg/dl (70-99) H 02/04/25 06:33
Calcium 10.8 mg/dl (8.4-10.2) H 02/04/25 06:33
Pnm-L-Hcumwwvkfjj Pept 437 pg/ml 02/02/25 15:29
Albumin 3.0 g/dl (3.5-5.0) L 02/04/25 06:33
Physical Exam
-
Vital Signs:
Vital Signs
Temp Pulse Resp BP Pulse Ox
98.4 F 69 18 133/50 100
02/04/25 11:00 02/04/25 11:00 02/04/25 11:00 02/04/25 11:00 02/04/25 12:13
Cardiovascular:: Regular rate and rhythm
Respiratory:: Bilateral: CTA
Lung Excursion:: Normal
Abdomen:: Nontender and Soft
Bowel Sounds:: Normal
Extremity Edema:: +1: Bilateral:
Ghosh Catheter: No
[2025-02-04] MEDS: STERILE WATER FOR INJECTION 20 ML IV (15:20)
[2025-02-04] MEDS: ROCEPHIN 2000 MG IV (15:20)
[2025-02-04] MEDS: FLUSH (NSS) 1 FLUSH IV (15:20)
[2025-02-04 16:58] LABS: Glucose - Point of Care 148 mg/dl (70-99)
[2025-02-04] MEDS: LIPITOR 40 MG PO (16:59)
[2025-02-04 20:59] LABS: Glucose - Point of Care 226 mg/dl (70-99)
[2025-02-04] MEDS: FLOMAX 0.4 MG PO (21:11)
[2025-02-05 03:12] VITALS: BP 135/48
[2025-02-05] MEDS: SYNTHROID 25 MCG PO (04:33)
[2025-02-05 06:00] VITALS: BMI 28.8
[2025-02-05 07:40] VITALS: BP 158/68
[2025-02-05] MEDS: ZYLOPRIM 100 MG PO (07:49)
[2025-02-05] MEDS: SODIUM BICARBONATE 1300 MG PO ×3 (07:49→21:02)
[2025-02-05] MEDS: VITAMIN C 250 MG PO (07:49)
[2025-02-05] MEDS: PROTONIX 40 MG PO (07:49)
[2025-02-05 07:50] LABS: Glucose - Point of Care 115 mg/dl (70-99)
[2025-02-05] MEDS: PROVERA 10 MG PO (07:50)
[2025-02-05] MEDS: VITAMIN B-12 1000 MCG PO (07:50)
[2025-02-05] MEDS: ASPIR LOW (ENTERIC COATED) 81 MG PO (07:50)
[2025-02-05] MEDS: FOLVITE 1 MG PO (07:50)
[2025-02-05] MEDS: DEMADEX 20 MG PO ×2 (07:50→15:33)
[2025-02-05] MEDS: NOVOLOG FLEXPEN-LOW RESISTANCE SC ×2 (07:51→17:06)
[2025-02-05] MEDS: LAC HYDRIN, AM LACTIN LOTION 1 APPLIC TOPICAL ×2 (07:51→20:41)
[2025-02-05] MEDS: COLACE 100 MG PO ×2 (07:51→20:38)
[2025-02-05] MEDS: NEURONTIN 100 MG PO ×3 (07:51→21:02)
[2025-02-05] MEDS: DESENEX/MITRAZOL/ZEASORB 1 APPLIC TOPICAL ×2 (07:52→20:41)
[2025-02-05] MEDS: HEPARIN 5000 UNITS SC ×3 (07:52→23:18)
[2025-02-05] MEDS: COREG 25 MG PO ×2 (07:56→20:38)
--- NOTE | 2025-02-05 07:59 | W.PN.HOSP.TC ---
Addendum entered and electronically signed by Tiarra Massey MD 02/05/25 23:02:
Not ESRD CKD stage 4/5
Addendum entered and electronically signed by Tiarra Massey MD 02/05/25 16:39:
I saw and evaluated the patient. I reviewed the resident�s note and agree with findings and plan as documented in the resident�s note.
Patient was seen earlier today. She stated that feels much better with blood transfusion. She has more energy now.
Cardiovascular system a few rales on the right side
Abdomen soft and nontender
No pedal edema
Anemia improved posttransfusion
CT of the chest without any evidence of malignancy as to the reason for pericardial effusion and recurrent pleural effusions
Outpatient rheumatology evaluation
Outpatient pulmonary follow-up for recurrent effusion
Cytology pending
Agree with discontinuing vitamin D for now
Sensipar started for hypercalcemia
Spoke to patient [id number] Elizabet who is the first contact and updated regarding patient's condition in detail. Follow-up with first assist discussed as well.
Original Note:
Today's Communication/Plan
-
- ct chest
Assessment / Plan
Assessment / Plan
IMPRESSION:
79yo F [facility] ESRD not on dialysis, CHF, HTN, HLD, prior CVA who presented to [facility] ED for epigastric pain. CT abdo/pelvis positive for pericardial fluid, b/l pleural effusions, murmur heard on exam
PLAN:
Pericardial effusion
- likely secondary to ESRD
- echo: LVEF 55%, mild , small pericardial effusion
- diurese
- cardio consult - Repeat echo next week
Exduative R Pleural effusion
- CT abdo/pelvis: mod R pleural effusion, mild-mod pericardial effusion
- CXR, b/l thoracic u/s: R pleural effusion
- R thoracentesis - drained 650cc of clear yellow pleural fluid. Exudative effusion per Light's criteria
- CT chest
ESRD not on dialysis s/p fistula creation
- nephro consult - no urgent dialysis needs at this time
- Cr at baseline 3.0
Rectal pain, constipation secondary to stercoral colitis
- CT: stercoral colitis
- hold sucralfate, loperamide, iron tablet
- rocephin, flagyl
HTN/HLD
- cont home carvedilol, statin
- cmp
NIDDM
- cont home meds
Hypothyroidism
- cont home levothyroxine
- TSH wnl
Hypercalcemia
- intact PTH pending
Renal calculi
- flomax prn
- monitor
Iron deficiency anemia
- hold home iron for constipation
- follow cbc
Diet: 2g sodium
DVT ppx: subq heparin
Code status: FULL CODE
Anticipated Discharge: 24 - 48 hours
Subjective/Interval History
-
Date of Service: February 05, 2025
No acute overnight events
Objective Data
-
Labs:
Laboratory Results
02/05/25
06:00
WBC Pending
Hgb Pending
Hct Pending
Plt Count Pending
Sodium Pending
Potassium Pending
Chloride Pending
Carbon Dioxide Pending
BUN Pending
Creatinine Pending
Glucose Pending
Calcium Pending
Total Bilirubin Pending
AST Pending
ALT Pending
Alkaline Phosphatase Pending
Vital Signs:
Vital Signs
Temp Pulse Resp BP Pulse Ox
98.3 F 67 15 135/48 98
02/05/25 03:12 02/05/25 03:12 02/05/25 03:12 02/05/25 03:12 02/05/25 03:12
I&O
02/04/25 02/05/25 02/06/25
06:59 06:59 06:59
Intake Total 600 / 600 1899
Balance 600 / 600 1899
Review of Systems
-
History Source: Patient
Constitutional: Reports No Symptoms
EENT: Reports No Symptoms Reported
Respiratory: Reports No Symptoms
Cardiac: Reports No Symptoms
Abdomen/GI: Reports No Symptoms
Musculoskeletal: Reports No Symptoms
Neuro: Reports No Symptoms
Hematologic / Lymphatic: Reports No Symptoms
Physical Exam
-
General: Well Developed and Well Nourished
HEENT: Normocephalic and Atraumatic
Respiratory: Wheezes
Cardiac: Regular Rhythm and S1/S2
GI: Soft, Nontender, Nondistended and Normal Bowel Sounds
Musculoskeletal: No Clubbing, No Cyanosis and No Edema
Skin: Warm and Dry
Neuro: Awake and AO x 3
Psych: Calm
[2025-02-05 09:21] LABS: Hematocrit 26.8 % (37.0-47.0); Hemoglobin 8.9 g/dL (12.0-16.0); Mean Corp Hgb Conc. 33.2 g/dL (33.0-37.0); Mean Corpuscular Hgb 29.6 pg (27.0-31.0); Mean Platelet Volume 9.6 fL (7.4-10.4); Platelet Count 163 10^3/uL (130-400); Red Blood Cell Count 3.01 10^6/uL (4.20-5.40)
[2025-02-05 10:13] LABS: Total Protein 5.4 g/dl (6.3-8.2)
[2025-02-05 10:14] LABS: ALT (SGPT) < 10 U/L (0-35); AST (SGOT) 12 U/L (14-36); Alkaline Phosphatase 71 U/L (38-126); Blood Urea Nitrogen 84 mg/dl (7-17); Carbon Dioxide 19 mmol/L (22-30); Chloride 111 mmol/L (98-107); Estimated Creatinine Clearance 19 ml/min; Glucose 105 mg/dl (70-99); Potassium 4.1 mmol/L (3.5-5.1); Sodium 141 mmol/L (135-145); Total Bilirubin 0.5 mg/dl (0.2-1.3); eGFR 16.66
--- NOTE | 2025-02-05 11:09 | W.PN.NEPH.PH ---
Addendum entered and electronically signed by Davie Miller DO 02/05/25 11:41:
PTH 174 will stop vitamin D and add Sensipar check vitamin D level
Original Note:
Today's Communication / Plan
-
Sensipar
Assessment/Plan
-
Assessment
CKD 4/5
Hypertension
Anemia
Stercoral colitis
Diabetes mellitus type 2
Right effusion
Pericardial effusion
Hypercalcemia
Plan
Follow BMP
Check PTH= pending
s/p Procrit outpatient
EPO ordered inpatient
No emergent dialysis needs
s/p 650 ml thoro 02/04
cr astable
Abdominal pain persistent today= flatplate possible distal ureteral stone not definitive
Will start Sensipar for hyper calcium
Discussed with daughter
Corresponded with hospitalist
-
-
Date of Service: February 05, 2025
CC / HPI / ROS
-
Chief Complaint:
abd pain
History of Present Illness:
ckd anemis of ckd s/p thoro 650
Review of Systems:
Mild abdominal discomfort
Labs
-
Labs:
WBC 5.0 10^3/uL (4.8-10.8) 02/05/25 08:32
RBC 3.01 10^6/uL (4.20-5.40) L 02/05/25 08:32
Hgb 8.9 g/dL (12.0-16.0) L D 02/05/25 08:32
Hct 26.8 % (37.0-47.0) L 02/05/25 08:32
Plt Count 163 10^3/uL (130-400) 02/05/25 08:32
Sodium 141 mmol/L (135-145) 02/05/25 08:32
Potassium 4.1 mmol/L (3.5-5.1) 02/05/25 08:32
Chloride 111 mmol/L (98-107) H 02/05/25 08:32
Carbon Dioxide 19 mmol/L (22-30) L 02/05/25 08:32
BUN 84 mg/dl (7-17) H 02/05/25 08:32
Creatinine 2.8 mg/dL (0.6-1.0) H 02/05/25 08:32
eGFR 16.66 02/05/25 08:32
Glucose 105 mg/dl (70-99) H 02/05/25 08:32
Calcium 11.0 mg/dl (8.4-10.2) H 02/05/25 08:32
Gmh-L-Jiymxlataqr Pept 437 pg/ml 02/02/25 15:29
Albumin 3.0 g/dl (3.5-5.0) L 02/05/25 08:32
Physical Exam
-
Vital Signs:
Vital Signs
Temp Pulse Resp BP Pulse Ox
98.7 F 71 20 158/69 100
02/05/25 07:40 02/05/25 07:50 02/05/25 07:40 02/05/25 07:50 02/05/25 07:40
Cardiovascular:: Regular rate and rhythm
Respiratory:: Bilateral: CTA
Lung Excursion:: Normal
Abdomen:: Nontender and Soft
Bowel Sounds:: Normal
Extremity Edema:: +1: Bilateral:
Ghosh Catheter: No
[2025-02-05 11:25] VITALS: BP 153/64
--- NOTE | 2025-02-05 12:21 | PN.CDI ---
CDI
- -
CDI:
Physician Documentation Request
Admit Date: 02/02/25 17:27
Dear Doctor,
Please review the following and provide your response in the progress notes.
Clinical Indicators:
Pt admitted with pleural and pericardial effusion and stercoral colitis.
02/03 Nephrology: 'chronic disease stage IV/V baseline creatinine around 3.0. She has an AV fistula in the left upper arm and is prepared to start dialysis at some point in the future...No emergent dialysis needs.'
02/05 Progress Note: 'ESRD not on dialysis s/p fistula creation'
Laboratory Tests
02/02/25 02/04/25 02/05/25
12:21 06:33 08:32
Creatinine 3.1 H 3.1 H 2.8 H
eGFR 14.74 14.74 16.66
Clarify which of the following accurately represents the patient's renal status:
CKD IV/V
ESRD - now requiring permanent dialysis
Other
Criteria for AUGUSTO*
1 Increase in serum creatinine by > or = to 0.3 mg/dL (> or = to 26.5 micromol/L) within 48 hours, OR
2 Increase in serum creatinine to > or = to 1.5 times baseline, which is known or presumed to have occurred within 7 days, OR
3 Urine volume < 0.5 nL/kg/hour for six hours
Stages of Chronic Kidney Disease*
Level Description GFR
G1 Normal or High >90
G2 Mildly decreased 60-89
G3a Mildly to moderately decreased 45-59
G3b Moderately to severely decreased 30-44
G4 Severely decreased 15-29
G5 Kidney failure <15
Use of terms such as suspected, likely, concern for, or probable (associated with a specific diagnosis that is being evaluated, monitored, or treated as if it exists) are acceptable and can be coded in the inpatient setting, when documented at the
time of discharge.
Thank you,
Madiha Walker RN, BSN
CDI Specialist
[facility]
Please use your independent medical judgment in providing your response.
*Source: Kidney Disease: Improving Global Outcomes (KDIGO) 2012
[2025-02-05 13:06] LABS: Glucose - Point of Care 171 mg/dl (70-99)
[2025-02-05] MEDS: NOVOLOG FLEXPEN-LOW RESISTANCE 1 UNITS SC (13:25)
[2025-02-05 15:34] VITALS: BP 141/60
[2025-02-05 17:00] LABS: Glucose - Point of Care 137 mg/dl (70-99)
[2025-02-05] MEDS: LIPITOR 40 MG PO (17:13)
[2025-02-05] MEDS: FLOMAX 0.4 MG PO (20:39)
[2025-02-05 21:22] LABS: Glucose - Point of Care 164 mg/dl (70-99)
[2025-02-05 23:39] VITALS: BP 143/53
[2025-02-06] MEDS: SYNTHROID 25 MCG PO (05:22)
[2025-02-06 06:00] VITALS: BMI 28.9
[2025-02-06 07:40] VITALS: BP 141/55
[2025-02-06 08:05] LABS: Hematocrit 25.8 % (37.0-47.0); Hemoglobin 8.9 g/dL (12.0-16.0); Mean Corp Hgb Conc. 34.5 g/dL (33.0-37.0); Mean Corpuscular Hgb 30.3 pg (27.0-31.0); Mean Corpuscular Volume 87.8 fL (81.0-99.0); Mean Platelet Volume 10.4 fL (7.4-10.4); Platelet Count 156 10^3/uL (130-400); Red Blood Cell Count 2.94 10^6/uL (4.20-5.40); Red Cell Dist. Width 15.2 % (11.5-14.5); White Blood Cell Count 5.1 10^3/uL (4.8-10.8)
[2025-02-06 08:22] LABS: Glucose - Point of Care 149 mg/dl (70-99)
[2025-02-06] MEDS: NOVOLOG FLEXPEN-LOW RESISTANCE SC (08:33)
[2025-02-06 08:55] LABS: ALT (SGPT) 11 U/L (0-35); AST (SGOT) 17 U/L (14-36); Alkaline Phosphatase 71 U/L (38-126); Blood Urea Nitrogen 87 mg/dl (7-17); Carbon Dioxide 23 mmol/L (22-30); Chloride 108 mmol/L (98-107); Estimated Creatinine Clearance 18 ml/min; Glucose 126 mg/dl (70-99); Potassium 4.3 mmol/L (3.5-5.1); Sodium 141 mmol/L (135-145); Total Bilirubin 0.4 mg/dl (0.2-1.3); Total Protein 5.4 g/dl (6.3-8.2); eGFR 15.97
[2025-02-06] MEDS: SODIUM BICARBONATE 1300 MG PO ×2 (10:08→15:21)
[2025-02-06] MEDS: PROTONIX 40 MG PO (10:08)
[2025-02-06] MEDS: NEURONTIN 100 MG PO ×2 (10:08→15:21)
[2025-02-06] MEDS: ZYLOPRIM 100 MG PO (10:08)
[2025-02-06] MEDS: MIRALAX 17 GRAMS PO (10:08)
[2025-02-06] MEDS: COLACE 100 MG PO (10:08)
[2025-02-06] MEDS: ASPIR LOW (ENTERIC COATED) 81 MG PO (10:09)
[2025-02-06] MEDS: DEMADEX 20 MG PO ×2 (10:09→15:21)
[2025-02-06] MEDS: VITAMIN C 250 MG PO (10:09)
[2025-02-06] MEDS: VITAMIN B-12 1000 MCG PO (10:09)
[2025-02-06] MEDS: SENSIPAR 30 MG PO (10:09)
[2025-02-06] MEDS: PROVERA 10 MG PO (10:09)
[2025-02-06] MEDS: COREG 25 MG PO (10:10)
[2025-02-06] MEDS: FEOSOL 325 MG PO (10:10)
[2025-02-06] MEDS: FOLVITE 1 MG PO (10:10)
[2025-02-06] MEDS: DESENEX/MITRAZOL/ZEASORB 1 APPLIC TOPICAL (10:11)
[2025-02-06] MEDS: HEPARIN 5000 UNITS SC ×2 (10:11→15:20)
[2025-02-06] MEDS: LAC HYDRIN, AM LACTIN LOTION 1 APPLIC TOPICAL (10:11)
--- NOTE | 2025-02-06 10:38 | CM ---
Spoke with attending who stated that patient is medically stable for d/c. Placed a call to Clementine in admissions who confirmed that she can return today. # For report [phone] R [phone].
Placed a call to patient's daughter to update. She is agreeable to patient transferring back to [facility].
Will complete medical necessity and transfer sheet. IMM reviewed and is on chart.
[2025-02-06 11:52] LABS: Glucose - Point of Care 155 mg/dl (70-99)
[2025-02-06] MEDS: NOVOLOG FLEXPEN-LOW RESISTANCE 1 UNITS SC (12:06)
--- NOTE | 2025-02-06 12:36 | W.PN.HOSP.TC ---
Addendum entered and electronically signed by Tiarra Massey MD 02/06/25 16:53:
Dictation- [id number]
Original Note:
Today's Communication/Plan
-
Discharge
Assessment / Plan
Assessment / Plan
CVS: S1-S2 normal, Systolic and diastolic heart mr
Chest: CTA B/L, decreased right base
Abdomen: Soft, NT / Bowel sounds present
Extremities: No edema
# Stercoral colitis
Bowel regimen with enema. Patient had multiple bowel movements
Cannot have Carafate with renal failure - Stopped.
Normal TSH
Antibiotics-ceftriaxone and Flagyl stopped.
Discontinued loperamide do not restart
# Mild to moderate pericardial effusion and mild to moderate pleural effusion
Echo 02/03/2025-normal biventricular size and systolic function. EF 55%. Mild . Small circumferential pericardial effusion. Thickened anterior pericardium. Pleural effusion
History of thoracentesis in the past July 2024-transudate. Negative for malignant cells
Thoracentesis right side 09/11/2023-negative for malignant cells
On torsemide 20 mg twice daily as outpatient- restarted
Nephrology evaluation appreciated
# 3 mm left ureteral calculus with dilatation of the proximal left ureter and pelvicalyceal system
Started Flomax-continue
History of lithotripsy in the past
X ray abdomen in am without any definitive stone.
# Anemia- Of renal disease. On Procrit as outpatient.transfused 1 unit of blood.
# Zosfqmqhoijen-psdmpnqibovzjtgnxdn-EPK-Sensipar started
# History of gout-continue allopurinol
# Hypertension-continue Coreg, Stopped hydralazine
# Diabetes-on sliding scale coverage as outpatient-continue
# Hypothyroidism-continue levothyroxine
# CKD stage V-continue sodium bicarbonate.Patient has an AV fistula left wrist.
# Hyperlipidemia/atherosclerosis-continue Lipitor
# History of CVA in the past-continue aspirin and statin
# Ambulatory dysfunction-PT OT
# Obesity with BMI 30
# DVT prophylaxis-subcutaneous heparin
# CODE STATUS-full code
Discussed with nursing at bedside
D/W sister at bedside
Discussed with case management discussed with nephrology. Okay for discharge
would have OP Rheum eval for recurrent effusion, anemia
D/W Sister and Pt
More than 30 minutes spent in discharge including
Final examination of the patient
Summarizing hospital stay
Instructions for continuing care to all relevant caregivers
Preparation of discharge records, prescriptions, and referral forms
Total time spent (in minutes): 35 min
Anticipated Discharge: Today
Subjective/Interval History
-
Date of Service: February 06, 2025
Objective Data
-
Labs:
Laboratory Results
02/06/25
07:20
WBC 5.1
Hgb 8.9 L
Hct 25.8 L
Plt Count 156
Sodium 141
Potassium 4.3
Chloride 108 H
Carbon Dioxide 23
BUN 87 H
Creatinine 2.9 H
Glucose 126 H
Calcium 11.0 H
Total Bilirubin 0.4
AST 17
ALT 11
Alkaline Phosphatase 71
Vital Signs:
Vital Signs
Temp Pulse Resp BP Pulse Ox
98.1 F 70 20 141/55 98
02/06/25 07:40 02/06/25 10:09 02/06/25 07:40 02/06/25 10:09 02/06/25 07:40
I&O
02/05/25 02/06/25 02/07/25
06:59 06:59 06:59
Intake Total 1899 / 0 1480 / 1480
Output Total 1849 / 185
Balance 1900 / 0 -370 / -370
--- NOTE | 2025-02-06 12:36 | W.DS.TRANS ---
DC Summary - [employer]
-
Discharge Instructions:
Sleep Apnea Risk Intermediate
Discharge Diagnosis/Procedures Constipation with stercoral colitis
Mild to moderate pleural effusion
Small pericardial effusion
Nephrolithiasis
Hypertension
Diabetes
Hypothyroidism
Hypercalcemia
History of gout
CKD stage IV/V
Ambulatory dysfunction
Gallstones
Diet Diabetic, Carb Controlled,2 Gram Sodium,Restrict
fluids to 64 oz
Activity As tolerated,With assistance
Driving Restrictions No driving
Blood Work BMP,CBC 1 week
Others Tests Echocardiogram on 02/12/2025 at 10:00 to
evaluate your pericardial effusion. Please
arrive at least 15 minutes early to register.
Instructions:
Stand-Alone Forms:
Changes to Home Medications: Yes
Discharge Medications:
DC Medications w/original date entered in agencyQ
allopurinol 100 mg tablet 100 mg PO DAILY Gout 09/07/22
atorvastatin 40 mg tablet (Lipitor) 40 mg PO QPM High cholesterol 09/07/22
carvedilol 25 mg tablet (Coreg) 25 mg PO BID Heart disease/condition 09/07/22
folic acid 1 mg tablet 1 mg PO DAILY Supplement 09/07/22
levothyroxine 25 mcg tablet 25 mcg PO DAILY Thyroid 11/28/22
insulin aspart U-100 100 unit/mL (3 mL) subcutaneous pen (Novolog FlexPen U-100 Insulin aspart) 0 - 12 sliding scale dose SC ACHS Diabetes 03/26/23
aspirin 81 mg tablet,delayed release 81 mg PO DAILY Blood Clot Prevention/Tx 12/20/23
ammonium lactate 12 % topical cream 1 applic topical Q12H b/l legs 04/03/24
bisacodyl 10 mg rectal suppository 10 mg AR DAILYPRN PRN constipation 04/03/24
cyanocobalamin (vitamin B-12) 1,000 mcg tablet 1,000 mcg PO DAILY Supplement 04/03/24
gabapentin 100 mg capsule 100 mg PO TID PAIN 04/03/24
miconazole nitrate 2 % topical powder 1 applic topical BID abd folds/groin 04/03/24
pantoprazole 40 mg tablet,delayed release 40 mg PO DAILY Gastrointestinal Issue 04/03/24
sodium bicarbonate 650 mg tablet 1,300 mg PO TID Supplement 04/03/24
acetaminophen 325 mg tablet (Tylenol) 650 mg PO Q4HPRN PRN mild pain/Temp >100 07/10/24
ipratropium 0.5 mg-albuterol 3 mg (2.5 mg base)/3 mL nebulization soln 3 ml inhalation R Q6HPRN PRN sob/wheezing 08/11/24
epoetin dora 2,000 unit/mL injection solution (Procrit) 3,000 unit SC TU Kidney Disease 08/18/24
ascorbic acid (vitamin C) 250 mg tablet (Vitamin C) 250 mg PO DAILY Supplement 10/31/24
dextromethorphan-guaifenesin 10 mg-100 mg/5 mL oral liquid (Diabetic Tussin DM) 10 ml PO Q4HPRN PRN COUGH 10/31/24
docusate sodium 100 mg capsule (Colace) 100 mg PO BID Gastrointestinal Issue 10/31/24
torsemide 10 mg tablet 20 mg PO BID Fluid Retention/Swelling 10/31/24
ammonium lactate 12 % topical cream 1 applic topical BIDPRN PRN dry skin 02/02/25
cinacalcet 30 mg tablet 30 mg PO DAILY calcium #0 tabs 02/06/25
ferrous sulfate 325 mg (65 mg iron) tablet 325 mg PO Q48H Supplement #0 tabs 02/06/25
medroxyprogesterone 10 mg tablet 10 mg PO DAILY Hormonal agent #0 tabs 02/06/25
polyethylene glycol 3350 17 gram oral powder packet (Miralax) 17 g PO DAILY Constipation #0 ea 02/06/25
tamsulosin 0.4 mg capsule 0.4 mg PO HS stone #0 caps 02/06/25
Home Medication Changes
Carafate, hydralazine, vitamin D, Imodium-all stopped
Sensipar is new, Flomax is new, MiraLAX changed to daily
Pending Results: Yes
Additional Pending Results:
Pleural fluid cytology pending
--- NOTE | 2025-02-06 12:46 | W.PN.NEPH.PH ---
Today's Communication / Plan
-
Okay for discharge from renal standpoint with follow-up 2 weeks continue Sensipar outpatient
Assessment/Plan
-
Assessment
CKD 4/5
Hypertension
Anemia
Stercoral colitis
Diabetes mellitus type 2
Right effusion
Pericardial effusion
Hypercalcemia
Plan
Follow BMP
Check PTH= pending
s/p Procrit outpatient
EPO ordered inpatient
No emergent dialysis needs
s/p 650 ml thoro 5/7
cr astable
Continue Sensipar for hyper calcium
Discussed with daughter
Corresponded with hospitalist
Okay for discharge from renal standpoint follow-up 2 weeks
-
-
Date of Service: February 06, 2025
CC / HPI / ROS
-
Chief Complaint:
abd pain
History of Present Illness:
ckd anemis of ckd s/p thoro 650
Review of Systems:
Mild abdominal discomfort
Labs
-
Labs:
WBC 5.1 10^3/uL (4.8-10.8) 02/06/25 07:20
RBC 2.94 10^6/uL (4.20-5.40) L 02/06/25 07:20
Hgb 8.9 g/dL (12.0-16.0) L 02/06/25 07:20
Hct 25.8 % (37.0-47.0) L 02/06/25 07:20
Plt Count 156 10^3/uL (130-400) 02/06/25 07:20
Sodium 141 mmol/L (135-145) 02/06/25 07:20
Potassium 4.3 mmol/L (3.5-5.1) 02/06/25 07:20
Chloride 108 mmol/L (98-107) H 02/06/25 07:20
Carbon Dioxide 23 mmol/L (22-30) 02/06/25 07:20
BUN 87 mg/dl (7-17) H 02/06/25 07:20
Creatinine 2.9 mg/dL (0.6-1.0) H 02/06/25 07:20
eGFR 15.97 02/06/25 07:20
Glucose 126 mg/dl (70-99) H 02/06/25 07:20
Calcium 11.0 mg/dl (8.4-10.2) H 02/06/25 07:20
Dxc-B-Opjuoifbnwh Pept 437 pg/ml 02/02/25 15:29
Albumin 3.0 g/dl (3.5-5.0) L 02/06/25 07:20
Physical Exam
-
Vital Signs:
Vital Signs
Temp Pulse Resp BP Pulse Ox
98.1 F 70 20 141/55 98
02/06/25 07:40 02/06/25 10:09 02/06/25 07:40 02/06/25 10:09 02/06/25 07:40
Cardiovascular:: Regular rate and rhythm
Respiratory:: Bilateral: CTA
Lung Excursion:: Normal
Abdomen:: Nontender and Soft
Bowel Sounds:: Normal
Extremity Edema:: +1: Bilateral:
Ghosh Catheter: No
[2025-02-06 15:23] VITALS: BP 130/56
--- NOTE | 2025-02-06 16:01 | PTCARENOTE ---
pt DC at 3:40. called [employer] pt for report, left message no call back. awaiting call from [employer] pt for report.
== END 2025-02-06 15:48 | DRG 186 ==
LOC: 4 EAST ACU 17:27
PROVIDERS: Internal Medicine Nephrology; Physician Assistant; Radiology Vascular & Interventional Radiology; ADMITTING PHYSICIAN Hospitalist; CONSULT PHYSICIAN Internal Medicine; CONSULT PHYSICIAN Specialist; EMERGENCY PHYSICIAN Student in an Organized Health Care Education/Training Program; FAMILY PHYSICIAN Internal Medicine
PROC: 30233N1 Transfusion of Nonautologous Red Blood Cells into Peripheral Vein, Percutaneous Approach (ICD-10-PCS; 2025-02-04)
PROC: 0W993ZZ Drainage of Right Pleural Cavity, Percutaneous Approach (ICD-10-PCS; 2025-02-04)
DX: J90 Pleural effusion, not elsewhere classified (principal); I50.33 Acute on chronic diastolic (congestive) heart failure; I13.2 Hypertensive heart and chronic kidney disease with heart failure and with stage 5 chronic kidney disease, or end stage renal disease; I31.39 Other pericardial effusion (noninflammatory); N20.2 Calculus of kidney with calculus of ureter; N25.81 Secondary hyperparathyroidism of renal origin; K52.89 Other specified noninfective gastroenteritis and colitis; Z79.899 Other long term (current) drug therapy; D50.9 Iron deficiency anemia, unspecified; E83.52 Hypercalcemia; E66.9 Obesity, unspecified; Z68.30 Body mass index [BMI] 30.0-30.9, adult; D63.1 Anemia in chronic kidney disease; E03.9 Hypothyroidism, unspecified; E11.22 Type 2 diabetes mellitus with diabetic chronic kidney disease; E78.00 Pure hypercholesterolemia, unspecified; I25.10 Atherosclerotic heart disease of native coronary artery without angina pectoris; K59.00 Constipation, unspecified; K62.89 Other specified diseases of anus and rectum; K80.20 Calculus of gallbladder without cholecystitis without obstruction; Z79.82 Long term (current) use of aspirin; Z99.2 Dependence on renal dialysis
CPT/HCPCS: 88305; 32555; 71045; 71046; 71250; 74019; 74176; 76604; 80053; 82306; 82945; 82962; 83519; 83605; 83615; 83690; 83880; 83970; 83986; 84157; 84443; 84478; 85025; 85027; 86850; 86900; 86901; 86920; 87015; 87070; 87205; 88112; 89051; 93005; 93306; 96365; 96375; 99285; P9016; Q5106

== ENCOUNTER → 2025-02-11 10:19 | Outpatient (REF) | payer MEDICARE, OTHER, SELFPAY | LOC: RCS 10:19 | PROVIDERS: ATTENDING PHYSICIAN Internal Medicine | DX: I31.39 Other pericardial effusion (noninflammatory) (principal) | CPT/HCPCS: 93308; 93321; 93325 ==

== ENCOUNTER 2025-03-02 11:18 | Day surgery (SDC) | payer MEDICARE, OTHER, SELFPAY ==
[2025-03-02] VITALS (12 sets, daily range): BP systolic 124–161; BP diastolic 55–139
[2025-03-02] MEDS: NSS 500 IV (11:30)
[2025-03-02 11:59] LABS: Glucose - Point of Care 104 mg/dl (70-99)
[2025-03-02 12:23] LABS: Hematocrit 28.6 % (37.0-47.0); Hemoglobin 9.2 g/dL (12.0-16.0); Mean Corp Hgb Conc. 32.2 g/dL (33.0-37.0); Mean Corpuscular Hgb 30.2 pg (27.0-31.0); Mean Corpuscular Volume 93.8 fL (81.0-99.0); Mean Platelet Volume 9.9 fL (7.4-10.4); Platelet Count 194 10^3/uL (130-400); Red Blood Cell Count 3.05 10^6/uL (4.20-5.40); Red Cell Dist. Width 16.2 % (11.5-14.5); White Blood Cell Count 5.7 10^3/uL (4.8-10.8)
[2025-03-02 12:37] LABS: Blood Urea Nitrogen 83 mg/dl (7-17); Calcium 10.4 mg/dl (8.4-10.2); Carbon Dioxide 19 mmol/L (22-30); Chloride 114 mmol/L (98-107); Glucose 96 mg/dl (70-99); Potassium 4.2 mmol/L (3.5-5.1); Sodium 144 mmol/L (135-145); eGFR 14.74
[2025-03-02 12:43] LABS: INR 1.04; PT 13.9 Sec (11.4-14.6)
[2025-03-02 12:44] LABS: APTT 42.2 Sec (23.4-35.0)
--- NOTE | 2025-03-02 14:00 | HP.FOC2 ---
Focused History & Physical
Chief Complaint
HPI:
Chief Complaint: ESRD
HPI / Indication for Planned Procedure: 79-year-old female here for left upper extremity fistulogram, possible balloon angioplasty/stent placement with Dr. Ghosh. On ultrasound AVF is noted to have likely insufficient flow volumes for HD and
perianastomotic stenosis. Patient is agreeable to today's procedure and wishes to proceed. Patient presents to her baseline health with no recent reports of illness or trauma.
Relevant Past Medical History: Other (Iron deficiency anemia, CAD, end-stage renal disease, diabetes, obesity, venous insufficiency, hypertension, hypothyroidism)
Relevant Social History: Negative
Relevant Family History: Negative
Relevant Past Surgical History: Positive for (AV fistula creation)
Review of Systems
Review of Pertinent Systems: All Systems Negative
Medication
See Medication form for detailed medications: Yes
Medication List (including Herbals & OTC):
allopurinol 100 mg tablet 100 mg PO DAILY Gout 09/07/22
atorvastatin 40 mg tablet (Lipitor) 40 mg PO QPM High cholesterol 09/07/22
carvedilol 25 mg tablet (Coreg) 25 mg PO BID Heart disease/condition 09/07/22
folic acid 1 mg tablet 1 mg PO DAILY Supplement 09/07/22
levothyroxine 25 mcg tablet 25 mcg PO DAILY Thyroid 11/28/22
insulin aspart U-100 100 unit/mL (3 mL) subcutaneous pen (Novolog FlexPen U-100 Insulin aspart) 0 - 12 sliding scale dose SC ACHS Diabetes 03/26/23
aspirin 81 mg tablet,delayed release 81 mg PO DAILY Blood Clot Prevention/Tx 12/20/23
ammonium lactate 12 % topical cream 1 applic topical Q12H b/l legs 04/03/24
bisacodyl 10 mg rectal suppository 10 mg [place] DAILYPRN PRN constipation 04/03/24
cyanocobalamin (vitamin B-12) 1,000 mcg tablet 1,000 mcg PO DAILY Supplement 04/03/24
gabapentin 100 mg capsule 100 mg PO TID PAIN 04/03/24
miconazole nitrate 2 % topical powder 1 applic topical BID abd folds/groin 04/03/24
pantoprazole 40 mg tablet,delayed release 40 mg PO DAILY Gastrointestinal Issue 04/03/24
sodium bicarbonate 650 mg tablet 1,300 mg PO TID Supplement 04/03/24
acetaminophen 325 mg tablet (Tylenol) 650 mg PO Q4HPRN PRN mild pain/Temp >100 07/10/24
ipratropium 0.5 mg-albuterol 3 mg (2.5 mg base)/3 mL nebulization soln 3 ml inhalation R Q6HPRN PRN sob/wheezing 08/11/24
epoetin dora 2,000 unit/mL injection solution (Procrit) 3,000 unit SC TU Kidney Disease 08/18/24
ascorbic acid (vitamin C) 250 mg tablet (Vitamin C) 250 mg PO DAILY Supplement 10/31/24
dextromethorphan-guaifenesin 10 mg-100 mg/5 mL oral liquid (Diabetic Tussin DM) 10 ml PO Q4HPRN PRN COUGH 10/31/24
docusate sodium 100 mg capsule (Colace) 100 mg PO BID Gastrointestinal Issue 10/31/24
torsemide 10 mg tablet 20 mg PO BID Fluid Retention/Swelling 10/31/24
ammonium lactate 12 % topical cream 1 applic topical BIDPRN PRN dry skin 02/02/25
cinacalcet 30 mg tablet 30 mg PO DAILY calcium #0 tabs 02/06/25
medroxyprogesterone 10 mg tablet 10 mg PO DAILY Hormonal agent #0 tabs 02/06/25
polyethylene glycol 3350 17 gram oral powder packet (Miralax) 17 g PO DAILY Constipation #0 ea 02/06/25
tamsulosin 0.4 mg capsule 0.4 mg PO HS stone #0 caps 02/06/25
ferrous sulfate 325 mg (65 mg iron) tablet 325 mg PO .[id number] Supplement 02/19/25
[facility] with incomplete medication list
Medications Reviewed: Yes
Allergies and Reactions
Patient has Allergies: Yes
Noted Allergies and Reactions:
Allergy/AdvReac Type Severity Reaction Status Date / Time
Penicillins Allergy Hives Verified 01/08/25 08:08
Pertinent Physical Exam
All Other Systems: Negative
Head/Neck: Normal
Lungs: Normal
Heart: Normal
Abdomen: Normal
Extremities: Other (Left upper extremity AV fistula)
Neurological: Normal
Diagnosis / Assessment
End-stage renal disease, AV fistula with low flow volumes
Plan / Procedure
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 Ghosh.
Anesthesia/Sedation to be done by Anesthesia Provider: Yes
--- NOTE | 2025-03-02 15:17 | W.SUR.POST ---
Surgical Immediate Post Op
Note
Pre Op Diagnosis: ESRD
Post Op Diagnosis: ESRD
Procedure Performed: LUE fistulagram, central venogram, balloon angioplasty radial artery and proximal AVF
Primary Surgeon: Davina
Secondary Surgeons: Karen PGY5
Anesthesia: locla and sedation
Estimated Blood Loss: <2cc
Fluids: See anesthesia flow sheet
Drains/Shunts: none
Specimens/Cultures: none
Doppler/Duplex/Angio (Y/N): Y
Complications: none
Operative Findings: +thrill
[2025-03-02 15:49] LABS: Glucose - Point of Care 127 mg/dl (70-99)
--- NOTE | 2025-03-02 17:19 | OR.RPT ---
Operative Report
Operative Report
Date of Operation: 03/02/2025
Pre Op Diagnosis: Poorly functioning left forearm arteriovenous fistula
Post Op Diagnosis: Poorly functioning left forearm arteriovenous fistula
Procedure:
1. Diagnostic fistulogram, left upper extremity
2. Balloon angioplasty of left radial artery inflow (3 mm x 80 mm followed by 3.5 mm x 80 mm angioplasty balloon)
3. Balloon angioplasty of proximal venous outflow stenosis, adjacent to the arteriovenous anastomosis (5 mm x 40 mm angioplasty balloon)
4. Central venogram
Surgeon: Jairo Ghosh III, MD
Chief Transfer And Pumphouse Operator: Ascencion Jones MD, PGY5
Anesthesia: Sedation/local
Complications: None
Fluoroscopy:
6.4 minutes
11 mGy
2.07 DAP
History and Indications for Procedure: 79-year-old female with poorly functioning left forearm arteriovenous fistula
Procedure in Detail: Alis Tejeda was correctly identified and placed supine on the operating table. After adequate induction of anesthesia the left forearm was positioned, prepped and draped in the usual sterile fashion. A timeout procedure was
performed with the nursing and anesthesia staff confirming the patient�s identity as well as the nature and laterality of the procedure.
Intraoperative ultrasound was performed on the AV access. The access was patent. This was a left forearm radiocephalic arteriovenous fistula.
I identified a puncture site along the mid forearm and infiltrated local anesthesia at this site. I accessed the fistula with a micropuncture needle facing towards the arteriovenous anastomosis and placed the micropuncture sheath. I performed a
fistulogram which demonstrated the following:
Fistulogram: Patent fistula. Patent arteriovenous anastomosis. High-grade stenosis of the proximal outflow vein adjacent to the arteriovenous anastomosis. Cephalic vein in the forearm otherwise widely patent. High-grade inflow stenosis involving
the mid to distal radial artery. Diffuse radial artery calcification identified.
Endovascular intervention:
Systemic heparin was administered. A short 5 Fr sheath was placed. Under roadmap guidance a Glidewire and angled glide catheter were used to navigate across the proximal vein stenosis, the arteriovenous anastomosis and then retrograde through the
mid to distal radial artery stenosis. The catheter was advanced and then the wire was exchanged out for a [place] ST 0.014 wire. Under roadmap guidance I performed balloon angioplasty on the mid to distal radial artery stenosis using a 3 mm x 80 mm
angioplasty balloon. This balloon was also used to perform angioplasty on the proximal venous outflow stenosis. The balloon was inflated to nominal pressure at each segment and held in place for 2-minute inflation. Subsequent fistulogram
demonstrated an improved but suboptimal result. Under roadmap guidance and then brought into position a 5 mm x 40 mm angioplasty balloon. This was positioned across the proximal venous outflow stenosis under roadmap guidance. The balloon was
inflated to nominal pressure and held in place for 2 minutes before slowly deflating and removing over the wire. I then brought into position a 3.5 mm x 80 mm angioplasty balloon and positioned this across the mid to distal radial artery stenosis.
This balloon was inflated to nominal pressure and held in place for 2-minute inflation before slowly deflating and removing over the wire.
Completion fistulogram demonstrated an excellent technical result. The fistula was widely patent. The radial artery was widely patent with no residual stenosis or filling defects identified. The proximal vein stenosis was significantly improved
following angioplasty with no significant residual stenosis remaining. No venous outflow stenosis identified in the upper arm
Central venogram: Patent central veins with no evidence of central venous stenosis
At the conclusion of the procedure a Monocryl suture was placed around the sheath puncture site. The sheath was removed and the suture secured. Hemostasis was achieved. A sterile dressing was applied.
The patient tolerated the procedure well and was taken to the PACU in stable condition
Attestation: I was present and responsible for the entire procedure
Signed:
Jairo Ghosh III, MD
Vascular Surgery
[facility]
== END 2025-03-02 17:25 | disposition home or self-care (01) ==
LOC: CATH 11:18
PROVIDERS: ATTENDING PHYSICIAN Surgery Vascular Surgery; PRIMARYCARE PHYSICIAN Internal Medicine
DX: T82.858D Stenosis of other vascular prosthetic devices, implants and grafts, subsequent encounter (principal); Y83.2 Surgical operation with anastomosis, bypass or graft as the cause of abnormal reaction of the patient, or of later complication, without mention of misadventure at the time of the procedure; D50.9 Iron deficiency anemia, unspecified; Z79.890 Hormone replacement therapy; Z88.0 Allergy status to penicillin; E11.22 Type 2 diabetes mellitus with diabetic chronic kidney disease; E03.9 Hypothyroidism, unspecified; E66.9 Obesity, unspecified; I12.0 Hypertensive chronic kidney disease with stage 5 chronic kidney disease or end stage renal disease; I25.10 Atherosclerotic heart disease of native coronary artery without angina pectoris; I77.0 Arteriovenous fistula, acquired; I87.2 Venous insufficiency (chronic) (peripheral); N18.6 End stage renal disease; Z79.82 Long term (current) use of aspirin
CPT/HCPCS: 36902; 80048; 82962; 85027; 85610; 85730; C1725; C1769; C1894; Q9967

== ENCOUNTER → 2025-03-27 10:21 | Outpatient (REF) | payer MEDICARE, OTHER, SELFPAY | LOC: DHVS 10:21 | PROVIDERS: ATTENDING PHYSICIAN Surgery Vascular Surgery; FAMILY PHYSICIAN Internal Medicine; REFERRING PHYSICIAN Specialist | DX: I77.0 Arteriovenous fistula, acquired (principal) | CPT/HCPCS: 93990 ==

== ENCOUNTER 2025-04-28 10:24 | Emergency (ER) | payer MEDICARE, OTHER, SELFPAY ==
[2025-04-28] VITALS (16 sets, daily range): BP systolic 130–161; BP diastolic 52–70; BMI 32.1
--- NOTE | 2025-04-28 10:45 | ED.GENMED ---
History of Present Illness
General
Chief Complaint: Abnormal Lab Value
Time Seen by Provider: 04/28/25 10:37
History of Present Illness
History of Present Illness:
PAST MEDICAL HISTORY AND REVIEW OF OLD RECORDS
- The patient has a history of anemia and CKD. She also reports history of GI bleed but no clear source found. The hemoglobin 7 weeks ago was 9.2. In August 2024 it was as low as 6.3. She was also seen by Dr. Hay for postmenopausal
bleeding and was felt to have a submucosal fibroid.
Note:
CHIEF COMPLAINT(S)
Low hemoglobin level detected.
HISTORY OF PRESENT ILLNESS
The patient is a 79-year-old female who presents with low hemoglobin. A recent test indicated a hemoglobin level of 6.8, while her regular level is usually around 7. The patient mentions that if her hemoglobin drops to 8, there is a protocol for
alerting the transfusion department. She sees a vat house laborer regularly. The patient denies feeling weaker than normal and reports no abdominal or rectal bleeding. The patient has a history of gastrointestinal evaluations by a GI specialist, Dr. Medrano,
and these evaluations have been unremarkable. The patient prefers not to have a rectal examination currently. She takes aspirin but denies the use of other blood-thinning medications.
SOCIAL DETERMINANTS AFFECTING HEALTH
The patient resides in an assisted living facility at [facility], receiving assistance as needed.
PHYSICAL EXAM
General: Alert, appears somewhat pale and weak but very good mentation
Skin: Warm, dry.
Head: Normocephalic, atraumatic.
Neck: Supple, trachea midline.
Eyes, Ears, Nose, Mouth and Throat: Oral mucosa moist.
Cardiovascular: Normal peripheral perfusion, no edema.
Respiratory: Respirations are non-labored.
Gastrointestinal: Abdomen nondistended, no tenderness.
Back: Normal range of motion, normal alignment.
Musculoskeletal: Normal range of motion, normal strength.
Neurological: Alert and oriented to person, place, time, and situation, no focal neurological deficit observed.
Psychiatric: Cooperative, appropriate mood and affect. Pleasant
PLAN
1. Re-check the hemoglobin level to confirm current value.
2. Discuss possible interventions if hemoglobin remains low.
3. Monitor for any symptoms of anemia or related complications.
DIFFERENTIAL DIAGNOSIS
The Differential Diagnosis includes, in no particular order and is not limited to:
1. Gastrointestinal bleeding
2. Anemia of chronic disease
3. Iron deficiency anemia
4. Myelodysplastic syndrome
5. Hemolytic anemia
6. Chronic kidney disease
7. Vitamin B12 deficiency
8. Folate deficiency
9. Medication effects, specifically from aspirin
10. Bone marrow disorder
LABS
- Creatinine 3.2 (chronic), bicarb 18, hemoglobin 6.1, normal iron studies
UPDATE
-SUMMARY OF ENCOUNTER
The patient, a 79-year-old female, presented to the emergency department with a markedly low hemoglobin level of 6.1, although she is asymptomatic. Given this low hemoglobin level, further evaluation, such as a rectal examination, was considered to
assess for possible blood loss. However, the patient declined additional examination, citing extensive previous workups that found nothing. The patients renal function is at baseline, and iron studies show normal limits. A blood transfusion is being
administered, and her request for discharge post-transfusion is deemed reasonable.
PLAN
1. Administer a blood transfusion to address the low hemoglobin level.
2. Monitor hemoglobin levels post-transfusion.
3. Reassess the possible need for further diagnostic testing in future follow-ups if clinically indicated.
4. Discharge the patient post-transfusion if stable and agreeable.
INDEPENDENT REVIEW OF LABS AND INTERPRETATION OF TESTS
My independent review of the CBC indicates a low hemoglobin level at 6.1. My independent review of renal function tests shows values at baseline. My independent review of iron studies indicates they are within normal limits.
FOLLOW-UP INSTRUCTIONS
The patient should follow up with her regular vat house laborer to continue monitoring her hemoglobin levels and overall health.
MEDICAL DECISION MAKING
- Number and Complexity of Problems Addressed: Chronic conditions affecting care include ongoing anemia and past unremarkable gastrointestinal evaluations.
- Data:
Category 1: My independent review of the CBC and renal function tests.
Category 3: Patient declined further testing based on past workups and her current asymptomatic status.
- Risk: Prescription medication was not applicable as the primary intervention was a blood transfusion. Care significantly affected by Social Determinants of Health: The patient resides in an assisted living facility, influencing her care
requirements and follow-up planning.
DIAGNOSIS
1. Anemia, unspecified (ICD-10: D64.9).
I also spoke to her sister at bedside
Past History
Past History
ED Past Medical History: CAD, GERD, HTN, Hypercholesterolemia, NIDDM, Renal failure, Hypothyroidism and Other (Dysfunctional uterine bleeding, chronic kidney disease pending dialysis, Renal calculus, Iron def anemia, hemorrhagic disorder due to
extrinsic Circulatory anticoagulation. PNA, Back pain, )
ED Past Surgical History: Appendectomy, Gynecological (D&C), Orthopedic (Left carpal tunnel ), Tonsilectomy, Urological (Kidney stent) and Other (L AV fistula)
Social History
Tobacco: Non-smoker
Alcohol: Occasional
Drug: None
Personal: Single
Living: long-term
Family History
Family History: Diabetes, Hypertension and Early CAD; Negative Asthma or Cancer
Phy Exam
Physical Exam
Physical Exam:
See HPI
Course
Orders/Labs/Results
Orders:
Orders
04/28/25 10:49
Type+Screen Urgent
Complete Blood Count/With Diff Urgent
Comprehensive Metabolic Panel Urgent
Ferritin Urgent
Iron Urgent
Total Iron Binding Urgent
04/28/25 11:17
* Blood Bank Products Urgent
Blood Bank Products: *Packed RBC Leuko(PRBC's)
Quantity: 2
Transfuse Today: Yes
Reason: Anemia
Abnormal Lab Results
04/28/25
10:49
RBC 1.95 L 10^6/uL
(4.20-5.40)
Hgb 6.1 L* g/dL
(12.0-16.0)
Hct 19.7 L* %
(37.0-47.0)
MCV 101.0 H fL
(81.0-99.0)
MCH 31.3 H pg
(27.0-31.0)
MCHC 31.0 L g/dL
(33.0-37.0)
RDW 16.3 H %
(11.5-14.5)
Absolute Lymphs (auto) 1.1 L 10^3/uL
(1.2-3.4)
Neutrophils % 77.9 H %
(42.2-75.2)
Lymphocytes % 15.4 L %
(20.5-51.1)
Chloride 113 H mmol/L
(98-107)
Carbon Dioxide 18 L mmol/L
(22-30)
BUN 100 H mg/dl
(7-17)
Creatinine 3.2 H mg/dL
(0.6-1.0)
Glucose 115 H mg/dl
(70-99)
AST 12 L U/L
(14-36)
Total Protein 5.8 L g/dl
(6.3-8.2)
Crossmatch IS Only See Detail
04/28/25 10:49
04/28/25 10:49
Vital Signs
Initial and Last Documented VS:
Initial Vital Signs
Temp Pulse Resp BP Pulse Ox
37.2 C 78 20 140/70 100
04/28/25 10:26 04/28/25 10:26 04/28/25 10:26 04/28/25 10:26 04/28/25 10:26
Last Documented Vital Signs
Temp Pulse Resp BP Pulse Ox
36.8 C 74 16 144/58 100
04/28/25 12:31 04/28/25 12:31 04/28/25 12:31 04/28/25 12:31 04/28/25 12:31
*Pulse Oximetry
SaO2: 100
Oxygen Mode of Delivery: Room air
Patient hypoxic: no
*Critical Care Note
Total Time (30-74mins, 75-104mins- exclusive of procedures): Not Applicable
ED Attending Note
-
Portions of this chart may have been created with voice recognition software.� Occasional wrong word or��sound alike� substitutions may have occurred due to the inherent limitations of voice recognition software.
Discharge Plan
Departure
Patient Disposition: Home (Routine Discharge)
Date of Disposition: 04/28/25
Time of Disposition: 12:49
Patient with high blood pressure during this ER visit?: Yes
Discharge Problem:
Anemia
Instructions: Anemia overview, BLOOD PRESSURE
Prescriptions:
No Action
allopurinol 100 mg Tablet
100 mg PO DAILY
atorvastatin [Lipitor] 40 mg Tablet
40 mg PO QPM
carvedilol [Coreg] 25 mg Tablet
25 mg PO BID
folic acid 1 mg Tablet
1 mg PO DAILY
levothyroxine 25 mcg Tablet
25 mcg PO DAILY
insulin aspart U-100 [Novolog FlexPen U-100 Insulin] 100 unit/mL (3 mL) insulin pen
0 - 12 sliding scale dose SC ACHS
Rx Instructions:
BS 70-150 = 0 units; 151-200 = 2 units; 201-250 = 4 units; 251-300 = 6 units; 301-350 = 8 units; 351-400 = 10 units; 401-450 = 12 units. If BS>451 call PCP.
aspirin 81 mg Tablet,Delayed Release (Dr/Ec)
81 mg PO DAILY
miconazole nitrate 2 % Powder
1 applic TOPICAL BID
cyanocobalamin (vitamin B-12) 1,000 mcg Tablet
1,000 mcg PO DAILY
sodium bicarbonate 650 mg Tablet
1,300 mg PO TID
bisacodyl 10 mg Suppository
10 mg MI DAILYPRN PRN (Reason: constipation)
pantoprazole 40 mg Tablet,Delayed Release (Dr/Ec)
40 mg PO DAILY
gabapentin 100 mg Capsule
100 mg PO TID
acetaminophen [Tylenol] 325 mg Tablet
650 mg PO Q4HPRN PRN (Reason: mild pain/Temp >100)
Procrit 2,000 unit/mL Solution
3,000 unit SC TU
ipratropium-albuterol 0.5 mg-3 mg(2.5 mg base)/3 mL Solution For Nebulization
3 ml INHALATION R Q6HPRN PRN (Reason: sob/wheezing)
dextromethorphan-guaifenesin [Diabetic Tussin DM] 10-100 mg/5 mL Liquid
10 ml PO Q4HPRN PRN (Reason: COUGH)
torsemide 10 mg Tablet
20 mg PO BID
ascorbic acid (vitamin C) [Vitamin C] 250 mg Tablet
250 mg PO DAILY
docusate sodium [Colace] 100 mg Capsule
100 mg PO BID
ammonium lactate 12 % Cream
1 applic TOPICAL BIDPRN PRN (Reason: b/l lower extremiti)
cinacalcet 30 mg Tablet
30 mg PO DAILY Qty: 0 0RF
medroxyprogesterone 10 mg Tablet
10 mg PO DAILY Qty: 0 0RF
ferrous sulfate 325 mg (65 mg iron) tablet
325 mg PO Q48H@0800,1700
polyethylene glycol 3350 [Miralax] 17 gram powder in packet
17 g PO DAILYPRN PRN (Reason: constipation)
tamsulosin 0.4 mg capsule
0.4 mg PO HS
Referrals:
Jhonathan Gabriel MD [Family Provider]
Activity Restrictions/Additional Instructions:
Your hemoglobin was down to 6.1. Since you have no symptoms we did not admit you to the hospital. I have offered and considered doing a rectal examination however you have declined. Giving you 2 units of blood. Return here if worse or other
concerns. Iron levels are normal.
Interventions
Interventions:
*Risk Screen - Suicide Last Done: 04/28/25 10:26
*General Assessment Last Done: 04/28/25 10:26
*Neglect/Abuse Screening Last Done: 04/28/25 10:26
*ED- Fall Risk Assessment Last Done: 04/28/25 10:26
*ED COVID-19 Vaccine History Last Done: 04/28/25 10:26
Discharge Date and Time
Print Language: BULGARIAN
[2025-04-28 11:10] LABS: Hematocrit 19.7 % (37.0-47.0); Hemoglobin 6.1 g/dL (12.0-16.0); Mean Corp Hgb Conc. 31.0 g/dL (33.0-37.0); Mean Corpuscular Volume 101.0 fL (81.0-99.0); Nucleated Red Blood Cells % 0 %; Platelet Count 197 10^3/uL (130-400); Red Cell Dist. Width 16.3 % (11.5-14.5)
[2025-04-28 11:14] LABS: ALT (SGPT) 11 U/L (0-35); AST (SGOT) 12 U/L (14-36); Albumin 3.5 g/dl (3.5-5.0); Alkaline Phosphatase 64 U/L (38-126); Blood Urea Nitrogen 100 mg/dl (7-17); Calcium 9.2 mg/dl (8.4-10.2); Carbon Dioxide 18 mmol/L (22-30); Chloride 113 mmol/L (98-107); Estimated Creatinine Clearance 17 ml/min; Glucose 115 mg/dl (70-99); Iron 91 ug/dl (37-170); Potassium 4.3 mmol/L (3.5-5.1); Sodium 142 mmol/L (135-145); Total Protein 5.8 g/dl (6.3-8.2); eGFR 14.19
[2025-04-28 11:24] LABS: Total Iron Binding Capacity 315 ug/dl (265-497)
[2025-04-28 11:50] LABS: Ferritin 14.1 ng/ml (11.1-264.0)
== END 2025-04-28 18:29 | disposition home or self-care (01) ==
LOC: EMR 10:24
PROVIDERS: EMERGENCY PHYSICIAN Emergency Medicine; FAMILY PHYSICIAN Internal Medicine
DX: D64.9 Anemia, unspecified (principal); N18.9 Chronic kidney disease, unspecified; Z79.82 Long term (current) use of aspirin
CPT/HCPCS: 36430; 99285; 80053; 82728; 83540; 83550; 85025; 86850; 86900; 86901; 86920; P9016

== ENCOUNTER → 2025-04-29 13:01 | Outpatient (REF) | payer MEDICARE, OTHER, SELFPAY | LOC: DHVS 13:01 | PROVIDERS: ATTENDING PHYSICIAN Surgery Vascular Surgery; FAMILY PHYSICIAN Internal Medicine; OTHER PHYSICIAN Registered Nurse | DX: N18.9 Chronic kidney disease, unspecified (principal) | CPT/HCPCS: 93990 ==

== ENCOUNTER 2025-05-21 03:04 | Emergency (ER) | payer MEDICARE, OTHER, SELFPAY ==
[2025-05-21] VITALS (18 sets, daily range): BP systolic 132–166; BP diastolic 53–87; BMI 33.8
--- NOTE | 2025-05-21 03:53 | ED.GENMED ---
History of Present Illness
General
Chief Complaint: Abnormal Lab Value
Source: patient, ambulance crew, [facility] and previous hospital records (ED visit for very similar complaint April 28. Hemoglobin was 6.1. Required 2 units packed red blood cells.)
Exam Limitations: none
Time Seen by Provider: 05/21/25 03:08
Nursing documentation reviewed up to this point in time: agreed with
History of Present Illness
History of Present Illness:
This is a breana 79-year-old woman who resides at a local [facility]. She has history of end-stage renal disease, contemplating initiation of dialysis within the next few months. History of chronic anemia, history of GI bleeds without definitive
source found. Follows with hematology, Dr. Ríos and requires sporadic blood transfusions. Most recently evaluated in this ED April 28 due to outpatient labs showing low hemoglobin below 7. Hemoglobin April 28 was 6.1 and she received 2 units of
packed red blood cells.
She continues to have blood drawn 3 times weekly and was noted to have hemoglobin of 6.9 May 18 and then 6.5 May 20. With result of hemoglobin 6.5 [facility] decided to send the patient to the ED early this morning.
She denies dizziness or lightheadedness, denies coughing or shortness of breath, denies chest pain, denies fatigue. She denies black nor tarry stools.
Past History
Past History
ED Past Medical History: CAD, GERD, HTN, Hypercholesterolemia, NIDDM, Renal failure, Hypothyroidism and Other (Dysfunctional uterine bleeding, chronic kidney disease pending dialysis, Renal calculus, Iron def anemia, hemorrhagic disorder due to
extrinsic Circulatory anticoagulation. PNA, Back pain, )
ED Past Surgical History: Appendectomy, Gynecological (D&C), Orthopedic (Left carpal tunnel ), Tonsilectomy, Urological (Kidney stent) and Other (L AV fistula March 2025)
Social History
Tobacco: Non-smoker
Alcohol: Occasional
Drug: None
Personal: Single
Living: [facility]
Family History
Family History: Diabetes, Hypertension and Early CAD; Negative Asthma or Cancer
Phy Exam
Physical Exam
Physical Exam:
GENERAL: 79-year-old woman appears her stated age, bright and alert, pleasant, appears in no acute distress.
EYE: Moderately pale conjunctiva.
NECK: Supple, nontender, no meningismus, no significant adenopathy. No JVD.
ENT: posterior pharynx is clear, oral mucosa is moist. TM clear b/l, nares patent.
CARDIAC: Regular rate and rhythm. 2/6 holosystolic murmur at right sternal border.
LUNGS: Clear breath sounds bilaterally, no acute respiratory distress, no wheezes/rales/rhonchi
ABDOMEN: Soft, nondistended, without focal tenderness, normoactive BS.
NEUROLOGICAL: Alert and oriented x3, no focal neuro deficits.
SKIN: Warm and dry, moderately pale in color, skin intact. No rash.
MUSCULOSKELETAL: No clubbing or cyanosis. Moderate nonpitting edema bilateral lower extremities. Peripheral pulses are full and equal b/l. No palpable tenderness.
PSYCH: Normal and appropriate interaction.
Course
Orders/Labs/Results
Orders:
Orders
05/21/25 03:36
Complete Blood Count/With Diff Urgent
Comprehensive Metabolic Panel Urgent
05/21/25 03:51
Type And Crossmatch [Type+Screen] Urgent
05/21/25 04:03
Blood Bank Products [* Blood Bank Products] Urgent
Blood Bank Products: *Packed RBC Leuko(PRBC's)
Quantity: 2
Transfuse Today: Yes
Reason: Anemia
Patient will require pre-treatment for transfusion:: No
05/21/25 05:43
Furosemide [Lasix] 20 mg IV NOW STA
Abnormal Lab Results
05/21/25 05/21/25
03:36 03:51
RBC 1.94 L 10^6/uL
(4.20-5.40)
Hgb 6.0 L* g/dL
(12.0-16.0)
Hct 19.4 L* %
(37.0-47.0)
MCV 100.0 H fL
(81.0-99.0)
MCHC 30.9 L g/dL
(33.0-37.0)
RDW 16.9 H %
(11.5-14.5)
Chloride 113 H mmol/L
(98-107)
BUN 92 H mg/dl
(7-17)
Creatinine 3.1 H mg/dL
(0.6-1.0)
Glucose 103 H mg/dl
(70-99)
AST 11 L U/L
(14-36)
Total Protein 5.5 L g/dl
(6.3-8.2)
Albumin 3.2 L g/dl
(3.5-5.0)
Crossmatch IS Only See Detail
05/21/25 03:36
05/21/25 03:36
Vital Signs
Initial and Last Documented VS:
Initial Vital Signs
BP
139/60
05/21/25 03:07
Last Documented Vital Signs
Temp Pulse Resp BP Pulse Ox
98.5 F 70 20 133/56 100
05/21/25 05:32 05/21/25 05:32 05/21/25 05:32 05/21/25 05:32 05/21/25 05:32
MDM/Problems Addressed
Differential Diagnosis Includes:
Concern for recurrent significant anemia.
Thus far however nothing to suggest symptomatic anemia.
According to records patient appears to require blood transfusions when hemoglobin drops below 7.
Prior history of GI bleeds, postmenopausal bleeding, anemia of chronic kidney disease. Currently denies GI bleed nor vaginal bleeding and declines rectal exam.
She remains hemodynamically stable.
Will recheck CBC and if hemoglobin of 6 we will plan to type and cross and transfuse for 2 units.
Ultimately patient will require prompt follow-up with field services director and would suggest regular visits with hematology for either IV iron versus blood transfusions on regular basis.
Patient following with nephrology, Dr. Kim and also following with Dr. Ghosh regarding left forearm AV graft.
MDM/Problems Addressed:
Acute on chronic anemia
Chronic kidney disease
Chronic conditions affecting care: HTN, Cardiomyopathy (History of CHF), Kidney disease and Other (Chronic anemia, history of GI bleeds, history of postmenopausal bleeding)
*Pulse Oximetry
SaO2: 100
Oxygen Mode of Delivery: Room air
Patient hypoxic: no
*Clay Structure Builder And Servicer Interpretation
Rate: normal
Interpretation: normal
Rhythm: sinus
*Critical Care Note
Total Time (30-74mins, 75-104mins- exclusive of procedures): Not Applicable
Update Note
Update Note:
Hemoglobin 6.0.
Will plan to type and cross and transfuse 2 units packed red blood cells.
Patient notes no prior history of transfusion reaction. Does not require pretreatment.
We will however consider a dose of Lasix between transfusions.
Ultimately will require prompt follow-up with hematology.
ED Attending Note
-
Portions of this chart may have been created with voice recognition software.� Occasional wrong word or��sound alike� substitutions may have occurred due to the inherent limitations of voice recognition software.
Discharge Plan
Departure
Patient Disposition: Penitentiary[facility]SNF
Date of Disposition: 05/21/25
Time of Disposition: 05:46
Discharge Problem:
Severe anemia, CKD (chronic kidney disease), stage V, Anemia in chronic kidney disease (CKD), Hypertensive kidney disease with chronic kidney disease stage V
Instructions: Blood transfusion
Prescriptions:
No Action
allopurinol 100 mg Tablet
100 mg PO DAILY
atorvastatin [Lipitor] 40 mg Tablet
40 mg PO QPM
carvedilol [Coreg] 25 mg Tablet
25 mg PO BID
folic acid 1 mg Tablet
1 mg PO DAILY
levothyroxine 25 mcg Tablet
25 mcg PO DAILY
insulin aspart U-100 [Novolog FlexPen U-100 Insulin] 100 unit/mL (3 mL) insulin pen
0 - 12 sliding scale dose SC ACHS
Rx Instructions:
BS 70-150 = 0 units; 151-200 = 2 units; 201-250 = 4 units; 251-300 = 6 units; 301-350 = 8 units; 351-400 = 10 units; 401-450 = 12 units. If BS>451 call PCP.
aspirin 81 mg Tablet,Delayed Release (Dr/Ec)
81 mg PO DAILY
miconazole nitrate 2 % Powder
1 applic TOPICAL BID
cyanocobalamin (vitamin B-12) 1,000 mcg Tablet
1,000 mcg PO DAILY
sodium bicarbonate 650 mg Tablet
1,300 mg PO TID
bisacodyl 10 mg Suppository
10 mg [place] DAILYPRN PRN (Reason: constipation)
pantoprazole 40 mg Tablet,Delayed Release (Dr/Ec)
40 mg PO DAILY
gabapentin 100 mg Capsule
100 mg PO TID
acetaminophen [Tylenol] 325 mg Tablet
650 mg PO Q4HPRN PRN (Reason: mild pain/Temp >100)
Procrit 2,000 unit/mL Solution
3,000 unit SC TU
ipratropium-albuterol 0.5 mg-3 mg(2.5 mg base)/3 mL Solution For Nebulization
3 ml INHALATION R Q6HPRN PRN (Reason: sob/wheezing)
dextromethorphan-guaifenesin [Diabetic Tussin DM] 10-100 mg/5 mL Liquid
10 ml PO Q4HPRN PRN (Reason: COUGH)
torsemide 10 mg Tablet
20 mg PO BID
ascorbic acid (vitamin C) [Vitamin C] 250 mg Tablet
250 mg PO DAILY
docusate sodium [Colace] 100 mg Capsule
100 mg PO BID
ammonium lactate 12 % Cream
1 applic TOPICAL BIDPRN PRN (Reason: b/l lower extremiti)
cinacalcet 30 mg Tablet
30 mg PO DAILY Qty: 0 0RF
medroxyprogesterone 10 mg Tablet
10 mg PO DAILY Qty: 0 0RF
ferrous sulfate 325 mg (65 mg iron) tablet
325 mg PO Q48H@0800,1700
polyethylene glycol 3350 [Miralax] 17 gram powder in packet
17 g PO DAILYPRN PRN (Reason: constipation)
tamsulosin 0.4 mg capsule
0.4 mg PO HS
Referrals:
Alek Ríos DO [Active, Hematology / Oncology] - Call in 1-3 days for appt
Nasim Kim MD [Active, Nephrology] - Keep scheduled appt
UNKNOWN - PT DOES,NOT KNOW [Family Provider]
Interventions
Interventions:
*Risk Screen - Suicide Last Done: 05/21/25 03:09
*General Assessment Last Done: 05/21/25 03:09
*Neglect/Abuse Screening Last Done: 05/21/25 03:09
*ED- Fall Risk Assessment Last Done: 05/21/25 03:09
*ED COVID-19 Vaccine History Last Done: 05/21/25 03:09
Discharge Date and Time
Print Language: VIETNAMESE
[2025-05-21 03:57] LABS: Hematocrit 19.4 % (37.0-47.0); Hemoglobin 6.0 g/dL (12.0-16.0); Mean Corp Hgb Conc. 30.9 g/dL (33.0-37.0); Mean Corpuscular Volume 100.0 fL (81.0-99.0); Nucleated Red Blood Cells % 0 %; Platelet Count 187 10^3/uL (130-400); Red Cell Dist. Width 16.9 % (11.5-14.5)
[2025-05-21 04:09] LABS: ALT (SGPT) 10 U/L (0-35); AST (SGOT) 11 U/L (14-36); Albumin 3.2 g/dl (3.5-5.0); Alkaline Phosphatase 64 U/L (38-126); Blood Urea Nitrogen 92 mg/dl (7-17); Calcium 9.4 mg/dl (8.4-10.2); Carbon Dioxide 22 mmol/L (22-30); Chloride 113 mmol/L (98-107); Estimated Creatinine Clearance 18 ml/min; Glucose 103 mg/dl (70-99); Potassium 4.4 mmol/L (3.5-5.1); Sodium 142 mmol/L (135-145); Total Protein 5.5 g/dl (6.3-8.2); eGFR 14.74
[2025-05-21] MEDS: LASIX 20 MG IV (09:40)
== END 2025-05-21 16:49 ==
LOC: EMR 03:04
PROVIDERS: EMERGENCY PHYSICIAN Emergency Medicine
DX: E11.22 Type 2 diabetes mellitus with diabetic chronic kidney disease (principal); I13.2 Hypertensive heart and chronic kidney disease with heart failure and with stage 5 chronic kidney disease, or end stage renal disease; I50.9 Heart failure, unspecified; N18.6 End stage renal disease; D63.1 Anemia in chronic kidney disease; Z99.2 Dependence on renal dialysis
CPT/HCPCS: 36430; 96374; 99285; 80053; 85025; 86850; 86900; 86901; 86920; P9016

== ENCOUNTER 2025-07-09 09:56 | Emergency (ER) | payer MEDICARE, OTHER, SELFPAY ==
[2025-07-09] VITALS (17 sets, daily range): BP systolic 137–177; BP diastolic 55–70
--- NOTE | 2025-07-09 10:06 | ED.GENMED ---
History of Present Illness
General
Chief Complaint: Abnormal Lab Value
Time Seen by Provider: 07/09/25 10:06
History of Present Illness
History of Present Illness:
FOCUSED PAST MEDICAL HISTORY
- Anemia
REVIEW OF OLD RECORDS
- The patient was seen here 2 months ago and was given 2 units of blood. Patient also had APC on EGD in 2023 and December 2024.
Note:
CHIEF COMPLAINT(S)
Low hemoglobin level, recent blood test indicating hemoglobin at 6.5 g/dL.
HISTORY OF PRESENT ILLNESS
The patient is a 79-year-old female with a history of gastrointestinal (GI) bleeding, presenting to the emergency room with a reported low hemoglobin level of 6.5 g/dL as noted at her [facility]. This value was obtained from a blood draw around
noon yesterday, before she received a dose of Epogen (epoetin dora) 10,000 units. The patient reports no current symptoms such as weakness or shortness of breath and states feeling 'super.' She admits a history of positive fecal occult blood tests,
attributing them to recurrent findings. The patient currently receives epoetin dora injections weekly, having experienced dose adjustments since it was reduced from 30,000 to 10,000 units over the past three weeks without a clear explanation.
PAST MEDICAL AND SURIGICAL HISTORY
History of gastrointestinal bleeding.
SOCIAL HISTORY
The patient resides in a [facility].
MEDICATIONS
Iron supplementation, Epogen (epoetin dora) 10,000 units weekly.
PHYSICAL EXAM
General: Alert, reported no acute distress.
Gastrointestinal: Positive fecal occult blood test.
PLAN
- Await blood test results to reassess hemoglobin levels.
- Reach out to the patients [facility] to discuss concerns regarding epoetin dosing adjustments.
- Monitor hemoglobin levels and ensure proper symptomatic management.
DIFFERENTIAL DIAGNOSIS
The Differential Diagnosis includes, in no particular order and is not limited to:
1. Gastrointestinal bleeding
2. Anemia of chronic disease
3. Iron deficiency anemia
4. Hemolytic anemia
5. Malabsorption syndrome
6. Renal anemia
7. Blood loss anemia
8. Bone marrow suppression
9. Drug-induced anemia
10. Response variability to erythropoietin therapy
Disposition:
SUMMARY OF ENCOUNTER
The patient, a 79-year-old female with a history of gastrointestinal bleeding, was seen in the emergency department due to a low hemoglobin level of 6.5 g/dL. She presented without symptoms such as weakness or shortness of breath. A blood
transfusion was proposed, and the patient consented to receive one unit of blood as her hemoglobin was close to 7. The patients epoetin dora dosing concerns were discussed with Dr. Cummins, who is gis application developer for her passenger relations representative, Dr. Kim. It was
mentioned that any dosing adjustments are made by the dialysis doctor. The patient clarified she has not yet started dialysis.
DISPOSITION
Discharge.
ASSESSMENT
Anemia secondary to gastrointestinal bleeding, noted low hemoglobin levels with a plan for blood transfusion. Concerns regarding epoetin dora dosing adjustments and a pending commencement of dialysis.
PLAN
Administer one unit of blood transfusion due to hemoglobin level nearing 7 g/dL and lack of symptoms. Continue outpatient follow-up with passenger relations representative Dr. Morales. Monitor anemia and epoetin dora treatment response.
INDEPENDENT REVIEW OF LABS AND INTERPRETATION OF TESTS
My independent review of recent labs indicates a hemoglobin level of 6.5 g/dL. Additional tests will be monitored to reassess hemoglobin levels post-transfusion.
PATIENT EDUCATION AND COUNSELING
The patient was informed about the necessity of the blood transfusion and the current plan for managing her anemia. Discussed the role of epoetin dora and potential adjustments with her physicians.
FOLLOW-UP INSTRUCTIONS
Follow up with current care team, including passenger relations representative Dr. Morales, and return to the emergency department for any concerning symptoms.
MEDICATION RECONCILIATION
Current medications include iron supplementation, epoetin dora (Epogen) 10,000 units weekly. No new prescriptions were made during this visit.
MEDICAL DECISION MAKING
-Complexity of Data Reviewed: Chronic conditions affecting care include a history of gastrointestinal bleeding. Differential Diagnosis includes gastrointestinal bleeding, anemia of chronic disease, iron deficiency anemia, hemolytic anemia,
malabsorption syndrome, renal anemia, blood loss anemia, bone marrow suppression, drug-induced anemia, and response variability to erythropoietin therapy.
-Data:
Category 1:
Reviewed patients recent hemoglobin levels indicating a drop to 6.5 g/dL.
Category 2:
No independent interpretation of imaging or additional tests noted.
Category 3:
Discussed epoetin dora dosing concerns with Dr. Smith -explained that the patient is not on dialysis and Dr. Kim is the only passenger relations representative involved remains unclear as to why the patient had decreased dose of Procrit.
DIAGNOSIS
Anemia
Past History
Past History
ED Past Medical History: CAD, GERD, HTN, Hypercholesterolemia, NIDDM, Renal failure, Hypothyroidism and Other (Dysfunctional uterine bleeding, chronic kidney disease pending dialysis, Renal calculus, Iron def anemia, hemorrhagic disorder due to
extrinsic Circulatory anticoagulation. PNA, Back pain, )
ED Past Surgical History: Appendectomy, Gynecological (D&C), Orthopedic (Left carpal tunnel ), Tonsilectomy, Urological (Kidney stent) and Other (L AV fistula March 2025)
Social History
Tobacco: Non-smoker
Alcohol: Occasional
Drug: None
Personal: Single
Living: [facility]
Family History
Family History: Diabetes, Hypertension and Early CAD; Negative Asthma or Cancer
Phy Exam
Physical Exam
Physical Exam:
See HPI
Course
Orders/Labs/Results
Orders:
Orders
07/09/25 10:07
Type+Screen Urgent
Complete Blood Count/With Diff Urgent
07/09/25 10:12
Add On- LAB Urgent
Tests Added?: ferritin, Iron, total iron binding
07/09/25 10:26
* Blood Bank Products Urgent
Blood Bank Products: *Packed RBC Leuko (PRBC's
Quantity: 1
Transfuse Today: Yes
Reason: Anemia
07/09/25 11:58
Ferritin Urgent
Ferritin Urgent
Abnormal Lab Results
07/09/25
10:07
WBC 4.5 L 10^3/uL
(4.8-10.8)
RBC 2.16 L 10^6/uL
(4.20-5.40)
Hgb 6.7 L* g/dL
(12.0-16.0)
Hct 21.4 L %
(37.0-47.0)
MCV 99.1 H fL
(81.0-99.0)
MCHC 31.3 L g/dL
(33.0-37.0)
Absolute Lymphs (auto) 0.7 L 10^3/uL
(1.2-3.4)
Lymphocytes % 15.9 L %
(20.5-51.1)
Crossmatch IS Only See Detail
07/09/25 10:07
07/09/25 11:58
Vital Signs
Initial and Last Documented VS:
Initial Vital Signs
Temp Pulse Resp BP Pulse Ox
36.7 C 68 18 148/55 100
07/09/25 09:58 07/09/25 09:58 07/09/25 09:58 07/09/25 09:58 07/09/25 09:58
Last Documented Vital Signs
Temp Pulse Resp BP Pulse Ox
36.7 C 69 20 157/62 100
07/09/25 12:22 07/09/25 12:22 07/09/25 12:22 07/09/25 12:22 07/09/25 12:22
*Pulse Oximetry
SaO2: 100
Oxygen Mode of Delivery: Room air
Patient hypoxic: no
*Critical Care Note
Total Time (30-74mins, 75-104mins- exclusive of procedures): Not Applicable
ED Attending Note
-
Portions of this chart may have been created with voice recognition software.� Occasional wrong word or��sound alike� substitutions may have occurred due to the inherent limitations of voice recognition software.
Discharge Plan
Departure
Patient Disposition: Home (Routine Discharge)
Date of Disposition: 07/09/25
Time of Disposition: 11:38
Patient with high blood pressure during this ER visit?: Yes
Discharge Problem:
Anemia in chronic kidney disease (CKD)
Instructions: Anemia of inflammation (anemia of chronic disease), BLOOD PRESSURE
Prescriptions:
No Action
allopurinol 100 mg Tablet
100 mg PO DAILY
atorvastatin [Lipitor] 40 mg Tablet
40 mg PO QPM
carvedilol [Coreg] 25 mg Tablet
25 mg PO BID
folic acid 1 mg Tablet
1 mg PO DAILY
levothyroxine 25 mcg Tablet
25 mcg PO DAILY
insulin aspart U-100 [Novolog FlexPen U-100 Insulin] 100 unit/mL (3 mL) insulin pen
0 - 12 sliding scale dose SC ACHS
Rx Instructions:
BS 70-150 = 0 units; 151-200 = 2 units; 201-250 = 4 units; 251-300 = 6 units; 301-350 = 8 units; 351-400 = 10 units; 401-450 = 12 units. If BS>451 call PCP.
aspirin 81 mg Tablet,Delayed Release (Dr/Ec)
81 mg PO DAILY
miconazole nitrate 2 % Powder
1 applic TOPICAL BID
cyanocobalamin (vitamin B-12) 1,000 mcg Tablet
1,000 mcg PO DAILY
sodium bicarbonate 650 mg Tablet
1,300 mg PO TID
bisacodyl 10 mg Suppository
10 mg [place] DAILYPRN PRN (Reason: constipation)
pantoprazole 40 mg Tablet,Delayed Release (Dr/Ec)
40 mg PO DAILY
gabapentin 100 mg Capsule
100 mg PO TID
acetaminophen [Tylenol] 325 mg Tablet
650 mg PO Q4HPRN PRN (Reason: mild pain/Temp >100)
Procrit 2,000 unit/mL Solution
3,000 unit SC TU
ipratropium-albuterol 0.5 mg-3 mg(2.5 mg base)/3 mL Solution For Nebulization
3 ml INHALATION R Q6HPRN PRN (Reason: sob/wheezing)
dextromethorphan-guaifenesin [Diabetic Tussin DM] 10-100 mg/5 mL Liquid
10 ml PO Q4HPRN PRN (Reason: COUGH)
torsemide 10 mg Tablet
20 mg PO BID
ascorbic acid (vitamin C) [Vitamin C] 250 mg Tablet
250 mg PO DAILY
docusate sodium [Colace] 100 mg Capsule
100 mg PO BID
ammonium lactate 12 % Cream
1 applic TOPICAL BIDPRN PRN (Reason: b/l lower extremiti)
cinacalcet 30 mg Tablet
30 mg PO DAILY Qty: 0 0RF
medroxyprogesterone 10 mg Tablet
10 mg PO DAILY Qty: 0 0RF
ferrous sulfate 325 mg (65 mg iron) tablet
325 mg PO Q48H@0800,1700
polyethylene glycol 3350 [Miralax] 17 gram powder in packet
17 g PO DAILYPRN PRN (Reason: constipation)
tamsulosin 0.4 mg capsule
0.4 mg PO HS
Referrals:
Jhonathan Gabriel MD [Family Provider]
Activity Restrictions/Additional Instructions:
1 unit of blood has been ordered. Regarding your question appropriate, I have recommended to discuss Dr. Kim. I notified Dr. Smith or your concerns.
Interventions
Interventions:
*Risk Screen - Suicide Last Done: 07/09/25 09:58
*General Assessment Last Done: 07/09/25 09:58
*Neglect/Abuse Screening Last Done: 07/09/25 09:58
*ED- Fall Risk Assessment Last Done: 07/09/25 09:58
*ED COVID-19 Vaccine History Last Done: 07/09/25 09:58
Discharge Date and Time
Print Language: KHMER
[2025-07-09 10:23] LABS: Hematocrit 21.4 % (37.0-47.0); Hemoglobin 6.7 g/dL (12.0-16.0); Mean Corp Hgb Conc. 31.3 g/dL (33.0-37.0); Mean Corpuscular Volume 99.1 fL (81.0-99.0); Nucleated Red Blood Cells % 0 %; Platelet Count 212 10^3/uL (130-400); Red Cell Dist. Width 14.4 % (11.5-14.5)
[2025-07-09 13:10] LABS: Ferritin 13.7 ng/ml (11.1-264.0)
== END 2025-07-09 15:53 ==
LOC: EMR 09:56
PROVIDERS: EMERGENCY PHYSICIAN Emergency Medicine; FAMILY PHYSICIAN Internal Medicine
DX: I12.9 Hypertensive chronic kidney disease with stage 1 through stage 4 chronic kidney disease, or unspecified chronic kidney disease (principal); E11.22 Type 2 diabetes mellitus with diabetic chronic kidney disease; N18.9 Chronic kidney disease, unspecified; D63.1 Anemia in chronic kidney disease; D50.0 Iron deficiency anemia secondary to blood loss (chronic); K92.2 Gastrointestinal hemorrhage, unspecified; Z90.49 Acquired absence of other specified parts of digestive tract; I25.10 Atherosclerotic heart disease of native coronary artery without angina pectoris
CPT/HCPCS: 36430; 99285; 82728; 85025; 86850; 86900; 86901; 86920; P9016

== ENCOUNTER 2025-08-16 04:16 | Emergency (ER) | payer MEDICARE, OTHER, SELFPAY ==
--- NOTE | 2025-08-16 04:27 | ED.GENMED ---
History of Present Illness
General
Chief Complaint: Blood Sugar Problem
Source: patient and ambulance crew
Exam Limitations: none
Time Seen by Provider: 08/16/25 04:19
History of Present Illness
History of Present Illness:
See MDM
Past History
Past History
ED Past Medical History: CAD, GERD, HTN, Hypercholesterolemia, NIDDM, Renal failure, Hypothyroidism and Other (Dysfunctional uterine bleeding, chronic kidney disease pending dialysis, Renal calculus, Iron def anemia, hemorrhagic disorder due to
extrinsic Circulatory anticoagulation. PNA, Back pain, )
ED Past Surgical History: Appendectomy, Gynecological (D&C), Orthopedic (Left carpal tunnel ), Tonsilectomy, Urological (Kidney stent) and Other (L AV fistula March 2025)
Social History
Tobacco: Non-smoker
Alcohol: Occasional
Drug: None
Personal: Single
Living: [facility]
Family History
Family History: Diabetes, Hypertension and Early CAD; Negative Asthma or Cancer
Phy Exam
Physical Exam
Physical Exam:
See MDM
Course
Orders/Labs/Results
Orders:
Orders
08/16/25 04:35
Complete Blood Count/With Diff Urgent
Comprehensive Metabolic Panel Urgent
Abnormal Lab Results
08/16/25 08/16/25 08/16/25
04:30 04:35 06:29
RBC 2.97 L 10^6/uL
(4.20-5.40)
Hgb 9.1 L g/dL
(12.0-16.0)
Hct 29.3 L %
(37.0-47.0)
MCHC 31.1 L g/dL
(33.0-37.0)
Absolute Lymphs (auto) 0.6 L 10^3/uL
(1.2-3.4)
Neutrophils % 84.1 H %
(42.2-75.2)
Lymphocytes % 10.3 L %
(20.5-51.1)
Chloride 111 H mmol/L
(98-107)
Carbon Dioxide 17 L mmol/L
(22-30)
BUN 80 H mg/dl
(7-17)
Creatinine 3.1 H mg/dL
(0.6-1.0)
AST 12 L U/L
(14-36)
Total Protein 5.8 L g/dl
(6.3-8.2)
Albumin 3.4 L g/dl
(3.5-5.0)
POC Glucose 114 H mg/dl 155 H mg/dl
(70-99) (70-99)
08/16/25 04:35
08/16/25 04:35
Vital Signs
Initial and Last Documented VS:
Initial Vital Signs
Temp Pulse Resp BP Pulse Ox
97.8 F 67 18 174/89 100
08/16/25 04:31 08/16/25 04:31 08/16/25 04:31 08/16/25 04:31 08/16/25 04:31
Last Documented Vital Signs
Temp Pulse Resp BP Pulse Ox
97.8 F 66 19 143/68 100
08/16/25 04:31 08/16/25 06:00 08/16/25 06:00 08/16/25 06:00 08/16/25 06:00
MDM/Problems Addressed
Differential Diagnosis Includes:
Note:
CHIEF COMPLAINT(S)
Hypoglycemia.
HISTORY OF PRESENT ILLNESS
The patient is an 80-year-old female with a history of diabetes, presenting with recurrent episodes of hypoglycemia, with blood glucose readings of 51 mg/dL, 34 mg/dL, and currently 56 mg/dL. The patient denies the ingestion of excess insulin or
recent administration by others, including in the last 24 hours. She states that she only receives insulin if her blood glucose is above 150 mg/dL, which has not been the case. The patient reports taking oral diabetic medications but did not specify
the type. Her roommate notified her of the low blood sugar readings, but there was no indication of confusion during the episode. The patient denies missing meals and believes she ate adequately the previous night. There is no suspicion of anyone
tampering with her medication administration. The patient was offered juice to address the current low blood glucose level.
SOCIAL DETERMINANTS OF HEALTH
The patient shares living arrangements with a roommate, indicating some level of household support.
PHYSICAL EXAM
General: Alert, no acute distress.
Skin: Warm, dry.
Head: Normocephalic, atraumatic
Neck: Appears supple, trachea midline.
Eyes, Ears, Nose, Mouth, and Throat: Moist mucous membranes
Cardiovascular: No signs of cyanosis
Respiratory: Respirations are non-labored.
Abdomen: Non-distended
Musculoskeletal: No deformities
Neurological: No focal neurological deficit observed.
Psychiatric: Cooperative, appropriate mood and affect.
DIFFERENTIAL DIAGNOSIS
The Differential Diagnosis includes, in no particular order and is not limited to:
- Insulin overdose
- Inadequate carbohydrate intake
- Sulfonylurea use causing hypoglycemia
- Addisons disease
- Postprandial hypoglycemia
- Renal insufficiency affecting insulin clearance
- Non-prescribed insulin use
- Hypopituitarism
- Alcohol-induced hypoglycemia
- Insulinoma
MEDICAL DECISION MAKING
-Complexity of Data Reviewed: Chronic conditions affecting care, including diabetes.
-Data:
Category 1
- My independent review of blood glucose levels indicates hypoglycemia.
DIAGNOSIS
- Hypoglycemia (ICD-10: E16.2)
08/16/25 - 05:39
Blood sugar remains stable; plan to introduce complex carbohydrates alongside simple sugars for dietary management. Continue regular monitoring to assess the impact on glycemic control.
SUMMARY OF ENCOUNTER
The patient, an 80-year-old female with a history of diabetes, presented to the emergency department with recurrent episodes of hypoglycemia, with blood glucose readings of 51 mg/dL, 34 mg/dL, and 56 mg/dL. She was provided with juice and a sandwich
to address her low blood sugar. After prolonged observation, her blood sugar remained stable. The patient expressed that she felt comfortable going home and denied any current weakness, fatigue, or urinary symptoms.
DISPOSITION
Discharge.
ASSESSMENT
Recurrent hypoglycemia in a patient with diabetes, likely related to medication or dietary causes.
PLAN
Introduce complex carbohydrates alongside simple sugars for dietary management. Continue regular monitoring of blood glucose levels to assess the impact on glycemic control.
MEDICATION RECONCILIATION
The patient was administered juice and a sandwich to address hypoglycemia during the visit.
MEDICAL DECISION MAKING
-Complexity of Data Reviewed: Chronic conditions affecting care, including diabetes. Differential Diagnosis includes insulin overdose, inadequate carbohydrate intake, sulfonylurea use, Addisons disease, postprandial hypoglycemia, renal
insufficiency, non-prescribed insulin use, hypopituitarism, alcohol-induced hypoglycemia, insulinoma.
-Data:
Category 1: My independent review of blood glucose levels indicates hypoglycemia.
-Risk: Consideration of Admission/Observation: Escalation of care, including admission/observation, was considered given the complexity and risk of the patients presenting complaint, exam findings, and underlying comorbidities. However, ultimately,
I feel the patient is safe for outpatient management with close follow-up. Reasoning: Work-up reassuring, does not reveal any acute life/organ threatening processes, patients symptoms well-controlled upon reevaluation, reexamination is reassuring,
vitals are stable, patient agreeable with discharge, reliable for follow-up.
DIAGNOSIS
Hypoglycemia (ICD-10: E16.2)
*Pulse Oximetry
Patient hypoxic: no
*Critical Care Note
Total Time (30-74mins, 75-104mins- exclusive of procedures): Not Applicable
ED Attending Note
-
Portions of this chart may have been created with voice recognition software.� Occasional wrong word or��sound alike� substitutions may have occurred due to the inherent limitations of voice recognition software.
Discharge Plan
Departure
Patient Disposition: Home (Routine Discharge)
Date of Disposition: 08/16/25
Time of Disposition: 06:40
Patient with high blood pressure during this ER visit?: Yes
Discharge Problem:
Hypoglycemia
Instructions: Low blood sugar in adults - ED (DC), BLOOD PRESSURE
Prescriptions:
No Action
allopurinol 100 mg Tablet
100 mg PO DAILY
atorvastatin [Lipitor] 40 mg Tablet
40 mg PO QPM
carvedilol [Coreg] 25 mg Tablet
25 mg PO BID
folic acid 1 mg Tablet
1 mg PO DAILY
levothyroxine 25 mcg Tablet
25 mcg PO DAILY
insulin aspart U-100 [Novolog FlexPen U-100 Insulin] 100 unit/mL (3 mL) insulin pen
0 - 12 sliding scale dose SC ACHS
Rx Instructions:
BS 70-150 = 0 units; 151-200 = 2 units; 201-250 = 4 units; 251-300 = 6 units; 301-350 = 8 units; 351-400 = 10 units; 401-450 = 12 units. If BS>451 call PCP.
aspirin 81 mg Tablet,Delayed Release (Dr/Ec)
81 mg PO DAILY
miconazole nitrate 2 % Powder
1 applic TOPICAL BID
cyanocobalamin (vitamin B-12) 1,000 mcg Tablet
1,000 mcg PO DAILY
sodium bicarbonate 650 mg Tablet
1,300 mg PO TID
bisacodyl 10 mg Suppository
10 mg [place] DAILYPRN PRN (Reason: constipation)
pantoprazole 40 mg Tablet,Delayed Release (Dr/Ec)
40 mg PO DAILY
gabapentin 100 mg Capsule
100 mg PO TID
acetaminophen [Tylenol] 325 mg Tablet
650 mg PO Q4HPRN PRN (Reason: mild pain/Temp >100)
Procrit 2,000 unit/mL Solution
3,000 unit SC TU
ipratropium-albuterol 0.5 mg-3 mg(2.5 mg base)/3 mL Solution For Nebulization
3 ml INHALATION R Q6HPRN PRN (Reason: sob/wheezing)
dextromethorphan-guaifenesin [Diabetic Tussin DM] 10-100 mg/5 mL Liquid
10 ml PO Q4HPRN PRN (Reason: COUGH)
torsemide 10 mg Tablet
20 mg PO BID
ascorbic acid (vitamin C) [Vitamin C] 250 mg Tablet
250 mg PO DAILY
docusate sodium [Colace] 100 mg Capsule
100 mg PO BID
ammonium lactate 12 % Cream
1 applic TOPICAL BIDPRN PRN (Reason: b/l lower extremiti)
cinacalcet 30 mg Tablet
30 mg PO DAILY Qty: 0 0RF
medroxyprogesterone 10 mg Tablet
10 mg PO DAILY Qty: 0 0RF
ferrous sulfate 325 mg (65 mg iron) tablet
325 mg PO Q48H@0800,1700
polyethylene glycol 3350 [Miralax] 17 gram powder in packet
17 g PO DAILYPRN PRN (Reason: constipation)
tamsulosin 0.4 mg capsule
0.4 mg PO HS
Referrals:
Jhonathan Gabriel MD [Family Provider]
Activity Restrictions/Additional Instructions:
Please return for any worsening symptoms.
You may return at any time if you have further concerns.
Please follow up with your doctor at the first available appointment, preferably this week.
Thank you for choosing [facility].
Interventions
Interventions:
*Risk Screen - Suicide Last Done: 08/16/25 04:31
*General Assessment Last Done: 08/16/25 04:31
*Neglect/Abuse Screening Last Done: 08/16/25 05:37
*ED- Fall Risk Assessment Last Done: 08/16/25 05:31
*ED COVID-19 Vaccine History Last Done: 08/16/25 05:31
*ED Influenza Vaccine History Last Done: 08/16/25 05:31
ED- Neurological Assessment Last Done: 08/16/25 05:26
Discharge Date and Time
Print Language: CHINESE
[2025-08-16 04:31] VITALS: BP 174/89
[2025-08-16 04:34] VITALS: BMI 32.3
[2025-08-16 04:37] LABS: Glucose - Point of Care 114 mg/dl (70-99)
[2025-08-16 04:46] LABS: Hematocrit 29.3 % (37.0-47.0); Hemoglobin 9.1 g/dL (12.0-16.0); Mean Corp Hgb Conc. 31.1 g/dL (33.0-37.0); Mean Corpuscular Volume 98.7 fL (81.0-99.0); Nucleated Red Blood Cells % 0 %; Platelet Count 220 10^3/uL (130-400); Red Cell Dist. Width 14.5 % (11.5-14.5)
[2025-08-16 05:00] VITALS: BP 134/99
[2025-08-16 05:01] LABS: ALT (SGPT) < 10 U/L (0-35); AST (SGOT) 12 U/L (14-36); Albumin 3.4 g/dl (3.5-5.0); Alkaline Phosphatase 63 U/L (38-126); Blood Urea Nitrogen 80 mg/dl (7-17); Calcium 9.3 mg/dl (8.4-10.2); Carbon Dioxide 17 mmol/L (22-30); Chloride 111 mmol/L (98-107); Estimated Creatinine Clearance 18 ml/min; Glucose 99 mg/dl (70-99); Potassium 4.9 mmol/L (3.5-5.1); Sodium 138 mmol/L (135-145); Total Protein 5.8 g/dl (6.3-8.2); eGFR 14.65
[2025-08-16 05:35] LABS: Glucose - Point of Care 95 mg/dl (70-99)
[2025-08-16 06:00] VITALS: BP 143/68
[2025-08-16 06:31] LABS: Glucose - Point of Care 155 mg/dl (70-99)
[2025-08-16 09:36] LABS: Glucose - Point of Care 130 mg/dl (70-99)
== END 2025-08-16 09:53 | disposition home or self-care (01) ==
LOC: EMR 04:16
PROVIDERS: EMERGENCY PHYSICIAN Student in an Organized Health Care Education/Training Program; FAMILY PHYSICIAN Internal Medicine
DX: E11.649 Type 2 diabetes mellitus with hypoglycemia without coma (principal); I25.10 Atherosclerotic heart disease of native coronary artery without angina pectoris; I10 Essential (primary) hypertension; E78.00 Pure hypercholesterolemia, unspecified; E03.9 Hypothyroidism, unspecified; Z90.49 Acquired absence of other specified parts of digestive tract
CPT/HCPCS: 99283; 80053; 82962; 85025